=== PATIENT | male | born 1950 | race Caucasian/White ===

== ENCOUNTER 2019-11-20 00:07 | Outpatient (CLI) | payer BC, SELFPAY ==
[2019-11-20 19:45] LABS: SARS-CoV-2 RNA PCR Negative
== END 2019-11-20 00:08 | disposition home or self-care (01) ==
LOC: ANHCOVIDDT 00:07
PROVIDERS: PCP Family Medicine; Visit Provider Internal Medicine Gastroenterology
DX: Z01.812 Encounter for preprocedural laboratory examination (principal); Z11.59 Encounter for screening for other viral diseases
CPT/HCPCS: 87635; C9803; U0003

== ENCOUNTER 2019-11-22 03:46 | Day surgery (SDC) | payer BC, SELFPAY ==
[2019-11-15 12:50] VITALS: BMI 33.5
[2019-11-22 07:50] VITALS: BP 113/65; PULSE 78; RESP 18; TEMP 36.7; O2SAT 96
--- NOTE | 2019-11-22 08:12 | WPDANESEPPF ---
Anes - Initial Pre Proc Eval Procedure: Operation Date: 11/22/19 08:30 Proposed Procedures p Colonoscopy - Allan Mixon DO Date/Time: 11/22/19 08:12 Surgeon: Allan Mixon DO Pre Op Diagnosis: fecal abnormalities Patient Data Age: 69 Gender: M Height: 1.8 m Weight: 105.9 kg Last Vital Signs Temp 36.7 C 11/22/19 07:50 Pulse 78 11/22/19 07:50 Resp 18 11/22/19 07:50 BP 113/65 11/22/19 07:50 Pulse Ox 96 11/22/19 07:50 Allergies Allergy/AdvReac Type Severity Reaction Status Date / Time No Known Allergies Allergy Verified 11/22/19 07:43 Home Medications Medication Instructions Recorded Confirmed Type amlodipine 10 mg tablet 10 mg PO DAILY 10/17/19 11/22/19 History cholecalciferol (vitamin D3) 25 25 mcg PO DAILY #1 cap 10/17/19 11/22/19 Rx mcg (1,000 unit) capsule clopidogrel 75 mg tablet 75 mg PO DAILY 10/17/19 11/22/19 History doxycycline hyclate 100 mg capsule 100 mg PO DAILY 10/17/19 11/22/19 History duloxetine 60 mg capsule,delayed 60 mg PO DAILY 10/17/19 11/22/19 History release furosemide 40 mg tablet 40 mg PO QAM 10/17/19 11/15/19 History gabapentin 300 mg capsule 600 mg PO BID cap 10/17/19 11/22/19 History hydralazine 100 mg tablet 100 mg PO TID tablet 10/17/19 11/22/19 History metoprolol succinate 100 mg 100 mg PO BID 10/17/19 11/22/19 History tablet,extended release 24 hr potassium chloride 10 mEq 20 meq PO DAILY 10/17/19 11/22/19 History capsule,extended release pramipexole 1 mg tablet 1 mg PO .QHS tablet 10/17/19 11/22/19 History aspirin 81 mg PO DAILY 11/15/19 11/22/19 History cyclobenzaprine 5 mg PO BID 11/15/19 11/22/19 History dulaglutide [Trulicity] 0.75 mg SUBCUT WEEKLY 11/15/19 11/22/19 History insulin glargine [Lantus U-100 70 unit SUBCUT QPM 11/15/19 11/22/19 History Insulin] losartan 100 mg PO DAILY 11/15/19 11/22/19 History rosuvastatin 40 mg PO DAILY 11/15/19 11/22/19 History Patient hx anesthesia problems: none Family hx anesthesia problems: none [facility] Past Medical History Medical History (Updated 11/22/19 @ 08:15 by Leo Reilly MD) Arthritis of left subtalar joint Carotid stenosis Diabetes Displaced other fracture of tuberosity of left calcaneus, subsequent encounter for fracture with routine healing (03/03/19) Essential (primary) hypertension HLD (hyperlipidemia) HTN (hypertension) Low kidney function Mixed hyperlipidemia YOLIS on CPAP PVD (peripheral vascular disease) Type 2 diabetes mellitus with hyperglycemia Surgical History Surgical History (Updated 11/22/19 @ 08:15 by Leo Reilly MD) H/O carotid endarterectomy H/O heart artery stent H/O shoulder surgery History of coronary artery stent placement Social History Social History Smoking status: Former smoker Tobacco type: cigarettes Second hand tobacco smoke exposure: No Smoking end date: 05/23/15 Alcohol intake: current Substance use: unknown Gender identity (if verbalized by the patient): Male Spiritual care concerns: No Anes - Eval Final PreProcedure Day of Procedure 11/22/19 08:12 Patient weight: obese Heart: regular rate and rhythm Lungs: clear to auscultation and normal air movement Airway: Mallampati scale class II Neurological: alert and oriented Last oral intake: >/= 8 hours ASA classification: IV Emergent: no Anesthetic plan: proceed Anesthesia type and monitoring: general GIVS Informed Consent: The patient's anesthetic plan and its attendant risks and benefits were discussed with the patient/family/POA. Questions were solicited and answers provided to the satisfaction of the patient/family/POA.
[2019-11-22] MEDS: LACTATED RINGERS 1,000 ML 150 ML IV CONT (08:25)
--- NOTE | 2019-11-22 08:39 | PM.IMHP ---
H&P: HPI History of Present Illness Chief complaint: fecal abnormalities Narrative: Reason for visit colonoscopy. This very pleasant gentleman seen in consultation at the request of the primary. Impression: Screening and surveillance colonoscopy. Patient's history adenomatous colon polyps. Was found to have occult blood in stool. The patient is here for colonoscopy. Per past medical history. Recommendation: Colonoscopy. History: This very pleasant gentleman is history adenomatous colon polyps. He is here for screening and surveillance. He was found to have occult blood in stool. review systems negative. Physical examination: General: very pleasant patient in no acute distress. HEENT: Head was normocephalic sclerae is clear mouth without masses neck was supple. Heart: Rate rhythm regular without S3 or S4. Lungs: CTA. Abdomen: Soft with no guarding or rigidity. Bowel sounds were active. Neurologic: Cranial nerves 2 through 12 intact. No focal defects. No clonus. Musculoskeletal system: Revealed no joint tenderness or swelling no muscle atrophy.Significant deformity of the right knee from multiple previous surgeries. Extremities: Reveal no significant edema. Skin: Warm and dry with normal turgor. Mental status: intact. Patient is alert and oriented. Review of Systems Review of Systems: All systems reviewed & are unremarkable except as noted in HPI and below PMFSH Past Medical History Medical History (Updated 11/22/19 @ 08:41 by Allan Mixon DO) Adenomatous colon polyp Arthritis of left subtalar joint CAD (coronary artery disease) Stent x 5 Carotid stenosis Diabetes HLD (hyperlipidemia) HTN (hypertension) YOLIS on CPAP PVD (peripheral vascular disease) Surgical History Surgical History (Updated 11/22/19 @ 08:42 by Allan Mixon DO) H/O carotid endarterectomy H/O colonoscopy H/O knee surgery R. Knee H/O shoulder surgery History of coronary artery stent placement Social History Social History Smoking status: Former smoker Tobacco type: cigarettes Second hand tobacco smoke exposure: No Smoking end date: 05/23/15 Alcohol intake: current Substance use: unknown Gender identity (if verbalized by the patient): Male Spiritual care concerns: No Meds Home Medications and Allergies Home Medications Medication Instructions Recorded Confirmed Type amlodipine 10 mg tablet 10 mg PO DAILY 10/17/19 11/22/19 History cholecalciferol (vitamin D3) 25 25 mcg PO DAILY #1 cap 10/17/19 11/22/19 Rx mcg (1,000 unit) capsule clopidogrel 75 mg tablet 75 mg PO DAILY 10/17/19 11/22/19 History doxycycline hyclate 100 mg capsule 100 mg PO DAILY 10/17/19 11/22/19 History duloxetine 60 mg capsule,delayed 60 mg PO DAILY 10/17/19 11/22/19 History release furosemide 40 mg tablet 40 mg PO QAM 10/17/19 11/15/19 History gabapentin 300 mg capsule 600 mg PO BID cap 10/17/19 11/22/19 History hydralazine 100 mg tablet 100 mg PO TID tablet 10/17/19 11/22/19 History metoprolol succinate 100 mg 100 mg PO BID 10/17/19 11/22/19 History tablet,extended release 24 hr potassium chloride 10 mEq 20 meq PO DAILY 10/17/19 11/22/19 History capsule,extended release pramipexole 1 mg tablet 1 mg PO .QHS tablet 10/17/19 11/22/19 History aspirin 81 mg PO DAILY 11/15/19 11/22/19 History cyclobenzaprine 5 mg PO BID 11/15/19 11/22/19 History dulaglutide [Trulicity] 0.75 mg SUBCUT WEEKLY 11/15/19 11/22/19 History insulin glargine [Lantus U-100 70 unit SUBCUT QPM 11/15/19 11/22/19 History Insulin] losartan 100 mg PO DAILY 11/15/19 11/22/19 History rosuvastatin 40 mg PO DAILY 11/15/19 11/22/19 History Allergies Allergy/AdvReac Type Severity Reaction Status Date / Time No Known Allergies Allergy Verified 11/22/19 07:43 Vital Signs Vital Signs - 24 hr 11/22/19 07:50 Temperature 36.7 C Pulse Rate 78 Respiratory Rate 1
[2019-11-22 09:31] VITALS: BP 95/48; PULSE 73; RESP 18; O2SAT 98
[2019-11-22 09:41] VITALS: BP 119/64; PULSE 72; RESP 18; O2SAT 98
[2019-11-22 09:51] VITALS: BP 130/65; PULSE 72; RESP 18; O2SAT 98
--- NOTE | 2019-11-22 13:02 | SUR.PHASEII ---
late entry 0937 accucheck done 73, pt awake drinking 2 apple juices. 0956 accucheck rechecked and now 67, pt voiced concerns about blood sugar cont. to drop and getting to low, anesthesia aware of accucheck states to give him more juice and candy bar. 1000 pt drinking orange juice and eating donut. denies any discomfort. 1018 accucheck rechecked and now 98, spouse callled with update and instructions given, encouraged to make sure pt eats some protein once he gets home.
[2019-11-22 13:30] LABS: Glucose Point of Care 73 (65-105)
[2019-11-22 13:30] LABS: Glucose Point of Care 67 (65-105)
[2019-11-22 13:30] LABS: Glucose Point of Care 87 (65-105)
[2019-11-22 13:30] LABS: Glucose Point of Care 98 (65-105)
== END 2019-11-22 10:35 | disposition home or self-care (01) ==
PROVIDERS: PCP Family Medicine; Visit Provider Internal Medicine Gastroenterology
PROC: 0DJD8ZZ Inspection of Lower Intestinal Tract, Via Natural or Artificial Opening Endoscopic (ICD-10-PCS; CPT 45378; principal; 2019-11-22 08:30)
DX: Z12.11 Encounter for screening for malignant neoplasm of colon (principal); D12.3 Benign neoplasm of transverse colon; K63.5 Polyp of colon; K64.8 Other hemorrhoids; I10 Essential (primary) hypertension; E78.2 Mixed hyperlipidemia; G47.33 Obstructive sleep apnea (adult) (pediatric); I25.10 Atherosclerotic heart disease of native coronary artery without angina pectoris; E11.51 Type 2 diabetes mellitus with diabetic peripheral angiopathy without gangrene; Z79.4 Long term (current) use of insulin; Z79.82 Long term (current) use of aspirin; Z79.02 Long term (current) use of antithrombotics/antiplatelets; Z95.5 Presence of coronary angioplasty implant and graft; Z87.891 Personal history of nicotine dependence; E66.9 Obesity, unspecified; Z68.32 Body mass index [BMI] 32.0-32.9, adult
CPT/HCPCS: 45385; 45380; 88305; J2704; J7120

== ENCOUNTER 2020-07-12 19:58 | Inpatient (IN) | payer MEDICARE, BC, SELFPAY ==
--- NOTE | ~2020-07-12 | US_ITS ---
EXAMINATION: US renal BI EXAM DATE: 07/13/2020 08:57 INDICATION: Acute kidney insufficiency. TECHNIQUE: Multiple grayscale and Doppler images of the kidneys were obtained (by a technologist who performed the scan) and subsequently reviewed. Correlation is made to CT 07/12/2020. FINDINGS: Right kidney: Right kidney measures 10.0 x 4.8 x 6.5 cm. There is no hydronephrosis. There is large a vascular mass like region lateral to it measuring 15 x 5 x 9 cm, the perinephric hematoma identified on yesterday's CT. Left kidney: There is normal contour and echogenicity. It measures 10.3 x 5.0 x 5.5 centimeters. Th ere are no focal renal lesions identified. There is no hydronephrosis. Bladder unremarkable. IMPRESSION: 1. Large right perinephric hematoma. 2. No hydronephrosis. Reviewed, dictated and finalized at location A. COVERER
--- NOTE | ~2020-07-12 | CT_ITS ---
EXAMINATION: CT abdomen pelvis wo con DATE: 07/12/2020 22:03 INDICATION: Recent renal stents, elevated creatinine TECHNIQUE: Computed tomography (CT) of the abdomen and pelvis was performed without intravenous contr ast. The dose-length product (DLP) was 1328.07 mGy-cm. Automated exposure control and iterative recon struction technique were employed. COMPARISON: None FINDINGS: There are small pleural effusions, right greater than left. Airspace opacities are present in the right lower lobe. There is mild atelectasis in the left lower lobe. Cardiomegaly is noted. The re appears to be smooth interlobular septal thickening in the visualized lung bases although evaluati on is limited by respiratory motion. There is an approximately 15.7 x 11.9 x 9.4 cm high attenuation fluid collection adjacent to the right kidney which exerts mass effect on the right kidney and extend s into the retroperitoneum. There is a 2 mm stone of the left kidney. There is high attenuation mater ial in the urinary bladder. The liver, spleen, pancreas, and the left adrenal gland are normal. The r ight adrenal gland is obscured by fat stranding and hematoma. No pathologically enlarged abdominal or pelvic lymph nodes are identified. There is no free intraperitoneal gas or evidence of bowel obstruc tion. There is calcified atherosclerosis of the aorta and many of the other arteries. There is antegr emily intramedullary haider and interlocking intratrochanteric screw fixation of the right femur. Fat-cont aining inguinal hernias are noted. There is severe lumbar and thoracolumbar spondylosis. IMPRESSION: 1. Large right perinephric hematoma with extension into the retroperitoneum. High attenuation materia l in the urinary bladder could reflect hematoma and involvement of the renal collecting system. Urolo gic evaluation is recommended. 2. Small pleural effusions, right greater than left, with atelectasis versus pneumonia of the right l ower lobe Reviewed, dictated and finalized at location A. IC ADDRESS SYSTEM OPERATOR IMPRESSION: 1. Large right perinephric hematoma with extension into the retroperitoneum. Hi gh attenuation material in the urinary bladder could reflect hematoma and invol vement of the renal collecting system. Urologic evaluation is recommended. 2. Small pleural effusions, right greater than left, with atelectasis versus pn eumonia of the right lower lobe
--- NOTE | ~2020-07-12 | XR_ITS ---
EXAMINATION: XR chest 1V portable EXAM DATE: 07/12/2020 20:17 INDICATION: STEMI. Weakness, lethargic. Hypertension. TECHNIQUE: Portable AP frontal chest x-ray was obtained. Comparison is made to prior examination from 08/25/2016. FINDINGS: Bilateral ill-defined edema or pneumonia. No pneumothorax or pleural effusion. Cardiomedias tinal silhouette is normal. There is aortic arteriosclerosis. Degenerative IMPRESSION: Moderate amount of bilateral ill-defined edema or pneumonia. Reviewed, dictated and finalized at location A. NOSE AND THROAT SPECIALIST
--- NOTE | ~2020-07-12 | CT_ITS ---
EXAMINATION: CT brain wo con EXAM DATE: 07/13/2020 10:29 INDICATION: Altered mental status. TECHNIQUE: Spiral CT of the head was performed without contrast. Axial, coronal and sagittal images were reviewed. The dose-length product (DLP) for this examination was 605.33 mGy-cm. The exposure w as tailored according to patient size, and iterative reconstruction (ASIR) was used as additional dos e reduction technique. There is no prior study for comparison. FINDINGS: Multiple bilateral basal ganglia, right thalamic old lacunar infarctions. There is no acute intraparenchymal hemorrhage. No evidence of intraparenchymal brain mass lesion. No evidence of acu te infarction. Please note that initial head CT has limited sensitivity for small or acute infarctio ns. There is mild periventricular and subcortical hypodensity, nonspecific but probably related to sm all vessel ischemic disease. There is mild prominence of the sulci and ventricles related to cerebr al atrophy. There is intracranial carotid arteriosclerosis. There are no extra-axial collections. There is no mass effect or midline shift. Patient has had bilateral ocular lens surgery. Soft tiss ue is unremarkable. The visualized sinuses and mastoid air cells are well aerated. IMPRESSION: 1. No acute intracranial findings. 2. Chronic age related findings. Reviewed, dictated and finalized at location A. ER JOINER
[2020-07-12 19:53] VITALS: BP 137/61; PULSE 84; RESP 24; TEMP 36.2; O2SAT 97
[2020-07-12 20:02] VITALS: PULSE 84
--- NOTE | 2020-07-12 20:02 | ECG_ITS ---
Measurements Intervals [place] Rate: 74 P: 85 PA: 224 QRS: -13 QRSD: 126 T: 142 QT: 385 QTc: 427 Interpretive Statements SINUS RHYTHM WITH FIRST DEGREE AV BLOCK INTRAVENTRICULAR CONDUCTION DELAY LEFT VENTRICULAR HYPERTROPHY AND ST-T CHANGE INFERIOR INFARCT, AGE INDETERMINATE ST-T WAVE ABNORMALITY IN HIGH LATERAL LEADS- CONSIDER ISCHEMIA ABNORMAL ECG Electronically Signed On 07-13-2020 7:56:58 X RAY DEVELOPER by Edwin Nogueira D.O.
--- NOTE | 2020-07-12 20:11 | PC.NURSE ---
stemi cancelled per dr randhawa at 2003
--- NOTE | 2020-07-12 20:42 | ED.GENADULT ---
HPI - General Adult General Chief complaint: Weakness Stated complaint: CP Time Seen by Provider: 07/12/20 20:08 History of Present Illness HPI narrative: Patient is a 70-year-old gentleman who presents the emergency department with chief complaint of generalized weakness. Patient recently had what he describes as renal stents done in [place] and stated that he has been weak ever since. Patient has had no chest pain no shortness of breath stated that he been sleeping all day and his called EMS. EMS initially thought there were ST elevations present on the EKG but in subsequent review there is no more than half a millimeter of ST elevations and there are Q waves this is similar to previous EKGs from 2017. Related Data Home Medications Medication Instructions Recorded Confirmed clopidogrel 75 mg tablet 75 mg PO DAILY 10/17/19 11/22/19 doxycycline hyclate 100 mg capsule 100 mg PO DAILY 10/17/19 11/22/19 duloxetine 60 mg capsule,delayed 60 mg PO DAILY 10/17/19 11/22/19 release furosemide 40 mg tablet 40 mg PO QAM 10/17/19 11/15/19 gabapentin 300 mg capsule 600 mg PO BID cap 10/17/19 11/22/19 hydralazine 100 mg tablet 100 mg PO TID tablet 10/17/19 11/22/19 metoprolol succinate 100 mg 100 mg PO BID 10/17/19 11/22/19 tablet,extended release 24 hr potassium chloride 10 mEq 20 meq PO DAILY 10/17/19 11/22/19 capsule,extended release pramipexole 1 mg tablet 1 mg PO .QHS tablet 10/17/19 11/22/19 aspirin 81 mg PO DAILY 11/15/19 11/22/19 cyclobenzaprine 5 mg PO BID 11/15/19 11/22/19 insulin glargine [Lantus U-100 60 unit SUBCUT QPM 11/15/19 11/22/19 Insulin] losartan 100 mg PO DAILY 11/15/19 11/22/19 rosuvastatin 40 mg PO DAILY 11/15/19 11/22/19 famotidine 20 mg PO BID 07/12/20 insulin aspart U-100 [Novolog 5 unit SUBCUT TID 07/12/20 Flexpen U-100 Insulin] semaglutide [Ozempic] 1 mg SUBCUT WEEKLY 07/12/20 Allergies Allergy/AdvReac Type Severity Reaction Status Date / Time No Known Allergies Allergy Verified 11/27/19 09:11 Review of Systems Review of Systems: Narrative: A 10 system review of systems was completed on the patient and is negative except for what is stated in the HPI. Nursing and ancillary documentation was reviewed. [facility] Past Medical History Medical History (Updated 07/12/20 @ 23:05 by Sascha Sethi MD) Adenomatous colon polyp Arthritis of left subtalar joint CAD (coronary artery disease) Stent x 5 Carotid stenosis Diabetes HLD (hyperlipidemia) HTN (hypertension) YOLIS on CPAP PVD (peripheral vascular disease) Surgical History Surgical History H/O carotid endarterectomy H/O colonoscopy H/O knee surgery R. Knee H/O shoulder surgery History of coronary artery stent placement Family History Family History Father Family history of malignant neoplasm Family history of coronary artery disease Hypertension Family history of diabetes mellitus in first degree relative Mother Family history of Alzheimer's disease Other Cancer Diabetes mellitus Family history of arthritis Family history of cardiovascular disease Heart disease Social History Social History Smoking status: Current some day smoker Tobacco type: cigarettes Second hand tobacco smoke exposure: No Smoking end date: 05/23/15 Alcohol intake: current Substance use: unknown Gender identity (if verbalized by the patient): Male Spiritual care concerns: No Exam Narrative: Exam Narrative: GENERAL: Well-appearing, well-nourished, and in no acute distress. HEAD: Normocephalic, atraumatic. EYES: PERRLA and EOMI. ENT: Nares clear, no rhinorrhea or epistaxis. Mucous membranes moist. NECK: Supple. CHEST: Clear to auscultation. No respiratory distress. HEART: Regular rate and rhythm. No murmur hear
[2020-07-12 21:03] LABS: Basophils Absolute Auto 0.1 K/mm3 (0.0-0.1); Basophils Percent Auto 0.5 % (0.2-1.2); Eosinophils Absolute Auto 0.1 K/mm3 (0-0.3); Eosinophils Percent Auto 0.9 % (0-4.4); Hematocrit 23.9 % (42.0-52.0); Hemoglobin 7.3 g/dL (14.0-18.0); Immature Granulocyte Absolute 0.05 K/mm3 (0.00-0.031); Immature Granulocyte Percent A 0.4 % (0-0.5); Lymphocytes Absolute Auto 2.26 K/mm3 (0.9-3.2); Lymphocytes Percent Auto 17.2 % (18.3-44.2); Mean Corpuscular HGB Conc 30.5 g/dl (32-36); Mean Corpuscular Hemoglobin 27.5 pg (26-34); Mean Corpuscular Volume 90.2 fl (80-100); Monocytes Absolute Auto 1.3 K/mm3 (0.1-0.6); Monocytes Percent Auto 9.9 % (2.6-8.5); Neutrophils Absolute Auto 9.4 K/mm3 (1.3-6.7); Neutrophils Percent Auto 71.1 % (45.5-73.1); Platelet Count Result 163 k/mm3 (150-375); Red Blood Count 2.65 M/mm3 (4.6-6.20); Red Cell Distribution Width 16.3 % (11.5-14.5); White Blood Count 13.2 K/mm3 (4.5-10.0)
[2020-07-12 21:07] LABS: INR 1.1; Prothrombin Time 15.2 Seconds (11.1-14.7)
[2020-07-12 21:11] LABS: Alanine Aminotransferase 218 U/L (4-50); Albumin Level 3.3 g/dL (3.5-5.1); Alkaline Phosphatase 111 U/L (38-126); Anion Gap 3 mmol/L (8-16); Aspartate Amino Transferase 167 U/L (17-59); Blood Urea Nitrogen 47 mg/dL (9-20); Calcium 8.8 mg/dL (8.4-10.2); Carbon Dioxide 23 mmol/L (22-30); Chloride 112 mmol/L (98-107); Cholesterol 83 mg/dL (0-200); Estimated CRCL calculation 24 ml/min; Estimated Glomerular Filt Rate 19; Glucose 162 mg/dL (75-110); HDL Direct 25 mg/dL; Potassium 6.2 mmol/L (3.4-5.0); Sodium 138 mmol/L (137-145); Triglycerides 109 mg/dL (<150)
[2020-07-12 21:16] LABS: Lactic Acid Reflex 1.2 mmol/L (0.7-2.1)
[2020-07-12 21:19] LABS: NT Pro B Type Natriuretic Pept 990 PG/ML (5-100)
[2020-07-12 21:19] LABS: LDL Cholesterol Direct 33 mg/dL
[2020-07-12 21:23] LABS: Troponin I 0.047 ng/mL (0.000-0.034)
[2020-07-12 21:29] VITALS: BP 122/69; PULSE 78; RESP 16; O2SAT 97
[2020-07-12] MEDS: DEXTROSE 50% 25 GM/50 ML SYRINGE IV PUSH (21:45)
[2020-07-12] MEDS: SODIUM POLYSTYRENE SULFONONATE 15 GM/60 ML BTL 30 GM PO (21:45)
[2020-07-12] MEDS: INSULIN HUMAN REGULAR (*BKC) 100 UNITS/ML 10 UNITS IV PUSH (21:45)
[2020-07-12] MEDS: CALCIUM GLUCONATE 1,000 MG/10 ML VIAL 1000 MG IV PUSH (21:45)
[2020-07-12 21:53] VITALS: BP 116/55; PULSE 81; RESP 23; O2SAT 98
[2020-07-12 22:25] LABS: Add Urine Microscopic? YES; Appearance Urine Clear (Clear); Bilirubin Urine Negative (Negative); Blood Urine Negative (Negative); Color Urine Yellow (Yellow); Glucose Urine UA 3+ mg/dL (Negative); Ketones Urine Negative (Negative); Leukocyte Esterase Ur Negative LEU/UL (Negative); Nitrate Urine Negative (Negative); Protein Urine 2+ mg/dL (Negative); Specific Grav Ur 1.018 (1.001-1.035); Squamous Epithelial Cell Urine Rare /hpf (Few); WBC Urine 0-3 /hpf
--- NOTE | 2020-07-12 22:51 | ECG_ITS ---
Measurements Intervals [place] Rate: 82 P: OR: 0 QRS: -11 QRSD: 129 T: 145 QT: 364 QTc: 425 Interpretive Statements SINUS OR ECTOPIC ATRIAL RHYTHM LEFT BUNDLE BRANCH BLOCK LEFT VENTRICULAR HYPERTROPHY WITH ST-T CHANGE INFERIOR INFARCT, AGE INDETERMINATE ST-T WAVE ABNORMALITY IN HIGH LATERAL LEADS- CONSIDER ISCHEMIA BASELINE ARTIFACT- I, III, AVR, AVL, V4-V6 ABNORMAL ECG Electronically Signed On 07-14-2020 14:21:02 THREAD ROLLER by Edwin Nogueira D.O.
[2020-07-12] MEDS: SODIUM CHLORIDE 0.9% IV 1,000 ML 999 ML IV CONT (22:56)
[2020-07-12 22:57] VITALS: BP 123/61; PULSE 69; RESP 21; O2SAT 97
[2020-07-12 23:54] LABS: Hematocrit 24.1 % (42.0-52.0); Hemoglobin 7.5 g/dL (14.0-18.0)
[2020-07-13] VITALS (17 sets, daily range): BP systolic 143–179; BP diastolic 54–99; PULSE 76–93; RESP 20–24; TEMP 36.1–37; O2SAT 92–98; BMI 34.1
[2020-07-13 00:33] LABS: Troponin I 0.046 ng/mL (0.000-0.034)
--- NOTE | 2020-07-13 01:08 | PC.NURSE ---
NS saline bolus still infusing on patient transfer to IMU.
[2020-07-13] MEDS: DEXTROSE 50% 25 GM/50 ML SYRINGE (01:46)
[2020-07-13] MEDS: SODIUM CHLORIDE 0.9% IV 1,000 ML 125 ML IV CONT ×3 (02:17→18:48)
[2020-07-13 02:29] LABS: Glucose Point of Care 101 (65-105)
[2020-07-13 02:29] LABS: Glucose Point of Care 53 (65-105)
--- NOTE | 2020-07-13 02:34 | PC.NURSE ---
This patient, Kashmir Wolfe, was admitted to IMU Room 205-01. Patient/family oriented to hospital policies and general routines including ID bracelet, bed and alarms, visiting hours, pain management, procedures, bathroom and other care routines, personal items, smoking policy, room service/diet, and visiting hours. Patient are encouraged to report perceived risks to care and to ask questions if they do not understand what they are told or what they should do.
[2020-07-13 02:40] LABS: Basophils Percent Auto 0.4 % (0.2-1.2); Eosinophils Absolute Auto 0.1 K/mm3 (0-0.3); Eosinophils Percent Auto 1.3 % (0-4.4); Hematocrit 25.1 % (42.0-52.0); Hemoglobin 7.7 g/dL (14.0-18.0); Immature Granulocyte Absolute 0.03 K/mm3 (0.00-0.031); Immature Granulocyte Percent A 0.3 % (0-0.5); Lymphocytes Absolute Auto 2.47 K/mm3 (0.9-3.2); Lymphocytes Percent Auto 23.6 % (18.3-44.2); Mean Corpuscular HGB Conc 30.7 g/dl (32-36); Mean Corpuscular Hemoglobin 27.7 pg (26-34); Mean Corpuscular Volume 90.3 fl (80-100); Mean Platelet Volume 9.6 fl (7.4-10.4); Monocytes Absolute Auto 1.2 K/mm3 (0.1-0.6); Monocytes Percent Auto 11.5 % (2.6-8.5); Neutrophils Absolute Auto 6.6 K/mm3 (1.3-6.7); Neutrophils Percent Auto 62.9 % (45.5-73.1); Platelet Count Result 152 k/mm3 (150-375); Red Blood Count 2.78 M/mm3 (4.6-6.20); Red Cell Distribution Width 16.2 % (11.5-14.5); White Blood Count 10.5 K/mm3 (4.5-10.0)
[2020-07-13 02:52] LABS: Alanine Aminotransferase 205 U/L (4-50); Albumin Level 3.3 g/dL (3.5-5.1); Alkaline Phosphatase 116 U/L (38-126); Anion Gap 6 mmol/L (8-16); Aspartate Amino Transferase 135 U/L (17-59); Blood Urea Nitrogen 43 mg/dL (9-20); Calcium 9.2 mg/dL (8.4-10.2); Carbon Dioxide 22 mmol/L (22-30); Chloride 115 mmol/L (98-107); Estimated CRCL calculation 27 ml/min; Estimated Glomerular Filt Rate 21; Glucose 99 mg/dL (75-110); Potassium 4.5 mmol/L (3.4-5.0); Sodium 143 mmol/L (137-145)
[2020-07-13 03:06] LABS: Troponin I 0.044 ng/mL (0.000-0.034)
--- NOTE | 2020-07-13 03:15 | PM.IMHP ---
H&P: HPI History of Present Illness Date/Time: 07/13/20 04:00 Chief Complaint: Weakness Narrative: Kashmir Wolfe is a 70 year old male with a past medical history of peripheral peripheral artery disease, hypertension, chronic kidney disease stage 3, diabetes mellitus, and developing dementia who presented to the ER via EMS due to weakness and confusion. Source of information is past medical records, ER report and nursing report. The patient is alert and oriented to person place and time but is not oriented to situation. When asked why he came to the hospital patient keeps referring to the knee surgery that occurred several years ago. The patient's reported nursing staff that the patient has been increasingly more weak and has been confused. Patient had a renal angiogram as an outpatient facility last week to evaluate prior renal stents. He had evidently been complaining of right flank pain ever since his angiogram. He did not have any new stents placed at that time. His did not report and having any fevers or chills. The patient had not been having any chest pain or shortness of breath. In the field EMS thought that the patient had some ST elevations been on review of the EKG by the cardiology service it was felt the patient's ST segments were no more than half a mm and he had Q-waves similar to prior EKGs from 2017. He was not felt that the patient having any cardiac process. Interestingly enough, prior to his operative procedure he had outpatient labs which demonstrated hemoglobin of 14, potassium of 3.9, creatinine of 1.38. Patient does have a history of chronic anemia but again his hemoglobin last month 06/08/2020 was 14. His hemoglobin has ranged ranged from 6.7 to 11.2 in 2017. On presentation to the ER the patient's hemoglobin was 7.7. A CT of the abdomen pelvis was performed which demonstrated hematoma measuring 14.5 x 11.8 x 5.2 cm with extensive stranding in the retroperitoneum extending into the pelvis with a small layering area of hematoma posterior lower pelvis. The patient denied having any hematuria labs did demonstrate acute on chronic renal failure with acute hyperkalemia. Patient's case was discussed with Urology you felt the patient could stay at our facility with treatment of anemia monitoring for further bleeding. The patient's reports that the patient's memory has been getting progressively worse. He has had significant difficulty with short-term memory over the last several months to years. She feels that he is developing dementia. He is not on medications for dementia. Review of Systems Review of Systems: Narrative: Review of systems was extremely limited due to the patient's dementia. [facility] Past Medical History Medical History (Updated 07/13/20 @ 09:31 by Lorrie Nugent DO) Adenomatous colon polyp Arthritis of left subtalar joint CAD (coronary artery disease) Stent x 5 Carotid stenosis CHF (congestive heart failure) Dementia Depression Diabetes HLD (hyperlipidemia) HTN (hypertension) Kidney stones YOLIS on CPAP Peripheral artery disease PVD (peripheral vascular disease) Surgical History Surgical History (Updated 07/13/20 @ 03:22 by Lorrie Nugent DO) H/O carotid endarterectomy 2007 H/O colonoscopy H/O shoulder surgery Left shoulder History of appendectomy History of bilateral cataract extraction History of coronary artery stent placement History of stent insertion of renal artery History of total right knee replacement 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 The patient himself
[2020-07-13 04:14] LABS: Glucose Point of Care 80 (65-105)
[2020-07-13] MEDS: hydrALAZINE HCL 50 MG TABLET 100 MG PO (04:48)
[2020-07-13] MEDS: METOPROLOL SUCCINATE EXT REL 100 MG TABCR PO (04:48)
[2020-07-13 06:08] LABS: Alveolar/Arterial O2 Gradient 38.5 mmHg; Base Excess ABG -5.7 mEq/l (+/-2.0); Carboxyhemoglobin 0.2 % THb (0-2.0); Device ROOM AIR; Fractional Inspired Oxygen 21 %; HCO3 ABG 19.1 mEq/l (22.0-26.0); Methemoglobin ABG 0.4 %THb (0-1.5); Modified Allen's Test Pass; Oxygen Saturation ABG 93.6 % (95.0-100.0); PCO2 ABG 34.6 mmHg (35.0-45.0); PO2 ABG 69.8 mmHg (80.0-100.0); PO2 FiO2 Ratio Arterial Blood 3.32 %; Reduced Hemoglobin 9.4 %THb (0-5.0); Site Drawn RIGHT RADIAL; Total Hemoglobin 8.6 g/dL (12.0-18.0)
[2020-07-13 08:14] LABS: Glucose Point of Care 79 (65-105)
[2020-07-13] MEDS: FAMOTIDINE 20 MG TABLET PO (09:49)
[2020-07-13] MEDS: GABAPENTIN 300 MG CAPSULE 600 MG PO ×2 (09:50→16:48)
[2020-07-13] MEDS: DOXYCYCLINE HYCLATE 100 MG TABLET PO (09:50)
[2020-07-13] MEDS: ROSUVASTATIN 10 MG TABLET 40 MG PO (09:50)
[2020-07-13] MEDS: CHOLECALCIFEROL 1,000 UNITS TABLET 1000 UNITS PO (09:51)
[2020-07-13] MEDS: DULoxetine HCL 60 MG CAPSULE.DR PO (09:51)
[2020-07-13 11:24] LABS: Hematocrit 24.3 % (42.0-52.0); Hemoglobin 7.7 g/dL (14.0-18.0)
[2020-07-13 11:35] LABS: Ammonia < 9 umol/L (9-30)
[2020-07-13 11:39] LABS: Hemoglobin A1C 6.6 % (<5.7)
--- NOTE | 2020-07-13 11:56 | WPDURCON ---
Assessment and Plan Assessment and plan (1) Kidney hematoma: Qualifiers: Encounter type: initial encounter Laterality: right Qualified Code(s): S37.011A - Minor contusion of right kidney, initial encounter Code(s): S37.019A - Minor contusion of unspecified kidney, initial encounter Status: Acute Assessment and Plan: Hold anticoagulants. Bed rest and serial hemoglobin and hematocrits. If has dropping blood counts are becomes unstable would need angiogram. (2) Acute kidney injury superimposed on chronic kidney disease: Code(s): N17.9 - Acute kidney failure, unspecified; N18.9 - Chronic kidney disease, unspecified Status: Acute Urology Consult Note HPI Date Seen: 07/13/20 Requesting Physician: Lorrie Nugent DO Primary Care Provider: Marcello Jung MD Consult Narrative Narrative: Kashmir Wolfe is a 70 year old male who is currently a somewhat poor historian. A lot of his history is taken from the chart. He apparently had an angiogram in outside facility last week to evaluate for renal artery stenosis. No stents were placed. He was brought to the emergency room last night for weakness and changes in mental status. He was found to have a large right-sided renal hematoma. The official report on the CT scan has not been done but I reviewed it myself. He is hemodynamically stable. His blood thinners have been stopped. He is being monitored with serial hemoglobin and hematocrits. He is not currently complain of any flank pain but has had right-sided flank pain intermittently since the angiogram. Review of Systems Review of Systems: All systems reviewed & are unremarkable except as noted in HPI and below [facility] Past Medical History Medical History (Updated 07/13/20 @ 09:31 by Lorrie Nugent DO) Adenomatous colon polyp Arthritis of left subtalar joint CAD (coronary artery disease) Stent x 5 Carotid stenosis CHF (congestive heart failure) Dementia Depression Diabetes HLD (hyperlipidemia) HTN (hypertension) Kidney stones YOLIS on CPAP Peripheral artery disease PVD (peripheral vascular disease) Surgical History Surgical History (Updated 07/13/20 @ 03:22 by Lorrie Nugent DO) H/O carotid endarterectomy 2007 H/O colonoscopy H/O shoulder surgery Left shoulder History of appendectomy History of bilateral cataract extraction History of coronary artery stent placement History of stent insertion of renal artery History of total right knee replacement 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 The patient himself states that he quit smoking 12 weeks ago but again he is a poor historian. The patient has 2 sons and 1 stepdaughter. Primary care physician: Dr. Marcello Jung Code status: Full code Surrogate decision maker: Smoking packs per day: 1 Smoking cigarettes per day: 20.0 Years smoked: 50 Smoking pack-years: 50.00 Smoking status: Current every day smoker Tobacco type: cigarettes Second hand tobacco smoke exposure: No Smoking end date: 05/23/15 Alcohol intake: current Substance use: never Other substance usage details: only occasional alcohol usage Gender identity (if verbalized by the patient): Male Spiritual care concerns: No Meds Home Medications and Allergies Home Medications Medication Instructions Recorded Confirmed Type clopidogrel 75 mg tablet 75 mg PO DAILY 10/17/19 07/13/20 History doxycycline hyclate 100 mg capsule 100 mg PO DAILY 10/17/19 07/13/20 History duloxetine 60 mg capsule,delayed 60 mg P
[2020-07-13 12:06] LABS: Glucose Point of Care 95 (65-105)
[2020-07-13 12:36] LABS: Hepatitis B Surface Antigen Negative (Negative)
[2020-07-13 12:42] LABS: HAV RESULT Negative (Negative); Hepatitis B Core IgM Result Negative (Negative)
[2020-07-13 12:54] LABS: Hepatitis C Virus Antibody Negative (Negative)
--- NOTE | 2020-07-13 13:15 | PM.IMPN ---
Progress Note: A&P Assessment and Plan (1) Acute kidney injury superimposed on chronic kidney disease: Code(s): N17.9 - Acute kidney failure, unspecified; N18.9 - Chronic kidney disease, unspecified Status: Acute Assessment and Plan: Multifactorial as patient is on multiple meds can potentially affect the kidney Also has HTN and T2DM Holding meds Renal US B/L. No role for urine lytes as patient is on Lasix at home Nephrology consult (2) Kidney hematoma: Qualifiers: Encounter type: initial encounter Laterality: right Qualified Code(s): S37.011A - Minor contusion of right kidney, initial encounter Code(s): S37.019A - Minor contusion of unspecified kidney, initial encounter Status: Acute Assessment and Plan: Likely secondary to surgical procedure as patient had stent placed in the ureter and on DAPT Continue to monitor (3) Elevated troponin: Code(s): R77.8 - Other specified abnormalities of plasma proteins Status: Acute Assessment and Plan: Will trend 2DECHO is been ordered (4) Acute hyperkalemia: Code(s): E87.5 - Hyperkalemia Status: Acute Assessment and Plan: Received hyperkalemic treatment as per protocol (5) YOLIS on CPAP: Code(s): G47.33 - Obstructive sleep apnea (adult) (pediatric); Z99.89 - Dependence on other enabling machines and devices Status: Acute Assessment and Plan: Continue CPAP at night time (6) Type 2 diabetes mellitus with hyperglycemia: Qualifiers: Diabetes mellitus longterm insulin use: with longterm use Qualified Code(s): E11.65 - Type 2 diabetes mellitus with hyperglycemia; Z79.4 - terminal operator (current) use of insulin Code(s): E11.65 - Type 2 diabetes mellitus with hyperglycemia Status: Acute Assessment and Plan: Holding all meds as patient had episode of hypoglycemia Continue to monitor ADA/ Heart healthy diet Accu checks ACHS (7) Essential (primary) hypertension: Code(s): I10 - Essential (primary) hypertension Status: Acute Assessment and Plan: On Metoprolol and Hydralazine holding Lasix and Losartan due to VAHID Continue to monitor (8) Coronary artery disease involving [place] artery of transplanted heart: Code(s): I25.811 - Atherosclerosis of [place] coronary artery of transplanted heart without angina pectoris Status: Acute Assessment and Plan: Elevated trop will obtain 2DECHO and trend trop Will consider Cardiology consult (9) Altered mental status: Code(s): R41.82 - Altered mental status, unspecified Status: Acute Assessment and Plan: Unclear etiology CT head taken awaiting report Supportive care. Subjective Date/time seen: 07/13/20 13:15 Patient states that he feels fine Patient can't really give much history as he is delirious. Review of Systems Review of Systems: Narrative: Patient is delirious. ROS unobtainable: Yes unobtainable due to medical condition Exam Narrative: Exam Narrative: Lying in bed. Const: General: comfortable, no acute distress, awake and Physically active Nutritional Appearance: overweight Orientation/consciousness: Other orientation findings (Delirious.) HENMT: Head: normal to inspection and normocephalic General nose exam: Normal external nose present Face and sinus: normal facial exam Eyes: General: appearance normal, both eyes and all related structures Pupils: Equal, round and reactive pupils present EOM: EOMs intact bilaterally Neck: Neck: no lymphadenopathy, supple and no JVD Resp: Effort & Inspection: normal respiratory effort and able to speak in complete sentences Auscultation: clear to auscultation bilaterally Cardio: Jugular venous distension: no JVD Rate: regular rate Rhythm: regular rhythm GI: Inspection: Pannus present GI Palp: Yes Soft to palpation and Yes No hepatosplenomegaly present Skin: Rashes: no rashes Neuro: General: CN's I
[2020-07-13 14:20] LABS: Troponin I 0.031 ng/mL (0.000-0.034)
[2020-07-13 16:43] LABS: Glucose Point of Care 110 (65-105)
--- NOTE | 2020-07-13 17:23 | PC.NURSE ---
Pt stated wish for no cpr or intubation during admission process. Due to slight confusion, verified with Mirna over the phone at 0545. She states that this is correct. Asked to bring copy of advanced directive as well.
[2020-07-13] MEDS: DEXTROSE 50% 25 GM/50 ML SYRINGE IV PUSH (20:34)
[2020-07-13 20:35] LABS: Glucose Point of Care 54 (65-105)
--- NOTE | 2020-07-13 20:35 | PC.NURSE ---
Patient became increasing confused, repeatedly attempting to exit the bed without assistance, oriented to self, and refusing PO medications at approximately 1630. Patient was oriented to self earlier in the shift, but had difficulty recalling year/location - family and physician were aware of patients alerted mental status. Dr. Monroe notified, and order obtained for Haldol 5mg IM q6hr prn, for agitation, and for placement of maradiaga catheter. When this nurse attempted to administer IM medication, the patient was aggressive, and swung at me repeatedly when I attempted to administer medication. I was not successful administering IM medication. Dr Monroe notified, and order obtained for IVPUSH medication for agitation. The above was communicated to oncoming nurse. Spoke with patient , and advised the above.
[2020-07-13] MEDS: LORazepam INJ (*CRX) 2 MG/ML VIAL 1 MG IV PUSH (20:37)
[2020-07-13] MEDS: diphenhydrAMINE HCl INJ 50 MG/ML VIAL 25 MG IV PUSH (20:37)
[2020-07-13 21:23] LABS: Glucose Point of Care 115 (65-105)
[2020-07-14] VITALS (18 sets, daily range): BP systolic 134–192; BP diastolic 55–79; PULSE 76–103; RESP 18–22; TEMP 36.5–37.2; O2SAT 92–100
--- NOTE | 2020-07-14 | ECHO_ITS ---
Patient Info Name: Kashmir Wolfe Age: 70 years : 1950 Gender: Male Ht: 71 in Wt: 253 lbs BSA: 2.44 m2 HR: 95 bpm BP: 164 / 55 mmHg Technical Quality: Good Exam Date: 07/14/2020 9:13 AM Exam Location: [facility] Pulmonary Patient Status: Inpatient Admit Date: 07/12/2020 Staff Ordering Physician: Sarah Monroe MD Final Armature Tester: Harvinder Velazquez RDCS, RT Attending Provider: Lorrie Nugent DO Referring Physician: Fer MILLER; Exam Type: CA echo doppler color flow Study Info Indications I50.9 - Heart failure, unspecified Complete two-dimensional, color flow and Doppler transthoracic echocardiogram is performed with contrast to opacify the left ventricle and to improve the deliniation of the left ventricle endocardial borders. Summary 1. Left ventricular chamber dimension is mildly enlarged. 2. Definity contrast administered improved wall motion interpretation. 3. Left ventricular systolic function is normal, estimated at 55-60%. 4. There is moderately increased left ventricular wall thickness. 5. The left ventricular diastolic function is abnormal. 6. E/e' 13 is mildly elevated. 7. There is mild aortic valve sclerosis. Left Ventricle E/e' 13 is mildly elevated. Definity contrast administered improved wall motion interpretation. Left ventricular chamber dimension is mildly enlarged. Left ventricular systolic function is normal, estimated at 55-60%. There is moderately increased left ventricular wall thickness. The left ventricular diastolic function is abnormal. Right Ventricle Right ventricular chamber dimension is normal. Right ventricular systolic function is normal. Left Atria Left atrial chamber dimension is normal. Right Atria Right atrial chamber dimension is normal. Aortic Valve The aortic valve is probable trileaflet. There is mild aortic valve sclerosis. There is no aortic valve stenosis. There is no aortic valve regurgitation. Pulmonic Valve There is no pulmonic regurgitation. Mitral Valve There is no mitral valve stenosis. There is no mitral valve regurgitation. Tricuspid Valve There is no tricuspid valve regurgitation. Pericardium/Pleural There is no pericardial effusion. Inferior Vena Cava Normal inferior vena cava with >50% collapse upon inspiration consistent with normal right atrial pressure, 5 mmHg. Aorta The aortic root size at the sinus of Valsalva is normal. Left Ventricular Outflow Tract Name Value Normal LVOT 2D LVOT Diameter 2.0 cm LVOT Doppler LVOT Peak Gradient 5 mmHg LVOT Mean Gradient 3 mmHg LVOT VTI 22 cm LVOT VTI/AV VTI Ratio 0.8 LVOT Stroke Volume 72 ml LVOT CO 6.8 l/min LVOT CI 2.8 l/min/m2 Mitral Valve Name Value Normal MV
[2020-07-14] MEDS: SODIUM CHLORIDE 0.9% IV 1,000 ML 125 ML IV CONT (02:26)
--- NOTE | 2020-07-14 07:26 | WPDUROPN2 ---
Progress Note: A&P Assessment and Plan (1) Kidney hematoma: Qualifiers: Encounter type: initial encounter Laterality: right Qualified Code(s): S37.011A - Minor contusion of right kidney, initial encounter Code(s): S37.019A - Minor contusion of unspecified kidney, initial encounter Status: Acute Assessment and Plan: H and H is stable. Hematoma will take some time to reabsorbed on its own. (2) Acute kidney injury superimposed on chronic kidney disease: Code(s): N17.9 - Acute kidney failure, unspecified; N18.9 - Chronic kidney disease, unspecified Status: Acute Assessment and Plan: Per Medicine service Subjective Subjective Date/Time Seen: 07/14/20 07:26 Worsening mental status H and H is stable Urine is clear Exam Const: General: no acute distress HENMT: Head: normal to inspection Resp: Effort & Inspection: normal respiratory effort and able to speak in complete sentences Urinary Catheter: Urinary Catheter: patent and draining and urine clear Skin: General skin exam: normal color Neuro: General: patient oriented x3 Objective Data Vital Signs Vital Signs: Vital Signs - 24 hr 07/13/20 08:00 07/13/20 10:00 07/13/20 12:00 Temperature 98.1 F 98.3 F Pulse Rate 81 83 86 Respiratory Rate 22 H 22 H Blood Pressure 179/54 H 143/83 H Pulse Oximetry 93 98 07/13/20 14:00 07/13/20 16:00 07/13/20 18:00 Temperature 98.6 F Pulse Rate 82 84 84 Respiratory Rate 20 Blood Pressure 146/56 H Pulse Oximetry 93 07/13/20 20:00 07/13/20 20:16 07/13/20 22:00 Temperature 97.0 F L Pulse Rate 89 89 Respiratory Rate 20 Blood Pressure 143/61 H Pulse Oximetry 94 95 07/13/20 23:40 07/13/20 23:54 07/14/20 02:00 Temperature 97.0 F L Pulse Rate 91 90 92 Respiratory Rate 20 20 Blood Pressure 149/99 H Pulse Oximetry 92 92 07/14/20 03:28 07/14/20 04:00 07/14/20 06:00 Temperature 97.9 F Pulse Rate 94 90 90 Respiratory Rate 20 18 Blood Pressure 164/55 H Pulse Oximetry 92 97 Intake/Output Intake/Output: Intake & Output 07/11/20 07/12/20 07/13/20 07/14/20 23:59 23:59 23:59 23:59 Intake Total 3100 1000 Output Total 602 750 Balance 2498 250 Meds/Results Medications: Active Medications Generic Name Dose Route Start Last Admin Trade Name Freq PRN Reason Stop Dose Admin Cyclobenzaprine HCl 5 mg 07/13/20 03:26 Cyclobenzaprine Hcl 5 Mg Tablet PO BID PRN Muscle spasm Dextrose 12.5 gm 07/13/20 03:28 07/13/20 20:34 Dextrose 50% 25 Gm/50 Ml Syringe IV PUSH 12.5 gm PRN PRN Administration Hypoglycemia Protocol Doxycycline Hyclate 100 mg 07/13/20 09:00 07/13/20 09:50 Doxycycline Hyclate 100 Mg Tablet PO 08/12/20 09:01 100 mg DAILY DINORA Administration Famotidine 20 mg 07/13/20 09:00 07/13/20 16:32 Famotidine 20 Mg Tablet PO Not Given BID DINORA Gabapentin 600 mg 07/13/20 09:00 07/13/20 16:48 Gabapentin 300 Mg Capsule PO 600 mg BID DINORA Administration Glucagon 1 mg 07/13/20 03:28 Glucagon For Inj 1 Mg Vial IM PRN PRN Hypoglycemia Protocol Glucose 15 gm 07/13/20 03:28 Glucose Oral Gel 15 Gm Of Glucse In 37.5 Gm Tube PO PRN PRN Hypoglycemia Protocol Hydralazine HCl 100 mg 07/13/20 04:15 07/13/20 16:31 Hydralazine Hcl 50 Mg Tablet PO Not Given TIDWM DINORA Sodium Chloride 1,000 mls @ 125 mls/hr 07/12/20 22:55 07/14/20 02:26 Normal Saline Iv IV CONT 125 mls/hr .Q8H DINORA Administration Dextrose 1,000 mls @ 100 mls/hr 07/13/20 03:28 Dextrose 5% 1,000 Ml IVPB PRN PRN Hypoglycemia Protocol Insulin Aspart 5 units 07/13/20 08:00 07/13/20 16:22 Insulin Aspart (*Bkc) 100 Units/Ml SUB-Q 08/12/20 08:01 Not Given TIDWM DINORA Insulin Glargine 50 units 07/13/20 21:00 07/13/20 20:38 Insulin Glargine (*Bkc) 100 Units/Ml SUB-Q Not Given Q12HR DINORA Metoprolol Succin
[2020-07-14] MEDS: DEXTROSE 50% 25 GM/50 ML SYRINGE IV PUSH ×2 (08:13→08:24)
[2020-07-14 08:18] LABS: Glucose Point of Care 44 (65-105)
[2020-07-14 08:21] LABS: Albumin Level 3.2 g/dL (3.5-5.1); Anion Gap 6 mmol/L (8-16); Blood Urea Nitrogen 29 mg/dL (9-20); Calcium 8.3 mg/dL (8.4-10.2); Carbon Dioxide 21 mmol/L (22-30); Chloride 116 mmol/L (98-107); Estimated CRCL calculation 40 ml/min; Estimated Glomerular Filt Rate 33; Glucose 44 mg/dL (75-110); Magnesium 1.9 mg/dL (1.6-2.3); Phosphorus 4.3 mg/dL (2.5-4.5); Potassium 3.6 mmol/L (3.4-5.0); Sodium 143 mmol/L (137-145)
[2020-07-14 08:23] LABS: Ammonia < 9 umol/L (9-30)
[2020-07-14] MEDS: DEXTROSE 5% 1,000 ML 1,000 ML 75 ML IV CONT ×2 (08:28→20:25)
[2020-07-14 08:32] LABS: Glucose Point of Care 140 (65-105)
[2020-07-14 08:38] LABS: Alveolar/Arterial O2 Gradient 48.9 mmHg; Base Excess ABG -3.9 mEq/l (+/-2.0); Fractional Inspired Oxygen 21 %; Oxygen Saturation ABG 88.6 % (95.0-100.0); Oxyhemoglobin 85.3 % THb (90.0-100.0); PCO2 ABG 37.3 mmHg (35.0-45.0); PO2 ABG 56.2 mmHg (80.0-100.0); PO2 FiO2 Ratio Arterial Blood 2.68 %; pH ABG 7.368 (7.350-7.450)
[2020-07-14 08:42] LABS: Modified Allen's Test Pass; Site Drawn RIGHT RADIAL; Total Hemoglobin 7.4 g/dL (12.0-18.0)
[2020-07-14 08:43] LABS: Device ROOM AIR
[2020-07-14] MEDS: PERFLUTREN LIPID MICROSPHERES 1.5 ML VIAL DILUTED TO 10 ML TOTAL VOLUME IV PUSH (09:37)
[2020-07-14] MEDS: hydrALAZINE HCL 50 MG TABLET 100 MG PO ×3 (09:37→16:45)
[2020-07-14] MEDS: METOPROLOL SUCCINATE EXT REL 100 MG TABCR PO ×2 (09:37→16:45)
[2020-07-14] MEDS: GABAPENTIN 300 MG CAPSULE 600 MG PO ×2 (09:37→16:45)
[2020-07-14] MEDS: ROSUVASTATIN 10 MG TABLET 40 MG PO (09:37)
[2020-07-14] MEDS: DOXYCYCLINE HYCLATE 100 MG TABLET PO (09:37)
[2020-07-14] MEDS: CHOLECALCIFEROL 1,000 UNITS TABLET 1000 UNITS PO (09:38)
[2020-07-14] MEDS: FAMOTIDINE 20 MG TABLET PO ×2 (09:38→16:45)
[2020-07-14 12:12] LABS: Glucose Point of Care 35 (65-105)
[2020-07-14 12:12] LABS: Glucose Point of Care 112 (65-105)
[2020-07-14 12:12] LABS: Glucose Point of Care 134 (65-105)
--- NOTE | 2020-07-14 14:53 | PM.CNNEP ---
Assessment and Plan Assessment and plan (1) Acute kidney injury: Code(s): N17.9 - Acute kidney failure, unspecified Status: Acute Assessment and Plan: suspect some pre-renal factors given improvement with IVFs use of losartan and diuretics RADIOLOGY TRANSCRIPTIONIST may have played a role use of contrast for imaging of renal arteries RADIOLOGY TRANSCRIPTIONIST may have also been a contributing factor (but should have worn off by now) follow trend of labs and UOP (2) Chronic kidney disease, stage 3: Code(s): N18.30 - Chronic kidney disease, stage 3 unspecified Status: Acute Assessment and Plan: baseline creatinine runs ~ 1.4 - 1.7mg/dl hence he fluctuates between stage 3a and 3b presumably due to his diabetes, hypertension, and vascular disease (3) Hyperkalemia: Code(s): E87.5 - Hyperkalemia Status: Acute Assessment and Plan: due to VAHID, ARB, and supplemental potassium resolved follow repeat levels (4) Altered mental status: Code(s): R41.82 - Altered mental status, unspecified Status: Acute Assessment and Plan: etiology? work-up under way (5) Hypertension: Code(s): I10 - Essential (primary) hypertension Status: Acute Assessment and Plan: reasonable control at this time follow hemodynamics (6) Kidney hematoma: Qualifiers: Encounter type: initial encounter Laterality: right Qualified Code(s): S37.011A - Minor contusion of right kidney, initial encounter Code(s): S37.019A - Minor contusion of unspecified kidney, initial encounter Status: Acute Assessment and Plan: as noted by imaging Urology recommendations noted Will continue to follow. History of Present Illness Reason for Consult Consult date: 07/14/20 Reason for consult: acute renal failure (on chronic kidney disease) Chief Complaint Chief complaint: right renal hematoma, acute kidney injury History of Present Illness Narrative: Most of the information I have obtained is from review of the electronic medical record as the patient is unable to provide me with much history given his confusion. The patient is a 70-year-old male with an 8 extensive past medical history as outlined below who presented to [facility] Emergency room via EMS due to weakness and acute confusion. According to his nursing facility, the patient is usually alert and oriented to person place and time at baseline. Apparently, the nursing staff noted that he has been getting increasingly more weak in association with confusion for the last few days. of note is the fact that he had a recent renal angiogram as an outpatient to presumably evaluate for renal artery stenosis but I am not entirely clear on the specifics. He apparently did not have any stents placed and no specific intervention was done with this procedure. However, following the procedure, he has been complaining of right flank pain. He had no other specific symptoms with regard to chest pain, shortness of breath, fevers, chills, nausea, or vomiting. In any case, due to the confusion and weakness, EMS was called and subsequently he was transferred to the ER for further evaluation Workup and evaluation in the emergency room demonstrated the patient to be hemodynamically stable but clearly confused and not at his normal baseline mental status per report. routine blood tests demonstrated a hemoglobin of 7.7 and an elevated BUN and creatinine far above his baseline. Given his complaints of right flank pain, a CT scan of the abdomen pelvis was done which demonstrated a large right hematoma with extension into the retroperitoneal area. Given these findings as well as the constellation of symptoms that led to his presentation to the ER in the 1st place, he was admitted the hospital for further evaluation and therapy. Renal consultation was requested due to his acute kidney injury/acute renal failure on top of his baseline ki
--- NOTE | 2020-07-14 17:00 | PM.IMPN ---
Progress Note: A&P Assessment and Plan (1) Altered mental status: Code(s): R41.82 - Altered mental status, unspecified Status: Acute Assessment and Plan: Acute delirium likely secondary to drugs as i presenetd after patient had angiogram done at outside facility Ammonia level wnl ABG with compensated hypoxic respiratpry failure Holding psychotropics CT reviewed Supportive care Sitter at bedside was in to visit had conversation with her Sepsis work up in process as well (2) Acute kidney injury superimposed on chronic kidney disease: Code(s): N17.9 - Acute kidney failure, unspecified; N18.9 - Chronic kidney disease, unspecified Status: Acute Assessment and Plan: S/p Allison placement Daily BMP Avoid nephrotoxins IV hydration. (3) Kidney hematoma: Qualifiers: Encounter type: initial encounter Laterality: right Qualified Code(s): S37.011A - Minor contusion of right kidney, initial encounter Code(s): S37.019A - Minor contusion of unspecified kidney, initial encounter Status: Acute Assessment and Plan: Stable Appreciate Urology note (4) YOLIS on CPAP: Code(s): G47.33 - Obstructive sleep apnea (adult) (pediatric); Z99.89 - Dependence on other enabling machines and devices Status: Acute Assessment and Plan: Continue CPAP at night time. (5) Acute hyperkalemia: Code(s): E87.5 - Hyperkalemia Status: Acute Assessment and Plan: Received hyperkalemic protocol Repeat wnl (6) Type 2 diabetes mellitus with hyperglycemia: Qualifiers: Diabetes mellitus long term care pharmacist insulin use: with intermediate use Qualified Code(s): E11.65 - Type 2 diabetes mellitus with hyperglycemia; Z79.4 - snf (current) use of insulin Code(s): E11.65 - Type 2 diabetes mellitus with hyperglycemia Status: Acute Assessment and Plan: Holding meds as patient had few hypoglycemic episodes Subjective Date/time seen: 07/14/20 17:00 Delirious. Review of Systems Review of Systems: Narrative: Unable to obtain due to delirium. Exam Narrative: Exam Narrative: Thrashing about Const: General: other (Delirious) Nutritional Appearance: overweight Orientation/consciousness: Other orientation findings (Delirious.) HENMT: Head: normocephalic Ears: hearing grossly normal bilaterally General nose exam: Normal external nose present Face and sinus: normal facial exam Eyes: General: appearance normal, both eyes and all related structures Pupils: Equal, round and reactive pupils present EOM: EOMs intact bilaterally Neck: Neck: no lymphadenopathy, supple and no JVD Resp: Effort & Inspection: normal respiratory effort Auscultation: clear to auscultation bilaterally Cardio: Jugular venous distension: no JVD Rate: regular rate Rhythm: regular rhythm GI: GI Palp: Yes Soft to palpation and Yes No hepatosplenomegaly present Skin: Rashes: no rashes Neuro: General: CN's II-XI intact bilaterally Cranial nerves: Yes CN's II-XII intact bilaterally and Yes Equal, round and reactive pupils present Cognition (Neuro): abnormal cognition (Delirious) Motor exam (neuro): 5/5 motor strength present throughout Extrem: General: no pedal edema Objective Data Vital Signs Vital Signs: Vital Signs - 24 hr 07/13/20 18:00 07/13/20 20:00 07/13/20 20:16 Temperature 97.0 F L Pulse Rate 84 89 Respiratory Rate 20 Blood Pressure 143/61 H Pulse Oximetry 94 95 07/13/20 22:00 07/13/20 23:40 07/13/20 23:54 Temperature 97.0 F L Pulse Rate 89 91 90 Respiratory Rate 20 20 Blood Pressure 149/99 H Pulse Oximetry 92 92 07/14/20 02:00 07/14/20 03:28 07/14/20 04:00 Temperature 97.9 F Pulse Rate 92 94 90 Respiratory Rate 20 18 Blood Pressure 164/55 H Pulse Oximetry 92 97 07/14/20 06:00 07/14/20 08:00 07/14/20 09:37 Temperature 98.3 F Pulse Rate 90 103 H 97 Respiratory Rate 22 H Blood Pressure 192/79 H
[2020-07-14 17:26] LABS: Glucose Point of Care 85 (65-105)
[2020-07-14 20:11] LABS: Glucose Point of Care 84 (65-105)
[2020-07-14] MEDS: PRAMIPEXOLE 1 MG TABLET 3 MG PO (20:26)
[2020-07-15] VITALS (13 sets, daily range): BP systolic 153–171; BP diastolic 72–85; PULSE 58–98; RESP 18–23; TEMP 36.5–36.8; O2SAT 92–97
[2020-07-15 08:00] LABS: Glucose Point of Care 76 (65-105)
[2020-07-15] MEDS: CHOLECALCIFEROL 1,000 UNITS TABLET 1000 UNITS PO (09:13)
[2020-07-15] MEDS: DOXYCYCLINE HYCLATE 100 MG TABLET PO (09:13)
[2020-07-15] MEDS: hydrALAZINE HCL 50 MG TABLET 100 MG PO ×3 (09:13→17:23)
[2020-07-15] MEDS: GABAPENTIN 300 MG CAPSULE 600 MG PO ×2 (09:13→17:24)
[2020-07-15] MEDS: FAMOTIDINE 20 MG TABLET PO ×2 (09:14→17:24)
[2020-07-15] MEDS: METOPROLOL SUCCINATE EXT REL 100 MG TABCR PO ×2 (09:14→17:24)
[2020-07-15] MEDS: ROSUVASTATIN 10 MG TABLET 40 MG PO (09:14)
[2020-07-15] MEDS: DEXTROSE 5% 1,000 ML 1,000 ML 75 ML IV CONT ×2 (11:45→22:36)
[2020-07-15 11:55] LABS: Glucose Point of Care 108 (65-105)
--- NOTE | 2020-07-15 12:27 | P.PNNP_ITS ---
Progress Note: A&P Assessment and Plan (1) Acute kidney injury: Code(s): N17.9 - Acute kidney failure, unspecified Status: Acute Assessment and Plan: * suspect some pre-renal factors given improvement with IVFs * use of losartan and diuretics PORTABLE SAWMILL OPERATOR may have played a role * use of contrast for imaging of renal arteries PORTABLE SAWMILL OPERATOR may have also been a contributing factor (but should have worn off by now) * follow trend of labs and UOP (2) Chronic kidney disease, stage 3: Code(s): N18.30 - Chronic kidney disease, stage 3 unspecified Status: Acute Assessment and Plan: * baseline creatinine runs ~ 1.4 - 1.7mg/dl * hence he fluctuates between stage 3a and 3b * presumably due to his diabetes, hypertension, and vascular disease (3) Hyperkalemia: Code(s): E87.5 - Hyperkalemia Status: Acute Assessment and Plan: * due to VAHID, ARB, and supplemental potassium * resolved * follow repeat levels (4) Altered mental status: Code(s): R41.82 - Altered mental status, unspecified Status: Acute Assessment and Plan: * etiology? * work-up under way (5) Hypertension: Code(s): I10 - Essential (primary) hypertension Status: Acute Assessment and Plan: * reasonable control at this time * follow hemodynamics (6) Kidney hematoma: Qualifiers: Encounter type: initial encounter Laterality: right Qualified Code(s): S37.011A - Minor contusion of right kidney, initial encounter Code(s): S37.019A - Minor contusion of unspecified kidney, initial encounter Status: Acute Assessment and Plan: * as noted by imaging * Urology recommendations noted Will continue to follow. Subjective Date/time seen: 07/15/20 12:27 Confusion still persists despite conservative therapy to date; no apparent distress noted and no acute issues/events overnight or earlier this AM. Exam Narrative: Exam Narrative: General: Elderly male in NAD but confused Heart: normal S1 and S2; no rub Lungs: clear to auscultation Abdomen: soft, nontender, nondistended, positive bowel sounds Extremities: no cyanosis or clubbing; no edema Skin: warm and dry Objective Data Vital Signs Vital Signs: Vital Signs Temp Pulse Resp BP Pulse Ox 07/15/20 12:00 36.6 C 70 18 153/81 H 95 07/15/20 10:00 85 07/15/20 09:14 79 07/15/20 08:35 94 07/15/20 08:00 36.6 C 86 18 169/85 H 96 07/15/20 05:53 76 07/15/20 04:00 36.6 C 68 20 157/80 H 97 07/15/20 02:00 84 07/14/20 23:52 36.5 C 77 18 134/66 97 07/14/20 23:44 88 20 99 07/14/20 22:55 97 07/14/20 22:00 90 07/14/20 20:00 76 20 99 07/14/20 19:56 37.0 C 76 20 171/76 H 99 07/14/20 18:00 85 07/14/20 16:45 87 07/14/20 16:00 36.9 C 78 22 H 135/75 100 07/14/20 14:00 87 Intake/Output Intake/Output: Intake & Output 07/12/20 07/13/20 07/14/20 07/15/20 23:59 23:59 23:59 23:59 Intake Total 3100 2450 1940 Output Total 602 1650 700 Balance 2498 800 1240 Meds/Results Medications: Active Medications Generic Name Dose Route Start Last Admin Trade Name Freq PRN Reason
--- NOTE | 2020-07-15 12:27 | PM.PNNEP ---
Progress Note: A&P Assessment and Plan (1) Acute kidney injury: Code(s): N17.9 - Acute kidney failure, unspecified Status: Acute Assessment and Plan: suspect some pre-renal factors given improvement with IVFs use of losartan and diuretics POTATO BUCKER may have played a role use of contrast for imaging of renal arteries POTATO BUCKER may have also been a contributing factor (but should have worn off by now) follow trend of labs and UOP (2) Chronic kidney disease, stage 3: Code(s): N18.30 - Chronic kidney disease, stage 3 unspecified Status: Acute Assessment and Plan: baseline creatinine runs ~ 1.4 - 1.7mg/dl hence he fluctuates between stage 3a and 3b presumably due to his diabetes, hypertension, and vascular disease (3) Hyperkalemia: Code(s): E87.5 - Hyperkalemia Status: Acute Assessment and Plan: due to VAHID, ARB, and supplemental potassium resolved follow repeat levels (4) Altered mental status: Code(s): R41.82 - Altered mental status, unspecified Status: Acute Assessment and Plan: etiology? work-up under way (5) Hypertension: Code(s): I10 - Essential (primary) hypertension Status: Acute Assessment and Plan: reasonable control at this time follow hemodynamics (6) Kidney hematoma: Qualifiers: Encounter type: initial encounter Laterality: right Qualified Code(s): S37.011A - Minor contusion of right kidney, initial encounter Code(s): S37.019A - Minor contusion of unspecified kidney, initial encounter Status: Acute Assessment and Plan: as noted by imaging Urology recommendations noted Will continue to follow. Subjective Date/time seen: 07/15/20 12:27 Confusion still persists despite conservative therapy to date; no apparent distress noted and no acute issues/events overnight or earlier this AM. Exam Narrative: Exam Narrative: General: Elderly male in NAD but confused Heart: normal S1 and S2; no rub Lungs: clear to auscultation Abdomen: soft, nontender, nondistended, positive bowel sounds Extremities: no cyanosis or clubbing; no edema Skin: warm and dry Objective Data Vital Signs Vital Signs: Vital Signs Temp Pulse Resp BP Pulse Ox 07/15/20 12:00 36.6 C 70 18 153/81 H 95 07/15/20 10:00 85 07/15/20 09:14 79 07/15/20 08:35 94 07/15/20 08:00 36.6 C 86 18 169/85 H 96 07/15/20 05:53 76 07/15/20 04:00 36.6 C 68 20 157/80 H 97 07/15/20 02:00 84 07/14/20 23:52 36.5 C 77 18 134/66 97 07/14/20 23:44 88 20 99 07/14/20 22:55 97 07/14/20 22:00 90 07/14/20 20:00 76 20 99 07/14/20 19:56 37.0 C 76 20 171/76 H 99 07/14/20 18:00 85 07/14/20 16:45 87 07/14/20 16:00 36.9 C 78 22 H 135/75 100 07/14/20 14:00 87 Intake/Output Intake/Output: Intake & Output 07/12/20 07/13/20 07/14/20 07/15/20 23:59 23:59 23:59 23:59 Intake Total 3100 2450 1940 Output Total 602 1650 700 Balance 2498 800 1240 Meds/Results Medications: Active Medications Generic Name Dose Route Start Last Admin Trade Name Freq PRN Reason Stop Dose Admin Cyclobenzaprine HCl 5 mg 07/13/20 03:26 Cyclobenzaprine Hcl 5 Mg Tablet PO BID PRN Muscle spasm Dextrose 12.5 gm 07/13/20 03:28 07/14/20 08:24 Dextrose 50% 25 Gm/50 Ml Syringe IV PUSH 12.5 gm PRN PRN Administration Hypoglycemia Protocol Doxycycline Hyclate 100 mg 07/13/20 09:00 07/15/20 09:13 Doxycycline Hyclate 100 Mg Tablet PO 08/12/20 09:01 100 mg DAILY DINORA Administration Famotidine 20 mg 07/13/20 09:00 07/15/20 09:14 Famotidine 20 Mg Tablet PO 20 mg BID DINORA Administration Gabapentin 600 mg 07/13/20 09:00 07/15/20 09:13 Gabapentin 300 Mg Capsule PO 600 mg BID DINORA Administration Glucagon 1 mg 07/13/20 03:28 Glucagon For Inj 1 Mg Vial IM PRN PRN
--- NOTE | 2020-07-15 14:14 | PM.IMPN ---
Progress Note: A&P Assessment and Plan (1) Altered mental status: Code(s): R41.82 - Altered mental status, unspecified Status: Acute Assessment and Plan: Acute delirium likely secondary to drugs as i presenetd after patient had angiogram done at outside facility Ammonia level wnl ABG with compensated hypoxic respiratpry failure Holding psychotropics CT reviewed consult neurology (2) Acute kidney injury superimposed on chronic kidney disease: Code(s): N17.9 - Acute kidney failure, unspecified; N18.9 - Chronic kidney disease, unspecified Status: Acute Assessment and Plan: IV hydration. (3) Kidney hematoma: Qualifiers: Encounter type: initial encounter Laterality: right Qualified Code(s): S37.011A - Minor contusion of right kidney, initial encounter Code(s): S37.019A - Minor contusion of unspecified kidney, initial encounter Status: Acute Assessment and Plan: Stable Appreciate Urology note (4) YOLIS on CPAP: Code(s): G47.33 - Obstructive sleep apnea (adult) (pediatric); Z99.89 - Dependence on other enabling machines and devices Status: Acute Assessment and Plan: Continue CPAP at night time. 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 Pt is very confused today ? anaesthesia Review of Systems Review of Systems: ROS unobtainable: Yes unobtainable due to medical condition Exam Narrative: Exam Narrative: Pleasant appearing very confused Eyes: General: appearance normal, both eyes and all related structures Pupils: Equal, round and reactive pupils present EOM: EOMs intact bilaterally Neck: Neck: no lymphadenopathy, supple and no JVD Resp: Effort & Inspection: normal respiratory effort and able to speak in complete sentences Auscultation: clear to auscultation bilaterally Cardio: Jugular venous distension: no JVD Rate: regular rate Rhythm: regular rhythm GI: Inspection: Pannus present Neuro: Cognition (Neuro): abnormal cognition (Delirious) Motor exam (neuro): 5/5 motor strength present throughout Extrem: General: no pedal edema Objective Data Vital Signs Vital Signs: Vital Signs - 24 hr 07/14/20 16:00 07/14/20 16:45 07/14/20 18:00 Temperature 36.9 C Pulse Rate 78 87 85 Respiratory Rate 22 H Blood Pressure 135/75 Pulse Oximetry 100 07/14/20 19:56 07/14/20 20:00 07/14/20 22:00 Temperature 37.0 C Pulse Rate 76 76 90 Respiratory Rate 20 20 Blood Pressure 171/76 H Pulse Oximetry 99 99 07/14/20 22:55 07/14/20 23:44 07/14/20 23:52 Temperature 36.5 C Pulse Rate 88 77 Respiratory Rate 20 18 Blood Pressure 134/66 Pulse Oximetry 97 99 97 07/15/20 02:00 07/15/20 04:00 07/15/20 05:53 Temperature 36.6 C Pulse Rate 84 68 76 Respiratory Rate 20 Blood Pressure 157/80 H Pulse Oximetry 97 07/15/20 08:00 07/15/20 08:35 07/15/20 09:14 Temperature 36.6 C Pulse Rate 86 79 Respiratory Rate 18 Blood Pressure 169/85 H Pulse Oximetry 96 94 07/15/20 10:00 07/15/20 12:00 Temperature 36.6 C Pulse Rate 85 70 Respiratory Rate 18 Blood Pressure 153/81 H Pulse Oximetry 95 Intake/Output
--- NOTE | 2020-07-15 14:29 | WPDNEURCNPN ---
Assessment and Plan Assessment and plan (1) Hypertension: Code(s): I10 - Essential (primary) hypertension Status: Acute (2) Chronic kidney disease, stage 3: Code(s): N18.30 - Chronic kidney disease, stage 3 unspecified Status: Acute (3) Altered mental status: Code(s): R41.82 - Altered mental status, unspecified Status: Acute (4) Hallucinations: Code(s): R44.3 - Hallucinations, unspecified Status: Acute Additional Plan Metabolic encephalopathy with generalized weakness, will obtain the EEG and then accordingly Consult date: 07/15/20 Time Seen: 14:00 HPI: Kashmir Wolfe is a 70 year old male admitted to the hospital for the complaints of generalized weakness in addition to the history of 1. Peripheral arterial disease, chronic kidney disease stage 3, hypertension, diabetes mellitus, and evolving dementia, on initial evaluation as per the hospital's patient kept referring to knee surgery which occurred several years ago he had been complaining of right flank pain has undergone renal stenting in the past so renal angiogram was done as an outpatient patient does carry the diagnosis of chronic anemia and was admitted to this facility for anemia, has undergone multiple surgeries particular to mention coronary artery stenting, renal artery stenting and right knee total arthroplasty, is a current everyday smoker with 50 pack years history, echocardiogram on 07/14 with left ventricular dysfunction, renal ultrasound with large right perinephric hematoma but no hydronephrosis, head CT scan normal. [facility] Past Medical History Medical History Adenomatous colon polyp Arthritis of left subtalar joint CAD (coronary artery disease) Stent x 5 Carotid stenosis CHF (congestive heart failure) Dementia Depression Diabetes HLD (hyperlipidemia) HTN (hypertension) Kidney stones YOLIS on CPAP Peripheral artery disease PVD (peripheral vascular disease) Surgical History Surgical History H/O carotid endarterectomy 2007 H/O colonoscopy H/O shoulder surgery Left shoulder History of appendectomy History of bilateral cataract extraction History of coronary artery stent placement History of stent insertion of renal artery History of total right knee replacement Complicated by MRSA infection with subsequent surgical debridements with loss of knee cap Family History Family History Father Hypertension Diabetes mellitus Coronary artery disease Cancer Mother Dementia Social History Social History Social History: The patient's reports that the patient has continued to smoke. The patient himself states that he quit smoking 12 weeks ago but again he is a poor historian. The patient has 2 sons and 1 stepdaughter. Primary care physician: Dr. Marcello Jung Code status: Full code Surrogate decision maker: Smoking packs per day: 1 Smoking cigarettes per day: 20.0 Years smoked: 50 Smoking pack-years: 50.00 Smoking status: Current every day smoker Tobacco type: cigarettes Second hand tobacco smoke exposure: No Smoking end date: 05/23/15 Alcohol intake: current Substance use: never Other substance usage details: only occasional alcohol usage Gender identity (if verbalized by the patient): Male Spiritual care concerns: No Meds Home Medications and Allergies Home Medications Medication Instructions Recorded Confirmed Type clopidogrel 75 mg tablet 75 mg PO DAILY 10/17/19 07/13/20 History doxycycline hyclate 100 mg capsule 100 mg PO DAILY 10/17/19 07/13/20 History duloxetine 60 mg capsule,delayed 60 mg PO DAILY 10/17/19 07/13/20 History release furosemide 40 mg tablet 40 mg PO QAM 10/17/19 07/13/20 History gabapentin 300 mg capsule 600 mg PO B
[2020-07-15 16:04] LABS: Glucose Point of Care 147 (65-105)
[2020-07-15 20:20] LABS: Glucose Point of Care 187 (65-105)
[2020-07-15] MEDS: PRAMIPEXOLE 1 MG TABLET 3 MG PO (20:28)
[2020-07-16] VITALS (9 sets, daily range): BP systolic 135–174; BP diastolic 74–88; PULSE 72–82; RESP 20; TEMP 36.2–36.6; O2SAT 92–96
[2020-07-16 07:11] LABS: Alanine Aminotransferase 78 U/L (4-50); Albumin Level 3.1 g/dL (3.5-5.1); Alkaline Phosphatase 174 U/L (38-126); Anion Gap 7 mmol/L (8-16); Aspartate Amino Transferase 53 U/L (17-59); Bilirubin,Total 2.6 mg/dL (0.2-1.3); Blood Urea Nitrogen 23 mg/dL (9-20); Calcium 8.2 mg/dL (8.4-10.2); Carbon Dioxide 21 mmol/L (22-30); Chloride 106 mmol/L (98-107); Estimated CRCL calculation 46 ml/min; Estimated Glomerular Filt Rate 37; Glucose 143 mg/dL (75-110); Potassium 3.5 mmol/L (3.4-5.0); Sodium 134 mmol/L (137-145)
[2020-07-16] MEDS: ROSUVASTATIN 10 MG TABLET 40 MG PO (10:00)
[2020-07-16] MEDS: GABAPENTIN 300 MG CAPSULE 600 MG PO ×2 (10:01→16:54)
[2020-07-16] MEDS: METOPROLOL SUCCINATE EXT REL 100 MG TABCR PO ×2 (10:01→16:54)
[2020-07-16] MEDS: CHOLECALCIFEROL 1,000 UNITS TABLET 1000 UNITS PO (10:02)
[2020-07-16] MEDS: DOXYCYCLINE HYCLATE 100 MG TABLET PO (10:02)
[2020-07-16] MEDS: FAMOTIDINE 20 MG TABLET PO ×2 (10:02→16:54)
[2020-07-16] MEDS: hydrALAZINE HCL 50 MG TABLET 100 MG PO ×3 (10:02→16:54)
--- NOTE | 2020-07-16 12:12 | P.PNNP_ITS ---
Progress Note: A&P Assessment and Plan (1) Acute kidney injury: Code(s): N17.9 - Acute kidney failure, unspecified Status: Acute Assessment and Plan: * suspect some pre-renal factors given improvement with IVFs * use of losartan and diuretics COTTON PICKING MACHINE OPERATOR may have played a role * use of contrast for imaging of renal arteries COTTON PICKING MACHINE OPERATOR may have also been a contributing factor (but should have worn off by now) * follow trend of labs and UOP (2) Chronic kidney disease, stage 3: Code(s): N18.30 - Chronic kidney disease, stage 3 unspecified Status: Acute Assessment and Plan: * baseline creatinine runs ~ 1.4 - 1.7mg/dl * hence he fluctuates between stage 3a and 3b * presumably due to his diabetes, hypertension, and vascular disease (3) Hyperkalemia: Code(s): E87.5 - Hyperkalemia Status: Acute Assessment and Plan: * due to VAHID, ARB, and supplemental potassium * resolved * follow repeat levels (4) Altered mental status: Code(s): R41.82 - Altered mental status, unspecified Status: Acute Assessment and Plan: * etiology? * work-up under way (5) Hypertension: Code(s): I10 - Essential (primary) hypertension Status: Acute Assessment and Plan: * reasonable control at this time * follow hemodynamics (6) Kidney hematoma: Qualifiers: Encounter type: initial encounter Laterality: right Qualified Code(s): S37.011A - Minor contusion of right kidney, initial encounter Code(s): S37.019A - Minor contusion of unspecified kidney, initial encounter Status: Acute Assessment and Plan: * as noted by imaging * Urology recommendations noted Will continue to follow. Subjective Date/time seen: 07/16/20 12:12 Mentation seems a bit better at the time of my visit; no other acute issues or problems voiced at this time; no events or issues overnight or earlier this AM. Exam Narrative: Exam Narrative: General: Elderly male in NAD but confused at times Heart: normal S1 and S2; no rub Lungs: clear to auscultation Abdomen: soft, nontender, nondistended, positive bowel sounds Extremities: no cyanosis or clubbing; no edema Skin: warm and intact Objective Data Vital Signs Vital Signs: Vital Signs Temp Pulse Resp BP Pulse Ox 07/16/20 12:00 36.2 C L 74 20 174/75 H 95 07/16/20 08:00 36.2 C L 82 20 172/79 H 92 07/16/20 04:34 36.6 C 80 20 135/88 93 07/16/20 03:13 92 07/16/20 01:15 77 20 92 07/16/20 00:00 74 07/15/20 20:58 83 23 H 92 07/15/20 20:33 36.5 C 86 18 171/74 H 96 07/15/20 20:00 78 18 96 Intake/Output Intake/Output: Intake & Output 07/13/20 07/14/20 07/15/20 07/16/20 23:59 23:59 23:59 23:59 Intake Total 3100 2450 3920 920 Output Total 602 5251 007 8369 Balance 2498 800 3020 -480 Meds/Results Medications: Active Medications Generic Name Dose Route Start Last Admin Trade Name Freq PRN Reason Stop Dose Admin Cyclobenzaprine HCl 5 mg 07/13/20 03:26 Cyclobenzaprine Hcl 5 Mg Tablet PO BID PRN Muscle spasm Dextrose 12.5 gm 07/13/20 03:28 07/14/20 08:24 Dextrose 50% 25 Gm/50 Ml Syringe IV PUSH 12.5 gm PRN PRN
--- NOTE | 2020-07-16 12:12 | PM.PNNEP ---
Progress Note: A&P Assessment and Plan (1) Acute kidney injury: Code(s): N17.9 - Acute kidney failure, unspecified Status: Acute Assessment and Plan: suspect some pre-renal factors given improvement with IVFs use of losartan and diuretics LEAD SALES CONSULTANT may have played a role use of contrast for imaging of renal arteries LEAD SALES CONSULTANT may have also been a contributing factor (but should have worn off by now) follow trend of labs and UOP (2) Chronic kidney disease, stage 3: Code(s): N18.30 - Chronic kidney disease, stage 3 unspecified Status: Acute Assessment and Plan: baseline creatinine runs ~ 1.4 - 1.7mg/dl hence he fluctuates between stage 3a and 3b presumably due to his diabetes, hypertension, and vascular disease (3) Hyperkalemia: Code(s): E87.5 - Hyperkalemia Status: Acute Assessment and Plan: due to VAHID, ARB, and supplemental potassium resolved follow repeat levels (4) Altered mental status: Code(s): R41.82 - Altered mental status, unspecified Status: Acute Assessment and Plan: etiology? work-up under way (5) Hypertension: Code(s): I10 - Essential (primary) hypertension Status: Acute Assessment and Plan: reasonable control at this time follow hemodynamics (6) Kidney hematoma: Qualifiers: Encounter type: initial encounter Laterality: right Qualified Code(s): S37.011A - Minor contusion of right kidney, initial encounter Code(s): S37.019A - Minor contusion of unspecified kidney, initial encounter Status: Acute Assessment and Plan: as noted by imaging Urology recommendations noted Will continue to follow. Subjective Date/time seen: 07/16/20 12:12 Mentation seems a bit better at the time of my visit; no other acute issues or problems voiced at this time; no events or issues overnight or earlier this AM. Exam Narrative: Exam Narrative: General: Elderly male in NAD but confused at times Heart: normal S1 and S2; no rub Lungs: clear to auscultation Abdomen: soft, nontender, nondistended, positive bowel sounds Extremities: no cyanosis or clubbing; no edema Skin: warm and intact Objective Data Vital Signs Vital Signs: Vital Signs Temp Pulse Resp BP Pulse Ox 07/16/20 12:00 36.2 C L 74 20 174/75 H 95 07/16/20 08:00 36.2 C L 82 20 172/79 H 92 07/16/20 04:34 36.6 C 80 20 135/88 93 07/16/20 03:13 92 07/16/20 01:15 77 20 92 07/16/20 00:00 74 07/15/20 20:58 83 23 H 92 07/15/20 20:33 36.5 C 86 18 171/74 H 96 07/15/20 20:00 78 18 96 Intake/Output Intake/Output: Intake & Output 07/13/20 07/14/20 07/15/20 07/16/20 23:59 23:59 23:59 23:59 Intake Total 3100 2450 3920 920 Output Total 602 3858 807 3304 Balance 2498 800 3020 -480 Meds/Results Medications: Active Medications Generic Name Dose Route Start Last Admin Trade Name Freq PRN Reason Stop Dose Admin Cyclobenzaprine HCl 5 mg 07/13/20 03:26 Cyclobenzaprine Hcl 5 Mg Tablet PO BID PRN Muscle spasm Dextrose 12.5 gm 07/13/20 03:28 07/14/20 08:24 Dextrose 50% 25 Gm/50 Ml Syringe IV PUSH 12.5 gm PRN PRN Administration Hypoglycemia Protocol Doxycycline Hyclate 100 mg 07/13/20 09:00 07/16/20 10:02 Doxycycline Hyclate 100 Mg Tablet PO 08/12/20 09:01 100 mg DAILY DINORA Administration Famotidine 20 mg 07/13/20 09:00 07/16/20 16:54 Famotidine 20 Mg Tablet PO 20 mg BID DINORA Administration Gabapentin 600 mg 07/13/20 09:00 07/16/20 16:54 Gabapentin 300 Mg Capsule PO 600 mg BID DINORA Administration Glucagon 1 mg 07/13/20 03:28 Glucagon For Inj 1 Mg Vial IM PRN PRN Hypoglycemia Protocol Glucose 15 gm 07/13/20 03:28 Glucose Oral Gel 15 Gm Of Glucse In 37.5 Gm Tube PO PRN PRN Hypoglycemia Protocol Hydralazine HCl 100 mg 07/13/20 04:15 07/16/20 16:54
[2020-07-16 12:26] LABS: Glucose Point of Care 151 (65-105)
[2020-07-16 12:26] LABS: Glucose Point of Care 150 (65-105)
--- NOTE | 2020-07-16 15:55 | PM.IMPN ---
Progress Note: A&P Assessment and Plan (1) Altered mental status: Code(s): R41.82 - Altered mental status, unspecified Status: Acute Assessment and Plan: Acute delirium likely secondary to drugs anaesthesia or contrast from renal angiogram or chronic early dementia Ammonia level wnl CT reviewed consult neurology Mri is difficult to do because of stents renal, iliac, carotid artery and coronary stents EEG is pending (2) Acute kidney injury superimposed on chronic kidney disease: Code(s): N17.9 - Acute kidney failure, unspecified; N18.9 - Chronic kidney disease, unspecified Status: Acute Assessment and Plan: IV hydration. Seen by nephrology and urology creat is 1.8 (3) Kidney hematoma: Qualifiers: Encounter type: initial encounter Laterality: right Qualified Code(s): S37.011A - Minor contusion of right kidney, initial encounter Code(s): S37.019A - Minor contusion of unspecified kidney, initial encounter Status: Acute Assessment and Plan: Stable Appreciate Urology note (4) YOLIS on CPAP: Code(s): G47.33 - Obstructive sleep apnea (adult) (pediatric); Z99.89 - Dependence on other enabling machines and devices Status: Acute Assessment and Plan: Continue CPAP at night time. (5) Acute hyperkalemia: Code(s): E87.5 - Hyperkalemia Status: Resolved Assessment and Plan: Continue to monitor. (6) Type 2 diabetes mellitus with hyperglycemia: Qualifiers: Diabetes mellitus snf insulin use: with snf use Qualified Code(s): E11.65 - Type 2 diabetes mellitus with hyperglycemia; Z79.4 - intermediate (current) use of insulin Code(s): E11.65 - Type 2 diabetes mellitus with hyperglycemia Status: Acute Assessment and Plan: Holding meds Anaemia Severe anaemia Hb is 7 RLS and sleep apnea and history of a stroke (7) CHF (congestive heart failure): Code(s): I50.9 - Heart failure, unspecified Status: Inactive Assessment and Plan: Pt is on oral lasix. (8) Essential (primary) hypertension: Code(s): I10 - Essential (primary) hypertension Status: Acute Assessment and Plan: Pt is on blood pressure medications. Subjective Date/time seen: 07/16/20 15:55 Interval history: Aiden is a 70 year old male with a past medical history of peripheral peripheral artery disease, hypertension, chronic kidney disease stage 3, diabetes mellitus, and developing dementia who presented to the ER via EMS due to weakness and confusion. Ongoing hallucination visual. Patient had a renal angiogram as an outpatient facility last week to evaluate prior renal stents. He had evidently been complaining of right flank pain ever since his angiogram. And now is having hallucinations, ? 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 Nephrology and neurology on the case. Both of his parents have dementia -AD. Small memory issues for few years. Review of Systems Review of Systems: All systems reviewed & are unremarkable except as noted in HPI and below Exam Narrative: Exam Narrative: Pleasant is having visual hallucinations Eyes: General: appearance normal, both eyes and all related structures Pupils: Equal, round and reactive pupils present EOM: EOMs intact bilaterally Neck: Neck: no lymphadenopathy, supple and no JVD Resp: Effort & Inspection: normal respiratory effort and able to speak in complete sentences Auscultation: clear to auscultation bilaterally Cardio: Jugular venous distension: no JVD Rate: regular rate Rhythm: regular rhythm GI: Inspection: Pannus present Neuro: Cranial nerves: Yes Equal, round and reactive pupils present Cognition (Neuro): abnormal cognition (Delirious) Motor exam (neuro): 5/5 motor strength present throughout Extrem: General: no pedal edema and other (steel ahider in his leg ) Objective Data Vit
[2020-07-16] MEDS: LOSARTAN POTASSIUM 100 MG TABLET PO (16:53)
[2020-07-16 17:15] LABS: Glucose Point of Care 167 (65-105)
[2020-07-16 20:11] LABS: Glucose Point of Care 191 (65-105)
[2020-07-16] MEDS: PRAMIPEXOLE 1 MG TABLET 3 MG PO (20:12)
--- NOTE | 2020-07-16 20:45 | PC.NURSE ---
This patient, Kashmir Wolfe, was transferred to [[facility]- ] on 07/16/20 at 2046. Personal belongings sent with patient. Report given to [William ]. Appropriate documentation sent with patient.
[2020-07-17] VITALS: BP 130/61; PULSE 78; RESP 20; TEMP 36.9; O2SAT 98
[2020-07-17] MEDS: ACETAMINOPHEN 325 MG TABLET 650 MG PO (05:06)
--- NOTE | 2020-07-17 05:54 | PC.NURSE ---
Emelyn Plasencia was notified about patients increase confusion and agitation. Stated and understanding of patient past history of this behavior and if patient is not able to be redirected to call and notify again. Pain medication was ordered due to complaints of back pain. Will continue to monitor and notified MD if needed.
[2020-07-17 06:23] LABS: Hematocrit 26.5 % (42.0-52.0); Hemoglobin 8.4 g/dL (14.0-18.0); Mean Corpuscular HGB Conc 31.7 g/dl (32-36); Mean Corpuscular Hemoglobin 27.5 pg (26-34); Mean Corpuscular Volume 86.9 fl (80-100); Mean Platelet Volume 9.4 fl (7.4-10.4); Platelet Count Result 199 k/mm3 (150-375); Red Blood Count 3.05 M/mm3 (4.6-6.20); Red Cell Distribution Width 16.3 % (11.5-14.5); White Blood Count 11.6 K/mm3 (4.5-10.0)
[2020-07-17 06:42] LABS: Anion Gap 5 mmol/L (8-16); Blood Urea Nitrogen 22 mg/dL (9-20); Calcium 8.1 mg/dL (8.4-10.2); Carbon Dioxide 22 mmol/L (22-30); Chloride 108 mmol/L (98-107); Estimated CRCL calculation 45 ml/min; Estimated Glomerular Filt Rate 37; Glucose 148 mg/dL (75-110); Potassium 3.6 mmol/L (3.4-5.0); Sodium 135 mmol/L (137-145)
[2020-07-17 07:47] LABS: Glucose Point of Care 135 (65-105)
[2020-07-17] MEDS: ROSUVASTATIN 10 MG TABLET 40 MG PO (09:40)
[2020-07-17] MEDS: LOSARTAN POTASSIUM 100 MG TABLET PO (09:40)
[2020-07-17] MEDS: hydrALAZINE HCL 50 MG TABLET 100 MG PO ×3 (09:40→16:56)
[2020-07-17] MEDS: CHOLECALCIFEROL 1,000 UNITS TABLET 1000 UNITS PO (09:40)
[2020-07-17 09:41] VITALS: PULSE 78
[2020-07-17] MEDS: FAMOTIDINE 20 MG TABLET PO ×2 (09:41→16:56)
[2020-07-17] MEDS: METOPROLOL SUCCINATE EXT REL 100 MG TABCR PO ×2 (09:41→16:56)
[2020-07-17] MEDS: DOXYCYCLINE HYCLATE 100 MG TABLET PO (09:41)
[2020-07-17] MEDS: GABAPENTIN 300 MG CAPSULE 600 MG PO ×2 (09:41→16:55)
[2020-07-17 11:44] LABS: Glucose Point of Care 160 (65-105)
--- NOTE | 2020-07-17 12:40 | PM.IMPN ---
Progress Note: A&P Assessment and Plan (1) Altered mental status: Code(s): R41.82 - Altered mental status, unspecified Status: Acute Assessment and Plan: Acute delirium likely secondary to drugs anaesthesia or contrast from renal angiogram or chronic early dementia Ammonia level wnl CT reviewed consult neurology Mri is difficult to do because of stents renal, iliac, carotid artery and coronary stents EEG is pending Strong family history of dementia with his parents states he had some memory issues for a few months. (2) Acute kidney injury superimposed on chronic kidney disease: Code(s): N17.9 - Acute kidney failure, unspecified; N18.9 - Chronic kidney disease, unspecified Status: Acute Assessment and Plan: IV hydration. Seen by nephrology and urology creat is 1.8 (3) Kidney hematoma: Qualifiers: Encounter type: initial encounter Laterality: right Qualified Code(s): S37.011A - Minor contusion of right kidney, initial encounter Code(s): S37.019A - Minor contusion of unspecified kidney, initial encounter Status: Acute Assessment and Plan: Stable Appreciate Urology note (4) YOLIS on CPAP: Code(s): G47.33 - Obstructive sleep apnea (adult) (pediatric); Z99.89 - Dependence on other enabling machines and devices Status: Acute Assessment and Plan: Continue CPAP at night time. (5) Acute hyperkalemia: Code(s): E87.5 - Hyperkalemia Status: Resolved Assessment and Plan: Continue to monitor. 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 (8) Essential (primary) hypertension: Code(s): I10 - Essential (primary) hypertension Status: Acute Assessment and Plan: Pt is on blood pressure medications. Subjective Date/time seen: 07/17/20 12:40 Interval history: Aiden is a 70 year old male with a past medical history of peripheral peripheral artery disease, hypertension, chronic kidney disease stage 3, diabetes mellitus, and developing dementia who presented to the ER via EMS due to weakness and confusion. Ongoing hallucination visual. Patient had a renal angiogram as an outpatient facility last week to evaluate prior renal stents. He had evidently been complaining of right flank pain ever since his angiogram. And now is having hallucinations, ? contrast for imaging of renal arteries POTATO PICKER causing disorientation. Nephrology and neurology on the case. Both of his parents have dementia -AD. Small memory issues for few years. Pt is the same today having visual hallucinations. Sp EEG awaiting results. Review of Systems Review of Systems: All systems reviewed & are unremarkable except as noted in HPI and below Exam Narrative: Exam Narrative: Pleasant is having visual hallucinations Const: General: comfortable, no acute distress, awake, Physically active and other (Delirious) Nutritional Appearance: overweight Orientation/consciousness: Other orientation findings (Delirious.) HENMT: Head: normal to inspection and normocephalic Ears: hearing grossly normal bilaterally General nose exam: Normal external nose present Face and sinus: normal facial exam Eyes: General: appearance normal, both eyes and all related structures Pupils: Equal, round and reactive pupils present EOM: EOMs intact bilaterally Neck: Neck:
--- NOTE | 2020-07-17 13:30 | PM.PNNEP ---
Progress Note: A&P Assessment and Plan (1) Acute kidney injury: Code(s): N17.9 - Acute kidney failure, unspecified Status: Acute Assessment and Plan: suspect some pre-renal factors given improvement with IVFs use of losartan and diuretics ROOF TRUSS BUILDER may have played a role use of contrast for imaging of renal arteries ROOF TRUSS BUILDER may have also been a contributing factor (but should have worn off by now) follow trend of labs and UOP (2) Chronic kidney disease, stage 3: Code(s): N18.30 - Chronic kidney disease, stage 3 unspecified Status: Acute Assessment and Plan: baseline creatinine runs ~ 1.4 - 1.7mg/dl hence he fluctuates between stage 3a and 3b presumably due to his diabetes, hypertension, and vascular disease (3) Hyperkalemia: Code(s): E87.5 - Hyperkalemia Status: Acute Assessment and Plan: due to VAHID, ARB, and supplemental potassium resolved follow repeat levels (4) Altered mental status: Code(s): R41.82 - Altered mental status, unspecified Status: Acute Assessment and Plan: etiology? work-up under way Neurology following - follow-up on EEG (5) Hypertension: Code(s): I10 - Essential (primary) hypertension Status: Acute Assessment and Plan: reasonable control at this time follow hemodynamics (6) Kidney hematoma: Qualifiers: Encounter type: initial encounter Laterality: right Qualified Code(s): S37.011A - Minor contusion of right kidney, initial encounter Code(s): S37.019A - Minor contusion of unspecified kidney, initial encounter Status: Acute Assessment and Plan: as noted by imaging Urology recommendations noted Will continue to follow. Subjective Date/time seen: 07/17/20 13:30 No apparent distress at the time of my visit; some intermittent confusion and visual hallucinations reported; no other acute complaints voiced; no events overnight or earlier this AM. Exam Narrative: Exam Narrative: General: Elderly male in NAD but confused at times Heart: normal S1 and S2; no rub Lungs: clear to auscultation Abdomen: soft, nontender, nondistended, positive bowel sounds Extremities: no cyanosis or clubbing; no edema Skin: no rash or nodules Objective Data Vital Signs Vital Signs: Vital Signs Temp Pulse Resp BP Pulse Ox 07/17/20 09:41 78 07/17/20 00:00 36.9 C 78 20 130/61 98 07/16/20 21:18 76 20 95 07/16/20 20:00 76 20 95 Intake/Output Intake/Output: Intake & Output 07/14/20 07/15/20 07/16/20 07/17/20 23:59 23:59 23:59 23:59 Intake Total 2450 3920 1240 1180 Output Total 8815 285 4519 1800 Balance 800 4948 -419 -496 Meds/Results Medications: Active Medications Generic Name Dose Route Start Last Admin Trade Name Freq PRN Reason Stop Dose Admin Acetaminophen 650 mg 07/17/20 04:53 07/17/20 05:06 Acetaminophen 325 Mg Tablet PO 650 mg Q6H PRN Administration Mild Pain (1-3) or Fever Cyclobenzaprine HCl 5 mg 07/13/20 03:26 Cyclobenzaprine Hcl 5 Mg Tablet PO BID PRN Muscle spasm Dextrose 12.5 gm 07/13/20 03:28 07/14/20 08:24 Dextrose 50% 25 Gm/50 Ml Syringe IV PUSH 12.5 gm PRN PRN Administration Hypoglycemia Protocol Doxycycline Hyclate 100 mg 07/13/20 09:00 07/17/20 09:41 Doxycycline Hyclate 100 Mg Tablet PO 08/12/20 09:01 100 mg DAILY DINORA Administration Famotidine 20 mg 07/13/20 09:00 07/17/20 16:56 Famotidine 20 Mg Tablet PO 20 mg BID DINORA Administration Gabapentin 600 mg 07/13/20 09:00 07/17/20 16:55 Gabapentin 300 Mg Capsule PO 600 mg BID DINORA Administration Glucagon 1 mg 07/13/20 03:28 Glucagon For Inj 1 Mg Vial IM PRN PRN Hypoglycemia Protocol Glucose 15 gm 07/13/20 03:28 Glucose Oral Gel 15 Gm Of Glucse In 37.5 Gm Tube PO PRN PRN Hypoglycemia Protocol Hydralazine HCl 100 mg
--- NOTE | 2020-07-17 13:30 | P.PNNP_ITS ---
Progress Note: A&P Assessment and Plan (1) Acute kidney injury: Code(s): N17.9 - Acute kidney failure, unspecified Status: Acute Assessment and Plan: * suspect some pre-renal factors given improvement with IVFs * use of losartan and diuretics DESTINATION SIGN REPAIRER may have played a role * use of contrast for imaging of renal arteries DESTINATION SIGN REPAIRER may have also been a contributing factor (but should have worn off by now) * follow trend of labs and UOP (2) Chronic kidney disease, stage 3: Code(s): N18.30 - Chronic kidney disease, stage 3 unspecified Status: Acute Assessment and Plan: * baseline creatinine runs ~ 1.4 - 1.7mg/dl * hence he fluctuates between stage 3a and 3b * presumably due to his diabetes, hypertension, and vascular disease (3) Hyperkalemia: Code(s): E87.5 - Hyperkalemia Status: Acute Assessment and Plan: * due to VAHID, ARB, and supplemental potassium * resolved * follow repeat levels (4) Altered mental status: Code(s): R41.82 - Altered mental status, unspecified Status: Acute Assessment and Plan: * etiology? * work-up under way * Neurology following - follow-up on EEG (5) Hypertension: Code(s): I10 - Essential (primary) hypertension Status: Acute Assessment and Plan: * reasonable control at this time * follow hemodynamics (6) Kidney hematoma: Qualifiers: Encounter type: initial encounter Laterality: right Qualified Code(s): S37.011A - Minor contusion of right kidney, initial encounter Code(s): S37.019A - Minor contusion of unspecified kidney, initial encounter Status: Acute Assessment and Plan: * as noted by imaging * Urology recommendations noted Will continue to follow. Subjective Date/time seen: 07/17/20 13:30 No apparent distress at the time of my visit; some intermittent confusion and visual hallucinations reported; no other acute complaints voiced; no events overnight or earlier this AM. Exam Narrative: Exam Narrative: General: Elderly male in NAD but confused at times Heart: normal S1 and S2; no rub Lungs: clear to auscultation Abdomen: soft, nontender, nondistended, positive bowel sounds Extremities: no cyanosis or clubbing; no edema Skin: no rash or nodules Objective Data Vital Signs Vital Signs: Vital Signs Temp Pulse Resp BP Pulse Ox 07/17/20 09:41 78 07/17/20 00:00 36.9 C 78 20 130/61 98 07/16/20 21:18 76 20 95 07/16/20 20:00 76 20 95 Intake/Output Intake/Output: Intake & Output 07/14/20 07/15/20 07/16/20 07/17/20 23:59 23:59 23:59 23:59 Intake Total 2450 3920 1240 1180 Output Total 9268 667 3900 1800 Balance 800 6543 -559 -665 Meds/Results Medications: Active Medications Generic Name Dose Route Start Last Admin Trade Name Freq PRN Reason Stop Dose Admin Acetaminophen 650 mg 07/17/20 04:53 07/17/20 05:06 Acetaminophen 325 Mg Tablet PO 650 mg Q6H PRN Administration Mild Pain (1-3) or Fever Cyclobenzaprine HCl 5 mg 07/13/20 03:26 Cyclobenzaprine Hcl 5 Mg Tablet PO BID PRN Muscle spasm Dextrose 12.5 gm 07/13/20 03:28 07/14/20 08:24 Dextrose 50% 25 Gm/50 Ml Syringe IV PUSH 12.5 gm
[2020-07-17 14:00] VITALS: BP 128/73; PULSE 74; RESP 14; TEMP 36.6; O2SAT 98
[2020-07-17 16:56] VITALS: PULSE 74
[2020-07-17 17:13] LABS: Glucose Point of Care 152 (65-105)
[2020-07-17 20:00] VITALS: RESP 20
[2020-07-17 21:53] VITALS: BP 145/127; PULSE 73; RESP 20; TEMP 36.5; O2SAT 92
[2020-07-17] MEDS: PRAMIPEXOLE 1 MG TABLET 3 MG PO (21:59)
[2020-07-17 22:23] LABS: Glucose Point of Care 190 (65-105)
[2020-07-18] VITALS (7 sets, daily range): BP systolic 134–149; BP diastolic 59–80; PULSE 68–73; RESP 16–20; TEMP 36.2–36.6; O2SAT 92–96
[2020-07-18 07:54] LABS: Glucose Point of Care 154 (65-105)
[2020-07-18] MEDS: GABAPENTIN 300 MG CAPSULE 600 MG PO ×2 (08:43→17:47)
[2020-07-18] MEDS: hydrALAZINE HCL 50 MG TABLET 100 MG PO ×3 (08:44→17:47)
[2020-07-18] MEDS: ROSUVASTATIN 10 MG TABLET 40 MG PO (08:44)
[2020-07-18] MEDS: CHOLECALCIFEROL 1,000 UNITS TABLET 1000 UNITS PO (08:45)
[2020-07-18] MEDS: FAMOTIDINE 20 MG TABLET PO ×2 (08:45→17:46)
[2020-07-18] MEDS: DOXYCYCLINE HYCLATE 100 MG TABLET PO (08:45)
[2020-07-18] MEDS: METOPROLOL SUCCINATE EXT REL 100 MG TABCR PO ×2 (08:45→17:46)
[2020-07-18] MEDS: LOSARTAN POTASSIUM 100 MG TABLET PO (08:45)
--- NOTE | 2020-07-18 10:13 | P.PNNP_ITS ---
Progress Note: A&P Assessment and Plan (1) Acute kidney injury: Code(s): N17.9 - Acute kidney failure, unspecified Status: Acute Assessment and Plan: * suspect some pre-renal factors given improvement with IVFs * use of losartan and diuretics DOUGHNUT DOUGH MIXER may have played a role * use of contrast for imaging of renal arteries DOUGHNUT DOUGH MIXER may have also been a contributing factor (but should have worn off by now) * follow trend of labs and UOP (2) Chronic kidney disease, stage 3: Code(s): N18.30 - Chronic kidney disease, stage 3 unspecified Status: Acute Assessment and Plan: * baseline creatinine runs ~ 1.4 - 1.7mg/dl * hence he fluctuates between stage 3a and 3b * presumably due to his diabetes, hypertension, and vascular disease (3) Hyperkalemia: Code(s): E87.5 - Hyperkalemia Status: Acute Assessment and Plan: * due to VAHID, ARB, and supplemental potassium * resolved * follow repeat levels (4) Altered mental status: Code(s): R41.82 - Altered mental status, unspecified Status: Resolved Assessment and Plan: * etiology? * work-up under way * Neurology following - follow-up on EEG (5) Hypertension: Code(s): I10 - Essential (primary) hypertension Status: Acute Assessment and Plan: * reasonable control at this time * follow hemodynamics (6) Kidney hematoma: Qualifiers: Encounter type: initial encounter Laterality: right Qualified Code(s): S37.011A - Minor contusion of right kidney, initial encounter Code(s): S37.019A - Minor contusion of unspecified kidney, initial encounter Status: Acute Assessment and Plan: * as noted by imaging * Urology recommendations noted Will continue to follow. Subjective Date/time seen: 07/18/20 10:13 Appears about the same since I last saw him although his mentation seems somewhat better in general; no apparent distress noted; feels reasonably well. Exam Narrative: Exam Narrative: General: Elderly male in NAD but confused at times Heart: normal S1 and S2; no rub Lungs: clear to auscultation Abdomen: soft, nontender, nondistended, positive bowel sounds Extremities: no cyanosis or clubbing; no edema Skin: warm and dry Objective Data Vital Signs Vital Signs: Vital Signs Temp Pulse Resp BP Pulse Ox 07/18/20 08:45 73 07/18/20 08:41 36.2 C L 73 18 148/62 H 96 07/18/20 05:57 36.6 C 69 20 149/75 H 92 07/17/20 21:53 36.5 C 73 20 145/127 H 92 07/17/20 20:00 20 07/17/20 16:56 74 07/17/20 14:00 36.6 C 74 14 128/73 98 Intake/Output Intake/Output: Intake & Output 07/15/20 07/16/20 07/17/20 07/18/20 23:59 23:59 23:59 23:59 Intake Total 3920 1240 1180 620 Output Total 900 1400 1800 800 Balance 9185 -160 -620 -180 Meds/Results Medications: Active Medications Generic Name Dose Route Start Last Admin Trade Name Freq PRN Reason Stop Dose Admin Acetaminophen 650 mg 07/17/20 04:53 07/17/20 05:06 Acetaminophen 325 Mg Tablet PO 650 mg Q6H PRN Administration Mild Pain (1-3) or Fever Cyclobenzaprine HCl 5 mg 07/13/20 03:26 Cyclobenzaprine Hcl 5 Mg Tablet PO BID PRN Muscle spasm
--- NOTE | 2020-07-18 10:13 | PM.PNNEP ---
Progress Note: A&P Assessment and Plan (1) Acute kidney injury: Code(s): N17.9 - Acute kidney failure, unspecified Status: Acute Assessment and Plan: suspect some pre-renal factors given improvement with IVFs use of losartan and diuretics FAGOTING MACHINE OPERATOR may have played a role use of contrast for imaging of renal arteries FAGOTING MACHINE OPERATOR may have also been a contributing factor (but should have worn off by now) follow trend of labs and UOP (2) Chronic kidney disease, stage 3: Code(s): N18.30 - Chronic kidney disease, stage 3 unspecified Status: Acute Assessment and Plan: baseline creatinine runs ~ 1.4 - 1.7mg/dl hence he fluctuates between stage 3a and 3b presumably due to his diabetes, hypertension, and vascular disease (3) Hyperkalemia: Code(s): E87.5 - Hyperkalemia Status: Acute Assessment and Plan: due to VAHID, ARB, and supplemental potassium resolved follow repeat levels (4) Altered mental status: Code(s): R41.82 - Altered mental status, unspecified Status: Resolved Assessment and Plan: etiology? work-up under way Neurology following - follow-up on EEG (5) Hypertension: Code(s): I10 - Essential (primary) hypertension Status: Acute Assessment and Plan: reasonable control at this time follow hemodynamics (6) Kidney hematoma: Qualifiers: Encounter type: initial encounter Laterality: right Qualified Code(s): S37.011A - Minor contusion of right kidney, initial encounter Code(s): S37.019A - Minor contusion of unspecified kidney, initial encounter Status: Acute Assessment and Plan: as noted by imaging Urology recommendations noted Will continue to follow. Subjective Date/time seen: 07/18/20 10:13 Appears about the same since I last saw him although his mentation seems somewhat better in general; no apparent distress noted; feels reasonably well. Exam Narrative: Exam Narrative: General: Elderly male in NAD but confused at times Heart: normal S1 and S2; no rub Lungs: clear to auscultation Abdomen: soft, nontender, nondistended, positive bowel sounds Extremities: no cyanosis or clubbing; no edema Skin: warm and dry Objective Data Vital Signs Vital Signs: Vital Signs Temp Pulse Resp BP Pulse Ox 07/18/20 08:45 73 07/18/20 08:41 36.2 C L 73 18 148/62 H 96 07/18/20 05:57 36.6 C 69 20 149/75 H 92 07/17/20 21:53 36.5 C 73 20 145/127 H 92 07/17/20 20:00 20 07/17/20 16:56 74 07/17/20 14:00 36.6 C 74 14 128/73 98 Intake/Output Intake/Output: Intake & Output 07/15/20 07/16/20 07/17/20 07/18/20 23:59 23:59 23:59 23:59 Intake Total 3920 1240 1180 620 Output Total 900 1400 1800 800 Balance 3020 -160 -620 -180 Meds/Results Medications: Active Medications Generic Name Dose Route Start Last Admin Trade Name Freq PRN Reason Stop Dose Admin Acetaminophen 650 mg 07/17/20 04:53 07/17/20 05:06 Acetaminophen 325 Mg Tablet PO 650 mg Q6H PRN Administration Mild Pain (1-3) or Fever Cyclobenzaprine HCl 5 mg 07/13/20 03:26 Cyclobenzaprine Hcl 5 Mg Tablet PO BID PRN Muscle spasm Dextrose 12.5 gm 07/13/20 03:28 07/14/20 08:24 Dextrose 50% 25 Gm/50 Ml Syringe IV PUSH 12.5 gm PRN PRN Administration Hypoglycemia Protocol Doxycycline Hyclate 100 mg 07/13/20 09:00 07/18/20 08:45 Doxycycline Hyclate 100 Mg Tablet PO 08/12/20 09:01 100 mg DAILY DINORA Administration Famotidine 20 mg 07/13/20 09:00 07/18/20 08:45 Famotidine 20 Mg Tablet PO 20 mg BID DINORA Administration Gabapentin 600 mg 07/13/20 09:00 07/18/20 08:43 Gabapentin 300 Mg Capsule PO 600 mg BID DINORA Administration Glucagon 1 mg 07/13/20 03:28 Glucagon For Inj 1 Mg Vial IM PRN PRN Hypoglycemia Protocol Glucose 15 gm 07/13/20 03:28 Glucose Oral Gel 15 Gm Of Glucse In 3
[2020-07-18 11:54] LABS: Glucose Point of Care 160 (65-105)
--- NOTE | 2020-07-18 13:11 | PM.IMPN ---
Progress Note: A&P Assessment and Plan (1) Altered mental status: Code(s): R41.82 - Altered mental status, unspecified Status: Resolved Assessment and Plan: Acute delirium likely secondary to drugs anaesthesia or contrast from renal angiogram Ammonia level wnl CT reviewed consult neurology Mri is difficult to do because of stents renal, iliac, carotid artery and coronary stents EEG is pending Strong family history of dementia with his parents states he had some memory issues for a few months. Neurology rounding (2) Acute kidney injury superimposed on chronic kidney disease: Code(s): N17.9 - Acute kidney failure, unspecified; N18.9 - Chronic kidney disease, unspecified Status: Resolved Assessment and Plan: Pt was on IV hydration. Seen by nephrology and urology creat is 1.8, continue to monitor Advised to drink more water. (3) Kidney hematoma: Qualifiers: Encounter type: initial encounter Laterality: right Qualified Code(s): S37.011A - Minor contusion of right kidney, initial encounter Code(s): S37.019A - Minor contusion of unspecified kidney, initial encounter Status: Acute Assessment and Plan: Stable Appreciate Urology note (4) YOLIS on CPAP: Code(s): G47.33 - Obstructive sleep apnea (adult) (pediatric); Z99.89 - Dependence on other enabling machines and devices Status: Acute Assessment and Plan: Continue CPAP at night time. (5) Acute hyperkalemia: Code(s): E87.5 - Hyperkalemia Status: Resolved Assessment and Plan: Continue to monitor. 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 (8) Essential (primary) hypertension: Code(s): I10 - Essential (primary) hypertension Status: Acute Assessment and Plan: Pt is on blood pressure medications. Subjective Date/time seen: 07/18/20 13:11 Interval history: Aiden is a 70 year old male with a past medical history of peripheral peripheral artery disease, hypertension, chronic kidney disease stage 3, diabetes mellitus, and developing dementia who presented to the ER via EMS due to weakness and confusion. Admitted with hallucination visual. Patient had a renal angiogram as an outpatient facility last week to evaluate prior renal stents. He had evidently been complaining of right flank pain ever since his angiogram. And now is having hallucinations, ? 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 Nephrology and neurology on the case. Both of his parents have dementia -AD. Small memory issues for few years. Pt appears more lucid today and consistent with stories and thoughts Review of Systems Review of Systems: All systems reviewed & are unremarkable except as noted in HPI and below Exam Const: General: comfortable and awake Nutritional Appearance: overweight HENMT: Head: normal to inspection and normocephalic Ears: hearing grossly normal bilaterally General nose exam: Normal external nose present Face and sinus: normal facial exam Eyes: General: appearance normal, both eyes and all related structures Pupils: Equal, round and reactive pupils present EOM: EOMs intact bilaterally Neck: Neck: no lymphadenopathy, supple and no JVD Resp: Effort & Inspection: normal respiratory effort and able to speak in complete senten
[2020-07-18 17:17] LABS: Glucose Point of Care 194 (65-105)
[2020-07-18] MEDS: PRAMIPEXOLE 1 MG TABLET 3 MG PO (21:23)
[2020-07-18 21:24] LABS: Glucose Point of Care 180 (65-105)
[2020-07-19 05:58] VITALS: BP 152/68; PULSE 72; RESP 16; TEMP 36.4; O2SAT 97
[2020-07-19 08:08] VITALS: BP 144/69; PULSE 74; RESP 16; O2SAT 94
[2020-07-19] MEDS: hydrALAZINE HCL 50 MG TABLET 100 MG PO ×2 (08:09→12:51)
[2020-07-19 08:10] VITALS: PULSE 74
[2020-07-19] MEDS: METOPROLOL SUCCINATE EXT REL 100 MG TABCR PO (08:10)
[2020-07-19] MEDS: GABAPENTIN 300 MG CAPSULE 600 MG PO (08:10)
[2020-07-19] MEDS: LOSARTAN POTASSIUM 100 MG TABLET PO (08:10)
[2020-07-19] MEDS: FAMOTIDINE 20 MG TABLET PO (08:10)
[2020-07-19] MEDS: ROSUVASTATIN 10 MG TABLET 40 MG PO (08:11)
[2020-07-19] MEDS: CHOLECALCIFEROL 1,000 UNITS TABLET 1000 UNITS PO (08:11)
[2020-07-19] MEDS: DOXYCYCLINE HYCLATE 100 MG TABLET PO (08:11)
[2020-07-19 11:30] LABS: Glucose Point of Care 202 (65-105)
[2020-07-19 12:52] VITALS: BP 141/58; PULSE 73
--- NOTE | 2020-07-19 13:49 | PCRCNOTE ---
Adjustments made to S9 CPAP. Pt states he wears a nasal mask at home. And changed EPR to 3. Pt wants to wear machine tonight states he sleeps a lot better with CPAP.
[2020-07-19 14:00] VITALS: BP 155/63; PULSE 71; RESP 20; TEMP 36.2; O2SAT 95
--- NOTE | 2020-07-19 14:39 | PM.DS ---
DS: Admitting Diagnosis Admitting Diagnosis Admitting Diagnosis: Weakness DS: Discharge Diagnosis Discharge Diagnosis (1) Altered mental status: Code(s): R41.82 - Altered mental status, unspecified Status: Resolved Assessment and Plan: Acute delirium likely secondary to drugs anaesthesia or contrast from renal angiogram Ammonia level wnl CT reviewed consult neurology Mri is difficult to do because of stents renal, iliac, carotid artery and coronary stents EEG is pending pt will follow this in the neurology office Strong family history of dementia with his parents states he had some memory issues for a few months. Neurology will decide if pt needs to start on dementia medications (2) Acute kidney injury superimposed on chronic kidney disease: Code(s): N17.9 - Acute kidney failure, unspecified; N18.9 - Chronic kidney disease, unspecified Status: Resolved Assessment and Plan: Pt was on IV hydration in the hospital. Seen by nephrology and urology creat is 1.6 Advised to drink more water. (3) Kidney hematoma: Qualifiers: Encounter type: initial encounter Laterality: right Qualified Code(s): S37.011A - Minor contusion of right kidney, initial encounter Code(s): S37.019A - Minor contusion of unspecified kidney, initial encounter Status: Acute Assessment and Plan: Stable Appreciate Urology note Pt to hold blood thinners for 2 more weeks (4) YOLIS on CPAP: Code(s): G47.33 - Obstructive sleep apnea (adult) (pediatric); Z99.89 - Dependence on other enabling machines and devices Status: Acute Assessment and Plan: Continue CPAP at night time. (5) Acute hyperkalemia: Code(s): E87.5 - Hyperkalemia Status: Resolved Assessment and Plan: Continue to monitor. 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 Pt can continue on ozempic and jardinace. Can go back on novolog if his meal time sugars go up. Anaemia Severe anaemia Hb is 8.4 pt to have iron tablets RLS and sleep apnea and history of a stroke (7) CHF (congestive heart failure): Code(s): I50.9 - Heart failure, unspecified Status: Inactive Assessment and Plan: Pt is on oral lasix. and potassium suplements (8) Essential (primary) hypertension: Code(s): I10 - Essential (primary) hypertension Status: Acute Assessment and Plan: Pt is on blood pressure medications. DS: Summary Hospital Course Hospital Course: Aiden is a 70 year old male with a past medical history of peripheral peripheral artery disease, hypertension, chronic kidney disease stage 3, diabetes mellitus, and developing dementia who presented to the ER via EMS due to weakness and confusion. Admitted with hallucination visual. Patient had a renal angiogram as an outpatient facility last week to evaluate prior renal stents. He had evidently been complaining of right flank pain ever since his angiogram. And now is having hallucinations, ? 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 Nephrology and neurology on the case. Both of his parents have dementia -AD. Small memory issues for few years. Pt appears more lucid today and consistent with stories and thoughts, no visual hallucinations. Pt sugar was found to be very low @30s in the hospital, lantus and novolog with meals were put on hold and pts glucose stayed controlled, so there were both stopped pt to continue with ozempic and novolog. Pt was started on iron tablets, for hb of 8. Pt to hold ASA and plavix
[2020-07-19 14:43] LABS: Alanine Aminotransferase 49 U/L (4-50); Alkaline Phosphatase 221 U/L (38-126); Anion Gap 3 mmol/L (8-16); Aspartate Amino Transferase 55 U/L (17-59); Bilirubin,Total 1.9 mg/dL (0.2-1.3); Blood Urea Nitrogen 21 mg/dL (9-20); Calcium 8.2 mg/dL (8.4-10.2); Carbon Dioxide 26 mmol/L (22-30); Chloride 106 mmol/L (98-107); Estimated CRCL calculation 50 ml/min; Estimated Glomerular Filt Rate 43; Glucose 204 mg/dL (75-110); Potassium 3.2 mmol/L (3.4-5.0); Sodium 135 mmol/L (137-145)
--- NOTE | 2020-07-21 09:53 | WPDNEUROLOGY ---
Neurology EEG Report General Information Date of Study: 07/17/20 TEST eeg DIAGNOSIS altered mental status CONDITION OF RECORDING confused EEG NUMBER [id number] CLINICAL HISTORY patient reported he had complication during the surgery and not sure why he is having the test EEG DESCRIPTION whole record consists of low-voltage 15 to 21 hertz per second beta admixed with intermittent low to medium voltage 5 to 7 hertz per second theta activity and also low to medium voltage 3 to 4 hertz per second delta activity. hyperventilation not done photic stimulation not done. Non paroxysmal. Nonfocal. Nonlateralizing. IMPRESSION Abnormal record due to the presence of bihemispheric theta and delta activity. these abnormalities are suggestive of underlying organic or metabolic encephalopathy.The possibility of focal structural lesion cannot be ruled out clinical correlation recommended
== END 2020-07-19 16:40 | disposition home or self-care (01) | DRG 683 ==
LOC: ANHED 23:06 → ANHIMU 23:19 → ANH3MEDSUR 07-19 14:13 → ANHIMU 07-22 17:19
PROVIDERS: Internal Medicine; Internal Medicine Nephrology; Admitting Provider Internal Medicine; Emergency Provider Emergency Medicine; PCP Family Medicine; Visit Provider Family Medicine
DX: N17.9 Acute kidney failure, unspecified (principal); S37.011A Minor contusion of right kidney, initial encounter; I13.0 Hypertensive heart and chronic kidney disease with heart failure and stage 1 through stage 4 chronic kidney disease, or unspecified chronic kidney disease; E11.22 Type 2 diabetes mellitus with diabetic chronic kidney disease; N18.30 Chronic kidney disease, stage 3 unspecified; R44.1 Visual hallucinations; R41.82 Altered mental status, unspecified; T50.8X5A Adverse effect of diagnostic agents, initial encounter; T41.45XA Adverse effect of unspecified anesthetic, initial encounter; I50.9 Heart failure, unspecified; G47.33 Obstructive sleep apnea (adult) (pediatric); E87.5 Hyperkalemia; E11.51 Type 2 diabetes mellitus with diabetic peripheral angiopathy without gangrene; E11.65 Type 2 diabetes mellitus with hyperglycemia; I25.10 Atherosclerotic heart disease of native coronary artery without angina pectoris; F03.90 Unspecified dementia, unspecified severity, without behavioral disturbance, psychotic disturbance, mood disturbance, and anxiety; F32.9 Major depressive disorder, single episode, unspecified; E78.5 Hyperlipidemia, unspecified; M19.90 Unspecified osteoarthritis, unspecified site; Z79.4 Long term (current) use of insulin; Z95.5 Presence of coronary angioplasty implant and graft; Z98.42 Cataract extraction status, left eye; Z98.41 Cataract extraction status, right eye; Z90.49 Acquired absence of other specified parts of digestive tract; Z96.651 Presence of right artificial knee joint; F17.210 Nicotine dependence, cigarettes, uncomplicated
CPT/HCPCS: 36415; 36600; 70450; 71045; 74176; 76775; 80048; 80053; 80061; 80069; 80074; 81001; 82140; 82375; 82805; 82948; 83036; 83050; 83605; 83735; 83880; 84484; 85014; 85018; 85025; 85027; 85610; 85730; 86850; 86900; 86901; 93005; 93306; 95816; 96361; 96365; 96366; 96374; 96375; 96376; 97110; 97116; 97161; 97165; 99285; A9270; G0378; J0610; J1200; J1630; J1815; J2060; J7030; J7070; Q9957

== ENCOUNTER 2021-03-26 00:33 | Day surgery (SDC) | payer BC, SELFPAY ==
[2021-03-13 16:45] VITALS: BMI 29.0
[2021-03-26 09:46] VITALS: BP 102/62; PULSE 74; RESP 16; TEMP 36.1; O2SAT 100; BMI 29.4
--- NOTE | 2021-03-26 09:57 | WPDANESEPPF ---
Anes - Initial Pre Proc Eval Procedure: Operation Date: 03/26/21 10:30 Proposed Procedures p Screening Colonoscopy - Allan Galeano MD Date/Time: 03/26/21 09:57 Surgeon: Allan Galeano MD Pre Op Diagnosis: hx of colon polyps Patient Data Age: 70 Gender: M Height: 1.8 m Weight: 95.6 kg Last Vital Signs Temp 36.1 C L 03/26/21 09:46 Pulse 74 03/26/21 09:46 Resp 16 03/26/21 09:46 BP 102/62 03/26/21 09:46 Pulse Ox 100 03/26/21 09:46 Allergies Allergy/AdvReac Type Severity Reaction Status Date / Time No Known Allergies Allergy Verified 03/26/21 09:44 Home Medications Medication Instructions Recorded Confirmed Type furosemide 40 mg tablet 40 mg PO QAM 10/17/19 03/13/21 History gabapentin 300 mg capsule 600 mg PO BID cap 10/17/19 03/13/21 History hydralazine 100 mg tablet 100 mg PO TID tablet 10/17/19 03/13/21 History pramipexole 1 mg tablet 2.5 mg PO TID tablet 10/17/19 03/13/21 History aspirin 81 mg PO DAILY 11/15/19 03/13/21 History losartan 100 mg PO DAILY 11/15/19 03/13/21 History rosuvastatin 40 mg PO DAILY 11/15/19 03/13/21 History Ozempic 1 mg SUBCUT WEEKLY 07/12/20 03/13/21 History famotidine 20 mg PO BID 07/12/20 03/13/21 History cholecalciferol (vitamin D3) 50 mcg PO DAILY 07/13/20 03/13/21 History BD Glucose 4 g PO PRN PRN 03/13/21 03/13/21 History carvedilol 25 mg PO BID 03/13/21 03/13/21 History doxycycline hyclate 100 mg PO DAILY 03/13/21 03/13/21 History duloxetine 60 mg PO DAILY 03/13/21 03/13/21 History insulin glargine [Lantus U-100 34 unit SUBCUT DAILY 03/13/21 03/13/21 History Insulin] spironolactone 25 mg PO DAILY 03/13/21 03/13/21 History Patient hx anesthesia problems: none Family hx anesthesia problems: none Results Review: All pre-operative results and documents have been reviewed as part of the pre-operative evaluation. [facility] Past Medical History Medical History Adenomatous colon polyp Arthritis of left subtalar joint BMI (body mass index) 20.0-29.9 BMI 34.0-34.9,adult CAD (coronary artery disease) Stent x 5 Carotid stenosis CHF (congestive heart failure) Dementia Depression Diabetes History of anesthesia reaction HLD (hyperlipidemia) HTN (hypertension) Kidney stones YOLIS on CPAP Peripheral artery disease PVD (peripheral vascular disease) Surgical History Surgical History H/O carotid endarterectomy 2007 H/O colonoscopy H/O shoulder surgery Left shoulder History of appendectomy History of bilateral cataract extraction History of coronary artery stent placement History of stent insertion of renal artery History of total right knee replacement Complicated by MRSA infection with subsequent surgical debridements with loss of knee cap Family History Family History Father Hypertension Diabetes mellitus Coronary artery disease Cancer Mother Dementia Sibling No problems noted. Social History Social History Social History: The patient's reports that the patient has continued to smoke. The patient himself states that he quit smoking 12 weeks ago but again he is a poor historian. The patient has 2 sons and 1 stepdaughter. Primary care physician: Dr. Marcello Jung Code status: Full code Surrogate decision maker: Smoking packs per day: 1 Smoking cigarettes per day: 20.0 Years smoked: 37 Smoking pack-years: 37.00 Smoking status: Current every day smoker Tobacco type: cigarettes Second hand tobacco smoke exposure: No Smoking end date: 05/23/15 Additional smoking assessment comments: DOWN TO 5 CIG. PER DAY NOW TRYING TO QUIT Alcohol intake: current Substance use: never Substance use type: does not use Other substance usage details:
[2021-03-26 10:23] LABS: Glucose Point of Care 176 mg/dl (65-105)
[2021-03-26] MEDS: LACTATED RINGERS 1,000 ML 150 ML IV CONT (10:30)
--- NOTE | 2021-03-26 10:33 | WPDGICN ---
Assessment and Plan Assessment and plan (1) History of colon polyps: Code(s): Z86.010 - Personal history of colonic polyps Status: Acute Assessment and Plan: Patient has a history of multiple colon polyps. Most recently 1 year ago when he had all poor preparation. Surveillance colonoscopy will be performed today. Further recommendations will be given after endoscopy. GI Consult Note Consult date/time: 03/26/21 10:33 HPI: Kashmir Wolfe is a 70 year old male Presents for screening colonoscopy. Patient has a history of colon polyps identified by a colonoscopy 1 year ago. Colonoscopy at that time revealed poor preparation but multiple polyps were removed. Patient presents today for follow-up examination hopefully with better prep. He denies any bleeding. Denies abdominal pain. Family history is noncontributory. Review of Systems Review of Systems: All systems reviewed & are unremarkable except as noted in HPI and below PMFSH Past Medical History Medical History Adenomatous colon polyp Arthritis of left subtalar joint BMI (body mass index) 20.0-29.9 BMI 34.0-34.9,adult CAD (coronary artery disease) Stent x 5 Carotid stenosis CHF (congestive heart failure) Dementia Depression Diabetes History of anesthesia reaction HLD (hyperlipidemia) HTN (hypertension) Kidney stones YOLIS on CPAP Peripheral artery disease PVD (peripheral vascular disease) Surgical History Surgical History H/O carotid endarterectomy 2007 H/O colonoscopy H/O shoulder surgery Left shoulder History of appendectomy History of bilateral cataract extraction History of coronary artery stent placement History of stent insertion of renal artery History of total right knee replacement Complicated by MRSA infection with subsequent surgical debridements with loss of knee cap Family History Family History Father Hypertension Diabetes mellitus Coronary artery disease Cancer Mother Dementia Sibling No problems noted. Social History Social History Social History: The patient's reports that the patient has continued to smoke. The patient himself states that he quit smoking 12 weeks ago but again he is a poor historian. The patient has 2 sons and 1 stepdaughter. Primary care physician: Dr. Marcello Jung Code status: Full code Surrogate decision maker: Smoking packs per day: 1 Smoking cigarettes per day: 20.0 Years smoked: 37 Smoking pack-years: 37.00 Smoking status: Current every day smoker Tobacco type: cigarettes Second hand tobacco smoke exposure: No Smoking end date: 05/23/15 Additional smoking assessment comments: DOWN TO 5 CIG. PER DAY NOW TRYING TO QUIT Alcohol intake: current Substance use: never Substance use type: does not use Other substance usage details: only occasional alcohol usage Living arrangements: with family Additional occupation/education comments: [employer] Gender identity (if verbalized by the patient): Male Spiritual care concerns: No Meds Home Medications and Allergies Home Medications Medication Instructions Recorded Confirmed Type furosemide 40 mg tablet 40 mg PO QAM 10/17/19 03/13/21 History gabapentin 300 mg capsule 600 mg PO BID cap 10/17/19 03/13/21 History hydralazine 100 mg tablet 100 mg PO TID tablet 10/17/19 03/13/21 History pramipexole 1 mg tablet 2.5 mg PO TID tablet 10/17/19 03/13/21 History aspirin 81 mg PO DAILY 11/15/19 03/13/21 History losartan 100 mg PO DAILY 11/15/19 03/13/21 History rosuvastatin 40 mg PO DAILY 11/15/19 03/13/21 History Ozempic 1 mg SUBCUT WEEKLY 07/12/20 03/13/21 History famotidine 20 mg PO BID 07/12/20 03/13/21 History c
[2021-03-26 11:15] VITALS: BP 79/36; PULSE 71; RESP 20; O2SAT 97
[2021-03-26 11:25] VITALS: BP 100/52; PULSE 71; RESP 20; O2SAT 99
[2021-03-26 11:31] LABS: Glucose Point of Care 168 mg/dl (65-105)
[2021-03-26 11:35] VITALS: BP 123/67; PULSE 72; RESP 20; O2SAT 99
== END 2021-03-26 11:53 | disposition home or self-care (01) ==
PROVIDERS: PCP Family Medicine; Visit Provider Internal Medicine Gastroenterology
PROC: 0DJD8ZZ Inspection of Lower Intestinal Tract, Via Natural or Artificial Opening Endoscopic (ICD-10-PCS; CPT 45378; principal; 2021-03-26 10:30)
DX: Z12.11 Encounter for screening for malignant neoplasm of colon (principal); K63.5 Polyp of colon; K64.8 Other hemorrhoids; I25.10 Atherosclerotic heart disease of native coronary artery without angina pectoris; I11.0 Hypertensive heart disease with heart failure; I50.9 Heart failure, unspecified; E11.51 Type 2 diabetes mellitus with diabetic peripheral angiopathy without gangrene; E78.5 Hyperlipidemia, unspecified; G47.33 Obstructive sleep apnea (adult) (pediatric); F03.90 Unspecified dementia, unspecified severity, without behavioral disturbance, psychotic disturbance, mood disturbance, and anxiety; F32.9 Major depressive disorder, single episode, unspecified; Z95.5 Presence of coronary angioplasty implant and graft; F17.210 Nicotine dependence, cigarettes, uncomplicated; Z79.4 Long term (current) use of insulin; Z79.82 Long term (current) use of aspirin; E66.9 Obesity, unspecified; Z68.29 Body mass index [BMI] 29.0-29.9, adult
CPT/HCPCS: 45385; 82948; 88305; J2370; J2704; J7120

== ENCOUNTER 2022-01-10 11:50 | Emergency (ER) | payer MEDICARE, BC, SELFPAY ==
--- NOTE | ~2022-01-10 | XR_ITS ---
EXAMINATION: XR finger 3rd LT min 2V DATE: 01/10/2022 12:41 INDICATION: Left hand third digit laceration. TECHNIQUE: 4 views of left hand third digit were obtained. COMPARISON: None. FINDINGS: Bone alignment is normal. No fracture. A punctate calcification at ulnar aspect of base of third middle phalanx may be chronic. There is mild osteoarthritis of third proximal and distal phalan ges. IMPRESSION: 1. No fracture or radiopaque foreign body. Reviewed, dictated and finalized at location A.
--- NOTE | 2022-01-10 12:06 | PC.NURSE ---
pt. states BG low. given apple juice.
[2022-01-10 12:09] VITALS: BP 108/54; PULSE 77; RESP 14; TEMP 36.4; O2SAT 97
--- NOTE | 2022-01-10 12:19 | ED.WOUNDLAC ---
HPI - Wound/Laceration General Chief Complaint: Wound/Laceration Stated Complaint: finger lac Time Seen by Provider: 01/10/22 12:19 Source: patient Mode of arrival: ambulatory Limitations: no limitations History of Present Illness HPI narrative: Patient is a 71-year-old male who presents ED with report of a laceration to his left third digit. 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 Sustained laceration to distal tip of finger. No other injuries. No numbness, tingling. Patient is on Plavix and aspirin. No other blood thinners. Tetanus status up-to-date. Related Data Home Medications Medication Instructions Recorded Confirmed furosemide 40 mg tablet (Lasix) 40 mg PO QAM 10/17/19 03/13/21 gabapentin 300 mg capsule 600 mg PO BID 10/17/19 03/13/21 hydralazine 100 mg tablet 100 mg PO TID 10/17/19 03/13/21 pramipexole 1 mg tablet 2.5 mg PO TID 10/17/19 03/13/21 aspirin 81 mg tablet,delayed 81 mg PO DAILY 11/15/19 03/13/21 release losartan 100 mg tablet 100 mg PO DAILY 11/15/19 03/13/21 rosuvastatin 40 mg tablet 40 mg PO DAILY 11/15/19 03/13/21 famotidine 20 mg tablet 20 mg PO BID 07/12/20 03/13/21 semaglutide 1 mg/dose (2 mg/1.5 1 mg subcut WEEKLY 07/12/20 03/13/21 mL) subcutaneous pen injector ([employer]) cholecalciferol (vitamin D3) 25 50 mcg PO DAILY 07/13/20 03/13/21 mcg (1,000 unit) capsule BD Glucose 4 g PO PRN PRN Hypoglycemia 03/13/21 03/13/21 carvedilol 25 mg tablet 25 mg PO BID 03/13/21 03/13/21 doxycycline hyclate 100 mg tablet 100 mg PO DAILY 03/13/21 03/13/21 duloxetine 60 mg capsule,delayed 60 mg PO DAILY 03/13/21 03/13/21 release insulin glargine 100 unit/mL 34 unit subcut DAILY 03/13/21 03/13/21 subcutaneous cartridge spironolactone 25 mg tablet 25 mg PO DAILY 03/13/21 03/13/21 Allergies Allergy/AdvReac Type Severity Reaction Status Date / Time No Known Allergies Allergy Verified 01/10/22 12:14 Review of Systems Review of Systems: CONSTITUTIONAL: Denies fever. SKIN: Reports laceration to left third digit. NEUROLOGIC: Denies tingling, numbness, or weakness. All systems reviewed & are unremarkable except as noted in HPI and below PMFSH Past Medical History Medical History Adenomatous colon polyp Arthritis of left subtalar joint BMI (body mass index) 20.0-29.9 BMI 34.0-34.9,adult CAD (coronary artery disease) Stent x 5 Carotid stenosis CHF (congestive heart failure) Dementia Depression Diabetes History of anesthesia reaction HLD (hyperlipidemia) HTN (hypertension) Kidney stones YOLIS on CPAP Peripheral artery disease PVD (peripheral vascular disease) Surgical History Surgical History H/O carotid endarterectomy 2007 H/O colonoscopy H/O shoulder surgery Left shoulder History of appendectomy History of bilateral cataract extraction History of coronary artery stent placement History of stent insertion of renal artery History of total right knee replacement Complicated by MRSA infection with subsequent surgical debridements with loss of knee cap Family History Family History Father Hypertension Diabetes mellitus Coronary artery disease Cancer Mother Dementia Sibling No problems noted. Social History Social History Social History: The patient's reports that the patient has continued to smoke. The patient himself states that he quit smoking 12 weeks ago but again he is a poor historian. The patient has 2 sons and 1 stepdaughter. Primary care physician: Dr. Marcello Jung Code status: Full code Surrogate decision maker: Smoking packs per day: 1 Smoking cigarettes per day: 20.0 Years smoked: 37 Smoking p
--- NOTE | 2022-01-10 12:25 | PC.NURSE ---
pt. used self accucheck scanned BG 145
== END 2022-01-10 14:44 | disposition home or self-care (01) ==
PROVIDERS: Emergency Provider Emergency Medicine; PCP Family Medicine
DX: S61.213A Laceration without foreign body of left middle finger without damage to nail, initial encounter (principal); M19.90 Unspecified osteoarthritis, unspecified site; I25.10 Atherosclerotic heart disease of native coronary artery without angina pectoris; I11.0 Hypertensive heart disease with heart failure; I50.9 Heart failure, unspecified; F03.90 Unspecified dementia, unspecified severity, without behavioral disturbance, psychotic disturbance, mood disturbance, and anxiety; E11.9 Type 2 diabetes mellitus without complications; E78.5 Hyperlipidemia, unspecified; Z79.4 Long term (current) use of insulin; W29.3XXA Contact with powered garden and outdoor hand tools and machinery, initial encounter
CPT/HCPCS: 12002; 73140; 99283

== ENCOUNTER 2022-10-07 11:37 | Emergency (ER) | payer MEDICARE, OTHER, SELFPAY ==
--- NOTE | ~2022-10-07 | CT_ITS ---
EXAMINATION: CT brain wo con DATE: 10/07/2022 12:24 INDICATION: Status post fall. Head injury. TECHNIQUE: Computed tomography (CT) of the head was performed without intravenous contrast. The dose- length product was 681.00 mGy-cm. Automated exposure control and iterative reconstruction technique w ere employed. COMPARISON: CT dated 07/13/2020 FINDINGS: Chronic right thalamic and bilateral lacunar infarctions. No ventriculomegaly or midline sh ift. There is a chronic left parietal lobe infarction. No ventriculomegaly or midline shift. There is a chronic right occipital lobe infarction. There is intracranial atherosclerosis. No ventriculomegal y or midline shift. Basilar cisterns are patent. Paranasal sinuses and mastoids are pneumatized. No d epressed skull fractures. There are scattered mild periventricular and subcortical white matter changes, most likely related to small vessel ischemic disease (microangiopathy). IMPRESSION: 1. No acute intracranial abnormality. 2: Chronic left parietal lobe, right occipital lobe, right thalamic and bilateral lacunar infarctions . 3: Chronic age-related findings. Reviewed, dictated and finalized at location L. IMPRESSION: 1. No acute intracranial abnormality. 2: Chronic left parietal lobe, right occipital lobe, right thalamic and bilater al lacunar infarctions. 3: Chronic age-related findings.
--- NOTE | ~2022-10-07 | CT_ITS ---
EXAMINATION: CT facial bones wo con DATE: 10/07/2022 12:24 INDICATION: Right periorbital injury and ecchymosis. TECHNIQUE: Computed tomography (CT) of the facial bones and maxillofacial region was performed withou t intravenous contrast. Automated exposure control and iterative reconstruction technique were employ ed. The dose-length product was 305.72 mGy-cm. COMPARISON: Head CT 07/13/2020 FINDINGS: There are likely changes of ocular lens replacement surgeries. There is right periorbital s oft tissue swelling. There is mild mucosal thickening in the paranasal sinuses. There are carious les ions of bilateral mandibular molars. There is rightward deviation of the nasal septum. IMPRESSION: 1. No fracture. 2. Dental disease. Reviewed, dictated and finalized at location A.
[2022-10-07 11:39] VITALS: BP 157/87; PULSE 73; RESP 18; TEMP 36.5; O2SAT 99
--- NOTE | 2022-10-07 11:49 | PC.NURSE ---
Pt ambulates into ER c/o a lac under his right eye. Pt has rods in his right leg and has caused him to fall in the past. States while he was edging his grass around 1125 this morning, slipped on grass, lost his balance and fell to the ground. In the process of falling the edging battery hit pt under his right eye. Denies any LOC. States he is on blood thinners. Pt applied butterfly bandages and controlled most of the bleeding. Pt has some swelling around the lac to the bottom portion. Pt denies any head pain at this time.
[2022-10-07] MEDS: LIDOCAINE, EPINEPHRINE, TETRACAINE VISCOUS SOLN 3 ML TOPICAL (12:09)
--- NOTE | 2022-10-07 12:13 | ED.FALL ---
HPI - Fall General Chief Complaint: Fall Stated Complaint: fall Time Seen by Provider: 10/07/22 11:47 History of Present Illness HPI Narrative: Patient is a 72-year-old male here after a fall this afternoon. Patient was ambulating in his usual state of health in his yard when his right leg gave out on him, causing him to fall on the right side of his body. Patient states that on the way down he struck his right cheek against a battery on the lawnmower that led to a small laceration in that area. He denies loss of consciousness. Since the fall he is denied headache, nausea, vomiting, visual changes. Patient states he takes a blood thinner but do not see this on his med list. His last tetanus was updated 3 years ago. Related Data Home Medications Medication Instructions Recorded Confirmed furosemide 40 mg tablet (Lasix) 40 mg PO QAM 10/17/19 03/13/21 gabapentin 300 mg capsule 600 mg PO BID 10/17/19 02/16/22 aspirin 81 mg tablet,delayed 81 mg PO DAILY 11/15/19 02/16/22 release losartan 100 mg tablet 100 mg PO DAILY 11/15/19 02/16/22 rosuvastatin 40 mg tablet 40 mg PO DAILY 11/15/19 02/16/22 famotidine 20 mg tablet 20 mg PO BID 07/12/20 02/16/22 semaglutide 1 mg/dose (2 mg/1.5 1 mg subcut WEEKLY 07/12/20 02/16/22 mL) subcutaneous pen injector (Ozempic) cholecalciferol (vitamin D3) 25 50 mcg PO DAILY 07/13/20 02/16/22 mcg (1,000 unit) capsule BD Glucose 4 g PO PRN PRN Hypoglycemia 03/13/21 02/16/22 carvedilol 25 mg tablet 25 mg PO BID 03/13/21 02/16/22 doxycycline hyclate 100 mg tablet 100 mg PO DAILY 03/13/21 02/16/22 duloxetine 60 mg capsule,delayed 60 mg PO DAILY 03/13/21 02/16/22 release insulin glargine 100 unit/mL 34 unit subcut DAILY 03/13/21 02/16/22 subcutaneous cartridge spironolactone 25 mg tablet 25 mg PO DAILY 03/13/21 02/16/22 hydralazine 100 mg tablet 25 mg PO TID 02/16/22 02/16/22 Allergies Allergy/AdvReac Type Severity Reaction Status Date / Time No Known Allergies Allergy Verified 10/07/22 11:48 Review of Systems Review of Systems: Gen.: Denies fevers or chills Eyes: Denies eye pain or visual change ENT: Denies congestion Respiratory: Denies shortness of breath or cough CV: Denies chest pain or palpitations GI: Denies abdominal pain nausea, emesis or diarrhea denies burning, urgency, frequency or hematuria Musculoskeletal: Denies back pain or muscle pain Neuro: Denies numbness, tingling, weakness or focal weakness Skin: Reports laceration Except as documented, all other systems reviewed and negative PMFSH Past Medical History Medical History Adenomatous colon polyp Arthritis of left subtalar joint BMI (body mass index) 20.0-29.9 BMI 32.0-32.9,adult BMI 34.0-34.9,adult CAD (coronary artery disease) Stent x 5 Carotid stenosis CHF (congestive heart failure) Dementia Depression Diabetes History of anesthesia reaction HLD (hyperlipidemia) HTN (hypertension) Kidney stones YOLIS on CPAP Peripheral artery disease PVD (peripheral vascular disease) Surgical History Surgical History H/O carotid endarterectomy 2007 H/O colonoscopy H/O shoulder surgery Left shoulder History of appendectomy History of bilateral cataract extraction History of coronary artery stent placement History of stent insertion of renal artery History of total right knee replacement Complicated by MRSA infection with subsequent surgical debridements with loss of knee cap Family History Family History Father Hypertension Diabetes mellitus Coronary artery disease Cancer Mother Dementia Sibling No problems noted. Social History Social History Social History: The patient's reports that the patient has continued to smoke. Th
== END 2022-10-07 13:36 | disposition home or self-care (01) ==
PROVIDERS: Emergency Provider Physician Assistant; PCP Family Medicine
DX: S01.411A Laceration without foreign body of right cheek and temporomandibular area, initial encounter (principal); I25.10 Atherosclerotic heart disease of native coronary artery without angina pectoris; E11.51 Type 2 diabetes mellitus with diabetic peripheral angiopathy without gangrene; I73.9 Peripheral vascular disease, unspecified; F03.90 Unspecified dementia, unspecified severity, without behavioral disturbance, psychotic disturbance, mood disturbance, and anxiety; E78.5 Hyperlipidemia, unspecified; I10 Essential (primary) hypertension; G47.33 Obstructive sleep apnea (adult) (pediatric); M19.072 Primary osteoarthritis, left ankle and foot; F17.210 Nicotine dependence, cigarettes, uncomplicated; Z96.651 Presence of right artificial knee joint; Z95.5 Presence of coronary angioplasty implant and graft; Z87.442 Personal history of urinary calculi; Z86.010 Personal history of colon polyps; Z86.14 Personal history of Methicillin resistant Staphylococcus aureus infection; Z98.42 Cataract extraction status, left eye; Z98.41 Cataract extraction status, right eye; Z79.4 Long term (current) use of insulin; Z79.82 Long term (current) use of aspirin; K02.9 Dental caries, unspecified; W01.198A Fall on same level from slipping, tripping and stumbling with subsequent striking against other object, initial encounter
CPT/HCPCS: 12011; 70450; 70486; 99284

== ENCOUNTER 2024-08-14 02:04 | Day surgery (SDC) | payer MEDICARE, OTHER, SELFPAY ==
[2024-07-31 15:55] VITALS: BMI 27.3
--- NOTE | 2024-07-31 16:19 | PC.NURSE ---
Spoke with patient regarding medication Plavix. Patient verbalizes understanding that the last dose is to be taken on 08/06/24 and the Endoscopist will instruct them when to restart after the procedure.
--- OUTSIDE RECORDS SUMMARY | 2024-08-14 02:09 | XMS_ITS | Encounter Summary ---
Author Organization [facility] Health Address [address] [place] [address] Care Team Providers Care Trim Line Worker Name Role Phone Marcello Jung MD Primary Care Provider [phone] Reason for Visit * Reason Onset Date Comments Medication Issue 01/01/2021 Encounter Details Date Type Department Care Team (Late st Contact Info) Description 01/01/2021 Telephone [facility] - [facility] [address] [place] [id number] Isaias Jarrett MD [address] [place] [address] Medication Issue Social History Tobacco Use Types Packs/Day Years Used Date Smoking Tobacco: Former Cigarettes 0.5 25 0 09/14/1991 - 09/13/2016 Smokeless Tobacco: Never Alcohol Use Standard Drinks/Week Comments No 0 (1 standard drink = 0.6 oz pur e alcohol) very rarely Sex and Gender Information Value Date Recorded Sex Assigned at Not on file Gender Identity Male Sexual Orientation Not on file documented as of this encounter Functional Status Functional Status Response Date of Assess ment Is person deaf or have serious hearing difficult y? No 07/18/2017 Is person blind or have serious difficulty seein g? No 07/18/2017 Does person have serious dif ficulty walking/climbing stairs? Yes 07/18/2017 Does person have difficulty dressing/bathing? Ye s 07/18/2017 Does person have difficulty doing errands alone? Yes 07/18/2017 Cognitive Status Response Date of Assessm ent Does person have difficulty concentrating/remembering/making decisions? 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
--- OUTSIDE RECORDS SUMMARY | 2024-08-14 02:09 | XMS_ITS | Clinical Summary ---
Author Organization [facility] Address [address] [place] [address] Care Team Providers Care Osteology Teacher Name Role Phone Unavailable Primary Care Provider Unavailabl e Allergies No known active allergies Medications cholecalciferol (VITAMIN D) 2000 UNITS tablet tablet Take 1 tablet (2,000 Int'l Units total) by mouth daily with lunch. 30 tablet 7 Active famotidine (PEPCID) 20 MG tablet Take 1 tablet (20 mg total) by mouth 2 (two) times a day. 60 tablet 7 Active cyclobenzaprine (FLEXERIL) 5 MG tablet Take 1 tablet (5 mg total) by mouth daily as needed for muscle spasms. 30 tablet 7 Active Skin Protectants, Misc. (MINERIN) cream Apply 1 application topically once a day. 454 g 7 Active bacitracin 500 UNIT/GM ointment Apply topically once a day. Apply over xeroform 14 g 7 Active amLODIPine (NORVASC) 5 MG tablet Take 1 tablet (5 mg total) by mouth nightly. 30 tablet 7 Active amLODIPine (NORVASC) 10 MG tablet Take 1 tablet (10 mg total) by mouth once a day. 30 tablet 7 Active metoprolol tartrate (LOPRESSOR) 100 MG tablet Take 1 tablet (100 mg total) by mouth 2 (two) times a day. 60 tablet 7 Active pramipexole (MIRAPEX) 0.125 MG tablet Take 1 tablet (0.125 mg total) by mouth nightly. 30 tablet 7 Active hydrALAZINE (APRESOLINE) 100 MG tablet Take 1 tablet (100 mg total) by mouth every 8 (eight) hours. 90 tablet Active insulin glargine (LANTUS) 100 UNIT/ML solution pen-injector Inject 0.26 mL (26 Units total) under the skin nightly. 3 mL Active DULoxetine (CYMBALTA) 30 MG capsule Take 1 capsule (30 mg total) by mouth 2 (two) times a day. 60 capsule 7 Active gabapentin (NEURONTIN) 300 MG capsule Take 1 capsule (300 mg total) by mouth once a day. 30 capsule 7 Active melatonin tablet Take 2 tablets (6 mg total) by mouth nightly. 60 tablet Active morphine (MS CONTIN) 15 MG 12 hr tablet Take 1 tablet (15 mg total) by mouth every 12 (twelve) hours. Max Daily Amount: 30 mg 60 tablet Active oxyCODONE (ROXICODONE) 5 MG immediate release tablet Take 1 tablet (5 mg total) by mouth every 6 (six) hours as needed (for breakthrough pain). Max Daily Amount: 20 mg 60 tablet Active Active Problems Problem Noted Date Diagnosed Date Chronic kidney disease stage 3 due to type 2 diabetes mellitus 04/20/2017 Left ventricular diastolic dysfunction Acquired unequal leg length 04/20/2017 Tibialis posterior tendinitis 04/20/2017 Overview (04/20/2017): In setting of gastroc muscle flap Coronary artery disease of n ative coronary artery without angina pectoris 04/20/2017 Pain in right lower leg 04/11/2017 Prosthetic joint infection 04/06/2017 Overview (04/20/2017): Treated with 12 weeks of IV abx MRSA infection Prosthesis removed. S/p surgical closure Local infection of the skin and subcutaneous tissue, unspecified 04/06/2017 Chronic diastolic congestive heart failure 04/06 Type 2 diabetes mellitus with hyperglycemia 03/23 [id number] renal failure 04/06/2017 Overview (04/06/2017): Baseline creatinine 1.5 Sleep apnea 04/06/2017 Overview (08/26/2023): August SNOMED Diagnostic import Peripheral vascular disease 04/06/2017 Overview (04/06/2017): CEA 2007 Fem pop stent Retention of urine 04/06/2017 Staphylococcal arthritis of right knee 7 Ankylosis of joint 04/06/2017 Hyperlipidemia 04/06/2017 Open wound of knee with complication 03/07/2017 Suppurative arthritis 12/14/2016 Immunizations Immunization Administration Dates Next Due Influenza, Unspecified 04/06/2017(Deferr ed: Received outside of this facility) Family History Medical History Relation Name Comments Alzheimer's disease Father Alzheimer's disease Mother Relation Name Status Comments Father Mother Social History Tobacco Use Types Packs/Day Years Used Date Smoking Tobacco: Former Cigarettes Q uit: 09/13/2016 Smokeless Tobacco: Never Alcohol Use Standard Drinks/Week Comments Yes 0 (1 standard drink = 0.6 oz pur e alcohol) very rare Sex and Gender Information Value Date Recorded Sex Assigned at Not on file Legal Sex Male 3:07 PM EST Gender Identity Not on file Sexual Orientation Not on file Last Filed Vital Signs Vital Sign Reading Time Taken Comments Blood Pressure 140/80 04/22/2017 5:27 AM LUNG SPLITTER Pulse 76 04/21/2017 7:00 PM LUNG SPLITTER Temperature 36.6 C (97.8 F) 04/21/2017 7:00 PM LUNG SPLITTER Respiratory Rate 20 04/21/2017 7:00 PM LUNG SPLITTER Oxygen Saturation 95% 04/21/2017 7:00 PM LUNG SPLITTER Inhaled Oxygen Concentration - - Weight 109.8 kg (242 lb 1 oz) 04/17/2017 7:11 AM LUNG SPLITTER Height 180.3 cm (5' 11 ) 04/17/2017 7:11 AM LUNG SPLITTER Body Mass Index 33.76 04/17/2017 7:11 AM LUNG SPLITTER Plan of Treatment Not on file Additional Health Concerns Infection Onset Date Last Indicated VRE Comment:04/02/17 screen 04/08/2017 04/08/2017 MRSA Comment:Tissue 12/10/16 04/08/2017 04/08/2017 Advance Directives * Full Resuscitation (Latest Code Status on File) Date Activated Date Inactivated Comments 04/06/2017 7:16 PM 04/22/2017 2:09 PM
--- OUTSIDE RECORDS SUMMARY | 2024-08-14 02:09 | XMS_ITS | Clinical Summary ---
Author Organization [facility] Address [address] [place] [id number] Phone Care Team Providers Care Digital Traffic Coordinator Name Role Phone Unavailable Primary Care Provider Unavailabl e Medications Medication Sig Dispensed Refills Start Date End Date Status metoprolol succinate XL (TOPROL-XL) 100 MG 24 hr tablet daily 3 11/22/2011 Active losartan (COZAAR) 100 MG tablet daily 11/22/2011 Active cholecalciferol (VITAMIN D-3) 1000 units tablet 12/25/2012 Active clopidogrel (PLAVIX) 75 MG tablet daily 11/22/2011 Active aspirin 325 MG tablet 11/22/2011 Act amaury potassium chloride (KLOR-CON) 20 MEQ CR tablet 2 daily 0 07/03/2013 Active folic acid (FOLVITE) 400 MCG tablet daily 11/22/2011 Active hydrALAZINE (APRESOLINE) 50 MG tablet tid 11/22/2011 Active ezetimibe (ZETIA) 10 MG tablet daily 11/22/2011 Active glimepiride (AMARYL) 4 MG tablet bid 0 11/22/2011 Active rosuvastatin (CRESTOR) 40 MG tablet 1 daily 5 12/12/2012 Active furosemide (LASIX) 20 MG tablet daily 3 11/22/2011 Active amLODIPine (NORVASC) 10 MG tablet daily 11/22/2011 Active pramipexole (MIRAPEX) 1.5 MG tablet daily 11/22/2011 Active insulin glargine (LANTUS) 100 UNIT/ML injection 12/04/2012 Active Active Problems Problem Noted Date Diagnosed Date Proteinuria 12/04/2012 Overview (08/05/2018): Converted unresolved ICD9, potential mismatch. Chronic kidney disease, stage 3 (moderate) 11/21 Essential (primary) hypertension 11/22/2011 Type 2 diabetes mellitus without complication Stiffness of joint 11/22/2011 Pain in joint 11/22/2011 Social History Tobacco Use Types Packs/Day Years Used Date Smoking Tobacco: Never Assessed Sex and Gender Information Value Date Recorded Sex Assigned at Not on file Gender Identity Not on file Sexual Orientation Not on file Last Filed Vital Signs Vital Sign Reading Time Taken Comments Blood Pressure 128/78 07/03/2013 12:01 AM ADMISSIONS RN Pulse 96 07/03/2013 12:01 AM ADMISSIONS RN Temperature 37.1 C (98.7 F) 07/03/2013 12:01 AM ADMISSIONS RN Respiratory Rate - - Oxygen Saturation - - Inhaled Oxygen Concentration - - Weight 112 kg (248 lb) 07/03/2013 12:01 AM ADMISSIONS RN Height 177.8 cm (5' 10 ) 07/03/2013 12:01 AM ADMISSIONS RN Body Mass Index 35.58 07/03/2013 12:01 AM ADMISSIONS RN Plan of Treatment Not on file
--- OUTSIDE RECORDS SUMMARY | 2024-08-14 02:09 | XMS_ITS | Clinical Summary ---
Author Organization [facility] Address [address] [address] Phone Care Team Providers Care Elevator Erector Name Role Phone Unavailable Primary Care Provider Unavailabl e Social History Tobacco Use Types Packs/Day Years Used Date Smoking Tobacco: Never Assessed Sex and Gender Information Value Date Recorded Sex Assigned at Not on file Legal Sex Male 2:30 PM CDT Gender Identity Not on file Sexual Orientation Not on file Plan of Treatment Health Maintenance Due Date Last Done Comments Hepatitis C Virus (HCV) Screening 1950 TdaP Immunization 1950 Cologuard 2000 Immunochemical Fecal Occult Blood 2000 Pneumococcal Immunization (5 0+ years) (1 of 1 - PCV) 2000 Zoster Immunization (1 of 2) 2000 Colonoscopy 11/21/2020 11/22/2019 Colorectal Cancer Screening 11/21/2020 Influenza Immunization (#1) 2024 SARS-COV-2 Immunization ( - 25 season) 2024 Respiratory Syncytial Virus (RSV) Immunization (Adult) (1 - 1-dose 75+ series) 2025 11/22/2019 Hepatitis B Immunization Aged Out No longer eligible based on patient's age to complete this topic Meningococcal Immunization (ACWY) Aged Out No longer eligible based on patient's age to complete this topic Rotavirus Immunization Aged Out No lo nger eligible based on patient's age to complete this topic Procedures Procedure Name Priority Date/Time Associated Diagnosis Comments COLONOSCOPY Routine 11/22/2019 from Last 3 Months or Most Recently Relevant to Health Maintenance Results * HM COLONOSCOPY (11/22/2019) Allan T Klmelva DO PROCEDURE/MINOR SURGICAL ORDERA BLES Final Result from Last 3 Months or Most Recently Relevant to Health Maintenance Insurance [facility]
--- OUTSIDE RECORDS SUMMARY | 2024-08-14 02:09 | XMS_ITS | Clinical Summary ---
Author Organization [facility] [employer] Address [address] [place] [address] Care Team Providers Care Merchandise For Resale Purchasing Agent Name Role Phone Marcello Jung MD Primary Care Provider [phone] Source Comments [facility] [employer],non-owned Affiliates and Associated Physician Practices is amultiple site organization consisting of ambulatory clinics and hospital sitesin [place], [place], [place] and [place]. This disclosure is being madepursuant to the Care Everywhere program and may not contain all information available regarding this patient. Last updated 18.[facility] [employer] Allergies No known active allergies Medications * Be aware that medications may not be up to date on this document. Alwaysverify current medications with the patient. Medication Sig Dispensed Refills Start Date End Date Status metoprolol tartrate (LOPRESSOR) 100 MG tablet Take 100 mg by mouth 2 times daily Active famotidine (PEPCID) 20 MG tablet Take 1 Tab by mouth 2 times daily 60 Tab 12/07/2016 Active pramipexole (MIRAPEX) 1 MG tablet Take 1.25 mg by mouth at bedtime Has 1 mg and 0.25 mg tablets Active vitamin D3 (CHOLECALCIFEROL) 1000 UNITS tablet Take 2,000 Units by mouth once daily Active gabapentin (NEURONTIN) 300 MG capsule Take 300 mg by mouth at bedtime Active DULoxetine (CYMBALTA) 30 MG capsule Take 30 mg by mouth 2 times daily Active amLODIPine (NORVASC) 10 MG tablet Take 1 tablet by mouth once daily 10 tablet 07/21/2017 Active Additional Information Patient not taking.Reported on 01/01/2020 aspirin (ASPIRIN) 81 MG tablet Take 1 tablet by mouth once daily 07/21/2017 Active liraglutide (VICTOZA) 18 MG/3ML pen Inject 1.2 mg subcutaneously once daily Active insulin glargine (LANTUS) pen Inject 40 Units subcutaneously at bedtime Active oxyCODONE, immediate release, (OXY-IR) 15 MG tablet Take 15 mg by mouth every 12 hours Active furosemide (LASIX) 40 MG tablet Take 1 tablet by mouth once daily 30 tablet 07/21/2017 Active morphine CR 12hr (MS CONTIN) 15 MG tablet Take 1 tablet by mouth every 12 hours as needed 07/21/2017 Active Additional Information Patient not taking.Reported on 03/21/2018 oxyCODONE, immediate release, (ROXICODONE) 5 MG tablet Take 1 tablet (5 mg total) by mouth every 6 (six) hours as needed (for breakthrough pain). Max Daily Amount: 20 mg 04/21/2017 Active morphine CR 12hr (MS CONTIN) 15 MG tablet Take 1 tablet (15 mg total) by mouth every 12 (twelve) hours. Max Daily Amount: 30 mg 04/21/2017 Active insulin glargine (LANTUS) pen Inject 26 Units subcutaneously at bedtime 04/21/2017 Active hydrALAZINE (APRESOLINE) 100 MG tablet Take 100 mg by mouth every 8 hours 04/21/2017 Active Skin Protectants, Misc. (MINERIN) cream Apply 1 applicator to affected area once daily 04/21/2017 Active insulin lispro (HUMALOG) 100 UNIT/ML vial 0-12 U sliding scale 04/06/2017 Ac tive insulin lispro (HUMALOG KWIKPEN) 100 UNIT/ML pen INJECT SUBCANTEOUSLY UP TO 100 UNITS 06/28/2017 Active doxycycline hyclate 100 MG 100 mg in 0.9% NaCl 0.9 % 100 mL 100 mg by Intravenous route every 12 hours Active pramipexole (MIRAPEX) 0.25 MG tablet TK 1 T PO QD HS 2 07/12/2017 Active potassium chloride SA (MICRO-K) 10 MEQ capsule TK 1 C PO QD WF 0 09/14/2017 Active VIAGRA 100 MG tablet 09/01/2017 Active cyclobenzaprine (FLEXERIL) 5 MG tablet Take 5 mg by mouth 3 times daily as needed Active losartan (COZAAR) 100 MG tablet Take 150 mg by mouth once daily Active meloxicam (MOBIC) 7.5 MG tablet Take 1 tablet by mouth once daily 30 tablet 3 09/19/2018 Active clopidogrel (PLAVIX) 75 MG tablet TK 1 T PO D 02/28/2019 Active traMADol (ULTRAM) 50 MG tablet Take 50 mg by mouth every 6 hours as needed pain 11/27/2019 Active rosuvastatin (CRESTOR) 40 MG tablet TK 1 T PO D 05/10/2019 Active dulaglutide (TRULICITY) 1.5 MG/0.5ML injection Inject 1.5 mg subcutaneously every 7 days Active meloxicam (MOBIC) 7.5 MG tabletIndications :Osteoarthritis Take 1 tablet by mouth once daily Reasons: Joint Damage causing Pain and Loss of Function 60 tablet 2 01/01/2020 Active celecoxib (CELEBREX) 200 MG capsule Take 1 (one) capsule by mouth once daily 90 capsule 3 12/30/2020 Active Active Problems Problem Noted Date Diagnosed Date Open knee wound, right, initial encounter 2017 SOB (shortness of breath) 07/18/2017 Hypoxia 07/18/2017 Acute on chronic congestive heart failure 2017 right lower leg 04/11/2017 Infected prosthetic knee joint, 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 Septic arthritis 12/14/2016 Type 2 diabetes mellitus 12/03/2016 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 Resolved Problems Problem Noted Date Diagnosed Date Resolved Date Pneumonia due to organism 07/18/2017 CAD (coronary artery disease) 07/18/2009 07/19/2009 Immunizations Name Administration Dates Next Due INFLUENZA VACCINE 01/21/2017 Family History Medical History Relation Name Comments Hypertension Brother 1 Hypertension Brother 2 Alzheimer's Disease Father CAD (Coronary Artery Disease) Father Cancer - Colon Father Alzheimer's Disease Mother Relation Name Status Comments Brother 1 Brother 2 Father Mother Social History Tobacco Use Types Packs/Day Years Used Date Smoking Tobacco: Former Cigarettes 0.5 25 0 09/14/1991 - 09/13/2016 Smokeless Tobacco: Never Alcohol Use Standard Drinks/Week Comments No 0 (1 standard drink = 0.6 oz pur e alcohol) very rarely Sex and Gender Information Value Date Recorded Sex Assigned at Not on file Gender Identity Male Sexual Orientation Not on file Last Filed Vital Signs Vital Sign Reading Time Taken Comments Blood Pressure 130/66 07/21/2017 11:50 AM TUNNEL HEADING SUPERVISOR Pulse 75 07/21/2017 11:50 AM TUNNEL HEADING SUPERVISOR Temperature 36.4 C (97.5 F) 07/21/2017 11:50 AM TUNNEL HEADING SUPERVISOR Respiratory Rate 22 07/21/2017 11:50 AM TUNNEL HEADING SUPERVISOR Oxygen Saturation 90% 07/21/2017 1:46 PM TUNNEL HEADING SUPERVISOR Inhaled Oxygen Concentration 50% 07/21/2017 5 :56 AM TUNNEL HEADING SUPERVISOR Weight 112.9 kg (249 lb) 09/19/2018 9:16 AM CDT Height 180.3 cm (5' 11 ) 09/19/2018 9:16 AM CDT Body Mass Index 34.73 09/19/2018 9:16 AM CDT Plan of Treatment Health Maintenance Due Date Last Done Comments COLOGUARD (AGES 45-75) - COLON CA SCREENING 1950 COLON MONITORING 1950 COLONOSCOPY - COLON CA SCREENING 1950 CT COLONOGRAPHY - COLON CA SCREENING 1950 Colorectal Cancer Screening 1950 FIT - COLON CA SCREENING 1950 FLEX SIG - COLON CA SCREENING 1950 MEDICARE AWV 12 MONTHS 1950 HEPATITIS C SCREENING 06/14/1968 DTAP/TDAP/TD VACCINES (1 - Tdap) 1969 PNEUMOCOCCAL VACCINE 50+ (1 of 2 - PCV) 1969 ZOSTER VACCINE (1 of 2) 2000 Respiratory Syncytial Virus (RSV) Vaccine Pt: or over 60 yrs (1 - Risk 60-74 years 1-dose series) 2010 AAA SCREENING 2015 DIABETES-SERUM CREATININE 07/21/20182017, 07/20/2017, 07/19/2017, Additional history exists DIABETES RETINOPATHY SCREENING 09/18/2018 DIABETES-FOOT EXAM WITH MONOFILAMENT 09/18/2018 DIABETES-HGB A1C 09/18/2018 07/19/2017, , 12/04/2016, Additional history exists COVID-19 VACCINE (2 - 2023- season) 2024 07/04/2020 INFLUENZA VACCINE (#1) 2024 01/22/2020, 2016 DEPRESSION SCREENING 05/23/2024 DIABETES - URINE PROTEIN SCREENING 05/23/2024 HEPATITIS B VACCINE Aged Out No longe r eligible based on patient's age to complete this topic HIB VACCINE Aged Out No longer eligi ble based on patient's age to complete this topic HPV VACCINE Aged Out No longer eligi ble based on patient's age to complete this topic MENINGOCOCCAL (Group B) VACCINE SHARED DECISION-MAKING Aged Out No longer eligible based on patient's age to complete this topic MENINGOCOCCAL GROUPS A/C/Y/W VACCINE Aged Out No longer eligible based on patient's age to complete this topic Medical Devices Implanted Type Area Makeup Sales Consultant Device Identifier Shelf Expiration Date Model / Serial / Lot Cmnt Bone Plc R 40gm Grn Implanted:Qty : 1 on 12/03/2016 by Isaias Jarrett MD at [facility] Right: Knee [employer] 05/21/2019 [id number] / / [id number] Cmnt Bone Plc R+Ggnta 40gm Lf Grn Implanted:Qty : 1 on 12/03/2016 by Isaias Jarrett MD at [facility] Right: Knee [employer] 06/22/2019 [id number] / / [id number] Cmnt Bone Plc R+Ggnta 40gm Lf Grn Implanted:Qty : 1 on 12/03/2016 by Isaias Jarrett MD at [facility] Right: Knee [employer] 04/21/2020 [id number] / / [id number] Cmnt Bone Plc R+Ggnta 40gm Lf Grn Implanted:Qty : 1 on 12/03/2016 by Isaias Jarrett MD at [facility] Right: Knee [employer] 03/22/2020 [id number] / / [id number] Cmnt Bone Plc R+Ggnta 40gm Lf Grn Implanted:Qty : 2 on 12/03/2016 by Isaias Jarrett MD at [facility] Right: Knee [employer] 01/21/2020 [id number] / / [id number] Cmnt Bone Plc R+Ggnta 40gm Lf Grn Implanted:Qty : 1 on 03/10/2017 by Isaias Jarrett MD at [facility] Right: Knee [employer] 04/22/2017 [id number] / / [id number] Cmnt Bone Plc R+Ggnta 40gm Lf Grn Implanted:Qty : 1 on 03/10/2017 by Isaias Jarrett MD at [facility] Right: Knee [employer] 09/20/2019 [id number] / / [id number] Cmnt Bone Plc R+Ggnta 40gm Lf Grn Implanted:Qty : 2 on 03/10/2017 by Isaias Jarrett MD at [facility] Right: Knee [employer] 06/22/2020 [id number] / / [id number] Cmnt Bone Plc R 40gm Grn Implanted:Qty : 1 on 03/10/2017 by Isaias Jarrett MD at [facility] Right: Knee [employer] 12/20/2020 [id number] / / [id number] Nail 11.5mm 70cm Im Kn Rt Fem Antgrd Fsn Implanted:Qty : 1 on 03/31/2017 by Isaias Jarrett MD at [facility] Right: Knee [employer] 08/31/2026 [id number] / / [id number] Screw 6.4mm 100mm Hex Fem Intnl Cptr Implanted:Qty : 1 on 03/31/2017 by Isaias Jarrett MD at [facility] Right: Knee [employer] 12/20/2023 [id number] / / [id number] Screw 6.4mm 105mm Hex Fem Intnl Cptr Implanted:Qty : 1 on 03/31/2017 by Isaias Jarrett MD at [facility] Right: Knee [employer] 12/20/2023 [id number] / / [id number] Screw 6.4mm 105mm Hex Fem Intnl Cptr Implanted:Qty : 1 on 03/31/2017 by Isaias Jarrett MD at [facility] Right: Knee [employer] 12/20/2023 [id number] / / [id number] Screw 5mm 30mm Lopro Fem Trgn Im Nail Implanted:Qty : 1 on 03/31/2017 by Isaias Jarrett MD at [facility] Right: Knee [employer] 05/26/2026 [id number] / / [id number] Explanted Type Area Makeup Sales Consultant Device Identifier Shelf Expiration Date Model / Serial / Lot Mold Cmnt 75mm Stg1 Unv Fem Kn Elidia Agc Implanted:Qty: 1 Explanted:Qty: 1 on 03/10/2017 at [facility] Right: Knee [employer] 10/12/2026 [id number] / / [id number] Mold Cmnt 75mm Stg1 Unv Kn Tib Elidia Spcr Implanted:Qty: 1 Explanted:Qty: 1 on 03/10/2017 at [facility] Right: Knee [employer] 11/12/2026 [id number] / / [id number] Procedures Procedure Name Priority Date/Time Associated Diagnosis Comments BASIC METABOLIC PANEL (CALCIUM TOTAL) AM Draw 07/21/2017 3:17 AM TUNNEL HEADING SUPERVISOR HEMOGLOBIN A1C Routine 07/19/2017 2:46 AM TUNNEL HEADING SUPERVISOR from Last 3 Months or Most Recently Relevant to Health Maintenance Results * (ABNORMAL) BASIC METABOLIC PANEL (CALCIUM TOTAL) (07/21/2017 3:17 AM TUNNEL HEADING SUPERVISOR) Glucose 185(H) 74 - 106 mg/dL 07/21/2017 3:59 AM TUNNEL HEADING SUPERVISOR [facility] Sodium 138 136 - 145 mmol/L 07/21/2017 3:59 AM TUNNEL HEADING SUPERVISOR [facility] Potassium 3.1(L) 3.5 - 5.1 mmol/L 07/21/2017 3:59 AM TUNNEL HEADING SUPERVISOR [facility] Chloride 101 98 - 107 mmol/L 07/21/2017 3:59 AM TUNNEL HEADING SUPERVISOR [facility] CO2 31 22 - 31 mmol/L 07/21/2017 3:59 AM [facility] Calcium 8.5 8.5 - 10.1 mg/dL 07/21/2017 3:59 AM [facility] Anion Gap 6(L) 8 - 16 mmol/L 07/21/2017 3:59 AM [facility] BUN 13 7 - 21 mg/dL 07/21/2017 3:59 AM [facility] Creatinine 1.40(H) 0.50 - 1.30 mg/dL 07/21/2017 3:59 AM [facility] eGFR by MDRD 51(L) >60 mL/min/1.7 3m2 07/21/2017 3:59 AM [facility] eGFR by MDRD >60 >60 mL/min/1.7 3m2 07/21/2017 3:59 AM [facility] Blood BLOOD SPECIMEN / Unknown Lab Venipuncture / Unknown 07/21/2017 3:17 AM T[employer]NEL HEADING SUPERVISOR 07/21/2017 3:32 AM TUNNEL HEADING SUPERVISOR Jah Gomes MD LAB - CHEMISTRY ORDERABLES [facility] [address] [place] [id number] * (ABNORMAL) HEMOGLOBIN A1C (07/19/2017 2:46 AM TUNNEL HEADING SUPERVISOR) Hemoglobin A1c 10.0(H) 4.2 - 6.3 % 07/19/2017 3:32 AM [facility] Estimated Average Glucose 240 mg/dL 07/19/2017 3:32 AM [facility] Whole Blood BLOOD SPECIMEN WITH EDTA / Unknown Lab Venipuncture / Unknown 07/19/2017 2:46 AM TUNNEL HEADING SUPERVISOR 07/19/2017 2:50 AM TUNNEL HEADING SUPERVISOR Jah Gomes MD LAB - CHEMISTRY ORDERABLES [facility] [address] [place] [address] from Last 3 Months or Most Recently Relevant to Health Maintenance Additional Health Concerns Infection Onset Date Last Indicated 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; colonization status unknown 12/10/2016 03/10/2017 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/2017 Advance Directives * Full Code (Latest Code Status on File) Date Activated Date Inactivated Comments 07/18/2017 6:53 PM 07/21/2017 4:27 PM * Full Code Date Activated Date Inactivated Comments 04/06/2017 6:14 PM 04/22/2017 12:06 PM * Full Code Date Activated Date Inactivated Comments 03/10/2017 5:27 PM 04/06/2017 6:14 PM * Full Code Date Activated Date Inactivated Comments 12/09/2016 4:38 AM 12/15/2016 4:21 PM * Full Code Date Activated Date Inactivated Comments 12/03/2016 10:32 PM 12/08/2016 4:04 PM Care Teams Merchandise For Resale Purchasing Agent Relationship Specialty Start Date End Date Marcello Jung MD [address] [place] [id number] PCP - General Family Medicine 11/10/16
--- OUTSIDE RECORDS SUMMARY | 2024-08-14 02:09 | XMS_ITS | CONTINUITY OF CARE DOCUMENT ---
Author Name yosvany bar Address Unknown Organization [facility] Address [address] [place] [address] Phone [phone] Care Team Providers Care Jig Box Operator Name Role Phone Jose Sevilla MD Unavailable [phone] PERRY RAMIREZ, ALBERT F Unavailable MARCUS GALE MD Unavailable PROBLEMS Condition Status Date Provider Notes Hypokalemia active Bernardo Diggs CHF active Jose Sevilla MD Dyslipidemia active Jose Sevilla MD HTN active Jose Sevilla MD CAD active Jose Sevilla MD CAD-02/01 STENT LAD XIENCE EF 35 completed - Jose Sevilla MD TIA active Jose Sevilla MD Carotid artery stenosis S/P L CEA 2007 active Jose Sevilla MD Leg edema active Bernardo Diggs NILDA ART STEN-05/04REN DUP NL -10/01RRA STENT HERCULINK ELITE completed - Jose Sevilla MD CKD active Jose Sevilla MD Renal artery stenosis S/P LR A stent 2011 - RRA stents 2011 & 2019 active Jose Sevilla MD PVD active Jose Sevilla MD ECHOCARDIOGRAM, ABNORMAL-12/21 3 ECHO EF 40 completed - Jose Sevilla MD Obstructive sleep apnea - on CPAP active Jose Sevilla MD Tobacco use quit active Jose Sevilla MD Preop exam completed - Jose Sevilla MD Obesity active Jose Sevilla MD Chronic venous HTN w/BLE inflammation active [facility] Knee joint pain, right active Jose De Leon Nocturia active Jose Sevilla MD Microalbuminuria active Jose Sevilla MD Left atrial enlargement active Jose Sevilla MD Exposure to SARS-associated coronavirus completed - [facility] Cardiology examination active 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 Date Type Provider Location Encounter Diag nosis - In-person encounter Office Visit Jose Sevilla MD [facility] Office - In-person encounter Office Visit Jose Sevilla MD [place] - In-person encounter Office Visit Jose Sevilla MD [facility] Cardiology examination - In-person encounter Office Visit Jose Sevilla MD [place] - In-person encounter Office Visit Jose Sevilla MD [place] - In-person encounter Office Visit Jose Sevilla MD [facility] - In-person encounter Office Visit Jose Sevilla MD [place] - In-person encounter Office Visit Jose Sevilla MD [facility] - In-person encounter Office Visit Jose Sevilla MD [facility] Chronic venous HTN w/BLE inflammationExposure to SARS-associated coronavirus - In-person encounter Office Visit Anant Orozco MD [facility] - In-person encounter Office Visit Jose Sevilla MD [facility] - In-person encounter Office Visit Jose Sevilla MD [facility] - In-person encounter Office Visit Jose Sevilla MD [facility] PVDLeft atrial enlargement - In-person encounter Office Visit Jose Sevilla MD [facility] CKD - In-person encounter Office Visit Jose Sevilla MD [facility] - In-person encounter Office Visit Jose Sevilla MD [facility] - In-person encounter Office Visit Jose Sevilla MD [facility] - In-person encounter Office Visit Jose Sevilla MD [facility] Microalbuminuria - In-person encounter Office Visit Jose Sevilla MD [facility] Preop exam - In-person encounter Office Visit Jose Sevilla MD [facility] Obstructive sleep apnea - on CPAPNocturia - In-person encounter Office Visit Jose Sevilla MD [facility] Knee joint pain, right - In-person encounter Office Visit Jose Sevilla MD [facility] Carotid artery stenosis S/P L CEA 2007Leg edemaObstructive sleep apnea - on CPAPObesityChronic venous HTN w/BLE inflammation - In-person encounter Office Visit Jose Sevilla MD [facility] DyslipidemiaHTNCADCarotid artery stenosis S/P L CEA 2007Renal artery stenosis S/P LRA stent 2012 - RRA stents 2011 & 2018PVDECHOCARDIOGRAM, ABNORMAL-01/02 ECHO EF 40 - In-person encounter Office Visit Jose Sevilla MD [facility] - In-person encounter Office Visit Jose Sevilla MD [facility] CADLeg edemaRenal artery stenosis S/P LRA stent 2012 - RRA stents 2011 & 2018PVDTobacco use quit - In-person encounter Office Visit Jose Sevilla MD [facility] Obstructive sleep apnea - on CPAP - In-person encounter Office Visit Jose Sevilla MD [facility] - In-person encounter Office Visit Jose Sevilla MD [place] - In-person encounter Office Visit Jose Sevilla MD [facility] - In-person encounter Office Visit Jose Sevilla MD [facility] - In-person encounter Office Visit Jose Sevilla MD [facility] - In-person encounter Office Visit Jose Sevilla MD [facility] - In-person encounter Office Visit Jose Sevilla MD [facility] ECHOCARDIOGRAM, ABNORMAL-01/02 ECHO EF 40 - In-person encounter Office Visit Drew Gold MD [facility] - In-person encounter Office Visit Jose Sevilla MD [facility] - In-person encounter Office Visit Jose Sevilla MD [facility] - In-person encounter Office Visit Jose Sevilla MD [facility] - In-person encounter Office Visit Jose Sevilla MD [facility] - In-person encounter Office Visit Jose Sevilla MD [facility] HTNREN ART STEN-05/04REN DUP NL -/RRA STENT HERCULINK ELITE - In-person encounter Office Visit Jose Sevilla MD [facility] CKD - In-person encounter Office Visit Jose Sevilla MD [facility] NILDA ART STEN-05/04REN DUP NL -5/RRA STENT HERCULINK ELITE - In-person encounter Office Visit Jose Sevilla MD [facility] Carotid artery stenosis S/P L CEA 2007Leg edema - In-person encounter Office Visit Jose Sevilla MD [facility] CAD-02/01 STENT LAD XIENCE EF 35TIA VITAL SIGNS Date Observation Value Provider Body Mass Index (Ratio) 28.87 kg/m2 Everton Nunez blood pressure, cuff size regular Br tyrese Mehta blood pressure, diastolic 78 mm[Hg] Br tyrese Mehta blood pressure, systolic 146 mm[Hg] Angely Mehta pulse rate 70 /min Desiree Donohue s oxygen saturation, oximetry 97 % Desiree Mehta weight E&M 207 [lb_av] Desiree Donohue s height E&M 71 [in_i] Desiree Donohue s Body Mass Index (Ratio) 29.56 kg/m2 Scott Crum blood pressure, cuff size regular Ta bitha Awad blood pressure, diastolic 58 mm[Hg] Ta bitha Awad blood pressure, systolic 106 mm[Hg] Tab itha Awad oxygen saturation, oximetry 93 % Sintia Awda pulse rate 72 /min Sintia Awad weight E&M 212 [lb_av] Sintia Awad respiratory rate E&M 12 /min Sintia Awad height E&M 71 [in_i] Sintia Awad Body Mass Index (Ratio) 30.32 kg/m2 Everton Nunez blood pressure, cuff size regular Ta bitha Awad blood pressure, diastolic 90 mm[Hg] Ta bitha Awad blood pressure, systolic 128 mm[Hg] Tab itha Awad oxygen saturation, oximetry 100 % Sintia Awad pulse rate 83 /min Sintia Awad weight E&M 217.4 [lb_av] Sintia Awad height E&M 71 [in_i] Sintia Awad respiratory rate E&M 12 /min Sintia Awad Body Mass Index (Ratio) 32.91 kg/m2 Bossman Momin blood pressure, cuff size large Ke rri Gruenenfelder blood pressure, diastolic 90 mm[Hg] Ke rri Gruenenfelder blood pressure, systolic 166 mm[Hg] Huma ri Everardoelder oxygen saturation, oximetry 97 % Rachel Everardoelder respiratory rate E&M 16 /min Rachel Elkin [facility] pulse rate 75 /min Rachel Everardoe ld weight E&M 236 [lb_av] Rachel Gruenenfe lder height E&M 71 [in_i] Rachel Grchiomanfe lder Body Mass Index (Ratio) 31.10 kg/m2 Angela Hernandez blood pressure, diastolic 72 mm[Hg] Li nkLogic blood pressure, systolic 133 mm[Hg] Meenu kLogic blood pressure, diastolic 72 mm[Hg] Ca therine Londonderry blood pressure, systolic 133 mm[Hg] Cat herine Julian oxygen saturation, oximetry 98 % Marlen Julian respiratory rate E&M 14 /min Catheri ne Julian pulse rate 72 /min Marlen Londonderry weight E&M 223 [lb_av] Marlen Julian blood pressure, cuff size regular Ca therine Julian height E&M 71 [in_i] Marlen Londonderry Body Mass Index (Ratio) 30.68 kg/m2 Tony benson Nacht blood pressure, diastolic 50 mm[Hg] Ca therine Julian blood pressure, systolic 79 mm[Hg] Cat herine Julian oxygen saturation, oximetry 94 % Marlen Julian respiratory rate E&M 16 /min Catheri ne Londonderry pulse rate 87 /min Marlen Julian weight E&M 220 [lb_av] Marlen Julian blood pressure, cuff size regular Ca therine Julian height E&M 71 [in_i] Marlen Londonderry Body Mass Index (Ratio) 31.52 kg/m2 Angela jae Hernandez blood pressure, cuff size large Tr chinoashley Cortez blood pressure, diastolic 60 mm[Hg] Tr asif Cortez blood pressure, systolic 90 mm[Hg] Try ashley Cortez oxygen saturation, oximetry 100 % Usamaashley Cortez pulse rate 67 /min Usamaashley Cortez respiratory rate E&M 16 /min Harjinder Cortez weight E&M 226 [lb_av] Harjinder Cortez height E&M 71 [in_i] Harjinder Cortez Body Mass Index (Ratio) 28.87 kg/m2 Jose Sevilla MD weight E&M 207 [lb_av] Jose Sevilla MD Body Mass Index (Ratio) 30.68 kg/m2 Angela jae Hernandez blood pressure, resting Yes [place] reagan O'Ez blood pressure, diastolic 78 mm[Hg] Ma emilyha O'Ez blood pressure, systolic 140 mm[Hg] Shelia rodriguez O'Ez oxygen saturation, oximetry 99 % Daisha O'Ez respiratory rate E&M 16 /min Daisha O'Ez pulse rate 72 /min Daisha O'Ez weight E&M 220 [lb_av] Daisha O'Ez height E&M 71 [in_i] Daisha ChristieIqraEz Body Mass Index (Ratio) 31.94 kg/m2 Cam jesica [facility] blood pressure, cuff size large Ke rri Gruenenfelder blood pressure, diastolic 72 mm[Hg] Ke rri Gruenenfelder blood pressure, systolic 144 mm[Hg] Ker ri Gruenenfelder oxygen saturation, oximetry 96 % Rachel Gruenenfelder respiratory rate E&M 16 /min Rachel G ruenenfelder pulse rate 83 /min Rachel Gruenenfe er weight E&M 229 [lb_av] Rachel Gruenenfe er height E&M 71 [in_i] Rachel Gruenenfe er Body Mass Index (Ratio) 31.38 kg/m2 Aamir juany Jettte blood pressure, cuff size large Ke rri Gruenenfelder blood pressure, diastolic 80 mm[Hg] Ke rri Gruenenfelder blood pressure, systolic 148 mm[Hg] Ker ri Gruenenfelder oxygen saturation, oximetry 96 % Rachel Gruenenfelder respiratory rate E&M 16 /min Rachel G ruenenfelder pulse rate 83 /min Rachel Gruenenfe [facility] weight E&M 225 [lb_av] Rachel Gruenenfe er height E&M 71 [in_i] Rachel Gruenenfe [facility] Body Mass Index (Ratio) 33.19 kg/m2 Cam jesica [facility] blood pressure, diastolic 68 mm[Hg] Domenico lock [facility] blood pressure, systolic 170 mm[Hg] Blanca coleman [facility] weight E&M 238 [lb_av] Bernardo Weems erg height E&M 71 [in_i] Bernardo Weems erg Body Mass Index (Ratio) 33.89 kg/m2 Cam Diggs blood pressure, diastolic 72 mm[Hg] Cy santiago Ochoa blood pressure, systolic 123 mm[Hg] Jacy xavi Ochoa respiratory rate E&M 16 /min Madelyn Ochoa pulse rate 71 /min Madelyn lane oxygen saturation, oximetry 98 % Madelyn Ochoa blood pressure, cuff size regular Cy santiago Ochoa weight E&M 243 [lb_av] Madelyn lane height E&M 71 [in_i] Madelyn Indianapolisbel l Body Mass Index (Ratio) 33.05 kg/m2 Cam Weemsberg oxygen saturation, oximetry 96 % [facility] blood pressure, diastolic, left arm 82 mm [Hg] [facility] blood pressure, systolic, left arm 127 mm [Hg] [facility] blood pressure, diastolic, right arm 79 m m[Hg] [facility] blood pressure, systolic, right arm 142 m m[Hg] [facility] pulse rate 79 /min [facility] respiratory rate E&M 16 /min [facility] blood pressure, diastolic 82 mm[Hg] To [facility] blood pressure, systolic 127 mm[Hg] [facility] weight E&M 237 [lb_av] [facility] height E&M 71 [in_i] [facility] Body Mass Index (Ratio) 33.89 kg/m2 Cam jesicacruz WeemsDontae blood pressure, diastolic, left arm 80 mm [Hg] [facility], [facility], left arm 138 mm [Hg] Buena Cardenas blood pressure, diastolic, right arm 80 m m[Hg] Ghanshyam Cardenas blood pressure, systolic, right arm 140 m m[Hg] Ghanshyam Cardenas blood pressure, diastolic 80 mm[Hg] Feliciano escudero Cardenas blood pressure, systolic 138 mm[Hg] Timothy beltre Cardenas oxygen saturation, oximetry 97 % Ghanshyam Cardenas respiratory rate E&M 16 /min Buena Cardenas pulse rate 77 /min Ghanshyam Cardenas weight E&M 243 [lb_av] Buena Cardenas height E&M 71 [in_i] Ghanshyam Cardenas Body Mass Index (Ratio) 33.89 kg/m2 Jose Sevilla MD blood pressure, diastolic 70 mm[Hg] Da kirby Harris blood pressure, systolic 112 mm[Hg] Dac ia Harris oxygen saturation, oximetry 96 % Joan Harris respiratory rate E&M 16 /min Joan V oss pulse rate 68 /min Joan Harris weight E&M 243 [lb_av] Joan Harris height E&M 71 [in_i] Joan Harris Body Mass Index (Ratio) 35.00 kg/m2 Jose Sevilla MD blood pressure, diastolic 82 mm[Hg] Er marie Russo blood pressure, systolic 130 mm[Hg] Maria Antonia Russo weight E&M 251 [lb_av] Summer Glover oxygen saturation, oximetry 95 % Summer Russo pulse rate 95 /min Summer Glover height E&M 71 [in_i] Summer Langston- Adalberto Body Mass Index (Ratio) 33.33 kg/m2 Cam Diggs blood pressure, diastolic 72 mm[Hg] Da kirby Harris blood pressure, systolic 126 mm[Hg] Dac ia Harris oxygen saturation, oximetry 94 % Joan Harris respiratory rate E&M 16 /min Joan V oss pulse rate 239 /min Joan Harris weight E&M 239 [lb_av] Joan Harris height E&M 71 [in_i] Joan Harris Body Mass Index (Ratio) 34.72 kg/m2 Cam jesica Dontae blood pressure, cuff size regular Cy santiago Ochoa blood pressure, diastolic 66 mm[Hg] Cy santiago Ochoa blood pressure, systolic 120 mm[Hg] Jacy xavi Ochoa oxygen saturation, oximetry 96 % Madelyn Ochoa respiratory rate E&M 18 /min Madelyn Ochoa pulse rate 76 /min Madelyn Prattbel l weight E&M 249 [lb_av] Madelyn Campbel l height E&M 71 [in_i] Madelyn Campbel l Body Mass Index (Ratio) 34.84 kg/m2 Cam jesica Diggs blood pressure, diastolic 83 mm[Hg] Gregor Shi blood pressure, systolic 172 mm[Hg] Shelia Shi oxygen saturation, oximetry 98 % Adán Shi respiratory rate E&M 18 /min Bruno Shi pulse rate 89 /min Adán sosaon weight E&M 249.8 [lb_av] Adán Clemente enson height E&M 71 [in_i] Adán Erickson nson Body Mass Index (Ratio) 36.54 kg/m2 Jose Sevilla MD oxygen saturation, oximetry 93 % Thomas Maynard pulse rate 78 /min Thomas montero blood pressure, diastolic 90 mm[Hg] Ronny Maynard blood pressure, systolic 150 mm[Hg] Sayda Maynard respiratory rate E&M 16 /min Thomas Maynard weight E&M 262 [lb_av] Thoams Rose [facility] height E&M 71 [in_i] Thomas [facility] blood pressure, cuff size regular Ke rri Gruenecammieelder blood pressure, diastolic 67 mm[Hg] Ke rri Gruenenfelder blood pressure, systolic 131 mm[Hg] Ker ri Gruenenfelder oxygen saturation, oximetry 97 % Rachel Grrosalvanenfmeler respiratory rate E&M 18 /min Rachel G evnancioenenfelder pulse rate 95 /min Rachel Gruenenfe lder height E&M 71 [in_i] Rachel Matinfe lder blood pressure, cuff size large Ke rri Gruenenfelder blood pressure, diastolic 70 mm[Hg] Ke rri Gruenenfelder blood pressure, systolic 160 mm[Hg] Ker ri Gruenenfelder oxygen saturation, oximetry 97 % Rachel Gilbertonecorkyer respiratory rate E&M 16 /min Rachel G venancioenenfelder pulse rate 79 /min Rachel Gruenenfe lder height E&M 71 [in_i] Rachel Rashaunchiomacammiee er Body Mass Index (Ratio) 36.26 kg/m2 Cam mooney Dontae blood pressure, resting Yes Cam mooney [facility] blood pressure, cuff size regular Ke rri Gruenenfmeler blood pressure, diastolic 90 mm[Hg] Ke rri Gruenenfelder blood pressure, systolic 182 mm[Hg] Ker ri Gruenenfelder oxygen saturation, oximetry 96 % Rachel Chavaer respiratory rate E&M 16 /min Rachel G ruenenfelder pulse rate 83 /min Rachel Gruenenfe lder weight E&M 260 [lb_av] Rachel Alicia shukri height E&M 71 [in_i] Rachel Alicia shukri blood pressure, diastolic 70 mm[Hg] Gregor Shi blood pressure, systolic 146 mm[Hg] Shelia Mery Shi pulse rate 79 /min Adán Dre conor oxygen saturation, oximetry 96 % Adán Shi respiratory rate E&M 16 /min Bruno penelope Shi Body Mass Index (Ratio) 34.45 kg/m2 JessyJanelle Shi weight E&M 247 [lb_av] Adán Drecristy perdomo blood pressure, cisse tolic, second observation 80 mm[Hg] Jose Sevilla MD blood pressure, syst olic, second observation 152 mm[Hg] Jose Sevilla MD blood pressure, diastolic 97 mm[Hg] Gregor Rincon Shi blood pressure, systolic 180 mm[Hg] Shelia Mery Shi pulse rate 82 /min Adán Erickson conor oxygen saturation, oximetry 91 % Adán Shi respiratory rate E&M 16 /min Bruno penelope Shi Body Mass Index (Ratio) 34.81 kg/m2 Jessypenelope Shi weight E&M 249.6 [lb_av] Adán Clemente don blood pressure, diastolic, left arm 67 mm [Hg] Bronwyn De Leon blood pressure, systolic, left arm 121 mm [Hg] Bronwyn De Leon blood pressure, diastolic, right arm 65 m m[Hg] Bronwyn De Leon blood pressure, systolic, right arm 121 m m[Hg] Bronwyn De Leon blood pressure, diastolic 67 mm[Hg] Oh robbie De Leon blood pressure, systolic 121 mm[Hg] Karin rayshawn De Leon pulse rate 80 /min [facility] oxygen saturation, oximetry 96 % [facility] respiratory rate E&M 15 /min [facility] Body Mass Index (Ratio) 33.89 kg/m2 [facility] weight E&M 243 [lb_av] [facility] Body Mass Index (Ratio) 32.35 kg/m2 [facility] blood pressure, diastolic, left arm 88 mm [Hg] [facility] blood pressure, systolic, left arm 142 mm [Hg] [facility] blood pressure, diastolic, right arm 82 m m[Hg] [facility] blood pressure, systolic, right arm 142 m m[Hg] [facility] blood pressure, diastolic 88 mm[Hg] [facility] blood pressure, systolic 142 mm[Hg] [facility] pulse rate 78 /min [facility] oxygen saturation, oximetry 98 % [facility] respiratory rate E&M 16 /min [facility] weight E&M 232 [lb_av] Bronwyn Mendez blood pressure, diastolic, left arm 118 m m[Hg] [facility] blood pressure, systolic, left arm 218 mm [Hg] [facility] blood pressure, diastolic, right arm 116 mm[Hg] [facility] blood pressure, systolic, right arm 211 m m[Hg] [facility] blood pressure, diastolic 118 mm[Hg] [facility] blood pressure, systolic 218 mm[Hg] [facility] pulse rate 84 /min [facility] Body Mass Index (Ratio) 33.19 kg/m2 [facility] oxygen saturation, oximetry 97 % [facility] respiratory rate E&M 15 /min [facility] weight E&M 238 [lb_av] [facility] blood pressure, cisse toladelia, second observation 122 mm[Hg] Jose Sevilla MD blood pressure, syst olic, second observation 240 mm[Hg] Jose Sevilla MD Body Mass Index (Ratio) 33.19 kg/m2 Cherellea nash [facility] blood pressure, diastolic, left arm 134 m m[Hg] Aneatris [facility] blood pressure, systolic, left arm 233 mm [Hg] Aneatris [facility] blood pressure, diastolic, right arm 133 mm[Hg] Aneatris [facility] blood pressure, systolic, right arm 239 m m[Hg] Aneatris [facility] blood pressure, diastolic 134 mm[Hg] An eatris [facility] blood pressure, systolic 233 mm[Hg] Ane atris [facility] pulse rate 85 /min Cherelleatrdamaris [facility] oxygen saturation, oximetry 97 % Cherelleatrdamaris [facility] respiratory rate E&M 17 /min Aneatri luna [facility] weight E&M 238 [lb_av] [facility] Body Mass Index (Ratio) 33.59 kg/m2 Margaux marlene George blood pressure, diastolic 83 mm[Hg] Eliezer George blood pressure, systolic 149 mm[Hg] Alex salazar George pulse rate 71 /min Kathya George oxygen saturation, oximetry 93 % [facility] respiratory rate E&M 71 /min [facility] weight E&M 240 [lb_av] [facility] height E&M 71 [in_i] Kathya George blood pressure, diastolic, left arm 132 m m[Hg] Ibrahima Portillo RN blood pressure, systolic, left arm 220 mm [Hg] Ibrahima Portillo RN blood pressure, diastolic, right arm 132 mm[Hg] Ibrahima Portillo RN blood pressure, systolic, right arm 228 m m[Hg] Ibrahima Portillo RN blood pressure, diastolic 132 mm[Hg] Amaury Portillo RN blood pressure, systolic 228 mm[Hg] Ibrahima Portillo RN pulse rate 78 /min Ibrahima Portillo RN oxygen saturation, oximetry 96 % Ibrahima Portillo RN respiratory rate E&M 17 /min Ibrahima dumont RN Body Mass Index (Ratio) 33.17 kg/m2 Ibrahima Portillo RN weight E&M 237 [lb_av] Ibrahima Portillo RN blood pressure, diastolic, left arm 82 mm [Hg] Ibrahima Portillo RN blood pressure, systolic, left arm 173 mm [Hg] Ibrahima Portillo RN blood pressure, diastolic, right arm 87 m m[Hg] Ibrahima Portillo RN blood pressure, systolic, right arm 191 m m[Hg] Ibrahima Portillo RN blood pressure, diastolic 82 mm[Hg] Amaury Portillo RN blood pressure, systolic 173 mm[Hg] Ibrahima Portillo RN pulse rate 72 /min Ibrahima Portillo RN oxygen saturation, oximetry 96 % Ibrahima Portillo RN respiratory rate E&M 15 /min Ibrahima dumont RN Body Mass Index (Ratio) 34.85 kg/m2 Ibrahima Portillo RN weight E&M 249 [lb_av] Ibrahima Portillo RN blood pressure, diastolic 114 mm[Hg] Candace Sevilla MD blood pressure, systolic 198 mm[Hg] Jose Sevilla MD pulse rate 79 /min Jose Sevilla MD oxygen saturation, oximetry 95 % Jose Sevilla MD respiratory rate E&M 12 /min Jose raphael MD weight E&M 253 [lb_av] Jose Sevilla MD Body Mass Index (Ratio) 35.69 kg/m2 Stephanie Garibay blood pressure, diastolic 82 mm[Hg] Ke latrelli Lani blood pressure, systolic 141 mm[Hg] Huma Garibay pulse rate 67 /min Rachel Maral lder oxygen saturation, oximetry 97 % Rachel Garibay respiratory rate E&M 15 /min Rachel hubbard weight E&M 255 [lb_av] Rachel Alicia lder blood pressure, diastolic 68 mm[Hg] Amaury harrington Portillo RN blood pressure, systolic 115 mm[Hg] Ibrahima Hymans RN pulse rate 70 /min Ibrahima Hymans RN oxygen saturation, oximetry 93 % Ibrahima Hymans RN respiratory rate E&M 18 /min Ibrahima dumont RN Body Mass Index (Ratio) 34.15 kg/m2 Ibrahima Hymans RN weight E&M 244 [lb_av] Ibrahima Hymans RN blood pressure, diastolic, left arm 58 mm [Hg] Ibrahima Hymans RN blood pressure, systolic, left arm 109 mm [Hg] Ibrahima Hymans RN blood pressure, diastolic, right arm 68 m m[Hg] Ibrahima Hymans RN blood pressure, systolic, right arm 124 m m[Hg] Ibrahima Hymans RN blood pressure, diastolic 58 mm[Hg] Amaury harrington Portillo RN blood pressure, systolic 109 mm[Hg] Ibrahima Hymans RN pulse rate 68 /min Ibrahima Hymans RN oxygen saturation, oximetry 98 % Ibrahima Hymans RN respiratory rate E&M 18 /min Ibrahima Ibrahim s RN Body Mass Index (Ratio) 32.89 kg/m2 Ibrahima Hymans RN weight E&M 235 [lb_av] Ibrahima Hymans RN height E&M 71 [in_i] Ibrahima Hymans RN Body Mass Index (Ratio) 34.36 kg/m2 Stephanie Garibay weight E&M 242 [lb_av] Rachel Alicia lder blood pressure, diastolic 64 mm[Hg] Landen Larsener blood pressure, systolic 142 mm[Hg] Huma higgins Lani pulse rate 54 /min Rachel Rashaunchiomacammiecristy hayden oxygen saturation, oximetry 98 % Rachel Lani respiratory rate E&M 16 /min Rachel Mishra venancioenenfhaylee blood pressure, diastolic 85 mm[Hg] Amaury Portillo RN blood pressure, systolic 152 mm[Hg] Ibrahima Portillo RN pulse rate 78 /min Ibrahima Portillo RN oxygen saturation, oximetry 96 % Ibrahima Portillo RN respiratory rate E&M 16 /min Ibrahima dumont RN Body Mass Index (Ratio) 33.65 kg/m2 Ibrahima Portillo RN weight E&M 237 [lb_av] Ibrahima Portillo RN Body Mass Index (Ratio) 34.07 kg/m2 Ibrahima Portillo RN blood pressure, diastolic, left arm 74 mm [Hg] Ibrahima Portillo RN blood pressure, systolic, left arm 117 mm [Hg] Ibrahima Portillo RN blood pressure, diastolic, right arm 65 m m[Hg] Ibrahima Portillo RN blood pressure, systolic, right arm 107 m m[Hg] Ibrahima Portillo RN weight E&M 240 [lb_av] Ibrahima Portillo RN height E&M 70.5 [in_i] Ibrahima Portillo RN respiratory rate E&M 16 /min Ibrahima cherrys RN pulse rate 62 /min Ibrahima Portillo RN oxygen saturation, oximetry 98 % Ibrahima Portillo RN blood pressure, diastolic 74 mm[Hg] Amaury Portillo RN blood pressure, systolic 117 mm[Hg] Ibrahima Portillo RN blood pressure, diastolic, left arm 94 mm [Hg] Ibrahima Portillo RN blood pressure, systolic, left arm 151 mm [Hg] Ibrahima Portillo RN blood pressure, diastolic, right arm 86 m m[Hg] Ibrahima Portillo RN blood pressure, systolic, right arm 153 m m[Hg] Ibrahima Portillo RN blood pressure, diastolic 94 mm[Hg] Amaury Portillo RN blood pressure, systolic 151 mm[Hg] Ibrahima Portillo RN pulse rate 90 /min Ibrahima Portillo RN oxygen saturation, oximetry 97 % Ibrahima Portillo RN respiratory rate E&M 16 /min Ibrahima dumont RN weight E&M 231 [lb_av] Ibrahima Portillo RN blood pressure, diastolic 74 mm[Hg] Landen Garibay blood pressure, systolic 122 mm[Hg] Huma Garibay pulse rate 91 /min Rachel blake oxygen saturation, oximetry 94 % Rachel Garibay respiratory rate E&M 18 /min Rachel hubbard weight E&M 233.6 [lb_av] Rachel leach blood pressure, diastolic 73 mm[Hg] Porter Patel blood pressure, systolic 147 mm[Hg] Aidee Patel pulse rate 83 /min Vanesa Patel oxygen saturation, oximetry 96 % Vanesa Patel respiratory rate E&M 18 /min Vanesa Patel weight E&M 231 [lb_av] Vanesa Patel blood pressure, diastolic, left arm 73 mm [Hg] Ibrahima Portillo RN blood pressure, systolic, left arm 146 mm [Hg] Ibrahima Portillo RN blood pressure, diastolic, right arm 68 m m[Hg] Ibrahima Portillo RN blood pressure, systolic, right arm 163 m m[Hg] Ibrahima Portillo RN blood pressure, diastolic 73 mm[Hg] Amaury Portillo RN blood pressure, systolic 146 mm[Hg] Ibrahima Portillo RN pulse rate 98 /min Ibrahima Portillo RN oxygen saturation, oximetry 97 % Ibrahima Hymanluna [facility] respiratory rate E&M 18 /min Ibrahima dumont RN weight E&M 230 [lb_av] Ibrahima Hymanluna RICCI blood pressure, diastolic, left arm 90 mm [Hg] Ibrahima Hymanluna RICCI blood pressure, systolic, left arm 147 mm [Hg] Ibrahima Hymanluna [facility]ICCI blood pressure, diastolic, right arm 99 m m[Hg] Ibrahima Portillo RN blood pressure, systolic, right arm 164 m m[Hg] Ibrahima Hymanluna RICCI blood pressure, diastolic 99 mm[Hg] Amaury harrington Portillo RN blood pressure, systolic 164 mm[Hg] Ibrahima Hymanluna RICCI pulse rate 83 /min Ibrahima Hymanluna [facility] oxygen saturation, oximetry 98 % Ibrahima Hymanluna [facility] respiratory rate E&M 18 /min Ibrahima dumont RN weight E&M 220 [lb_av] Ibrahima Portillo RN ALLERGIES Allergy Name Onset Date Reaction Criticality Status SEASONAL ALLERGIES Low Criticality a ctive RESULTS Date Observation Value Provider Reference Range Interpretation Location microalbumin/creati nine ratio, urine See report mg/g creat [facility] 0-29 Abnormal microalbumin, random, urine 4.87 mg/dL [facility] Units converted. See lab report for original value. creatinine, random, urine 9.4 mg/dL [facility] Not Estab. lipoprotein, beta, serum, point, quantitative, calculated 39 mg/dL [facility] 0-99 HDL cholesterol, serum 38 mg/dL [facility] >39 Low triglyceride, serum, random 82 mg/dL [facility] 0-149 cholesterol, serum 94 mg/dL [facility] 100-199 Low prothrombin time (patient) 11.0 s [facility] 9.0-11.5 Normal international normalized ratio (INR) 1.1 [facility] Normal basophils as percent of blood leukocytes 0.8 % [facility] Normal eosinophils as percent of blood leukocytes 2.5 % [facility] Normal monocyte count, blood 8.1 % [facility] Normal lymphocyte count, blood 30.9 % [facility] Normal neutrophils as percent of blood leukocytes 57.7 % [facility] Normal basophils, absolute, manual 67 cells/mcL [facility] 0-200 Normal eosinophils, absolute, manual 210 cells/mcL [facility] 15-500 Normal monocytes, absolute, manual 680 cells/mcL [facility] 200-950 Normal lymphocytes, absolute 2596 CELLS/UL [facility] 850-3900 Normal Absolute Neutrophil count 4847 cells/mcL [facility] 7550-6537 Normal mean platelet volume 10.7 fL [facility] 7.5-12.5 Normal platelet count 174 THOUSAND/UL [facility] 140-400 Normal red blood cell distribution width 13.9 % [facility] 11.0-15.0 Normal mean corpuscular hemoglobin concentration, RBC 32.6 G/DL [facility] 32.0-36.0 Normal mean corpuscular hemoglobin, RBC 28.2 pg [facility] 27.0-33.0 Normal mean corpuscular volume, RBC 86.6 fL [facility] 80.0-100.0 Normal hematocrit, blood 45.7 % [facility] 38.5-50.0 Normal hemoglobin electrophoresis, blood 14.9 [facility] 13.2-17.1 Normal erythrocyte (RBC) count 5.28 MILLION/UL [facility] 4.20-5.80 Normal leukocyte (white blood cells) count, blood 8.4 THOUSAND/UL [facility] 3.8-10.8 Normal calcium, serum 9.1 mg/dL [facility] 8.6-10.3 Normal carbon dioxide, venous blood 29 mmol/L [facility] 20-32 Normal chloride, serum 108 mmol/L [facility] 98-110 Normal potassium, serum 3.9 mmol/L [facility] 3.5-5.3 Normal sodium, serum 146 mmol/L [facility] 135-146 Normal urea nitrogen/creatinine ratio, serum 12 (calc) [facility] 6-22 Normal Estimated Glomerular Filtration Rate (calc) 60 mL/min/{1.73 _m2} [facility] > OR = 60 Normal creatinine, serum 1.38 mg/dL [facility] 0.70-1.25 High urea nitrogen, blood 16 mg/dL [facility] 7-25 Normal blood glucose, random 150 mg/dL [facility] 65-99 High cholesterol, non-HDL, total 53 MG/DL (CALC) [facility] <130 Normal cholesterol/HDL ratio, serum, percent 2.3 (calc) [facility] <5.0 Normal LDL cholesterol, serum 35 MG/DL (CALC) [facility] Normal triglyceride, serum, fasting 97 mg/dL [facility] <150 Normal HDL cholesterol, serum 41 mg/dL [facility] > OR = 40 Normal cholesterol, serum 94 mg/dL [facility] <200 Normal LDL cholesterol, serum 29 mg/dL [facility] hemoglobin A1C, blood, as % of total hemoglobin 8.9 % [facility] prothrombin time (patient) 10.3 s [facility] 9.0-11.5 Normal international normalized ratio (INR) 1.0 [facility] Normal basophils as percent of blood leukocytes 0.7 % [facility] as percent of blood leukocytes 2.9 [facility] Normal monocyte count, blood 6.6 % [facility] lymphocyte count, blood 28.8 % [facility] Normal neutrophils as percent of blood leukocytes 61 % [facility] Normal basophils, absolute, manual 64 cells/mcL [facility] 0-200 Normal eosinophils, absolute, manual 264 cells/mcL [facility] 15-500 Normal monocytes, absolute, manual 601 cells/mcL [facility] 200-950 Normal lymphocytes, absolute 2621 CELLS/UL [facility] 850-3900 Normal Absolute Neutrophil count 5551 cells/mcL [facility] 1142-2744 Normal mean platelet volume 9.9 fL [facility] 7.5-12.5 Normal platelet count 166 THOUSAND/UL [facility] 140-400 Normal red blood cell distribution width 13.2 % [facility] 11.0-15.0 Normal mean corpuscular hemoglobin concentration, RBC 34.2 G/DL [facility] 32.0-36.0 Normal mean corpuscular hemoglobin, RBC 30.4 pg [facility] 27.0-33.0 Normal mean corpuscular volume, RBC 88.9 fL [facility] 80.0-100.0 Normal hematocrit, blood 44.2 % [facility] 38.5-50.0 Normal hemoglobin electrophoresis, blood 15.1 [facility] 13.2-17.1 Normal erythrocyte (RBC) count 4.97 MILLION/UL [facility] 4.20-5.80 Normal leukocyte (white blood cells) count, blood 9.1 THOUSAND/UL [facility] 3.8-10.8 Normal calcium, serum 9.0 mg/dL [facility] 8.6-10.3 Normal carbon dioxide, venous blood 29 mmol/L [facility] 20-32 Normal chloride, serum 105 mmol/L [facility] 98-110 Normal potassium, serum 3.7 mmol/L [facility] 3.5-5.3 Normal sodium, serum 141 mmol/L [facility] 135-146 Normal urea nitrogen/creatinine ratio, serum NOT APPLICABLE (calc) [facility] -22 Estimated Glomerular Filtration Rate (calc) 69 mL/min/{1.73 _m2} [facility] > OR = 60 Normal creatinine, serum 1.24 mg/dL [facility] 0.70-1.25 Normal urea nitrogen, blood 15 mg/dL [facility] 7-25 Normal blood glucose, random 220 mg/dL [facility] 65-99 High cholesterol, non-HDL, total 53 MG/DL (CALC) [facility] <130 Normal cholesterol/HDL ratio, serum, percent 2.4 (calc) [facility] <5.0 Normal LDL cholesterol, serum 31 MG/DL (CALC) [facility] Normal triglyceride, serum, fasting 134 mg/dL [facility] <150 Normal HDL cholesterol, serum 37 mg/dL [facility] >40 Low cholesterol, serum 90 mg/dL [facility] <200 Normal hemoglobin A1C, blood, as % of total hemoglobin 7.7 % Jose Sevilla MD pro brain natriuretic peptide 1279 pg/mL [facility] 0-376 High hemoglobin A1C, blood, as % of total hemoglobin 7.4 % [facility] 4.8-5.6 High prothrombin time (patient) 9.7 s [facility] 9.0-11.5 Normal international normalized ratio (INR) 1.0 [facility] Normal basophils as percent of blood leukocytes 0.8 % [facility] Normal eosinophils as percent of blood leukocytes 2.0 % [facility] Normal monocyte count, blood 5.6 % [facility] Normal lymphocyte count, blood 24.0 % [facility] Normal neutrophils as percent of blood leukocytes 67.6 % [facility] Normal basophils, absolute, manual 73 cells/mcL [facility] 0-200 Normal eosinophils, absolute, manual 182 cells/mcL [facility] 15-500 Normal monocytes, absolute, manual 510 cells/mcL [facility] 200-950 Normal lymphocytes, absolute 2184 CELLS/UL [facility] 850-3900 Normal Absolute Neutrophil count 6152 cells/mcL [facility] 9250-8870 Normal mean platelet volume 10.2 fL [facility] 7.5-12.5 Normal platelet count 204 THOUSAND/UL [facility] 140-400 Normal red blood cell distribution width 12.7 % [facility] 11.0-15.0 Normal mean corpuscular hemoglobin concentration, RBC 34.6 G/DL [facility] 32.0-36.0 Normal mean corpuscular hemoglobin, RBC 30.1 pg [facility] 27.0-33.0 Normal mean corpuscular volume, RBC 87.0 fL [facility] 80.0-100.0 Normal hematocrit, blood 46.0 % [facility] 38.5-50.0 Normal hemoglobin electrophoresis, blood 15.9 [facility] 13.2-17.1 Normal erythrocyte (RBC) count 5.29 MILLION/UL [facility] 4.20-5.80 Normal leukocyte (white blood cells) count, blood 9.1 THOUSAND/UL [facility] 3.8-10.8 Normal calcium, serum 10.1 mg/dL [facility] 8.6-10.3 Normal carbon dioxide, venous blood 30 mmol/L [facility] 20-32 Normal chloride, serum 102 mmol/L [facility] 98-110 Normal potassium, serum 3.5 mmol/L [facility] 3.5-5.3 Normal sodium, serum 140 mmol/L [facility] 135-146 Normal urea nitrogen/creatinine ratio, serum 12 (calc) [facility] 6-22 Normal Estimated Glomerular Filtration Rate (calc) 65 mL/min/{1.73 _m2} [facility] > OR = 60 Normal creatinine, serum 1.30 mg/dL [facility] 0.70-1.25 High urea nitrogen, blood 16 mg/dL [facility] 7-25 Normal blood glucose, random 249 mg/dL [facility] 65-99 High cholesterol, non-HDL, total 175 MG/DL (CALC) [facility] <130 High cholesterol/HDL ratio, serum, percent 5.6 (calc) [facility] <5.0 High LDL cholesterol, serum 138 MG/DL (CALC) [facility] High triglyceride, serum, fasting 231 mg/dL [facility] <150 High HDL cholesterol, serum 38 mg/dL [facility] >40 Low cholesterol, serum 213 mg/dL [facility] <200 High microalbumin/creati nine ratio, urine 772 MCG/MG CREAT [facility] <30 High microalbumin/total urine volume 1559 mg/L [facility] Units converted. See lab report for original value. Normal creatinine, random, urine 202 mg/dL [facility] Normal prothrombin time (patient) 10.3 s [facility] 9.0-11.5 Normal international normalized ratio (INR) 1.0 [facility] Normal mean platelet volume 9.0 fL [facility] 7.5-11.5 Normal platelet count 177 THOUSAND/UL [facility] 140-400 Normal red blood cell distribution width 14.5 % [facility] 11.0-15.0 Normal mean corpuscular hemoglobin concentration, RBC 32.9 G/DL [facility] 32.0-36.0 Normal mean corpuscular hemoglobin, RBC 30.1 pg [facility] 27.0-33.0 Normal mean corpuscular volume, RBC 91.7 fL [facility] 80.0-100.0 Normal hematocrit, blood 49.0 % [facility] 38.5-50.0 Normal hemoglobin electrophoresis, blood 16.1 [facility] 13.2-17.1 Normal erythrocyte (RBC) count 5.35 MILLION/UL [facility] 4.20-5.80 Normal leukocyte (white blood cells) count, blood 11.7 THOUSAND/UL [facility] 3.8-10.8 High calcium, serum 9.8 mg/dL [facility] 8.6-10.3 Normal carbon dioxide, venous blood 30 mmol/L [facility] 20-31 Normal chloride, serum 100 mmol/L [facility] 98-110 Normal potassium, serum 3.6 mmol/L [facility] 3.5-5.3 Normal sodium, serum 139 mmol/L [facility] 135-146 Normal urea nitrogen/creatinine ratio, serum 15 (calc) [facility] 6-22 Normal Estimated Glomerular Filtration Rate (calc) 68 mL/min/{1.73 _m2} [facility] > OR = 60 Normal creatinine, serum 1.28 mg/dL [facility] 0.70-1.25 High urea nitrogen, blood 19 mg/dL [facility] 7-25 Normal blood glucose, random 148 mg/dL [facility] 65-99 High cholesterol, non-HDL, total 96 MG/DL (CALC) [facility] Normal cholesterol/HDL ratio, serum, percent 3.4 (calc) [facility] < OR = 5.0 Normal LDL cholesterol, serum 62 MG/DL (CALC) [facility] <130 Normal triglyceride, serum, fasting 172 mg/dL [facility] <150 High HDL cholesterol, serum 40 mg/dL [facility] > OR = 40 Normal cholesterol, serum 136 [facility] Normal cholesterol, serum 182 mg/dL Iliana Whitney RN creatinine, serum 1.28 mg/dL Iliana Whitney RN triglyceride, serum, fasting 257 mg/dL Gena Gonzales HDL cholesterol, serum 40 mg/dL Gena Gonzales LDL cholesterol, serum 119 mg/dL Gena Gonzales cholesterol, serum 210 mg/dL Gena Gonzales international normalized ratio (INR) 1.00 RATIO [facility] 0.81-1.21 Normal [facility] [address] Dre Monahan prothrombin time (patient) 13.1 s [facility] 11.5-15.5 Normal [place] [address] Dre Monahan basophils, absolute, manual 0.19 K/UL [facility] 0.0-0.1 [place] [address] Dre Monahan [phone] basophils as percent of blood leukocytes 1.7 % [facility] 0.3-0.9 [place] [address] Dre Monahan [phone] eosinophils, absolute, manual 0.23 K/UL [facility] 0.1-0.5 [place] [address] Dre Monahan [phone] eosinophils as percent of blood leukocytes 2.1 % [facility] 1.1-7.6 [place] [address] Dre Monahan monocyte count, blood 0.54 10*3/mm3 [facility] 0.2-0.7 Normal [place] [address] Dre Monahan monocytes as percent of blood leukocytes 4.9 % [facility] 4.2-11.2 Normal [place] [address] Dre Monahan lymphocytes as percent of blood leukocytes 2.08 K/UL [facility] 0.6-3.4 [place] [address] Dre Monahan lymphocytes, absolute 18.8 % [facility] 19.8-46.2 [place] [address] Dre Monahan [phone] neutrophil count, absolute 8.04 K/uL [facility] 1.9-5.9 [place] [address] Dre Hero neutrophils as percent of blood leukocytes 72.5 % [facility] 42.7-72.4 [place] [address] Dre Hero mean platelet volume 8.2 % [facility] 7.4-9.9 [place] [address] Dre Hero red blood cell distribution width 12.1 % [facility] 10.9-14.6 [place] [address] Dre Hero [phone] platelet count 175 10*3/mm3 [facility] 165-429 [place] [address] Dre Hero [phone] mean corpuscular hemoglobin concentration, RBC 33.7 % [facility] 32.5-34.5 Normal [place] [address] Dre Monahan mean corpuscular hemoglobin, RBC 30.5 pg [facility] 21.5-33.3 [place] [address] Dre Hero [phone] mean corpuscular volume, RBC 90 fL [facility] 76-98 Normal [place] [address] Dre Hero hematocrit, blood 46.5 % [facility] 34.4-47.3 [place] [address] Dre Monahan hemoglobin, blood 15.7 g/dL [facility] 12.5-17.2 Normal [place] [address] Dre Monahan [phone] erythrocyte (RBC) count 5.14 M/UL [facility] 3.8-5.5 Normal [place] [address] Dre Monahan leukocyte count, blood 11.1 10*3/mm3 [facility] 3.7-8.9 [place] [address] Dre Hero [phone] calcium, serum 9.4 mg/dL [facility] 8.6-10.0 Normal [place] [address] Dre Hero blood glucose, random 158 mg/dL [facility] 74-109 [place] [address] Dre Hero eGFR if 72 mL/min/{1.73 _m2} [facility] >60 [place] [address] Dre Hero [phone] eGFR if not 59 mL/min/{1.73 _m2} [facility] >60 [place] [address] Dre Hero [phone] urea nitrogen/creatinine ratio, serum 16.2 ratio [facility] 8.0-25.0 Normal [place] [address] Dre Hero creatinine, serum 1.3 mg/dL [facility] 0.70-1.20 [place] [address] Dre Monahan urea nitrogen, blood 21 mg/dL [facility] 6-20 [place] [address] Dre Monahan carbon dioxide, venous blood 31 mmol/L [facility] 22-29 [place] [address] Dre Monahan chloride, serum 104 MEQ/L [facility] 98-107 Normal [place] [address] Dre Monahan potassium, serum 3.6 MEQ/L [facility] 3.5-5.1 [place] [address] Dre Monahan [phone] sodium, serum 144 MEQ/L [facility] 136-145 Normal [place] [address] Dre Monahan [phone] B-type natriuretic peptide 479 pg/mL [facility] triglyceride, serum, fasting 101 mg/dL [facility] HDL cholesterol, serum 36 mg/dL [facility] lipoprotein, beta, serum, point, quantitative, calculated 91 mg/dL [facility] cholesterol, serum 147 mg/dL [facility] creatinine, serum 1.34 mg/dL [facility] potassium, serum 3.8 mmol/L [facility] sodium, serum 142 mmol/L [facility] prothrombin time (patient) 10.6 s [facility] 9.1-12.0 international normalized ratio (INR) 1.0 [facility] 0.8-1.2 calcium, serum 9.8 mg/dL [facility] 8.6-10.2 carbon dioxide, venous blood 23 mmol/L [facility] 20-32 chloride, serum 101 mmol/L [facility] 97-108 potassium, serum 4.1 mmol/L [facility] 3.5-5.2 sodium, serum 141 mmol/L [facility] [phone]/01 /15 urea nitrogen/creatinine ratio, serum 14 [facility] 10-22 eGFR if not 53 mL/min/{1.73 _m2} [facility] >59 Low creatinine, serum 1.42 mg/dL [facility] 0.76-1.27 High urea nitrogen, blood 20 mg/dL [facility] 8-27 blood glucose, random 175 mg/dL [facility] 65-99 High basophil count, absolute 0.1 x10E3/uL [facility] 0.0-0.2 Eosinophil Absolute Count 0.1 X10E3/UL [facility] 0.0-0.4 monocyte count, blood, automated 0.6 X10E3/UL [facility] 0.1-1.0 lymphocyte count, blood, automated 3.8 X10E3/UL [facility] 0.7-4.5 Absolute Neutrophils 5.5 X10E3/UL [facility] 1.8-7.8 basophils as percent of blood leukocytes 1 % [facility] 0-3 eosinophils as percent of blood leukocytes 1 % [facility] 0-7 monocytes as percent of blood leukocytes 6 % [facility] 4-13 lymphocytes as percent of blood leukocytes 37 % [facility] 14-46 neutrophils as percent of blood leukocytes 55 % [facility] 40-74 platelet count 187 X10E3/UL [facility] 399-759 3929/01 /15 red blood cell distribution width 13.2 % [facility] 12.3-15.4 mean corpuscular hemoglobin concentration, RBC 35.0 G/DL [facility] 31.5-35.7 mean corpuscular hemoglobin, RBC 31.3 pg [facility] 26.6-33.0 mean corpuscular volume, RBC 89 fL [facility] 79-97 hematocrit, blood 45.7 % [facility] 37.5-51.0 hemoglobin, blood 16.0 g/dL [facility] 12.6-17.7 erythrocyte (RBC) count 5.12 X10E6/UL [facility] 4.14-5.80 leukocyte count, blood 10.1 X10E3/UL [facility] 4.0-10.5 prothrombin time (patient) 10.4 s [facility] 9.1-12.0 international normalized ratio (INR) 1.0 [facility] 0.8-1.2 lipoprotein, beta, serum, point, quantitative, calculated 105 mg/dL [facility] 0-99 High very low density lipoproteins 40 mg/dL [facility] 5-40 HDL cholesterol, serum 44 mg/dL [facility] >39 triglyceride, serum, random 198 mg/dL [facility] 0-149 High cholesterol, serum 189 mg/dL [facility] 913-222 0464/11 /10 calcium, serum 10.1 mg/dL [facility] 8.6-10.2 carbon dioxide, venous blood 26 mmol/L [facility] 20-32 chloride, serum 104 mmol/L [facility] 97-108 potassium, serum 4.2 mmol/L [facility] 3.5-5.2 sodium, serum 143 mmol/L [facility] 080-331 4329/11 /10 urea nitrogen/creatinine ratio, serum 13 [facility] 10-22 eGFR if not 56 mL/min/{1.73 _m2} [facility] >59 Low creatinine, serum 1.35 mg/dL [facility] 0.76-1.27 High urea nitrogen, blood 18 mg/dL [facility] 8-27 blood glucose, random 217 mg/dL [facility] 65-99 High basophil count, absolute 0.0 x10E3/uL [facility] 0.0-0.2 Eosinophil Absolute Count 0.1 X10E3/UL [facility] 0.0-0.4 monocyte count, blood, automated 0.7 X10E3/UL [facility] 0.1-1.0 lymphocyte count, blood, automated 3.1 X10E3/UL [facility] 0.7-4.5 Absolute Neutrophils 8.4 X10E3/UL [facility] 1.8-7.8 High basophils as percent of blood leukocytes 0 % [facility] 0-3 eosinophils as percent of blood leukocytes 1 % [facility] 0-7 monocytes as percent of blood leukocytes 6 % [facility] 4-13 lymphocytes as percent of blood leukocytes 25 % [facility] 14-46 neutrophils as percent of blood leukocytes 68 % [facility] 40-74 platelet count 216 X10E3/UL [facility] 436-413 5594/11 /10 red blood cell distribution width 13.5 % [facility] 12.3-15.4 mean corpuscular hemoglobin concentration, RBC 33.9 G/DL [facility] 31.5-35.7 mean corpuscular hemoglobin, RBC 30.8 pg [facility] 26.6-33.0 mean corpuscular volume, RBC 91 fL [facility] 79-97 hematocrit, blood 46.0 % [facility] 37.5-51.0 hemoglobin, blood 15.6 g/dL [facility] 12.6-17.7 erythrocyte (RBC) count 5.06 X10E6/UL [facility] 4.14-5.80 leukocyte count, blood 12.3 X10E3/UL [facility] 4.0-10.5 High LDL cholesterol, serum 26 mg/dL [facility] cholesterol, serum 92 mg/dL [facility] calcium, serum 9.1 mg/dL [facility] 8.6-10.2 carbon dioxide, venous blood 23 mmol/L [facility] 20-32 chloride, serum 103 mmol/L [facility] 97-108 potassium, serum 3.9 mmol/L [facility] 3.5-5.2 sodium, serum 141 mmol/L [facility] 455-076 3980/06 /15 urea nitrogen/creatinine ratio, serum 19 [facility] 10-22 eGFR if not 54 mL/min/{1.73 _m2} [facility] >59 Low creatinine, serum 1.39 mg/dL [facility] 0.76-1.27 High urea nitrogen, blood 26 mg/dL [facility] 8-27 blood glucose, random 140 mg/dL [facility] 65-99 High prothrombin time (patient) 11.2 s [facility] 9.1-12.0 international normalized ratio (INR) 1.0 [facility] 0.8-1.2 lipoprotein, beta, serum, point, quantitative, calculated 123 mg/dL [facility] 0-99 High very low density lipoproteins 18 mg/dL [facility] 5-40 HDL cholesterol, serum 40 mg/dL [facility] >39 triglyceride, serum, random 90 mg/dL [facility] 0-149 cholesterol, serum 181 mg/dL [facility] [phone]/05 /26 calcium, serum 9.4 mg/dL [facility] 8.6-10.2 carbon dioxide, venous blood 24 mmol/L [facility] 20-32 chloride, serum 103 mmol/L [facility] 97-108 potassium, serum 4.0 mmol/L [facility] 3.5-5.2 sodium, serum 142 mmol/L [facility] 120-258 3915/05 /26 urea nitrogen/creatinine ratio, serum 14 [facility] 10-22 eGFR if not 48 mL/min/{1.73 _m2} [facility] >59 Low creatinine, serum 1.54 mg/dL [facility] 0.76-1.27 High urea nitrogen, blood 22 mg/dL [facility] 8-27 blood glucose, random 135 mg/dL [facility] 65-99 High basophil count, absolute 0.1 x10E3/uL [facility] 0.0-0.2 Eosinophil Absolute Count 0.1 X10E3/UL [facility] 0.0-0.4 monocyte count, blood, automated 0.4 X10E3/UL [facility] 0.1-1.0 lymphocyte count, blood, automated 2.7 X10E3/UL [facility] 0.7-4.5 Absolute Neutrophils 5.7 X10E3/UL [facility] 1.8-7.8 basophils as percent of blood leukocytes 1 % [facility] 0-3 eosinophils as percent of blood leukocytes 1 % [facility] 0-7 monocytes as percent of blood leukocytes 5 % [facility] 4-13 lymphocytes as percent of blood leukocytes 30 % [facility] 14-46 neutrophils as percent of blood leukocytes 63 % [facility] 40-74 platelet count 204 [phone]/05 /26 red blood cell distribution width 14.7 % [facility] 11.7-15.0 mean corpuscular hemoglobin concentration, RBC 33.9 G[facility] mean corpuscular hemoglobin, RBC 29.7 pg LinkLog 27.0-34.0 mean corpuscular volume, RBC [address] [facility] 80-98 hematocrit, blood 42.5 % [facility] 36.0-50.0 hemoglobin, blood 14.4 g/dL [facility] 12.5-17.0 erythrocyte (RBC) count 4.85 [id number] [facility] 4.10-5.60 leukocyte count, blood 9.0 X10E3/UL [facility] 4.0-10.5 aspartate aminotransferase (SGOT), serum 18 1/L [facility] Rajat LDL cholesterol, serum 89 mg/dL [facility] Rajat cholesterol, serum 163 mg/dL [facility] Rajat prothrombin time (patient) 10.6 s [facility] international normalized ratio (INR) 1.0 [facility] creatinine, serum 1.80 mg/dL [facility] urea nitrogen, blood 24.6 mg/dL [facility] carbon dioxide, serum, total 31 mmol/L [facility] chloride, serum 103 mmol/L [facility] potassium, serum 4.1 mmol/L [facility] sodium, serum 138 mmol/L [facility] platelet count 206 10*3/uL [facility] hematocrit, blood 41.7 % [facility] hemoglobin, blood 13.6 g/dL [facility] erythrocyte (RBC) count 4.74 10*6/mm3 Iliana Whitney RN leukocyte count, blood 9.0 10*3/mm3 Iliana Whitney RN HISTORY OF MEDICATION USE Medication Status Instructions Dates Provider Indications Com ments clonazepam 0.5 mg tablet active Shelly Ventimiglia SURVEY RESEARCH ANALYST ropinirole 1 mg tablet active Shelly Ventimiglia SURVEY RESEARCH ANALYST gabapentin 600 mg tablet active Take 1.5 tablet by mouth once a day Shelly Ventimiglia SURVEY RESEARCH ANALYST hydralazine 25 mg tablet active Take 1 tablet by mouth three times a day Rachel Garibay ferrous sulfate 325 mg (65 mg iron) tablet completed Take 1 tablet by mouth twice a day - 11/06 Shelly Ventimiglia SURVEY RESEARCH ANALYST amlodipine 2.5 mg tablet active Take 1 tablet by mouth once a day Rachel Garibay atorvastatin 40 mg tablet active Take 1 tablet by mouth once a day Rachel Garibay clopidogrel 75 mg tablet active Take 1 tablet by mouth once a day Rachel Garibay duloxetine 60 mg capsule,delayed release(DR/EC) completed Take 1 capsule by mouth once a day - 11/06 Shelly Ventimiglia SURVEY RESEARCH ANALYST Lantus U-100 Insulin unspecified unspecified active Inject 38 unit subcutaneously once a day Rachel Garibay Novolog Flexpen U-100 Insulin 100 unit/mL (3 mL) insulin pen completed - Rachel Garibay pramipexole unspecified unspecified completed - Rachel Garibay calcitriol 0.25 mcg capsule completed - Rachel Garibay cyclobenzaprine 5 mg tablet active Take 1 tablet by mouth twice a day Rachel Garibay carvedilol 25 mg tablet active Take 2 tablet by mouth twice a day Shelly Ventimiglia SURVEY RESEARCH ANALYST gabapentin unspecified unspecified completed Take 1 tablet by mouth twice a day - Rachel Garibay sildenafil 100 mg tablet active Take 1 tablet by mouth once a day Daisha Meredith spironolactone 25 mg tablet completed Take 1 tablet by mouth once a day - Rachel Garibay Ozempic 1 mg/dose (2 mg/1.5 mL) pen injector active 1 subcutaneously once a week 08/27 Rachel Garibay famotidine 20 mg tablet completed Take 1 tablet by mouth once a day 07/13 - 11/06 Shelly Ventimiwood SURVEY 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 If blood sugar > 200, 7 units instead of 5 units 07/13 - 12/10 Rachel Garibay Jardiance 25 mg tablet completed take one half a pill a day 07/13 - Rachel Garibay TRULICITY 1.5 MG/0.5ML SUBCUTANEOUS SOLUTION PEN-INJECTOR completed once a week 12/18 - 12/10 Rachel Garibay cholecalciferol (vitamin D3) 250 mcg (10,000 unit) tablet active Take 1 tablet by mouth once a day 12/18 Daisha Meredith CYCLOBENZAPRINE HCL 5 MG ORAL TABLET completed take 1 tab twice a day 12/18 - 12/10 Rachel Garibay SOTAGLIFLOZIN/PLACE AV completed 01/09 - 09/25 Bronwyn De Leon rosuvastatin 40 mg tablet completed Take 1 tablet by mouth once a day 08/21 - 08/26 Jose Sevilla MD CLOPIDOGREL 75MG TABLETS completed TAKE 1 TABLET BY MOUTH DAILY - 12/10 Rachel Garibay Cymbalta 60 mg capsule,delayed release(DR/EC) completed Take 1 capsule by mouth once a day - Rachel Garibay POTASSIUM CHLORIDE JORGE ALBERTO ER 20 MEQ ORAL TABLET EXTENDED RELEASE completed 2 TAB. DAILY 02/07 - 12/10 Joan Iglesias losartan 100 mg tablet active Take 1 tablet by mouth once a day TAKE ONE TABLET BY MOUTH DAILY 09/28 Shelly Ruiz SURVEY RESEARCH ANALYST POTASSIUM CL 20MEQ ER TABLETS completed TAKE THREE TABLETS TWICE A DAY 01/03 - 12/10 Rachel Garibay MORPHINE SULFATE 15 MG ORAL TABLET completed take 1 tablet every 12 hours as needed 09/19 - 12/10 Joan Iglesias VICTOZA 18 MG/3ML SUBCUTANEOUS SOLUTION PEN-INJECTOR completed inject 1.8 units once daily 09/19 - 12/18 Madelyn Ochoa furosemide 40 mg tablet active Take 3 tablet by mouth every morning 09/19 Rachel Garibay aspirin 81 mg tablet,delayed release (DR/EC) active Take 1 tablet by mouth once a day 07/05 Daisha Soriano'Ez PRAMIPEXOLE DIHYDROCHLORIDE 0.5 MG ORAL TABLET completed One tablet daily 07/03 - 12/10 Rachel Garibay OXYCODONE HCL 5 MG ORAL CAPSULE completed take one pill every 6 hours as needed 07/03 - 12/10 Joan Iglesias MINERIN EXTERNAL CREAM completed apply once a day 07/03 - 12/10 Adán Shi MEROPENEM SOLUTION RECONSTITUTED completed every 8 hours 07/03 - 12/10 Adán Shi [facility] MELATONIN CAPSULE completed 2 at night 07/03 - 12/10 Adán Shi GABAPENTIN 300 MG ORAL CAPSULE completed take one pill a day 07/05 - 07/04 Bronwyn De Leon ACID CONTROL MAXIMUM STRENGTH 20 MG ORAL TABLET completed take one pill twice a day 07/05 - 07/04 Bronwyn De Leon CYMBALTA 30 MG ORAL CAPSULE DELAYED RELEASE PARTICLES completed take one pill twice a day 07/05 - 12/10 Adán Shi doxycycline hyclate 100 mg capsule completed Take 1 capsule by mouth once a day 07/05 - Rachel Garibay DAPTOMYCIN SOLUTION RECONSTITUTED completed 50 ml a day 07/05 - 12/10 Adán Shi BACITRACIN 500 UNIT/GM EXTERNAL OINTMENT completed once a day 07/05 - 09/19 Thomas Aleyda HYDROCODONE-ACETAMI NOPHEN TABLET completed take as directed 11/10 - 12/10 Rachel Garibay XARELTO 20 MG ORAL TABLET completed One tab. daily with evening meal 07/09 - 12/10 Rachel Garibay CLOPIDOGREL BISULFATE 75 MG ORAL TABLET completed One tab daily 10/01 - 06/23 Jennifer Fitzgerald RN VICTOZA 18 MG/3ML SUBCUTANEOUS SOLUTION PEN-INJECTOR completed 1.8 once daily - 12/10 Rachel Garibay metoprolol tartrate 100 mg tablet completed Take 1 tablet by mouth twice a day - 08/26 Daisha Meredith HYDROCHLOROTHIAZIDE 25 MG ORAL TABLET completed once daily - 11/07 Jennifer Fitzgerald RN COMPASS PROTONIX VS PLACEBO completed 05/28 - 10/01 Jose KUMAR ASA/ RIVAROXABAN completed 05/28 - 10/01 Jose Sevilla MD WELCHOL 625 MG ORAL TABLET completed 3 TABS TWICE DAILY 09/13 - 12/10 Bronwyn Simms VIAGRA 100 MG ORAL TABLET completed take one as needed 07/03 - 12/10 Rachel Garibay CIALIS 20 MG ORAL TABLET completed as needed - 10/01 Jose CHERRYALOG KWIKPEN 100 UNIT/ML SUBCUTANEOUS SOLUTION PEN-INJECTOR completed 60ml daily - 12/10 Bronwyn ZOLPIDEM TARTRATE 10 MG ORAL TABLET completed at hs - 12/10 Bronwyn Simms D 2000 2000 UNIT ORAL TABLET completed One tab daily 10/01 - 07/13 Bernardo Dontae KLOR-CON M20 completed daily - 12/10 Bronwyn Simms ROPINIROLE HCL 0.5 MG ORAL TABLET completed daily - 12/10 Rachel Garibay LANTUS SOLOSTAR 100 UNIT/ML SUBCUTANEOUS SOLUTION PEN-INJECTOR completed 60 units once a day. If blood sugar > 200, 70 units once a day 10/10 - 12/10 Rachel Garibay JANUVIA 100 MG ORAL TABLET completed daily - 05/30 Ibrahima Portillo RN ZETIA 10 MG ORAL TABLET completed ONE TAB. DAILY - 01/01 Ibrahima Portillo RN FOLIC AICD 1MG completed daily - 12/10 Rachel Garibay COZAAR 100 MG ORAL TABLET completed daily 08/16 - 12/10 Rachel Garibay BYSTOLIC 20 MG ORAL TABLET completed ONE TAB. DAILY 05/30 - 12/10 Bronwyn Simms ASPIRIN 81 MG ORAL TABLET completed ONE TAB. DAILY - 12/10 Rachel Garibay PRAMIPEXOLE DIHYDROCHLORIDE 1.5 MG ORAL TABLET completed 1 tablet by mouth daily - 10/01 Jose Sevilla MD AMLODIPINE BESYLATE 10 MG ORAL TABLET completed 1 tab twice daily - 12/18 Bernardo Diggs GLIMEPIRIDE 4 MG ORAL TABLET completed daily 08/16 - 01/01 Ibrahima Portillo RN LIPITOR 80 MG ORAL TABLET completed ONE TAB. DAILY 10/01 - 12/10 Rachel Garibay QUINAPRIL HCL 40 MG ORAL TABLET completed 1 tablet by mouth daily - 08/16 Yun Fitzgerald PLAVIX 75 MG ORAL TABLET completed 1 tablet by mouth daily - 05/28 Jennifer Fitzgerald RN LASIX 40 MG ORAL TABLET completed One tab daily 07/03 - 12/10 Bronwyn Simms CLONIDINE HCL 0.1 MG ORAL TABLET completed 1 tablet by mouth twice daily - 08/16 Yun Fitzgerald SOCIAL HISTORY Date Observation Value Provider personal history of marijuana use no Jose Sevilla MD drug use no Jose Sevilla MD alcohol use, average drinks per day social basis only Jose Sevilla MD alcohol use, type beer Jose Gordillo i, MD alcohol use yes Jose Sevilla MD passive cigarette sm jennifer exposure yes Jose Sevilla MD smoking/tobacco cess ation, patient education and counseling yes Jose Sevilla MD smoking, year quit 2011 Jose stroud MD smoking history, tot al pack/year 20 Jose Sevilla MD smoking history, tot al pack/day 10 Jose Sevilla MD cigarette use yes Jose Sevilla MD smoking status Current every da y smoker Jose Sevilla MD personal history of marijuana use no Jose Sevilla MD drug use no Jose Sevilla MD alcohol use, average drinks per day social basis only Jose Sevilla MD alcohol use, type beer Jose Gordillo i, MD alcohol use yes Jose Sevilla MD passive cigarette sm jennifer exposure yes Jose Sevilla MD smoking/tobacco cess ation, patient education and counseling yes Jose Sevilla MD smoking, year quit 2011 Jose stroud MD smoking history, tot al pack/year 20 Jose Sevilla MD smoking history, tot al pack/day 10 Jose Sevilla MD cigarette use yes Jose Sevilla MD smoking status Current every da y smoker Jose Sevilla MD personal history of marijuana use no Shelly Ventimiglia [facility] drug use no Shelly Ventimig marvin [facility] alcohol use, average drinks per day social basis only Shelly Ventimiglia [facility] alcohol use, type beer Shelly Gabriel timiglia [facility] alcohol use yes Shelly Ventimig marvin [facility] passive cigarette sm jennifer exposure yes Shelly Ventimiglia [facility] smoking/tobacco cess ation, patient education and counseling yes Shelly Murrietamiglia [facility] smoking, year quit 2011 Shelly lozada [facility] smoking history, tot al pack/year 20 Shelly Murrietamiglia [facility] cigarette use yes Shelly muir [facility] smoking status Current every da y smoker Shelly Murguiaglia [facility] social history E&M Marital Statu s: L silvana with family/friends E thnicity: Smoking History: P atient currently smokes every day. P atient has been counseled to quit. Bossman Momin social history reviewed E&M revi ewed - no changes required Bossman Momin caffeine use, averag e drinks per day 1+ Rachel Rodneycanelo passive cigarette sm jennifer exposure yes Rachel Rodneycanelo smoking/tobacco cess ation, patient education and counseling yes Rachel Rodneycanelo smoking, year quit 2011 Rachel Rodneyboyd moss smoking history, tot al pack/year 20 Rachel Rodneycanelo smoking history, tot al pack/day 10 Rachel Lani cigarette use yes Rachel Rodneyjazmín leach smoking status Current every da y smoker Rachel Rodneycanelo social history E&M Marital Statu s: L silvana with family/friends E thnicity: Smoking History: P atient currently smokes every day. P atient has been counseled to quit. Jose Sevilla MD social history reviewed E&M revi ewed - no changes required Jose Sevilla MD caffeine use, averag e drinks per day 1+ Marlen Julian passive cigarette sm jennifer exposure yes Marlen Londonderry smoking/tobacco cess ation, patient education and counseling yes Marlen Julian smoking, year quit 2011 Marlen Julian smoking history, tot al pack/year 20 Marlen Julian smoking history, tot al pack/day 10 Marlen Londonderry cigarette use yes Marlen Londonderry smoking status Current every da y smoker Marlen Londonderry social history E&M Marital Statu s: L silvana with family/friends E thnicity: Smoking History: P atluis currently smokes every day. P lamar has been counseled to quit. Harvinder Eduardo social history reviewed E&M revi ewed - no changes required Harvinder Clark caffeine use, averag e drinks per day 1+ Marlen Londonderry passive cigarette sm jennifer exposure yes Marlen Julian smoking/tobacco cess ation, patient education and counseling yes Marlen Julian smoking, year quit 2011 Marlen Londonderry smoking history, tot al pack/year 20 Marlen Julian smoking history, tot al pack/day 10 Marlen Julian cigarette use yes Marlen Londonderry smoking status Current every da y smoker Marlen Julian social history E&M Marital Statu s: L silvana with family/friends E thnicity: Smoking History: P lamar currently smokes every day. Jose Sevilla MD social history reviewed E&M revi ewed - no changes required Jose Sevilla MD smoking history, tot al pack/day 10 Harjinder Cortez cigarette use yes Harjinder carrasco smoking status Current every da y smoker Harjinder Cortez social history E&M Marital Statu s: L silvana with family/friends E thnicity: Smoking History: P lamar is a former smoker. Jose Sevilla MD social history reviewed E&M revi ewed - no changes required Jose Sevilla MD caffeine use, averag e drinks per day 1+ Daisha O'Ez passive cigarette sm jennifer exposure yes Daisha O'Ez smoking, year quit 2011 Diasha O' Ez smoking history, tot al pack/year 20 Daisha O'Ez cigarette use yes Daisha O'Ez smoking status Former smoker Daisha O'Ally l number of grandchildren Jose Diggs social history reviewed E&M revi ewed - no changes required Bernardo Diggs caffeine use, averag e drinks per day 1+ Rachel Garibay passive cigarette sm jennifer exposure yes Rachel Garibay smoking, year quit 2011 Rachel moss smoking history, tot al pack/year 20 Rachel Garibay cigarette use yes Rachel leach smoking status Former smoker Rachel claire number of grandchildren Anant Silvestre social history E&M Marital Statu s: L silvana with family/friends E thnicity: Smoking History: William newton is a former smoker. Anant Orozco MD social history reviewed E&M revi ewed - no changes required Anant Orozco MD caffeine use, averag e drinks per day 1+ Rachel Garibay passive cigarette sm jennifer exposure yes Rachel Garibay smoking, year quit 2011 Rachel moss smoking history, tot al pack/year 20 Rachel Garibay cigarette use yes Rachel leach smoking status Former smoker Rachel Thorne nfelder social history reviewed E&M revi ewed - no changes required [facility] caffeine use, averag e drinks per day 1+ Madelyn Ochoa passive cigarette sm jennifer exposure yes Madelyn Ochoa smoking, year quit 2011 Madelyn Brennen conway smoking history, tot al pack/year 20 Madelyn Ochoa cigarette use yes Madelyn tuttle smoking status Former smoker Madelyn felix caffeine use, averag e drinks per day 1+ [facility] passive cigarette sm jennifer exposure yes [facility] smoking, year quit 2011 [facility] smoking history, tot al pack/year 20 [facility] cigarette use yes [facility] smoking status Former smoker [facility] social history reviewed E&M revi ewed - no changes required Jose Sevilla MD social history reviewed E&M revi ewed - no changes required Jose Sevilla MD alcohol use, average drinks per day social basis only Buena Cardenas alcohol use, type beer Buena In gram alcohol use yes Buena Cardenas caffeine use, averag e drinks per day 1+ Ghanshyam Cardenas drug use none Ghanshyam Cardenas passive cigarette sm jennifer exposure yes Buena Cardenas smoking, year quit 2011 Buena I ngram smoking history, tot al pack/year 20 Buena Cardenas cigarette use yes Ghanshyam Cardenas smoking status Former smoker Buena Ingr am social history reviewed E&M revi ewed - no changes required Jose Sevilla MD alcohol use, average drinks per day social basis only Joan Harris alcohol use, type beer Joan Harris alcohol use yes Joan Harris caffeine use, averag e drinks per day 1+ Joan Harris drug use none Joan Harris passive cigarette sm jennifer exposure yes Joan Harris smoking, year quit 2011 Joan Angel s smoking history, tot al pack/year 20 Joan Harris cigarette use yes Joan Harris smoking status Former smoker Joan Harris social history reviewed E&M revi ewed - no changes required Jose Sevilla MD alcohol use, average drinks per day social basis only Summer Langston-Adalberto alcohol use, type beer Summermarie Barth nson-Adalberto alcohol use yes Summer Langston- Adalberto caffeine use, averag e drinks per day 1+ Summer Langston-Adalberto drug use none Summer Langston- Adalberto passive cigarette sm jennifer exposure yes Summer Langston-Adalberto smoking, year quit 2011 Summer Rivera inson-Adalberto smoking history, tot al pack/year 20 Summer Langston-Adalberto cigarette use yes Summer Langston -Adalberto smoking status Former smoker Summer Grodon on-Adalberto social history reviewed E&M revi ewed - no changes required Jose Sevilla MD alcohol use, average drinks per day social basis only Joan Harris alcohol use, type beer Joan Harris alcohol use yes Joan Harris caffeine use, averag e drinks per day 1+ Joan Harris drug use none Joan Harris passive cigarette sm jennifer exposure yes Joan Harris smoking, year quit 2011 Joan Angel s smoking history, tot al pack/year 20 Joan Harris cigarette use yes Joan Harris smoking status Former smoker Joan Harris social history reviewed E&M revi ewed - no changes required Jose Sevilla MD alcohol use, average drinks per day social basis only Madelyn Ochoa alcohol use, type beer Madelyn Barrett mpbell alcohol use yes Madelyn Noland l caffeine use, averag e drinks per day 1+ Madelyn Ochoa drug use none Madelyn Noland l passive cigarette sm jennifer exposure yes Madelyn Ochoa smoking, year quit 2011 Madelyn williamsonbell smoking history, tot al pack/year 20 Madelyn Ochoa cigarette use yes Madelyn Arnold ll smoking status Former smoker Madelyn felix social history reviewed E&M rocael ewed - no changes required Jose Sevilla MD alcohol use, average drinks per day social basis only Adán Shi alcohol use, type beer Adán Shi alcohol use yes Adán Erickson nson caffeine use, averag e drinks per day 1+ Adán Shi drug use none Adán Erickson nson passive cigarette sm jennifer exposure yes Adán Shi smoking, year quit 2011 Adán Shi smoking history, tot al pack/year 20 Adán Shi cigarette use yes Adán Clemente enson smoking status Former smoker Adán Molinason alcohol use, average drinks per day social basis only Jose Sevilla MD alcohol use, type beer Jose Gordillo i, MD alcohol use yes Jose Sevilla MD caffeine use, averag e drinks per day 1+ Jose Sevilla MD drug use none Jose Sevilla MD passive cigarette sm jennifer exposure yes Jose Sevilla MD smoking, year quit 2011 Jose stroud MD smoking history, tot al pack/year 20 Jose Sevilla MD cigarette use yes Jose Sevilla MD smoking status Former smoker Jose Sevilla MD smoking, year quit 2011 Jose stroud MD cigarette use yes Jose Sevilla MD social history reviewed E&M revi ewed - no changes required Jose Sevilla MD alcohol use, average drinks per day social basis only Rachel Lani alcohol use, type beer Rachel Grrosalva morgan alcohol use yes Rachel Rodneymary lder caffeine use, averag e drinks per day 1+ Jose Sevilla MD drug use none Rachel Rodneymary er passive cigarette sm jennifer exposure yes Rachel Lani smoking status Former smoker [facility] number [facility] grandchildren Jose Sevilla MD social history reviewed E&M revi ewed - no changes required Jose Sevilla MD alcohol use, average drinks per day social basis only Rachel Lani alcohol use, type beer Rachel Macias eddie alcohol use yes Rachel Rodneymary er caffeine use, averag e drinks per day yes Rachel Rodneycanelo drug use none Rachel Maral er passive cigarette sm jennifer exposure yes Rachel Lani smoking status [facility] use, average drinks per day social basis only Jose Sevilla MD alcohol use, type beer Jose Gordillo i, MD alcohol use yes Jose Sevilla MD caffeine use, averag e drinks per day yes Jose Sevilla MD drug use none Jose Sevilla MD passive cigarette sm jennifer exposure yes Jose Sevilla MD smoking status Former smoker Jose Sevilla MD social history reviewed E&M revi ewed - no changes required Jose Sevilla MD social history reviewed E&M rocael ewed - no changes required Jose Sevilla MD social history E&M Marital Statu s: L silvana with family/friends E thnicity: Smoking History: William newton is a former smoker. Jose Sevilla MD alcohol use, average drinks per day social basis only Adán Shi alcohol use, type beer Adán Shi alcohol use yes Adán Erickson nson caffeine use, averag e drinks per day yes Adán Shi drug use none Adán Erickson nson passive cigarette sm jennifer exposure yes Adán Shi smoking status Former smoker Adán Vallejo social history reviewed E&M revi ewed - no changes required Jose Sevilla MD alcohol use, average drinks per day social basis only Adán Shi alcohol use, type beer Adán Shi alcohol use yes Adán Erickson nson caffeine use, averag e drinks per day yes Adán Shi drug use none Adán perdomo passive cigarette sm jennifer exposure yes Adán Shi smoking status Former smoker Adán Vallejo social history E&M Marital Statu s: Ananth pina with family/friends E thnicity: Smoking History: William newton is a former smoker. Jose Sevilla MD social history reviewed E&M revi ewed - no changes required Jose Sevilla MD alcohol use, average drinks per day social basis only Bronwyn Moises alcohol use, type beer Bronwyn Bello Santiago alcohol use yes Bronwyn De Leon caffeine use, averag e drinks per day yes Bronwyn Moises drug use none Bronwyn De Leon passive cigarette sm jennifer exposure yes Bronwyn De Leon smoking status Former smoker Bronwyn Farooq nn social history reviewed E&M revi ewed - no changes required Jose Sevilla MD alcohol use, average drinks per day social basis only Bronwyn Simms alcohol use, type beer Bronwyn lynne caffeine use, averag e drinks per day yes Bronwyn Simms drug use none Bronwyn Simms passive cigarette sm jennifer exposure yes Bronwyn Simms smoking/tobacco cess ation, patient education and counseling yes Bronwyn Simms smoking status Former smoker Bronwyn Simms social history reviewed E&M revi ewed - no changes required Kely Wiggins alcohol use, average drinks per day social basis only Bronwyn De Leon alcohol use, type beer Bronwyn Lovett caffeine use, averag e drinks per day yes Bronwyn De Leon drug use none Bronwyn De Leon passive cigarette sm jennifer exposure yes Bronwyn De Leon smoking/tobacco cess ation, patient education and counseling yes Bronwyn De Leon smoking status Former smoker Bronwyn Farooq nn alcohol use, average drinks per day social basis only Jose Sevilla MD alcohol use, type beer Jose Gordillo i, MD caffeine use, averag e drinks per day yes Jose Sevilla MD drug use none Jose Sevilla MD passive cigarette sm jennifer exposure yes Jose Sevilla MD smoking/tobacco cess ation, patient education and counseling yes Jose Sevilla MD smoking status Former smoker Jose Sevilla MD social history reviewed E&M rocael ewed - no changes required Jose Sevilla MD social history reviewed E&M reviewed Jose Sevilla MD smoking/tobacco cess ation, patient education and counseling yes Ibrahima Portillo RN social history reviewed E&M reviewed Ibrahima Portillo RN social history reviewed E&M reviewed Ibrahima Portillo RN social history reviewed E&M reviewed Jose Sevilla MD smoking history, tot al pack/year 20 Rachel Garibay social history reviewed E&M reviewed Ibrahima Portillo RN social history reviewed E&M reviewed Ibrahima Portillo RN drug use none Gerda Beck elkin smoking/tobacco cess ation, patient education and counseling yes Ibrahima Portillo RN social history reviewed E&M reviewed Ibrahima Portillo RN social history reviewed E&M reviewed Jose Sevilla MD drug use no Rachel Alicia lder passive cigarette sm jennifer exposure yes Rachel Garibay smoking history, tot al pack/year 12 Rachel Garibay social history reviewed E&M reviewed Ibrahima Portillo RN drug use none Jose Sevilla MD alcohol use, type beer Ibrahima Portillo RN smoking history, tot al pack/year 4562 Ibrahima Portillo RN smoking, year quit 2011 Ibrahima carrasco RN smoking status former smoker Ibrahima [place] social history reviewed E&M reviewed Ibrahima Portillo RN social history reviewed E&M reviewed Ibrahima Portillo RN social history reviewed E&M reviewed Ibrahima Portillo RN smoking/tobacco cess ation, patient education and counseling yes Jose Sevilla MD social history reviewed E&M reviewed Kely Blunt social history E&M Marital Statu s: L silvana with family/friends E thnicity: Ibrahima Portillo RN social history reviewed E&M reviewed Ibrahima Portillo RN caffeine use, averag e drinks per day yes [employer] alcohol use, average drinks per day social basis only [employer] smoking status Quit [employer] FUNCTIONAL STATUS Date Observation Value Provider HRA, CV Assess/Plan, Angina (inactive) Management Plan continue current therapy Jose Sevilla MD HRA, CV Assess/Plan, Angina (inactive) Management Plan continue current therapy Jose Sevilla MD HRA, CV Assess/Plan, Angina (inactive) Management Plan continue current therapy Shelly Litnirajbrettmichael LALIT HRA, CV Assess/Plan, Angina (inactive) Management Plan continue current therapy Bossmanjulisa Easonluis HRA, CV Assess/Plan, Angina (inactive) Management Plan continue current therapy Jose Sevilla MD HRA, CV Assess/Plan, Angina (inactive) Management Plan continue current therapy Harvinder Clark HRA, CV Assess/Plan, Angina (inactive) Management Plan continue current therapy Jose Sevilla MD HRA, CV Assess/Plan, Angina (inactive) Management Plan continue current therapy Jose Sevilla MD HRA, CV Assess/Plan, Angina (inactive) Management Plan continue current therapy Bernardo Weemsberg HRA, CV Assess/Plan, Angina (inactive) Management Plan continue current therapy Anant Orozco MD HRA, CV Assess/Plan, Angina (inactive) Management Plan continue current therapy [facility] HRA, CV Assess/Plan, Angina (inactive) Management Plan continue current therapy Jose Sevilla MD HRA, CV Assess/Plan, Angina (inactive) Management Plan continue current therapy Jose Sevilla MD HRA, CV Assess/Plan, Angina (inactive) Management Plan continue current therapy Jose Sevilla MD HRA, CV Assess/Plan, Angina (inactive) Management Plan continue current therapy Jose Sevilla MD HRA, CV Assess/Plan, Angina (inactive) Management Plan continue current therapy Jose Sevilla MD HRA, CV Assess/Plan, Angina (inactive) Management Plan continue current therapy Jose Sevilla MD HRA, CV Assess/Plan, Angina (inactive) Management Plan continue current therapy Jose Sevilla MD HRA, CV Assess/Plan, Angina (inactive) Management Plan continue current therapy Jose Sevilla MD HRA, CV Assess/Plan, Angina (inactive) Management Plan continue current therapy Jose Sevilla MD HRA, CV Assess/Plan, Angina (inactive) Management Plan continue current therapy Jose Sevilla MD HRA, CV Assess/Plan, Angina (inactive) Management Plan continue current therapy Jose Sevilla MD HRA, CV Assess/Plan, Angina (inactive) Management Plan continue current therapy Jose Sevilla MD HRA, CV Assess/Plan, Angina (inactive) Management Plan continue current therapy Jose Sevilla MD MENTAL STATUS Date Observation Value Provider assessment of judgme nt and insight E&M Alert and oriented to time, place and person. Mood and affect are normal. Jose Sevilla MD assessment of judgme nt and insight E&M Alert and oriented to time, place and person. Mood and affect are normal. Ibrahima Portillo RN assessment of judgme nt and insight E&M Alert and oriented to time, place and person. Mood and affect are normal. Ibrahima Portillo RN assessment of judgme nt and insight E&M Alert and oriented to time, place and person. Mood and affect are normal. Jose Sevilla MD assessment of judgme nt and insight E&M Alert and oriented to time, place and person. Mood and affect are normal. Ibrahima Portillo RN assessment of judgme nt and insight E&M Alert and oriented to time, place and person. Mood and affect are normal. Drew Gold MD assessment of judgme nt and insight E&M Alert and oriented to time, place and person. Mood and affect are normal. Ibrahima Portillo RN assessment of judgme nt and insight E&M Alert and oriented to time, place and person. Mood and affect are normal. Jose Sevilla MD assessment of judgme nt and insight E&M Alert and oriented to time, place and person. Mood and affect are normal. Ibrahima Portillo RN assessment of judgme nt and insight E&M Alert and oriented to time, place and person. Mood and affect are normal. Ibrahima Portillo RN assessment of judgme nt and insight E&M Alert and oriented to time, place and person. Mood and affect are normal. Ibrahima Portillo RN assessment of judgme nt and insight E&M Alert and oriented to time, place and person. Mood and affect are normal. Ibrahima Portillo RN assessment of judgme nt and insight E&M Alert and oriented to time, place and person. Mood and affect are normal. Kely Blunt assessment of judgme nt and insight E&M Alert and oriented to time, place and person. Mood and affect are normal. Ibrahima Portillo RN assessment of judgme nt and insight E&M Alert and oriented to time, place and person. Mood and affect are normal. Ibrahima Portillo RN FAMILY HISTORY Family Member Condition Father [place] male <55 Father Family History of Co ronary Artery Disease: Father Family History of Hy pertension: INSURANCE PROVIDERS Payer name Policy type / Coverage type [place] red democrat ID [employer] insurance [employer] [id number] [place] Medicare [id number] ADVANCE DIRECTIVES Name Date DISCUSSED - NO DECISION MADE TREATMENT PLAN Date Name Performer [id number],C,w ill check AAA to rule out aneurysm Bossman Momin [id number],C,c heck carotid doppler Bossman mahendra [id number],C, P t denies chest pain or SOB. Bossman Momin [id number],C, P t denies chest pain or SOB. Bossman Momin [id number],C, T he pt had a [facility] that reported renal artery stenosis. However, the same results were noted in 2019 and in 06/2020 renal artery angio was negative. During angio, he developed a bleeding from the right kidney. Recent CT shows a mass next to the right kidney that was reported as accumulation of fluid, but malignancy could not be excluded. He is seeing Dr. HUSSAIN Gold. March 08, 2022 W ill check renal artery dupelx to rule out new stenosis Bossman Momin [id number],C,A BI 1 . No significant vascular stenosis. 2 . Unable to accurately assess WENDI's due to hardened arteries. 3 . Moderate artherosclerosis bilaterally. Bossman Momin [id number],S, E ncouraged weight loss. Bebe Hernandez [id number],C, T he patient is using CPAP on a regular basis. The patient has been benefiting from therapy and should continue use. Bebe Hernandez [id number],C, H is updated medication list for this problem includes: Lantus U-100 Insulin Unspecified Unspecified (Insulin glargine) Novolog Flexpen U-100 Insulin 100 Unit/ml (3 Ml) Insulin Pen (Insulin aspart u-100) Losartan 100 Mg Tablet (Losartan) ..... Take 1 tablet by mouth once a day take one tablet by mouth daily Aspirin 81 Mg Tablet,delayed Release (dr/ec) (Aspirin) ..... Take 1 tablet by mouth once a day Jardiance 25 Mg Tablet (Empagliflozin) ..... Take one half a pill a day Ozempic 1 Mg/dose (2 Mg/1.5 Ml) Pen Injector (Semaglutide) ..... 1 subcutaneously once a week Bebe Hernandez [id number],C, T he following medications were removed from the medication list: Rosuvastatin 40 Mg Tablet (Rosuvastatin) ..... Take 1 tablet by mouth once a day His updated medication list for this problem includes: Atorvastatin 40 Mg Tablet (Atorvastatin) Bebe Hernandez [id number],C, N o chest pain. Echo showed normal EF, enlarged left atrium. Will continue current medications. T he following medications were removed from the medication list: Metoprolol Tartrate 100 Mg Tablet (Metoprolol tartrate) ..... Take 1 tablet by mouth twice a day His updated medication list for this problem includes: Amlodipine 2.5 Mg Tablet (Amlodipine) Clopidogrel 75 Mg Tablet (Clopidogrel) Carvedilol 25 Mg Tablet (Carvedilol) ..... Take 1 tablet by mouth twice a day Aspirin 81 Mg Tablet,delayed Release (dr/ec) (Aspirin) ..... Take 1 tablet by mouth once a day Bebe Hernandez [id number],C, He had right knee pain and long hx of PAD. Will obtain ABIs. Bebe Hernandez [id number],C,B P improved, no further dizziness (Last visit we reduced hydralazine from 100 to 50 TID). B P today: 133/72 P rior BP: 79/50 (06/10/2021) Labs Reviewed: C reat: 1.38 (06/08/2020) C hol: 94 (06/08/2020) HDL: 41 (06/08/2020) LDL: 35 MG/DL (CALC) (06/08/2020) T (06/08/2020) The following medications were removed from the medication list: Metoprolol Tartrate 100 Mg Tablet (Metoprolol tartrate) ..... Take 1 tablet by mouth twice a day His updated medication list for this problem includes: Amlodipine 2.5 Mg Tablet (Amlodipine) Hydralazine 50 Mg Tablet (Hydralazine) ..... Take 1 tablet by mouth three times a day Carvedilol 25 Mg Tablet (Carvedilol) ..... Take 1 tablet by mouth twice a day Furosemide 40 Mg Tablet (Furosemide) ..... Take 1 tablet by mouth twice a day Losartan 100 Mg Tablet (Losartan) ..... Take 1 tablet by mouth once a day take one tablet by mouth daily Aspirin 81 Mg Tablet,delayed Release (dr/ec) (Aspirin) ..... Take 1 tablet by mouth once a day Spironolactone 25 Mg Tablet (Spironolactone) ..... Take 1 tablet by mouth once a day Bebe Hernandez [id number],S, T he pt had a [facility] artery duplex [facility] that reported renal artery stenosis. However, the same results were noted in 2019 and in 06/2020 renal artery angio was negative. During angio, he developed a bleeding from the right kidney. Recent CT shows a mass next to the right kidney that was reported as accumulation of fluid, but malignancy could not be excluded. He is seeing Dr. HUSSAIN Gold. Harvinder [facility] [id number],S, H is updated medication list for this problem includes: Losartan 100 Mg Tablet (Losartan) ..... Take 1 tablet by mouth once a day take one tablet by mouth daily Aspirin 81 Mg Tablet,delayed Release (dr/ec) (Aspirin) ..... Take 1 tablet by mouth once a day Jardiance 25 Mg Tablet (Empagliflozin) ..... Take one half a pill a day Ozempic 1 Mg/dose (2 Mg/1.5 Ml) Pen Injector (Semaglutide) ..... 1 subcutaneously once a week Harvinder [facility] [id number],S, H is updated medication list for this problem includes: Rosuvastatin 40 Mg Tablet (Rosuvastatin) ..... Take 1 tablet by mouth once a day [id number], B P today: 79/50 P rior BP: 90/60 (05/11/2021) His updated medication list for this problem includes: Carvedilol 25 Mg Tablet (Carvedilol) ..... Take 1 tablet by mouth twice a day Hydralazine 100 Mg Tablet (Hydralazine) ..... Take 1 tablet by mouth three times a day Furosemide 40 Mg Tablet (Furosemide) ..... Take 1 tablet by mouth twice a day Losartan 100 Mg Tablet (Losartan) ..... Take 1 tablet by mouth once a day take one tablet by mouth daily Metoprolol Tartrate 100 Mg Tablet (Metoprolol tartrate) ..... Take 1 tablet by mouth twice a day Aspirin 81 Mg Tablet,delayed Release (dr/ec) (Aspirin) ..... Take 1 tablet by mouth once a day Spironolactone 25 Mg Tablet (Spironolactone) ..... Take 1 tablet by mouth once a day Harvinder [facility] [id number],S, N o chest pain. Echo showed normal EF, enlarged left atrium. Will continue current medications. His updated medication list for this problem includes: Carvedilol 25 Mg Tablet (Carvedilol) ..... Take 1 tablet by mouth twice a day Metoprolol Tartrate 100 Mg Tablet (Metoprolol tartrate) ..... Take 1 tablet by mouth twice a day Aspirin 81 Mg Tablet,delayed Release (dr/ec) (Aspirin) ..... Take 1 tablet by mouth once a day Harvinder Clark [id number],S, P t denies chest pain or SOB. His updated medication list for this problem includes: Carvedilol 25 Mg Tablet (Carvedilol) ..... Take 1 tablet by mouth twice a day Furosemide 40 Mg Tablet (Furosemide) ..... Take 1 tablet by mouth twice a day Losartan 100 Mg Tablet (Losartan) ..... Take 1 tablet by mouth once a day take one tablet by mouth daily Metoprolol Tartrate 100 Mg Tablet (Metoprolol tartrate) ..... Take 1 tablet by mouth twice a day Aspirin 81 Mg Tablet,delayed Release (dr/ec) (Aspirin) ..... Take 1 tablet by mouth once a day Spironolactone 25 Mg Tablet (Spironolactone) ..... Take 1 tablet by mouth once a day Harvinder Clark [id number],S, T he pt reports that his leg swelling is well controlled with support stockings. Duplex showed bilateral venous insufficiency. Insurance denied carotid duplex. He reports leg swelling after walking 6-7 blocks which he attributes to arthritis. Harvinder Eduardo [id number],S, E ncouraged weight loss. Bebe Hernandez [id number],C, H is updated medication list for this problem includes: Losartan 100 Mg Tablet (Losartan) ..... Take 1 tablet by mouth once a day take one tablet by mouth daily Aspirin 81 Mg Tablet,delayed Release (dr/ec) (Aspirin) ..... Take 1 tablet by mouth once a day Jardiance 25 Mg Tablet (Empagliflozin) ..... Take one half a pill a day Ozempic 1 Mg/dose (2 Mg/1.5 Ml) Pen Injector (Semaglutide) ..... 1 subcutaneously once a week Bebe Hernandez [id number],C, H is updated medication list for this problem includes: Rosuvastatin 40 Mg Tablet (Rosuvastatin) ..... Take 1 tablet by mouth once a day Bebe Hernandez [id number],C, B P today: 90/60 P rior BP: 140/78 (12/10/2020) Labs Reviewed: C reat: 1.38 (06/08/2020) C hol: 94 (06/08/2020) HDL: 41 (06/08/2020) LDL: 35 MG/DL (CALC) (06/08/2020) T (06/08/2020) His updated medication list for this problem includes: Carvedilol 25 Mg Tablet (Carvedilol) ..... Take 1 tablet by mouth twice a day Hydralazine 100 Mg Tablet (Hydralazine) ..... Take 1 tablet by mouth three times a day Furosemide 40 Mg Tablet (Furosemide) ..... Take 1 tablet by mouth twice a day Losartan 100 Mg Tablet (Losartan) ..... Take 1 tablet by mouth once a day take one tablet by mouth daily Metoprolol Tartrate 100 Mg Tablet (Metoprolol tartrate) ..... Take 1 tablet by mouth twice a day Aspirin 81 Mg Tablet,delayed Release (dr/ec) (Aspirin) ..... Take 1 tablet by mouth once a day Spironolactone 25 Mg Tablet (Spironolactone) ..... Take 1 tablet by mouth once a day Bebe Hernandez [id number],S, N o chest pain. Echo showed normal EF, enlarged left atrium. Will continue current medications. His updated medication list for this problem includes: Carvedilol 25 Mg Tablet (Carvedilol) ..... Take 1 tablet by mouth twice a day Metoprolol Tartrate 100 Mg Tablet (Metoprolol tartrate) ..... Take 1 tablet by mouth twice a day Aspirin 81 Mg Tablet,delayed Release (dr/ec) (Aspirin) ..... Take 1 tablet by mouth once a day Bebe Mulligangrady [id number],C,P t denies chest pain or SOB. His updated medication list for this problem includes: Carvedilol 25 Mg Tablet (Carvedilol) ..... Take 1 tablet by mouth twice a day Furosemide 40 Mg Tablet (Furosemide) ..... Take 1 tablet by mouth twice a day Losartan 100 Mg Tablet (Losartan) ..... Take 1 tablet by mouth once a day take one tablet by mouth daily Metoprolol Tartrate 100 Mg Tablet (Metoprolol tartrate) ..... Take 1 tablet by mouth twice a day Aspirin 81 Mg Tablet,delayed Release (dr/ec) (Aspirin) ..... Take 1 tablet by mouth once a day Spironolactone 25 Mg Tablet (Spironolactone) ..... Take 1 tablet by mouth once a day Bebe Mary [id number],C,T he pt had a [facility] artery duplex [facility] that reported renal artery stenosis. However, the same results were noted in 2019 and in 06/2020 renal artery angio was negative. During angio, he developed a bleeding from the right kidney. Recent CT shows a mass next to the right kidney that was reported as accumulation of fluid, but malignancy could not be excluded. I recommend he see Dr. HUSSAIN Gold for further kidney follow up. Will obtain CRP to see if he meets criteria for BROOK trial. Bebe Mary [id number],C, H is updated medication list for this problem includes: Losartan 100 Mg Tablet (Losartan) ..... Take 1 tablet by mouth once a day take one tablet by mouth daily Aspirin 81 Mg Tablet,delayed Release (dr/ec) (Aspirin) ..... Take 1 tablet by mouth once a day Jardiance 25 Mg Tablet (Empagliflozin) ..... Take one half a pill a day Ozempic 1 Mg/dose (2 Mg/1.5 Ml) Pen Injector (Semaglutide) ..... 1 subcutaneously once a week Bebe Hernandez [id number],C, H is updated medication list for this problem includes: Rosuvastatin 40 Mg Tablet (Rosuvastatin) ..... Take 1 tablet by mouth once a day Bebe Hernandez [id number],Brennen P rior BP: 140/78 (12/10/2020) Labs Reviewed: C reat: 1.38 (06/08/2020) C hol: 94 (06/08/2020) HDL: 41 (06/08/2020) LDL: 35 MG/DL (CALC) (06/08/2020) T (06/08/2020) His updated medication list for this problem includes: Carvedilol 25 Mg Tablet (Carvedilol) ..... Take 1 tablet by mouth twice a day Hydralazine 100 Mg Tablet (Hydralazine) ..... Take 1 tablet by mouth three times a day Furosemide 40 Mg Tablet (Furosemide) ..... Take 1 tablet by mouth twice a day Losartan 100 Mg Tablet (Losartan) ..... Take 1 tablet by mouth once a day take one tablet by mouth daily Metoprolol Tartrate 100 Mg Tablet (Metoprolol tartrate) ..... Take 1 tablet by mouth twice a day Aspirin 81 Mg Tablet,delayed Release (dr/ec) (Aspirin) ..... Take 1 tablet by mouth once a day Spironolactone 25 Mg Tablet (Spironolactone) ..... Take 1 tablet by mouth once a day Bebe Hernandez [id number],S, N o chest pain. Echo showed normal EF, enlarged left atrium. Will continue current medications. H is updated medication list for this problem includes: Aspirin Adult Low Dose 81 Mg Oral Tablet Delayed Release (Aspirin) ..... One tab by mouth daily Metoprolol Tartrate 100 Mg Oral Tablet (Metoprolol tartrate) ..... Twice daily Bebe Hernandez [id number],S, L eg swelling is controlled with support stockings. No SOB. His updated medication list for this problem includes: Carvedilol 25 Mg Tablet (Carvedilol) ..... Take 1 tablet by mouth twice a day Furosemide 40 Mg Tablet (Furosemide) ..... Take 1 tablet by mouth twice a day Losartan 100 Mg Tablet (Losartan) ..... Take 1 tablet by mouth once a day take one tablet by mouth daily Metoprolol Tartrate 100 Mg Tablet (Metoprolol tartrate) ..... Take 1 tablet by mouth twice a day Aspirin 81 Mg Tablet,delayed Release (dr/ec) (Aspirin) ..... Take 1 tablet by mouth once a day Spironolactone 25 Mg Tablet (Spironolactone) ..... Take 1 tablet by mouth once a day Bebe Mulligangrady [id number],C,T he pt had imaging done [facility] and was told he had 'blood clot' in the [facility]. He is concerned about this finding. He will obtain the report and send to us. He does not have abdominal pain or discomfort. Will advise further once all the information was received. Bbee Mary [id number],C, H is updated medication list for this problem includes: Rosuvastatin 40 Mg Tablet (Rosuvastatin) ..... Take 1 tablet by mouth once a day Bebe Mary [id number],C, B P today: 140/78 P rior BP: 144/72 (09/17/2020) Labs Reviewed: C reat: 1.38 (06/08/2020) C hol: 94 (06/08/2020) HDL: 41 (06/08/2020) LDL: 35 MG/DL (CALC) (06/08/2020) T (06/08/2020) His updated medication list for this problem includes: Carvedilol 25 Mg Tablet (Carvedilol) ..... Take 1 tablet by mouth twice a day Hydralazine 100 Mg Tablet (Hydralazine) ..... Take 1 tablet by mouth three times a day Furosemide 40 Mg Tablet (Furosemide) ..... Take 1 tablet by mouth twice a day Losartan 100 Mg Tablet (Losartan) ..... Take 1 tablet by mouth once a day take one tablet by mouth daily Metoprolol Tartrate 100 Mg Tablet (Metoprolol tartrate) ..... Take 1 tablet by mouth twice a day Aspirin 81 Mg Tablet,delayed Release (dr/ec) (Aspirin) ..... Take 1 tablet by mouth once a day Spironolactone 25 Mg Tablet (Spironolactone) ..... Take 1 tablet by mouth once a day [facility] [id number],C,L eg swelling is controlled with support stockings. No SOB. His updated medication list for this problem includes: Carvedilol 25 Mg Tablet (Carvedilol) ..... Take 1 tablet by mouth twice a day Furosemide 40 Mg Tablet (Furosemide) ..... Take 1 tablet by mouth twice a day Losartan 100 Mg Tablet (Losartan) ..... Take 1 tablet by mouth once a day take one tablet by mouth daily Metoprolol Tartrate 100 Mg Tablet (Metoprolol tartrate) ..... Take 1 tablet by mouth twice a day Aspirin 81 Mg Tablet,delayed Release (dr/ec) (Aspirin) ..... Take 1 tablet by mouth once a day Spironolactone 25 Mg Tablet (Spironolactone) ..... Take 1 tablet by mouth once a day [facility] [id number],C,Echo 10/10 [facility] [id number],C, N o chest pain. Echo showed normal EF, enlarged left atrium. Will continue current medications. H is updated medication list for this problem includes: Aspirin Adult Low Dose 81 Mg Oral Tablet Delayed Release (Aspirin) ..... One tab by mouth daily Metoprolol Tartrate 100 Mg Oral Tablet (Metoprolol tartrate) ..... Twice daily [facility] [id number],C,T he pt reports that his leg swelling is well controlled with support stockings. Duplex showed bilateral venous insufficiency. Insurance denied carotid duplex. Bebe Hernandez Cardiology: N o chest pain or SOB H e has remote history of stenting W ill get his f/u [facility] [place] [facility] W ill update stress test, will do lexiscan as he is unable to ambulate on treadmill d/t chronic knee pain s/p infected knee replacement. uses a cane for ambulation H is updated medication list for this problem includes: Carvedilol 25 Mg Tablet (Carvedilol) ..... Take 2 tablet by mouth twice a day Clopidogrel 75 Mg Tablet (Clopidogrel) ..... Take 1 tablet by mouth once a day Amlodipine 2.5 Mg Tablet (Amlodipine) ..... Take 1 tablet by mouth once a day Aspirin 81 Mg Tablet,delayed Release (dr/ec) (Aspirin) ..... Take 1 tablet by mouth once a day Jose Sevilla MD Cardiology:Last A1c 6.0% Jose raphael MD Cardiology: H is updated medication list for this problem includes: Atorvastatin 40 Mg Tablet (Atorvastatin) ..... Take 1 tablet by mouth once a day Jose Sevilla MD Cardiology: B P today: 146/78 P rior BP: 106/58 (12/28/2023) Labs Reviewed: C reat: 1.38 (06/08/2020) C hol: 94 (11/16/2023) HDL: 38 (11/16/2023) LDL: 39 (11/16/2023) T (11/16/2023) His updated medication list for this problem includes: Carvedilol 25 Mg Tablet (Carvedilol) ..... Take 2 tablet by mouth twice a day Losartan 100 Mg Tablet (Losartan) ..... Take 1 tablet by mouth once a day take one tablet by mouth daily Furosemide 40 Mg Tablet (Furosemide) ..... Take 3 tablet by mouth every morning Amlodipine 2.5 Mg Tablet (Amlodipine) ..... Take 1 tablet by mouth once a day Hydralazine 25 Mg Tablet (Hydralazine) ..... Take 1 tablet by mouth three times a day Aspirin 81 Mg Tablet,delayed Release (dr/ec) (Aspirin) ..... Take 1 tablet by mouth once a day Jose Sevilla MD Cardiology: P t denies chest pain or SOB. His updated medication list for this problem includes: Carvedilol 25 Mg Tablet (Carvedilol) ..... Take 2 tablet by mouth twice a day Losartan 100 Mg Tablet (Losartan) ..... Take 1 tablet by mouth once a day take one tablet by mouth daily Clopidogrel 75 Mg Tablet (Clopidogrel) ..... Take 1 tablet by mouth once a day Furosemide 40 Mg Tablet (Furosemide) ..... Take 3 tablet by mouth every morning Amlodipine 2.5 Mg Tablet (Amlodipine) ..... Take 1 tablet by mouth once a day Aspirin 81 Mg Tablet,delayed Release (dr/ec) (Aspirin) ..... Take 1 tablet by mouth once a day Jose Sevilla MD Cardiology Jose Sevilla MD Cardiology:The patie nt is using CPAP on a regular basis. The patient has been benefiting from therapy and should continue use. Jose Sevilla MD Cardiology:negative Jose Sevilla MD Cardiology:check echo Jose Gordillo i, MD Cardiology:Renal artery duplex n eg for stenosis Jose Sevilla MD Cardiology:check ech o P t denies chest pain or SOB. His updated medication list for this problem includes: Carvedilol 25 Mg Tablet (Carvedilol) ..... Take 2 tablet by mouth twice a day Losartan 100 Mg Tablet (Losartan) ..... Take 1 tablet by mouth once a day take one tablet by mouth daily Clopidogrel 75 Mg Tablet (Clopidogrel) ..... Take 1 tablet by mouth once a day Furosemide 40 Mg Tablet (Furosemide) ..... Take 3 tablet by mouth every morning Amlodipine 2.5 Mg Tablet (Amlodipine) ..... Take 1 tablet by mouth once a day Aspirin 81 Mg Tablet,delayed Release (dr/ec) (Aspirin) ..... Take 1 tablet by mouth once a day Jose Sevilla MD Cardiology:The patie nt is using CPAP on a regular basis. The patient has been benefiting from therapy and should continue use. Shelly Ruiz SURVEY RESEARCH ANALYST Cardiology:will upda te lipid panel H is updated medication list for this problem includes: Atorvastatin 40 Mg Tablet (Atorvastatin) ..... Take 1 tablet by mouth once a day [facility]. Mild arterial disease on recent WENDI c ontinue asa and statin [facility] Cardiology:with hist ory of RODOLFO s/p stenting. w ill update renal artery duplex [facility] Cardiology:BP 128/90 C ontinue present medication regimen H is updated medication list for this problem includes: Carvedilol 25 Mg Tablet (Carvedilol) ..... Take 2 tablet by mouth twice a day Losartan 100 Mg Tablet (Losartan) ..... Take 1 tablet by mouth once a day take one tablet by mouth daily Furosemide 40 Mg Tablet (Furosemide) ..... Take 3 tablet by mouth every morning Amlodipine 2.5 Mg Tablet (Amlodipine) ..... Take 1 tablet by mouth once a day Hydralazine 25 Mg Tablet (Hydralazine) ..... Take 1 tablet by mouth three times a day Aspirin 81 Mg Tablet,delayed Release (dr/ec) (Aspirin) ..... Take 1 tablet by mouth once a day [facility] Cardiology:No chest pain or SOB H e has remote history of stenting W ill get his f/u echo [place] [facility] W ill update stress test, will do lexiscan as he is unable to ambulate on treadmill d/t chronic knee pain s/p infected knee replacement. uses a cane for ambulation H is updated medication list for this problem includes: Carvedilol 25 Mg Tablet (Carvedilol) ..... Take 2 tablet by mouth twice a day Clopidogrel 75 Mg Tablet (Clopidogrel) ..... Take 1 tablet by mouth once a day Amlodipine 2.5 Mg Tablet (Amlodipine) ..... Take 1 tablet by mouth once a day Aspirin 81 Mg Tablet,delayed Release (dr/ec) (Aspirin) ..... Take 1 tablet by mouth once a day [facility] Cardiology:With hist ory of carotid endarectomy R ecent carotid duplex reported 50-69% 10/21/23 H e remains asymptomatic W ill need f/u duplex in a year Shelly Ruiz SURVEY RESEARCH ANALYST Cardiology:will check AAA to rul e out aneurysm Bossmanjulisa Salcedocarol ann Cardiology:check car otid doppler Bossmanjulisa Salcedocarol ann Cardiology: P t denies chest pain or SOB. Bossman Salcedocarol ann Cardiology: P t denies chest pain or SOB. Bossman Salcedocarol ann Cardiology: T he pt had a renal artery duplex [place] [facility] that reported renal artery stenosis. However, the same results were noted in 2019 and in 06/2020 renal artery angio was negative. During angio, he developed a bleeding from the right kidney. Recent CT shows a mass next to the right kidney that was reported as accumulation of fluid, but malignancy could not be excluded. He is seeing Dr. HUSSAIN Gold. March 08, 2022 W ill check renal artery dupelx to rule out new stenosis [facility] Card[facility]:WENDI 1 . No significant vascular stenosis. 2 . Unable to accurately assess WENDI's due to hardened arteries. 3 . Moderate artherosclerosis bilaterally. Bossman Momin Cardiology: E ncouraged weight loss. Bebe Hernandez Cardiology: T he patient is using CPAP on a regular basis. The patient has been benefiting from therapy and should continue use. Bebe Hernandez Cardiology: H is updated medication list for this problem includes: Lantus U-100 Insulin Unspecified Unspecified (Insulin glargine) Novolog Flexpen U-100 Insulin 100 Unit/ml (3 Ml) Insulin Pen (Insulin aspart u-100) Losartan 100 Mg Tablet (Losartan) ..... Take 1 tablet by mouth once a day take one tablet by mouth daily Aspirin 81 Mg Tablet,delayed Release (dr/ec) (Aspirin) ..... Take 1 tablet by mouth once a day Jardiance 25 Mg Tablet (Empagliflozin) ..... Take one half a pill a day Ozempic 1 Mg/dose (2 Mg/1.5 Ml) Pen Injector (Semaglutide) ..... 1 subcutaneously once a week Bebe Hernandez Cardiology: T he following medications were removed from the medication list: Rosuvastatin 40 Mg Tablet (Rosuvastatin) ..... Take 1 tablet by mouth once a day His updated medication list for this problem includes: Atorvastatin 40 Mg Tablet (Atorvastatin) Bebe Mary Cardiology: N o chest pain. Echo showed normal EF, enlarged left atrium. Will continue current medications. T he following medications were removed from the medication list: Metoprolol Tartrate 100 Mg Tablet (Metoprolol tartrate) ..... Take 1 tablet by mouth twice a day His updated medication list for this problem includes: Amlodipine 2.5 Mg Tablet (Amlodipine) Clopidogrel 75 Mg Tablet (Clopidogrel) Carvedilol 25 Mg Tablet (Carvedilol) ..... Take 1 tablet by mouth twice a day Aspirin 81 Mg Tablet,delayed Release (dr/ec) (Aspirin) ..... Take 1 tablet by mouth once a day Bebe Mary Cardiology: He had right knee pain and long hx of PAD. Will obtain ABIs. Bebe Mary Cardiology:BP improv ed, no further dizziness (Last visit we reduced hydralazine from 100 to 50 TID). B P today: 133/72 P rior BP: 79/50 (06/10/2021) Labs Reviewed: C reat: 1.38 (06/08/2020) C hol: 94 (06/08/2020) HDL: 41 (06/08/2020) LDL: 35 MG/DL (CALC) (06/08/2020) T (06/08/2020) The following medications were removed from the medication list: Metoprolol Tartrate 100 Mg Tablet (Metoprolol tartrate) ..... Take 1 tablet by mouth twice a day His updated medication list for this problem includes: Amlodipine 2.5 Mg Tablet (Amlodipine) Hydralazine 50 Mg Tablet (Hydralazine) ..... Take 1 tablet by mouth three times a day Carvedilol 25 Mg Tablet (Carvedilol) ..... Take 1 tablet by mouth twice a day Furosemide 40 Mg Tablet (Furosemide) ..... Take 1 tablet by mouth twice a day Losartan 100 Mg Tablet (Losartan) ..... Take 1 tablet by mouth once a day take one tablet by mouth daily Aspirin 81 Mg Tablet,delayed Release (dr/ec) (Aspirin) ..... Take 1 tablet by mouth once a day Spironolactone 25 Mg Tablet (Spironolactone) ..... Take 1 tablet by mouth once a day Bebe Hernandez Cardiology: T he pt had a [facility] artery duplex [place] [facility] that reported renal artery stenosis. However, the same results were noted in 2019 and in 06/2020 renal artery angio was negative. During angio, he developed a bleeding from the right kidney. Recent CT shows a mass next to the right kidney that was reported as accumulation of fluid, but malignancy could not be excluded. He is seeing Dr. HUSSAIN Gold. Harvinder Clark Cardiology: H is updated medication list for this problem includes: Losartan 100 Mg Tablet (Losartan) ..... Take 1 tablet by mouth once a day take one tablet by mouth daily Aspirin 81 Mg Tablet,delayed Release (dr/ec) (Aspirin) ..... Take 1 tablet by mouth once a day Jardiance 25 Mg Tablet (Empagliflozin) ..... Take one half a pill a day Ozempic 1 Mg/dose (2 Mg/1.5 Ml) Pen Injector (Semaglutide) ..... 1 subcutaneously once a week Harvinder Clark Cardiology: H is updated medication list for this problem includes: Rosuvastatin 40 Mg Tablet (Rosuvastatin) ..... Take 1 tablet by mouth once a day Harvinder Clark Cardiology: B P today: 79/50 P rior BP: 90/60 (05/11/2021) His updated medication list for this problem includes: Carvedilol 25 Mg Tablet (Carvedilol) ..... Take 1 tablet by mouth twice a day Hydralazine 100 Mg Tablet (Hydralazine) ..... Take 1 tablet by mouth three times a day Furosemide 40 Mg Tablet (Furosemide) ..... Take 1 tablet by mouth twice a day Losartan 100 Mg Tablet (Losartan) ..... Take 1 tablet by mouth once a day take one tablet by mouth daily Metoprolol Tartrate 100 Mg Tablet (Metoprolol tartrate) ..... Take 1 tablet by mouth twice a day Aspirin 81 Mg Tablet,delayed Release (dr/ec) (Aspirin) ..... Take 1 tablet by mouth once a day Spironolactone 25 Mg Tablet (Spironolactone) ..... Take 1 tablet by mouth once a day Harvinder Clark Cardiology: N o chest pain. Echo showed normal EF, enlarged left atrium. Will continue current medications. His updated medication list for this problem includes: Carvedilol 25 Mg Tablet (Carvedilol) ..... Take 1 tablet by mouth twice a day Metoprolol Tartrate 100 Mg Tablet (Metoprolol tartrate) ..... Take 1 tablet by mouth twice a day Aspirin 81 Mg Tablet,delayed Release (dr/ec) (Aspirin) ..... Take 1 tablet by mouth once a day Harvinder Clark Cardiology: P t denies chest pain or SOB. His updated medication list for this problem includes: Carvedilol 25 Mg Tablet (Carvedilol) ..... Take 1 tablet by mouth twice a day Furosemide 40 Mg Tablet (Furosemide) ..... Take 1 tablet by mouth twice a day Losartan 100 Mg Tablet (Losartan) ..... Take 1 tablet by mouth once a day take one tablet by mouth daily Metoprolol Tartrate 100 Mg Tablet (Metoprolol tartrate) ..... Take 1 tablet by mouth twice a day Aspirin 81 Mg Tablet,delayed Release (dr/ec) (Aspirin) ..... Take 1 tablet by mouth once a day Spironolactone 25 Mg Tablet (Spironolactone) ..... Take 1 tablet by mouth once a day Harvinder Clark Cardiology: T he pt reports that his leg swelling is well controlled with support stockings. Duplex showed bilateral venous insufficiency. Insurance denied carotid duplex. He reports leg swelling after walking 6-7 blocks which he attributes to arthritis. Harvinder Clark Cardiology: E ncouraged weight loss. Bebe Hernandez Cardiology: H is updated medication list for this problem includes: Losartan 100 Mg Tablet (Losartan) ..... Take 1 tablet by mouth once a day take one tablet by mouth daily Aspirin 81 Mg Tablet,delayed Release (dr/ec) (Aspirin) ..... Take 1 tablet by mouth once a day Jardiance 25 Mg Tablet (Empagliflozin) ..... Take one half a pill a day Ozempic 1 Mg/dose (2 Mg/1.5 Ml) Pen Injector (Semaglutide) ..... 1 subcutaneously once a week Bebe Hernandez Cardiology: H is updated medication list for this problem includes: Rosuvastatin 40 Mg Tablet (Rosuvastatin) ..... Take 1 tablet by mouth once a day Bebe Hernandez Cardiology: B P today: 90/60 P rior BP: 140/78 (12/10/2020) Labs Reviewed: C reat: 1.38 (06/08/2020) C hol: 94 (06/08/2020) HDL: 41 (06/08/2020) LDL: 35 MG/DL (CALC) (06/08/2020) T (06/08/2020) His updated medication list for this problem includes: Carvedilol 25 Mg Tablet (Carvedilol) ..... Take 1 tablet by mouth twice a day Hydralazine 100 Mg Tablet (Hydralazine) ..... Take 1 tablet by mouth three times a day Furosemide 40 Mg Tablet (Furosemide) ..... Take 1 tablet by mouth twice a day Losartan 100 Mg Tablet (Losartan) ..... Take 1 tablet by mouth once a day take one tablet by mouth daily Metoprolol Tartrate 100 Mg Tablet (Metoprolol tartrate) ..... Take 1 tablet by mouth twice a day Aspirin 81 Mg Tablet,delayed Release (dr/ec) (Aspirin) ..... Take 1 tablet by mouth once a day Spironolactone 25 Mg Tablet (Spironolactone) ..... Take 1 tablet by mouth once a day Bebe Hernandez Cardiology: N o chest pain. Echo showed normal EF, enlarged left atrium. Will continue current medications. His updated medication list for this problem includes: Carvedilol 25 Mg Tablet (Carvedilol) ..... Take 1 tablet by mouth twice a day Metoprolol Tartrate 100 Mg Tablet (Metoprolol tartrate) ..... Take 1 tablet by mouth twice a day Aspirin 81 Mg Tablet,delayed Release (dr/ec) (Aspirin) ..... Take 1 tablet by mouth once a day Bebe Hernandez Cardiology:Pt denies chest pain or SOB. His updated medication list for this problem includes: Carvedilol 25 Mg Tablet (Carvedilol) ..... Take 1 tablet by mouth twice a day Furosemide 40 Mg Tablet (Furosemide) ..... Take 1 tablet by mouth twice a day Losartan 100 Mg Tablet (Losartan) ..... Take 1 tablet by mouth once a day take one tablet by mouth daily Metoprolol Tartrate 100 Mg Tablet (Metoprolol tartrate) ..... Take 1 tablet by mouth twice a day Aspirin 81 Mg Tablet,delayed Release (dr/ec) (Aspirin) ..... Take 1 tablet by mouth once a day Spironolactone 25 Mg Tablet (Spironolactone) ..... Take 1 tablet by mouth once a day Bebe Hernandez Cardiology:The pt reagan d a [facility] artery [place] [facility] that reported renal artery stenosis. However, the same results were noted in 2019 and in 06/2020 renal artery angio was negative. During angio, he developed a bleeding from the right kidney. Recent CT shows a mass next to the right kidney that was reported as accumulation of fluid, but malignancy could not be excluded. I recommend he see Dr. HUSSAIN Gold for further kidney follow up. Will obtain CRP to see if he meets criteria for BROOK trial. Bebe Hernandez Telehealth: H is updated medication list for this problem includes: Losartan 100 Mg Tablet (Losartan) ..... Take 1 tablet by mouth once a day take one tablet by mouth daily Aspirin 81 Mg Tablet,delayed Release (dr/ec) (Aspirin) ..... Take 1 tablet by mouth once a day Jardiance 25 Mg Tablet (Empagliflozin) ..... Take one half a pill a day Ozempic 1 Mg/dose (2 Mg/1.5 Ml) Pen Injector (Semaglutide) ..... 1 subcutaneously once a week Bebe Hernandez Telehealth: H is updated medication list for this problem includes: Rosuvastatin 40 Mg Tablet (Rosuvastatin) ..... Take 1 tablet by mouth once a day Bebe Hernandez Telehealth: William rior BP: 140/78 (12/10/2020) Labs Reviewed: C reat: 1.38 (06/08/2020) C hol: 94 (06/08/2020) HDL: 41 (06/08/2020) LDL: 35 MG/DL (CALC) (06/08/2020) T (06/08/2020) H is updated medication list for this problem includes: Carvedilol 25 Mg Tablet (Carvedilol) ..... Take 1 tablet by mouth twice a day Hydralazine 100 Mg Tablet (Hydralazine) ..... Take 1 tablet by mouth three times a day Furosemide 40 Mg Tablet (Furosemide) ..... Take 1 tablet by mouth twice a day Losartan 100 Mg Tablet (Losartan) ..... Take 1 tablet by mouth once a day take one tablet by mouth daily Metoprolol Tartrate 100 Mg Tablet (Metoprolol tartrate) ..... Take 1 tablet by mouth twice a day Aspirin 81 Mg Tablet,delayed Release (dr/ec) (Aspirin) ..... Take 1 tablet by mouth once a day Spironolactone 25 Mg Tablet (Spironolactone) ..... Take 1 tablet by mouth once a day Bebe Hernandez Telehealth: N o chest pain. Echo showed normal EF, enlarged left atrium. Will continue current medications. H is updated medication list for this problem includes: Aspirin Adult Low Dose 81 Mg Oral Tablet Delayed Release (Aspirin) ..... One tab by mouth daily Metoprolol Tartrate 100 Mg Oral Tablet (Metoprolol tartrate) ..... Twice daily Bebe Hernandez Telehealth: L eg swelling is controlled with support stockings. No SOB. His updated medication list for this problem includes: Carvedilol 25 Mg Tablet (Carvedilol) ..... Take 1 tablet by mouth twice a day Furosemide 40 Mg Tablet (Furosemide) ..... Take 1 tablet by mouth twice a day Losartan 100 Mg Tablet (Losartan) ..... Take 1 tablet by mouth once a day take one tablet by mouth daily Metoprolol Tartrate 100 Mg Tablet (Metoprolol tartrate) ..... Take 1 tablet by mouth twice a day Aspirin 81 Mg Tablet,delayed Release (dr/ec) (Aspirin) ..... Take 1 tablet by mouth once a day Spironolactone 25 Mg Tablet (Spironolactone) ..... Take 1 tablet by mouth once a day Bebe Mary Telehealth:The pt reagan d imaging done [facility] done and was told he had 'blood clot' in the [facility]. He is concerned about this finding. He will obtain the report and send to us. He does not have abdominal pain or discomfort. Will advise further once all the information was received. Bebe Hernandez Cardiology: H is updated medication list for this problem includes: Rosuvastatin 40 Mg Tablet (Rosuvastatin) ..... Take 1 tablet by mouth once a day Bebe Mary Cardiology: B P today: 140/78 P rior BP: 144/72 (09/17/2020) Labs Reviewed: C reat: 1.38 (06/08/2020) C hol: 94 (06/08/2020) HDL: 41 (06/08/2020) LDL: 35 MG/DL (CALC) (06/08/2020) T (06/08/2020) His updated medication list for this problem includes: Carvedilol 25 Mg Tablet (Carvedilol) ..... Take 1 tablet by mouth twice a day Hydralazine 100 Mg Tablet (Hydralazine) ..... Take 1 tablet by mouth three times a day Furosemide 40 Mg Tablet (Furosemide) ..... Take 1 tablet by mouth twice a day Losartan 100 Mg Tablet (Losartan) ..... Take 1 tablet by mouth once a day take one tablet by mouth daily Metoprolol Tartrate 100 Mg Tablet (Metoprolol tartrate) ..... Take 1 tablet by mouth twice a day Aspirin 81 Mg Tablet,delayed Release (dr/ec) (Aspirin) ..... Take 1 tablet by mouth once a day Spironolactone 25 Mg Tablet (Spironolactone) ..... Take 1 tablet by mouth once a day Bebe Mary Cardiology:Leg swell ing is controlled with support stockings. No SOB. His updated medication list for this problem includes: Carvedilol 25 Mg Tablet (Carvedilol) ..... Take 1 tablet by mouth twice a day Furosemide 40 Mg Tablet (Furosemide) ..... Take 1 tablet by mouth twice a day Losartan 100 Mg Tablet (Losartan) ..... Take 1 tablet by mouth once a day take one tablet by mouth daily Metoprolol Tartrate 100 Mg Tablet (Metoprolol tartrate) ..... Take 1 tablet by mouth twice a day Aspirin 81 Mg Tablet,delayed Release (dr/ec) (Aspirin) ..... Take 1 tablet by mouth once a day Spironolactone 25 Mg Tablet (Spironolactone) ..... Take 1 tablet by mouth once a day Bebe Hernandez Cardiology:Echo 10/10 showed mild LAE Bebe Hernandez Cardiology: N o chest pain. Echo showed normal EF, enlarged left atrium. Will continue current medications. H is updated medication list for this problem includes: Aspirin Adult Low Dose 81 Mg Oral Tablet Delayed Release (Aspirin) ..... One tab by mouth daily Metoprolol Tartrate 100 Mg Oral Tablet (Metoprolol tartrate) ..... Twice daily Bebe Hernandez Cardiology:The pt re ports that his leg swelling is well controlled with support stockings. Duplex showed bilateral venous insufficiency. Insurance denied carotid duplex. Bebe Hernandez Cardiology Follow pu Bernardo pabon Cardiology Follow pu :His updated medication list for this problem includes: Losartan Potassium 100 Mg Oral Tablet (Losartan potassium) ..... Take one pill twice a day Furosemide 40 Mg Oral Tablet (Furosemide) ..... Take one tablet twice daily Metoprolol Tartrate 100 Mg Oral Tablet (Metoprolol tartrate) ..... Twice daily Orders: C omplete Echo (CPT-91427) [facility] Cardiology Follow pu :The following medications were removed from the medication list: Trulicity 1.5 Mg/0.5ml Subcutaneous Solution Pen-injector (Dulaglutide) ..... Once a week His updated medication list for this problem includes: Ozempic (1 Mg/dose) 2 Mg/1.5ml Subcutaneous Solution Pen-injector (Semaglutide) ..... One shot a week Jardiance 25 Mg Oral Tablet (Empagliflozin) ..... Take one half a pill a day Losartan Potassium 100 Mg Oral Tablet (Losartan potassium) ..... Take one pill twice a day Aspirin Adult Low Dose 81 Mg Oral Tablet Delayed Release (Aspirin) ..... One tab by mouth daily [facility] Cardiology Follow pu :His updated medication list for this problem includes: Rosuvastatin Calcium 40 Mg Oral Tablet (Rosuvastatin calcium) ..... Take one tablet daily [facility] Cardiology Follow pu :Pt had renal angio revealing patent stents. BP today: 144/72 P rior BP: 148/80 (08/27/2020) His updated medication list for this problem includes: Losartan Potassium 100 Mg Oral Tablet (Losartan potassium) ..... Take one pill twice a day Furosemide 40 Mg Oral Tablet (Furosemide) ..... Take one tablet twice daily Metoprolol Tartrate 100 Mg Oral Tablet (Metoprolol tartrate) ..... Twice daily Hydralazine Hcl 100 Mg Oral Tablet (Hydralazine hcl) ..... One tab three times daily. [facility] Follow pu :No chest pain. His updated medication list for this problem includes: Aspirin Adult Low Dose 81 Mg Oral Tablet Delayed Release (Aspirin) ..... One tab by mouth daily Metoprolol Tartrate 100 Mg Oral Tablet (Metoprolol tartrate) ..... Twice daily [facility] Cardiology Follow pu :Orders: C arotid Duplex Bilateral ([id number]) [facility] Follow p u :He complains of swelling in the RLE which is chronic associated with skin hyperpigmentation. He has hx of venous insufficiency. Will obtain venous duplex. We discussed venography w/IVUS imaging and possible Venaseal and we will consider this further after his testing. Encouraged him to continue to use his support stockings and elevate his legs. Bernardo Weemsberg Cardiology Follow pu :Pt had renal angio revealing patent stents. He then had perirenal hematoma on the R requiring blood transfusions and admission to [place] with VAHID. Bernardo Diggs Cardiology Follow up :Duplex in 09/2018 showed <50% stenosis of the internal carotid arteries. Earl Silvestre Cardiology Follow up :Clinically compensated. Continues on Lasix. Earl [facility] Cardiology Follow up :Blood pressure elevated at 148/80. Advised reduced sodium intake and routine monitoring of the blood pressure. We aim for less than 130/80. [facility] Card[facility] Follow up :Denies of any claudication. Patent right external iliac stent on recent angiogram. [facility] Cardiology Follow up :Patent stents on recent angiogram. Continue with antihypertensives. Patient reports he had a bleed following procedure and was admitted to [place]. Records have been requested. Earl [facility] TeleHealth:No chest pain. His updated medication list for this problem includes: Clopidogrel 75mg Tablets (Clopidogrel bisulfate) ..... Take 1 tablet by mouth daily Aspirin Adult Low Dose 81 Mg Oral Tablet Delayed Release (Aspirin) ..... One tab by mouth daily Metoprolol Tartrate 100 Mg Oral Tablet (Metoprolol tartrate) ..... Twice daily [facility] TeleHealth:Denies SO B. Mobility limited by orthopedic issues. His updated medication list for this problem includes: Losartan Potassium 100 Mg Oral Tablet (Losartan potassium) ..... Take one tablet daily Furosemide 40 Mg Oral Tablet (Furosemide) ..... Take one tablet twice daily Metoprolol Tartrate 100 Mg Oral Tablet (Metoprolol tartrate) ..... Twice daily [facility] TeleHealth:Pt had re nal artery duplex done [place] [facility] which showed evidence of bilateral renal artery stenosis. He reports BP has been elevated. He would like to proceed to renal artery angiography (with CO2) at [facility]. BP today (provided by the pt - had not taken medications at time of BP check): 170/68 P rior BP: 123/72 (12/19/2019) His updated medication list for this problem includes: Losartan Potassium 100 Mg Oral Tablet (Losartan potassium) ..... Take one tablet daily Furosemide 40 Mg Oral Tablet (Furosemide) ..... Take one tablet twice daily Metoprolol Tartrate 100 Mg Oral Tablet (Metoprolol tartrate) ..... Twice daily Hydralazine Hcl 100 Mg Oral Tablet (Hydralazine hcl) ..... One tab three times daily. [facility]:Pt [place] which showed evidence of bilateral renal artery stenosis. He reports BP has been elevated. He would like to proceed to renal artery angiography (with CO2) at [facility]. [facility]:Last K+ w as 3.6 (05/01/2020). Pt reports he is taking 60meq of KCl BID currently. States it is being managed by his [place] physicians. [facility]:Labs Revi ewed: B UN: 17 (05/01/2020) Cr: 1.78 (05/01/2020) Hgb: 13.2 (01/10/2020) Hct: 40.4 (01/10/2020) [facility]:Labs Revi ewed: H gBA1c: 8.9 (03/31/2020) Creat: 1.78 (05/01/2020) His updated medication list for this problem includes: Novolog 100 Unit/ml Subcutaneous Solution (Insulin aspart) ..... Inject 5 units three times a day. if blood sugar > 200, 7 units instead of 5 units Jardiance 25 Mg Oral Tablet (Empagliflozin) ..... One tab by mouth daily Trulicity 1.5 Mg/0.5ml Subcutaneous Solution Pen-injector (Dulaglutide) ..... Once a week Losartan Potassium 100 Mg Oral Tablet (Losartan potassium) ..... Take one tablet daily Aspirin Adult Low Dose 81 Mg Oral Tablet Delayed Release (Aspirin) ..... One tab by mouth daily Lantus Solostar 100 Unit/ml Subcutaneous Solution Pen-injector (Insulin glargine) ..... 60 units once a day. if blood sugar > 200, 70 units once a day [facility]:CHOL: 78 (01/10/2020) LDL: 29 (01/10/2020) HDL: 30 (01/10/2020) T (01/10/2020) His updated medication list for this problem includes: Rosuvastatin Calcium 40 Mg Oral Tablet (Rosuvastatin calcium) ..... Take one tablet daily [facility] follow up [facility] Domenico [facility] Cardiology follow up :The following medications were removed from the medication list: Victoza 18 Mg/3ml Subcutaneous Solution Pen-injector (Liraglutide) ..... Inject 1.8 units once daily & #13;His updated medication list for this problem includes: Trulicity 1.5 Mg/0.5ml Subcutaneous Solution Pen-injector (Dulaglutide) ..... Once a week Losartan Potassium 100 Mg Oral Tablet (Losartan potassium) ..... Take one tablet daily Aspirin Adult Low Dose 81 Mg Oral Tablet Delayed Release (Aspirin) ..... One tab by mouth daily Lantus Solostar 100 Unit/ml Subcutaneous Solution Pen-injector (Insulin glargine) ..... 70 units at night [facility] follow up :His updated medication list for this problem includes: Rosuvastatin Calcium 40 Mg Oral Tablet (Rosuvastatin calcium) ..... Take one tablet daily [facility] follow up [address] [facility] Cardiology follow up :His updated medication list for this problem includes: Losartan Potassium 100 Mg Oral Tablet (Losartan potassium) ..... Take one tablet daily Furosemide 40 Mg Oral Tablet (Furosemide) ..... Take one tablet twice daily Metoprolol Tartrate 100 Mg Oral Tablet (Metoprolol tartrate) ..... Twice daily [facility] follow up :No chest pain. The following medications were removed from the medication list: Amlodipine Besylate 10 Mg Oral Tablet (Amlodipine besylate) ..... 1 tab twice daily H is updated medication list for this problem includes: Clopidogrel 75mg Tablets (Clopidogrel bisulfate) ..... Take 1 tablet by mouth daily Aspirin Adult Low Dose 81 Mg Oral Tablet Delayed Release (Aspirin) ..... One tab by mouth daily Metoprolol Tartrate 100 Mg Oral Tablet (Metoprolol tartrate) ..... Twice daily [facility]:Enrolled in the SCORE D trial. [facility]:Leg swelling is well controlled. [facility]:His [facility] ed medication list for this problem includes: Losartan Potassium 100 Mg Oral Tablet (Losartan potassium) ..... Take one tablet daily Victoza 18 Mg/3ml Subcutaneous Solution Pen-injector (Liraglutide) ..... Inject 1.8 units once daily Aspirin Adult Low Dose 81 Mg Oral Tablet Delayed Release (Aspirin) ..... One tab by mouth daily Lantus Solostar 100 Unit/ml Subcutaneous Solution Pen-injector (Insulin glargine) ..... 70 units at night [facility]:His [facility] ed medication list for this problem includes: Rosuvastatin Calcium 40 Mg Oral Tablet (Rosuvastatin calcium) ..... Take one tablet daily [facility]:BP today: 127/82 P rior BP: 138/80 (11/29/2018) His updated medication list for this problem includes: Losartan Potassium 100 Mg Oral Tablet (Losartan potassium) ..... Take one tablet daily Furosemide 40 Mg Oral Tablet (Furosemide) ..... Take one tablet twice daily Metoprolol Tartrate 100 Mg Oral Tablet (Metoprolol tartrate) ..... Twice daily Amlodipine Besylate 10 Mg Oral Tablet (Amlodipine besylate) ..... 1 tab twice daily Hydralazine Hcl 100 Mg Oral Tablet (Hydralazine hcl) ..... One tab three times daily. [facility]:Denies claudication. [facility]:Denies SO B. His updated medication list for this problem includes: Losartan Potassium 100 Mg Oral Tablet (Losartan potassium) ..... Take one tablet daily Furosemide 40 Mg Oral Tablet (Furosemide) ..... Take one tablet twice daily Metoprolol Tartrate 100 Mg Oral Tablet (Metoprolol tartrate) ..... Twice daily Amlodipine Besylate 10 Mg Oral Tablet (Amlodipine besylate) ..... 1 tab twice daily [facility]:Denies ch est pain, SOB. His updated medication list for this problem includes: Clopidogrel 75mg Tablets (Clopidogrel bisulfate) ..... Take 1 tablet by mouth daily Aspirin Adult Low Dose 81 Mg Oral Tablet Delayed Release (Aspirin) ..... One tab by mouth daily Metoprolol Tartrate 100 Mg Oral Tablet (Metoprolol tartrate) ..... Twice daily Amlodipine Besylate 10 Mg Oral Tablet (Amlodipine besylate) ..... 1 tab twice daily [facility]:Duplex in 09/2018 showed <50% stenosis of the internal carotid arteries. [facility]:BP today: 138/80 P rior BP: 112/70 (08/21/2018) His updated medication list for this problem includes: Losartan Potassium 100 Mg Oral Tablet (Losartan potassium) ..... Take one tablet daily Furosemide 40 Mg Oral Tablet (Furosemide) ..... Take one tablet twice daily Metoprolol Tartrate 100 Mg Oral Tablet (Metoprolol tartrate) ..... Twice daily Amlodipine Besylate 10 Mg Oral Tablet (Amlodipine besylate) ..... 1 tab twice daily Hydralazine Hcl 100 Mg Oral Tablet (Hydralazine hcl) ..... One tab three times daily. [facility]:CHOL: 90 (10/18/2018) LDL: 31 MG/DL (CALC) (10/18/2018) HDL: 37 (10/18/2018) T (10/18/2018) His updated medication list for this problem includes: Rosuvastatin Calcium 40 Mg Oral Tablet (Rosuvastatin calcium) ..... Take one tablet daily [facility]:Moderate LAE by echo 09/2018. [facility]:Denies SO B. ProBNP in August was 1279. His updated medication list for this problem includes: Losartan Potassium 100 Mg Oral Tablet (Losartan potassium) ..... Take one tablet daily Furosemide 40 Mg Oral Tablet (Furosemide) ..... Take one tablet twice daily Metoprolol Tartrate 100 Mg Oral Tablet (Metoprolol tartrate) ..... Twice daily Amlodipine Besylate 10 Mg Oral Tablet (Amlodipine besylate) ..... 1 tab twice daily [facility]:Denies ch est pain. His updated medication list for this problem includes: Clopidogrel Bisulfate 75 Mg Oral Tablet (Clopidogrel bisulfate) ..... Take one tablet by mouth daily Aspirin Adult Low Dose 81 Mg Oral Tablet Delayed Release (Aspirin) ..... One tab by mouth daily Metoprolol Tartrate 100 Mg Oral Tablet (Metoprolol tartrate) ..... Twice daily Amlodipine Besylate 10 Mg Oral Tablet (Amlodipine besylate) ..... 1 tab twice daily [facility]:He has ve nous insufficiency, well controlled with support stockings. [facility] Cardiology:He would like to participate in the Scored clinical trial. Labs Reviewed: H gBA1c: 7.4 (08/22/2018) Creat: 1.24 (10/18/2018) Microalbumin: 1559 (09/23/2017) His updated medication list for this problem includes: Losartan Potassium 100 Mg Oral Tablet (Losartan potassium) ..... Take one tablet daily Victoza 18 Mg/3ml Subcutaneous Solution Pen-injector (Liraglutide) ..... Inject 1.8 units once daily Aspirin Adult Low Dose 81 Mg Oral Tablet Delayed Release (Aspirin) ..... One tab by mouth daily Lantus Solostar 100 Unit/ml Subcutaneous Solution Pen-injector (Insulin glargine) ..... 70 units at night [facility]:S/P Silve rHawk atherectomy of the R common femoral artery. He states the pain has improved. He has b/l tibial disease. [facility] hospital follow up:CHOL: 213 (05/26/2018) LDL: 138 MG/DL (CALC) (05/26/2018) HDL: 38 (05/26/2018) T (05/26/2018) Starting Crestor today. Orders: L IPID PANEL (7600) Jose Sevilla MD Cardiology hospital follow up:BP today: 112/70 P rior BP: 130/82 (05/22/2018) His updated medication list for this problem includes: Losartan Potassium 100 Mg Oral Tablet (Losartan potassium) ..... Take one tablet daily Furosemide 40 Mg Oral Tablet (Furosemide) ..... Take one tablet twice daily Metoprolol Tartrate 100 Mg Oral Tablet (Metoprolol tartrate) ..... Twice daily Amlodipine Besylate 10 Mg Oral Tablet (Amlodipine besylate) ..... 1 tab twice daily Hydralazine Hcl 100 Mg Oral Tablet (Hydralazine hcl) ..... One tab three times daily. Jose Sevilla MD Cardiology [facility] follow up:His updated medication list for this problem includes: Losartan Potassium 100 Mg Oral Tablet (Losartan potassium) ..... Take one tablet daily Victoza 18 Mg/3ml Subcutaneous Solution Pen-injector (Liraglutide) ..... Inject 1.8 units once daily Aspirin Adult Low Dose 81 Mg Oral Tablet Delayed Release (Aspirin) ..... One tab by mouth daily Lantus Solostar 100 Unit/ml Subcutaneous Solution Pen-injector (Insulin glargine) ..... 70 units at night Labs Reviewed: H gBA1c: 7.7 (09/18/2014) Creat: 1.30 (05/26/2018) Orders: B ASIC METABOLIC PANEL W/EGFR (60999) H EMOGLOBIN A1c (496) Jose Sevilla MD [facility] follow up:Orders: B ASIC METABOLIC PANEL W/EGFR (48129) Labs Reviewed: B UN: 16 (05/26/2018) Cr: 1.30 (05/26/2018) Hgb: 15.7 (06/04/2013) Hct: 46.0 (05/26/2018) Ca++: 10.1 (05/26/2018) Jose Sevilla MD Cardiology [facility] follow up:His updated medication list for this problem includes: Losartan Potassium 100 Mg Oral Tablet (Losartan potassium) ..... Take one tablet daily Furosemide 40 Mg Oral Tablet (Furosemide) ..... Take one tablet twice daily Metoprolol Tartrate 100 Mg Oral Tablet (Metoprolol tartrate) ..... Twice daily Amlodipine Besylate 10 Mg Oral Tablet (Amlodipine besylate) ..... 1 tab twice daily Orders: Juany RAMIREZ TERMINAL ([id number]) Jose Sevilla MD Cardiology hospital follow up:No chest pain. His updated medication list for this problem includes: Clopidogrel Bisulfate 75 Mg Oral Tablet (Clopidogrel bisulfate) ..... Take one tablet by mouth daily Aspirin Adult Low Dose 81 Mg Oral Tablet Delayed Release (Aspirin) ..... One tab by mouth daily Metoprolol Tartrate 100 Mg Oral Tablet (Metoprolol tartrate) ..... Twice daily Amlodipine Besylate 10 Mg Oral Tablet (Amlodipine besylate) ..... 1 tab twice daily Jose Sevilla MD Cardiology hospital follow up:S/P right renal artery stenting. Jose Sevilla MD Cardiology hospital follow up:Continues to have claudication in the right leg. Per duplex, he has significant proximal stenosis of the RLE. Orders: A IF Intervention - [facility] (CPT-32513) Jose Sevilla MD Cardiology:His [facility] ed medication list for this problem includes: Aspirin Adult Low Dose 81 Mg Oral Tablet Delayed Release (Aspirin) ..... One tab by mouth daily Metoprolol Tartrate 100 Mg Oral Tablet (Metoprolol tartrate) ..... Twice daily Amlodipine Besylate 10 Mg Oral Tablet (Amlodipine besylate) ..... 1 tab twice daily Jose Sevilla MD Cardiology:BP today: 130/82 P rior BP: 126/72 (03/20/2018) His updated medication list for this problem includes: Losartan Potassium 100 Mg Oral Tablet (Losartan potassium) ..... Take one tablet daily Furosemide 40 Mg Oral Tablet (Furosemide) ..... Take one tablet twice daily Metoprolol Tartrate 100 Mg Oral Tablet (Metoprolol tartrate) ..... Twice daily Amlodipine Besylate 10 Mg Oral Tablet (Amlodipine besylate) ..... 1 tab twice daily Hydralazine Hcl 100 Mg Oral Tablet (Hydralazine hcl) ..... One tab three times daily. Jose Sevilla MD Cardiology:Orders: B ASIC METABOLIC PANEL W/EGFR (64142) R enal Stent -[facility] (CPT-34070) Jose Sevilla MD Cardiology:His [facility] ed medication list for this problem includes: Losartan Potassium 100 Mg Oral Tablet (Losartan potassium) ..... Take one tablet daily Victoza 18 Mg/3ml Subcutaneous Solution Pen-injector (Liraglutide) ..... Inject 1.8 units once daily Aspirin Adult Low Dose 81 Mg Oral Tablet Delayed Release (Aspirin) ..... One tab by mouth daily Lantus Solostar 100 Unit/ml Subcutaneous Solution Pen-injector (Insulin glargine) ..... 70 units at night Orders: B ASIC METABOLIC PANEL W/EGFR (65029) Jose Sevilla MD Cardiology:Orders: R enal Stent -[facility] (CPT-80840) Jose Sevilla MD Cardiology follow up Bernardo pabon Cardiology follow up :Orders: A IF Intervention - [facility] (*) Bernardo [facility] follow up :BP today: 126/72 P rior BP: 120/66 (12/14/2017) His updated medication list for this problem includes: Losartan Potassium 100 Mg Oral Tablet (Losartan potassium) ..... Take one tablet daily Furosemide 40 Mg Oral Tablet (Furosemide) ..... Take one tablet twice daily Metoprolol Tartrate 100 Mg Oral Tablet (Metoprolol tartrate) ..... Twice daily Amlodipine Besylate 10 Mg Oral Tablet (Amlodipine besylate) ..... 1 tab twice daily Hydralazine Hcl 100 Mg Oral Tablet (Hydralazine hcl) ..... One tab three times daily. [facility]ardo [facility] follow up :Orders: V enogram w/ IVUS - [facility] (*) Bernardo [facility] Cardiology follow up :His updated medication list for this problem includes: Aspirin Adult Low Dose 81 Mg Oral Tablet Delayed Release (Aspirin) ..... One tab by mouth daily Metoprolol Tartrate 100 Mg Oral Tablet (Metoprolol tartrate) ..... Twice daily Amlodipine Besylate 10 Mg Oral Tablet (Amlodipine besylate) ..... 1 tab twice daily Bernardo Dontae Cardiology follow up :Labs Reviewed: C reat: 1.28 (04/29/2016) UACR: 772 (09/23/2017) His updated medication list for this problem includes: Losartan Potassium 100 Mg Oral Tablet (Losartan potassium) ..... Take one tablet daily Victoza 18 Mg/3ml Subcutaneous Solution Pen-injector (Liraglutide) ..... Inject 1.8 units once daily Aspirin Adult Low Dose 81 Mg Oral Tablet Delayed Release (Aspirin) ..... One tab by mouth daily Lantus Solostar 100 Unit/ml Subcutaneous Solution Pen-injector (Insulin glargine) ..... 70 units at night Bernardo [facility] Cardiology Follow up :Duplex showed venous insufficiency of the right leg. 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 Jose Sevilla MD Cardiology Follow up :His updated medication list for this problem includes: Losartan Potassium 100 Mg Oral Tablet (Losartan potassium) ..... Take one tablet daily Victoza 18 Mg/3ml Subcutaneous Solution Pen-injector (Liraglutide) ..... Inject 1.8 units once daily Aspirin Adult Low Dose 81 Mg Oral Tablet Delayed Release (Aspirin) ..... One tab by mouth daily Lantus Solostar 100 Unit/ml Subcutaneous Solution Pen-injector (Insulin glargine) ..... 70 units at night Again discussed [place]/[facility]/[employer]. Jose Sevilla MD Cardiology Follow up :Encouraged weight loss. Jose Sevilla MD Cardiology Follow up :BP today: 120/66 P rior BP: 172/83 (10/10/2017) His updated medication list for this problem includes: Losartan Potassium 100 Mg Oral Tablet (Losartan potassium) ..... Take one tablet daily Furosemide 40 Mg Oral Tablet (Furosemide) ..... Take one tablet twice daily Metoprolol Tartrate 100 Mg Oral Tablet (Metoprolol tartrate) ..... Twice daily Amlodipine Besylate 10 Mg Oral Tablet (Amlodipine besylate) ..... 1 tab twice daily Hydralazine Hcl 100 Mg Oral Tablet (Hydralazine hcl) ..... One tab three times daily Jose Sevilla MD Cardiology Follow up :His updated medication list for this problem includes: Aspirin Adult Low Dose 81 Mg Oral Tablet Delayed Release (Aspirin) ..... One tab by mouth daily Metoprolol Tartrate 100 Mg Oral Tablet (Metoprolol tartrate) ..... Twice daily Amlodipine Besylate 10 Mg Oral Tablet (Amlodipine besylate) ..... 1 tab twice daily Jose Sevilla MD Cardiology:Correctio n: H e would like to participate in Kevin [facility]/[place]. His updated medication list for this problem includes: Losartan Potassium 100 Mg Oral Tablet (Losartan potassium) ..... Take one tablet daily Victoza 18 Mg/3ml Subcutaneous Solution Pen-injector (Liraglutide) ..... Inject 1.8 units once daily Aspirin Adult Low Dose 81 Mg Oral Tablet Delayed Release (Aspirin) ..... One tab by mouth daily Lantus Solostar 100 Unit/ml Subcutaneous Solution Pen-injector (Insulin glargine) ..... 70 units at night Labs Reviewed: C reat: 1.28 (04/29/2016) Microalbumin: 155.9 (09/23/2017) Creatinine, random urine: 202 (09/23/2017) Microalbumin/creatinine ratio, random urine: 772 (09/23/2017) [facility]ardo [facility] Cardiology:Correctio n: H e would like to participate in Kevin [facility]/[place]. His updated medication list for this problem includes: Losartan Potassium 100 Mg Oral Tablet (Losartan potassium) ..... Take one tablet daily Victoza 18 Mg/3ml Subcutaneous Solution Pen-injector (Liraglutide) ..... Inject 1.8 units once daily Aspirin Adult Low Dose 81 Mg Oral Tablet Delayed Release (Aspirin) ..... One tab by mouth daily Lantus Solostar 100 Unit/ml Subcutaneous Solution Pen-injector (Insulin glargine) ..... 70 units at night Labs Reviewed: C reat: 1.28 (04/29/2016) Microalbumin: 155.9 (09/23/2017) Creatinine, random urine: 202 (09/23/2017) Microalbumin/creatinine ratio, random urine: 772 (09/23/2017) Bernardo [facility] Cardiology:Correctio n: H e would like to participate in Kevin [employer]/[place]. His updated medication list for this problem includes: Losartan Potassium 100 Mg Oral Tablet (Losartan potassium) ..... Take one tablet daily Victoza 18 Mg/3ml Subcutaneous Solution Pen-injector (Liraglutide) ..... Inject 1.8 units once daily Aspirin Adult Low Dose 81 Mg Oral Tablet Delayed Release (Aspirin) ..... One tab by mouth daily Lantus Solostar 100 Unit/ml Subcutaneous Solution Pen-injector (Insulin glargine) ..... 70 units at night Labs Reviewed: C reat: 1.28 (04/29/2016) Microalbumin: 155.9 (09/23/2017) Creatinine, random urine: 202 (09/23/2017) Microalbumin/creatinine ratio, random urine: 772 (09/23/2017) Bernardo [facility] Cardiology:No chest pain or SOB. His updated medication list for this problem includes: Aspirin Adult Low Dose 81 Mg Oral Tablet Delayed Release (Aspirin) ..... One tab by mouth daily Metoprolol Tartrate 100 Mg Oral Tablet (Metoprolol tartrate) ..... Twice daily Amlodipine Besylate 10 Mg Oral Tablet (Amlodipine besylate) ..... 1 tab twice daily Bernardo [facility] Cardiology:Losartan increased from 50mg daily to 100mg daily. BP today: 172/83 P rior BP: 150/90 (09/19/2017) His updated medication list for this problem includes: Losartan Potassium 100 Mg Oral Tablet (Losartan potassium) ..... Take one tablet daily Furosemide 40 Mg Oral Tablet (Furosemide) ..... Take one tablet twice daily Metoprolol Tartrate 100 Mg Oral Tablet (Metoprolol tartrate) ..... Twice daily Amlodipine Besylate 10 Mg Oral Tablet (Amlodipine besylate) ..... 1 tab twice daily Hydralazine Hcl 100 Mg Oral Tablet (Hydralazine hcl) ..... One tab three times daily. [facility] Cardiology:He would like to participate in Kevin [facility]/[place]. His updated medication list for this problem includes: Losartan Potassium 100 Mg Oral Tablet (Losartan potassium) ..... Take one tablet daily Victoza 18 Mg/3ml Subcutaneous Solution Pen-injector (Liraglutide) ..... Inject 1.8 units once daily Aspirin Adult Low Dose 81 Mg Oral Tablet Delayed Release (Aspirin) ..... One tab by mouth daily Lantus Solostar 100 Unit/ml Subcutaneous Solution Pen-injector (Insulin glargine) ..... 70 units at night Labs Reviewed: C reat: 1.28 (04/29/2016) Microalbumin: 1559 (09/23/2017) Bernardo [facility] Cardiology:He would like to participate in [employer]/[place]. His updated medication list for this problem includes: Losartan Potassium 100 Mg Oral Tablet (Losartan potassium) ..... Take one tablet daily Victoza 18 Mg/3ml Subcutaneous Solution Pen-injector (Liraglutide) ..... Inject 1.8 units once daily Aspirin Adult Low Dose 81 Mg Oral Tablet Delayed Release (Aspirin) ..... One tab by mouth daily Lantus Solostar 100 Unit/ml Subcutaneous Solution Pen-injector (Insulin glargine) ..... 70 units at night Labs Reviewed: C reat: 1.28 (04/29/2016) Microalbumin: 1559 (09/23/2017) Bernardo Dontae Cardiology:He would like to participate in [employer]. His updated medication list for this problem includes: Losartan Potassium 100 Mg Oral Tablet (Losartan potassium) ..... Take one tablet daily Victoza 18 Mg/3ml Subcutaneous Solution Pen-injector (Liraglutide) ..... Inject 1.8 units once daily Aspirin Adult Low Dose 81 Mg Oral Tablet Delayed Release (Aspirin) ..... One tab by mouth daily Lantus Solostar 100 Unit/ml Subcutaneous Solution Pen-injector (Insulin glargine) ..... 70 units at night Labs Reviewed: C reat: 1.28 (04/29/2016) Microalbumin: 1559 (09/23/2017) Bernardo [facility] Cardiology:Complaini ng of swelling and pain in the right leg. Will obtain arterial and venous duplexes. Bernardo Dontae Cardiology:His updat ed medication list for this problem includes: Victoza 18 Mg/3ml Subcutaneous Solution Pen-injector (Liraglutide) ..... Inject 1.8 units once daily Aspirin Adult Low Dose 81 Mg Oral Tablet Delayed Release (Aspirin) ..... One tab by mouth daily Lantus Solostar 100 Unit/ml Subcutaneous Solution Pen-injector (Insulin glargine) ..... 26 units a day at night y & #13;Orders: U RINALYSIS, RANDOM, MICROALB/CREATININE ([id number]) Labs Reviewed: C reat: 1.28 (04/29/2016) Jose Sevilla MD Cardiology:CHOL: 136 (04/29/2016) LDL: 62 MG/DL (CALC) (04/29/2016) HDL: 40 (04/29/2016) T (04/29/2016) Jose Sevilla MD Cardiology:Will obta in recent lab results from his PCP. Labs Reviewed: B UN: 19 (04/29/2016) Cr: 1.28 (04/29/2016) Hgb: 15.7 (06/04/2013) Hct: 49.0 (04/29/2016) Ca++: 9.8 (04/29/2016) Jose Sevilla MD Cardiology:The patie nt is using CPAP on a regular basis. The patient has been benefiting from therapy and should continue use. Jose Sevilla MD Cardiology Jose Sevilla MD Cardiology:BP today: 150/90 P rior BP: 131/67 (05/04/2017) His updated medication list for this problem includes: Furosemide 40 Mg Oral Tablet (Furosemide) ..... Take 1 tablet once daily Metoprolol Tartrate 100 Mg Oral Tablet (Metoprolol tartrate) ..... Twice daily Amlodipine Besylate 10 Mg Oral Tablet (Amlodipine besylate) ..... Take one pill in the am and 1/2 pill in the pm Hydralazine Hcl 100 Mg Oral Tablet (Hydralazine hcl) ..... One tab three times daily Jose Sevilla MD Cardiology:The pt de nies chest pain or SOB. His updated medication list for this problem includes: Aspirin Adult Low Dose 81 Mg Oral Tablet Delayed Release (Aspirin) ..... One tab by mouth daily Metoprolol Tartrate 100 Mg Oral Tablet (Metoprolol tartrate) ..... Twice daily Amlodipine Besylate 10 Mg Oral Tablet (Amlodipine besylate) ..... Take one pill in the am and 1/2 pill in the pm Jose Sevilla MD Cardiology Follow up :He complains of nocturia and I recommended that he see a urologist. [facility]ardo [facility] Cardiology Follow up:Weight loss advised. Jose Sevilla MD Cardiology Follow up :The patient is using CPAP on a regular basis. The patient has been benefiting from therapy and should continue use. Jose Sevilla MD Cardiology Follow up :BP today: 131/67 P rior BP: 160/70 (11/10/2016) The following medications were removed from the medication list: Cozaar 100 Mg Oral Tablet (Losartan potassium) ..... Daily His updated medication list for this problem includes: Aspirin Adult Low Dose 81 Mg Oral Tablet Delayed Release (Aspirin) ..... One tab by mouth daily Metoprolol Tartrate 100 Mg Oral Tablet (Metoprolol tartrate) ..... Twice daily Amlodipine Besylate 10 Mg Oral Tablet (Amlodipine besylate) ..... Take one pill in the am and 1/2 pill in the pm Hydralazine Hcl 100 Mg Oral Tablet (Hydralazine hcl) ..... One tab three times daily. Jose Sevilla MD Cardiology Follow up :Orders: U RINALYSIS, RANDOM, MICROALB/CREATININE ([id number]) The following medications were removed from the medication list: Cozaar 100 Mg Oral Tablet (Losartan potassium) ..... Daily Victoza 18 Mg/3ml Subcutaneous Solution Pen-injector (Liraglutide) ..... 1.8 once daily His updated medication list for this problem includes: Aspirin Adult Low Dose 81 Mg Oral Tablet Delayed Release (Aspirin) ..... One tab by mouth daily Lantus Solostar 100 Unit/ml Subcutaneous Solution Pen-injector (Insulin glargine) ..... 26 units a day at night Jose Sevilla MD Cardiology Follow up :He does not have chest pain or SOB. His updated medication list for this problem includes: Aspirin Adult Low Dose 81 Mg Oral Tablet Delayed Release (Aspirin) ..... One tab by mouth daily Metoprolol Tartrate 100 Mg Oral Tablet (Metoprolol tartrate) ..... Twice daily Amlodipine Besylate 10 Mg Oral Tablet (Amlodipine besylate) ..... Take one pill in the am and 1/2 pill in the pm Jose Sevilla MD Cardiology Follow up :S/P right knee replacement complicated by infection. Pt is now a candidate for repeat surgery and is cleared from cardiac perspective. Jose Sevilla MD Cardiology Follow up Bernardo pabon Cardiology Follow up :Stable. No chest pain or SOB. On ASA/Plavix - can hold at surgeon's discretion. [facility] Follow up :BP today: 182/90 P rior BP: 146/70 (03/25/2016) Angiography showed restenosis in the right renal stent. His updated medication list for this problem includes: Metoprolol Tartrate 100 Mg Oral Tabs (Metoprolol tartrate) ..... Twice daily Amlodipine Besylate 10 Mg Tabs (Amlodipine besylate) ..... 1 tablet by mouth daily Aspirin 81 Mg Tabs (Aspirin) ..... One tab. daily Cozaar 100 Mg Tabs (Losartan potassium) ..... Daily Hydralazine Hcl 100 Mg Tabs (Hydralazine hcl) ..... One tab three times daily. [facility] Follow up :Angiography showed restenosis in the right renal stent. We can consider intervention at later time. [facility]ardo [facility] Follow up :S/P laser atherectomy and angioplasty of the right common, SFA and peroneal arteries. He is clear for knee surgery. [facility] Follow up :S/P laser atherectomy and angioplasty of the right common, SFA and peroneal arteries. He feels well post-op. [facility] Jose Sevilla MD Cardiology:BP today: 146/70 P rior BP: 180/97 (09/24/2015) His updated medication list for this problem includes: Metoprolol Tartrate 100 Mg Oral Tabs (Metoprolol tartrate) ..... Twice daily Amlodipine Besylate 10 Mg Tabs (Amlodipine besylate) ..... 1 tablet by mouth daily Aspirin 81 Mg Tabs (Aspirin) ..... One tab. daily Cozaar 100 Mg Tabs (Losartan potassium) ..... Daily Hydralazine Hcl 100 Mg Tabs (Hydralazine hcl) ..... One tab three times daily. Jose Sevilla MD Cardiology:Stable. N o chest pain or SOB. His last coronary stent was in 2011. Jose Sevilla MD Cardiology:The surge on would like to assess the vasculature of the right leg prior to surgery. ADDENDUM 04/01 - Arterial duplex showed significant stenosis involving the right SFA. Will proceed to AIF. Jose Sevilla MD Cardiology:Patient i s a candidate for right knee surgery. The surgeon would like to assess the vasculature of the right leg prior to surgery. During last AIF in 2013, angioplasty/stenting of the left SFA was performed and angiography of the right side showed patent stents as well as 60-70% stenosis of the popliteal artery, 60-70% stenosis at the ostium of the anterior tibial artery and 60% stenosis of the peroneal artery. ADDENDUM 04/01 - Arterial duplex showed significant stenosis involving the right SFA. Will proceed to AIF. Jose Sevilla MD Cardiology:Denies claudication. [facility]ardo [facility] Cardiology:Denies chest pain or SOB. Bernardo [facility] Cardiology:CHOL: 182 (03/18/2014) LDL: 119 (07/25/2013) HDL: 40 (07/25/2013) T (07/25/2013) His updated medication list for this problem includes: Lipitor 80 Mg Tabs (Atorvastatin calcium) ..... One tab. daily Bernardo Diggs Cardiology:Labs Revi ewed: C reat: 1.28 (03/18/2014) His updated medication list for this problem includes: Victoza 18 Mg/3ml Sc Sopn (Liraglutide) ..... 1.8 once daily Aspirin 81 Mg Tabs (Aspirin) ..... One tab. daily Cozaar 100 Mg Tabs (Losartan potassium) ..... Daily Lantus Solostar 100 Unit/ml Soln (Insulin glargine) ..... 65ml once daily Bernardo [facility] Cardiology:BP today: 180/97 P rior BP: 121/67 (03/31/2015) His updated medication list for this problem includes: Metoprolol Tartrate 100 Mg Oral Tabs (Metoprolol tartrate) ..... Twice daily Amlodipine Besylate 10 Mg Tabs (Amlodipine besylate) ..... 1 tablet by mouth daily Aspirin 81 Mg Tabs (Aspirin) ..... One tab. daily Cozaar 100 Mg Tabs (Losartan potassium) ..... Daily Hydralazine Hcl 100 Mg Tabs (Hydralazine hcl) ..... One tab three times daily. Bernardo [facility] Cardiology:Compliant with treatm ent. [facility] Cardiology:He's a ca ndidate for knee surgery and he's clear for surgery from cardiology perspective. Jose Sevilla MD Cardiology:Renal duplex was nega tive. Jose Sevilla MD Cardiology:CHOL: 182 (03/18/2014) LDL: 119 (07/25/2013) HDL: 40 (07/25/2013) T (07/25/2013) His updated medication list for this problem includes: Lipitor 80 Mg Tabs (Atorvastatin calcium) ..... One tab. daily Jose Sevilla MD Cardiology:BP is wel l controlled. BP today: 121/67 P rior BP: 142/88 (10/01/2014) Jose Sevilla MD routine Drew Gold MD routine Drew Gold MD routine Drew Gold MD routine Drew Gold MD routine: T he following medications were removed from the medication list: Glimepiride 4 Mg Tabs (Glimepiride) ..... Daily His updated medication list for this problem includes: Aspirin 81 Mg Tabs (Aspirin) ..... One tab. daily Cozaar 100 Mg Tabs (Losartan potassium) ..... Daily Januvia 100 Mg Tabs (Sitagliptin phosphate) ..... Daily Lantus Solostar 100 Unit/ml Soln (Insulin glargine) ..... 5ml tid Humalog Kwikpen 100 Unit/ml Soln (Insulin lispro (human)) ..... 45ml daily BP today: 115/68 Prior BP: 109/58 (07/12/2012) Labs Reviewed: C reat: 1.42 (06/06/2012) Drew Gold MD routine: L abs Reviewed: B UN: 20 (06/06/2012) Cr: 1.42 (06/06/2012) H gb: 16.0 (06/06/2012) Hct: 45.7 (06/06/2012) Ca++: 9.8 (06/06/2012) Drew Gold MD Date Name [facility] Complete Echo Microalb/Creatinine Urine, Random LIPID PANEL Renal Artery Duplex Stress Regadenoson Aorta Duplex Ultraso und Renal Artery Duplex Carotid Duplex Bilat eral Complete Echo RPM (remote patient monitoring) Arterial Duplex Bi-L ower EX C-REACTIVE PROTEIN ( CRP), HIGHLY SENSITIVE, CSF Venous Doppler Bilat eral LE - Reflux Carotid Duplex Bilat eral Complete Echo COVID19 Rapid POC PROTHROMBIN TIME WIT H INR LIPID PANEL CBC (INCLUDES DIFF/P LT) BASIC METABOLIC PANE L W/EGFR Renal Angio - [facility] Carotid Duplex Bilat eral HEMOGLOBIN A1c PROBNP, N TERMINAL PROTHROMBIN TIME WIT H INR LIPID PANEL CBC (INCLUDES DIFF/P LT) BASIC METABOLIC PANE L W/EGFR AIF Intervention - S V PROTHROMBIN TIME WIT H INR LIPID PANEL CBC (INCLUDES DIFF/P LT) BASIC METABOLIC PANE L W/EGFR Renal Stent -[facility] Venogram w/ IVUS - [facility] AIF Intervention - [facility] Venous Doppler Bilat eral LE - Reflux Arterial Duplex Bi-L ower EX URINALYSIS, RANDOM, MICROALB/CREATININE URINALYSIS, RANDOM, MICROALB/CREATININE LIPID PANEL PROTHROMBIN TIME WIT H INR CBC (H/H, RBC, INDIC ES, WBC, PLT) BASIC METABOLIC PANE L W/EGFR Arterial Duplex Bi-L ower EX Sleep Study Titratio n AIF - [facility] Arterial Duplex Bi-L ower EX Renal Artery Duplex Venous Doppler Bilat eral LE - Standing Peripheral Stent - W STEVEN AIF - [facility] Venous Doppler Bilat eral LE - Standing Arterial Duplex Bi-L ower EX BASIC METABOLIC PANE L W/EGFR Renal Angio - MARTHA Venous Doppler Bilat eral LE - Standing Renal Angio - [facility] Cardiac Cath - Left - [facility] Venous Doppler Bilat eral LE Renal Artery Duplex Aortic Abdominal Ult rasound Carotid Duplex Bilat eral Complete Echo HISTORY OF PROCEDURES Procedure Date Procedure Name Provider Procedure Notes S tatus Complex e/m visit add on Jose Sevilla MD completed Complex e/m visit add on Jose Sevilla MD completed EKG Jose Sevilla MD completed EKG Jose Sevilla MD completed EKG Jose Sevilla MD completed SNOMED-CT: 29363122 Physical Exam, Performed: Pulse Exam of Foot Jose Sevilla MD completed SNOMED-CT: 110274765 [id number] Current Medications Documented Jose Sevilla MD completed EKG Jose Sevilla MD completed SNOMED-CT: [id number] 088726 Current Medications Documented Jose Sevilla MD completed SNOMED-CT: 24431647 Physical Exam, Performed: Pulse Exam of Foot Jose Sevilla MD completed SNOMED-CT: 989405838 730202 Current Medications Documented Jose Sevilla MD completed SNOMED-CT: 68242114 Physical Exam, Performed: Pulse Exam of Foot Jose Sevilla MD completed SNOMED-CT: 818193547 034369 Current Medications Documented Jose Sevilla MD completed SNOMED-CT: 15558845 Physical Exam, Performed: Pulse Exam of Foot Jose Sevilla MD completed SNOMED-CT: 969422433 Smoking Cessation Counseling oJse Sevilla MD completed EKG Jose Sevilla MD completed SNOMED-CT: 205931072 621152 Current Medications Documented Jose Sevilla MD completed SNOMED-CT: 58939051 Physical Exam, Performed: Pulse Exam of Foot Jose Sevilla MD completed SNOMED-CT: 879418681 417636 Current Medications Documented Jose Sevilla MD completed SNOMED-CT: [id number] Smoking Cessation Counseling Jose Sevilla MD completed EKG Jose Sevilla MD completed ePrescribe - Check t his box if eRx is used Jose Sevilla MD completed ePrescribe - Check t his box if eRx is used Jose Sevilla MD completed ePrescribe - Check t his box if eRx is used Jose Sevilla MD completed GENESIS Sevilla MD completed GENESIS Sevilla MD completed
--- OUTSIDE RECORDS SUMMARY | 2024-08-14 02:10 | XMS_ITS | Data Portability ---
Author Organization [facility], Main Office Address [address] [place] [address] Assessment Encounter Date Assessment Date Assessment LastModified by Organization Details LastModified Time 01/02/2024 01/02/2024 Assessment: Very severe OSAHS, AHI = 68 RLS/PLMD Plan: The following were reviewed and explained to the patient: primary care/referral note [facility] diagnostic sleep study 08/09/22 AHI = 68, supine AHI = 79, PLMI = 99 [facility] titration sleep study 10/08/22 Respironics large Comfort Gel nasal mask @ 9 cmH2O, PLMI = 202 Patient is on the following medications that help control his PLMD: ropinirole, clonazepam and gabapentin. He quit his Ferrex due to constipation. Non-pharmacologi c therapy options for periodic limb movement disorder include avoidance of aggravating drugs and substances, mental alerting activities, short daily hemodialysis for patients in renal failure, exercise, leg massage, stretching calf muscles, use of a weighted blanket and applied heat. Patient will cut down on caffeine intake. We will check BUN, Creatinine, Vitamin E, Vitamin B12, RBC folate, Iron, TIBC, Ferritin, ESR, Magnesium, Hgb and Hct levels. PAP compliance downloaded and interpreted x 20 minutes. Data reviewed and explained to the patient. Average apnea/hypopnea index (AHI) is 1.6. PAP is set at 10-15 cmH2O. PAP will remain at 10-15 cmH2O. Oxygen supplementation: none Patient is benefiting from PAP therapy. Encouraged patient to maintain PAP use more than 70% of the time. Statement of PAP use and benefits will be sent to the home care store. Educated the patient on problems and solutions associated with positive airway pressure (PAP) use. Difficulty tolerating pressure, mask leaks, intolerance of interface, nasal congestion, claustrophobic response, dry mouth, and unintentional mask removal during sleep were covered. Provided the patient with a list of local home care stores where positive airway pressure (PAP) units, accoutrement, and services are available. Home care store selection is based on patient's insurance carrier. [facility]. A major predictor of success with use of PAP is follow-up with both the respiratory supplier and the treating physician. The download results can show the treating physician information about adherence to treatment, residual AHI while on treatment and presence of large mask leakage. This information is especially helpful if the patient has residual sleepiness despite treatment. General information on sleep disordered breathing, evaluation of sleep disordered breathing, treatment with PAP therapy, and living with PAP therapy were covered. We discussed with the patient the impact of weight on: Sleep disordered breathing Carotid artery stenosis TIA Hypertension Hyperlipidemia DM CAD ULISES Low back pain Knee OA PVD We discussed with the patient the benefit of PAP therapy on: Sleep disordered breathing Depression Hypertension DM ULISES ED Educated the patient on sleep hygiene measures. Relaxing rituals to rest easy, understanding foods with positive and negative impact on sleep, creating a peaceful sleep environment, timing of exercise, using herbal sleep aids, and practicing sleep-friendly meditation were covered. To determine how much sleep is needed, the patient will assess where he falls on the spectrum, examine what lifestyle factor such as stress is affecting the quality and quantity of sleep. In general, adults need 7-9 hours of sleep. Educated the patient regarding foods that promote sleep. These include but are not limited to cherries, bananas, toast, oatmeal, and warm milk. Educated the patient regarding foods and drinks to avoid before bedtime. These include but are not limited to aged cheese, chocolate, spicy foods, tomato-based sauces, soy, ginseng tea and processed meat. Advocated influenza vaccination annually and pneumonia vaccination CALVIN. Advocated weight loss through diet and exercise. Patient's ideal body weight according to height and gender is up to 190 lbs. Encouraged patient to adjust caloric intake to maintain/achieve ideal body weight, emphasizing on fruits, vegetables, whole grains, and fat-free or low-fat products. These include lean meats, poultry, fish, beans, eggs, and nuts and foods that are low in saturated fats, trans-fats, cholesterol, salt (sodium), and glycemic index. Stressed the importance of regular exercise up to the patient's capacity limits. In this case, we recommend 20 min daily walking, 2 days a week of resistance training. Patient to monitor BP daily and bring records to PCP for further management. Follow-up: 3 weeks Not available 01/02/2024 11:44:25 01/24/2024 01/24/2024 Assessment: Hypertension Very severe OSAHS, AHI = 68 RLS/PLMD CKD Anemia Iron deficiency Vit E deficiency Plan: The following were reviewed and explained to the patient: [facility] diagnostic sleep study 08/09/22 AHI = 68, supine AHI = 79, PLMI = 99 [facility] titration sleep study 10/08/22 Respironics large Comfort Gel nasal mask @ 9 cmH2O, PLMI = 202 BUN 01/02/24 33 mg% Creatinine 1.82 mg% Hgb 01/02/24 12.7 gm% Hct 01/02/24 37.3% Ferritin 01/02/24 23 ng/mL Alpha tocopherol 01/02/24 6.1 mg/L Gamma tocopherol 01/02/24 1.9 mg/L Patient is already on the following medications that help control his PLMD: ropinirole, clonazepam and gabapentin. Non-pharmacologi c therapy options for periodic limb movement disorder include avoidance of aggravating drugs and substances, mental alerting activities, short daily hemodialysis for patients in renal failure, exercise, leg massage, stretching calf muscles, use of a weighted blanket and applied heat. Patient will cut down on caffeine intake. Vitamin B12, RBC folate, Iron, TIBC, ESR, Magnesium are within normal limits. Patient sees CT radiation oncology nurse Dr. Nan Byers for his CKD. Patient will take Vitamin E 200 IU/day to keep the alpha tocopherol > 9.0 mg/L and to keep the gamma tocopherol > 0.5 mg/L. Patient will take FeSO4 325 mg + Vit C 500 mg daily to keep the ferritin > 75 ng/ml. Check ferritin and Vit E levels one week before return. PAP compliance downloaded and interpreted x 20 minutes. Data reviewed and explained to the patient. Average apnea/hypopnea index (AHI) is 3.5. PAP is set at 10-15 cmH2O. PAP will remain at 10-15 cmH2O. Keep ramp start at 6 cmH2O. Keep ramp duration at 15 minutes. Oxygen supplementation: none Patient is benefiting from PAP therapy. Encouraged patient to maintain PAP use more than 70% of the time. Statement of PAP use and benefits will be sent to the home care store. Educated the patient on problems and solutions associated with positive airway pressure (PAP) use. Difficulty tolerating pressure, mask leaks, intolerance of interface, nasal congestion, claustrophobic response, dry mouth, and unintentional mask removal during sleep were covered. Provided the patient with a list of local home care stores where positive airway pressure (PAP) units, accoutrement, and services are available. Home care store selection is based on patient's insurance carrier. Patient will setup an appointment with CT for supplies and pressure adjustments. A major predictor of success with use of PAP is follow-up with both the respiratory supplier and the treating physician. The download results can show the treating physician information about adherence to treatment, residual AHI while on treatment and presence of large mask leakage. This information is especially helpful if the patient has residual sleepiness despite treatment. General information on sleep disordered breathing, evaluation of sleep disordered breathing, treatment with PAP therapy, and living with PAP therapy were covered. We discussed with the patient the impact of weight on: Sleep disordered breathing Carotid artery stenosis TIA Hypertension Hyperlipidemia DM CAD ULISES Low back pain Knee OA PVD We discussed with the patient the benefit of PAP therapy on: Sleep disordered breathing Depression Hypertension DM ULISES ED Educated the patient on sleep hygiene measures. Relaxing rituals to rest easy, understanding foods with positive and negative impact on sleep, creating a peaceful sleep environment, timing of exercise, using herbal sleep aids, and practicing sleep-friendly meditation were covered. To determine how much sleep is needed, the patient will assess where he falls on the spectrum, examine what lifestyle factor such as stress is affecting the quality and quantity of sleep. In general, adults need 7-9 hours of sleep. Educated the patient regarding foods that promote sleep. These include but are not limited to cherries, bananas, toast, oatmeal, and warm milk. Educated the patient regarding foods and drinks to avoid before bedtime. These include but are not limited to aged cheese, chocolate, spicy foods, tomato-based sauces, soy, ginseng tea and processed meat. Advocated influenza vaccination annually and pneumonia vaccination CALVIN. Advocated weight loss through diet and exercise. Patient's ideal body weight according to height and gender is up to 190 lbs. Encouraged patient to adjust caloric intake to maintain/achieve ideal body weight, emphasizing on fruits, vegetables, whole grains, and fat-free or low-fat products. These include lean meats, poultry, fish, beans, eggs, and nuts and foods that are low in saturated fats, trans-fats, cholesterol, salt (sodium), and glycemic index. Stressed the importance of regular exercise up to the patient's capacity limits. In this case, we recommend 20 min daily walking, 2 days a week of resistance training. Patient to monitor BP daily and bring records to PCP for further management. Follow-up: 3 months, April 2024 Not available 01/24/2024 09:02:15 04/23/2024 04/23/2024 Assessment: Hypertension Very severe OSAHS, AHI = 68 RLS/PLMD CKD Anemia Iron deficiency Vit E deficiency Plan: The following were reviewed and explained to the patient: [facility] diagnostic sleep study 08/09/22 AHI = 68, supine AHI = 79, PLMI = 99 [facility] titration sleep study 10/08/22 Respironics large Comfort Gel nasal mask @ 9 cmH2O, PLMI = 202 BUN 01/02/24 33 mg% Creatinine 1.82 mg% Hgb 01/02/24 12.7 gm% Hct 01/02/24 37.3% Ferritin 01/02/24 23 ng/mL Ferritin 04/23/24 45 ng/mL Alpha tocopherol 01/02/24 6.1 mg/L Alpha tocopherol 04/23/24 11.7 mg/L Gamma tocopherol 01/02/24 1.9 mg/L Gamma tocopherol 04/23/24 0.4 mg/L Patient is already on the following medications that help control his PLMD: ropinirole, clonazepam and gabapentin. Non-pharmacologi c therapy options for periodic limb movement disorder include avoidance of aggravating drugs and substances, mental alerting activities, short daily hemodialysis for patients in renal failure, exercise, leg massage, stretching calf muscles, use of a weighted blanket and applied heat. Patient will cut down on caffeine intake. Vitamin B12, RBC folate, Iron, TIBC, ESR, Magnesium are within normal limits. Patient sees CT radiation oncology nurse Dr. Nan Byers for his CKD. Patient will continue Vitamin E 200 IU/day to keep the alpha tocopherol > 9.0 mg/L and to keep the gamma tocopherol > 0.5 mg/L. Patient will continue FeSO4 325 mg + Vit C 500 mg daily to keep the ferritin > 75 ng/ml. Check ferritin and Vit E levels one week before return. PAP compliance downloaded and interpreted x 20 minutes. Data reviewed and explained to the patient. Average apnea/hypopnea index (AHI) is 5.4. Patient used PAP > 4 hours 99% of the time. PAP is set at 10-15 cmH2O. PAP will be reset at 6-15 cmH2O. Turn ramp off. Oxygen supplementation: none Patient is benefiting from PAP therapy. Encouraged patient to maintain PAP use more than 70% of the time. Statement of PAP use and benefits will be sent to the home care store. Educated the patient on problems and solutions associated with positive airway pressure (PAP) use. Difficulty tolerating pressure, mask leaks, intolerance of interface, nasal congestion, claustrophobic response, dry mouth, and unintentional mask removal during sleep were covered. Provided the patient with a list of local home care stores where positive airway pressure (PAP) units, accoutrement, and services are available. Home care store selection is based on patient's insurance carrier. Patient will setup an appointment with CT for supplies and pressure adjustments. A major predictor of success with use of PAP is follow-up with both the respiratory supplier and the treating physician. The download results can show the treating physician information about adherence to treatment, residual AHI while on treatment and presence of large mask leakage. This information is especially helpful if the patient has residual sleepiness despite treatment. General information on sleep disordered breathing, evaluation of sleep disordered breathing, treatment with PAP therapy, and living with PAP therapy were covered. We discussed with the patient the impact of weight on: Sleep disordered breathing Carotid artery stenosis TIA Hypertension Hyperlipidemia DM CAD ULISES Low back pain Knee OA PVD We discussed with the patient the benefit of PAP therapy on: Sleep disordered breathing Depression Hypertension DM ULISES ED Educated the patient on sleep hygiene measures. Relaxing rituals to rest easy, understanding foods with positive and negative impact on sleep, creating a peaceful sleep environment, timing of exercise, using herbal sleep aids, and practicing sleep-friendly meditation were covered. To determine how much sleep is needed, the patient will assess where he falls on the spectrum, examine what lifestyle factor such as stress is affecting the quality and quantity of sleep. In general, adults need 7-9 hours of sleep. Educated the patient regarding foods that promote sleep. These include but are not limited to cherries, bananas, toast, oatmeal, and warm milk. Educated the patient regarding foods and drinks to avoid before bedtime. These include but are not limited to aged cheese, chocolate, spicy foods, tomato-based sauces, soy, ginseng tea and processed meat. Advocated influenza vaccination annually and pneumonia vaccination CALVIN. Advocated weight loss through diet and exercise. Patient's ideal body weight according to height and gender is up to 190 lbs. Encouraged patient to adjust caloric intake to maintain/achieve ideal body weight, emphasizing on fruits, vegetables, whole grains, and fat-free or low-fat products. These include lean meats, poultry, fish, beans, eggs, and nuts and foods that are low in saturated fats, trans-fats, cholesterol, salt (sodium), and glycemic index. Stressed the importance of regular exercise up to the patient's capacity limits. In this case, we recommend 20 min daily walking, 2 days a week of resistance training. Patient to monitor BP daily and bring records to PCP for further management. Follow-up: 3 months, July 2024 [facility] Not available 05/02/2024 09:50:58 07/23/2024 07/23/2024 Assessment: Hypertension Very severe OSAHS, AHI = 68 RLS/PLMD CKD Anemia Iron deficiency Vit E deficiency Plan: The following were reviewed and explained to the patient: [facility] diagnostic sleep study 08/09/22 AHI = 68, supine AHI = 79, PLMI = 99 [facility] titration sleep study 10/08/22 Respironics large Comfort Gel nasal mask @ 9 cmH2O, PLMI = 202 BUN 01/02/24 33 mg% Creatinine 1.82 mg% Hgb 01/02/24 12.7 gm% Hct 01/02/24 37.3% Ferritin 01/02/24 23 ng/mL Ferritin 04/23/24 45 ng/mL Ferritin 07/20/24 64 ng/mL Alpha tocopherol 01/02/24 6.1 mg/L Alpha tocopherol 04/23/24 11.7 mg/L Alpha tocopherol 07/20/24 10.8 mg/L Gamma tocopherol 01/02/24 1.9 mg/L Gamma tocopherol 04/23/24 0.4 mg/L Gamma tocopherol 07/20/24 0.3 mg/L Patient is already on the following medications that help control his PLMD: ropinirole, clonazepam and gabapentin. Non-pharmacologi c therapy options for periodic limb movement disorder include avoidance of aggravating drugs and substances, mental alerting activities, short daily hemodialysis for patients in renal failure, exercise, leg massage, stretching calf muscles, use of a weighted blanket and applied heat. Patient will cut down on caffeine intake. Vitamin B12, RBC folate, Iron, TIBC, ESR, Magnesium are within normal limits. Patient sees CT radiation oncology nurse Dr. Nan Byers for his CKD. Patient will continue Vitamin E 200 IU/day to keep the alpha tocopherol > 9.0 mg/L and to keep the gamma tocopherol > 0.5 mg/L. Patient will continue FeSO4 325 mg + Vit C 500 mg daily to keep the ferritin > 75 ng/ml. Check ferritin and Vit E levels one week before return. PAP compliance downloaded and interpreted x 20 minutes. Data reviewed and explained to the patient. Average apnea/hypopnea index (AHI) is 10.6. Patient used PAP > 4 hours 97% of the time. PAP is set at 6-15 cmH2O. PAP will be reset at 11-15 cmH2O. Keep ramp start at 6 cmH2O. Keep ramp duration at 15 minutes. Oxygen supplementation: none Patient is benefiting from PAP therapy. Encouraged patient to maintain PAP use more than 70% of the time. Statement of PAP use and benefits will be sent to the home care store. Educated the patient on problems and solutions associated with positive airway pressure (PAP) use. Difficulty tolerating pressure, mask leaks, intolerance of interface, nasal congestion, claustrophobic response, dry mouth, and unintentional mask removal during sleep were covered. Provided the patient with a list of local home care stores where positive airway pressure (PAP) units, accoutrement, and services are available. Home care store selection is based on patient's insurance carrier. Patient will setup an appointment with CT for supplies and pressure adjustments. A major predictor of success with use of PAP is follow-up with both the respiratory supplier and the treating physician. The download results can show the treating physician information about adherence to treatment, residual AHI while on treatment and presence of large mask leakage. This information is especially helpful if the patient has residual sleepiness despite treatment. General information on sleep disordered breathing, evaluation of sleep disordered breathing, treatment with PAP therapy, and living with PAP therapy were covered. We discussed with the patient the impact of weight on: Sleep disordered breathing Carotid artery stenosis TIA Hypertension Hyperlipidemia DM CAD ULISES Low back pain Knee OA PVD We discussed with the patient the benefit of PAP therapy on: Sleep disordered breathing Depression Hypertension DM ULISES ED Educated the patient on sleep hygiene measures. Relaxing rituals to rest easy, understanding foods with positive and negative impact on sleep, creating a peaceful sleep environment, timing of exercise, using herbal sleep aids, and practicing sleep-friendly meditation were covered. To determine how much sleep is needed, the patient will assess where he falls on the spectrum, examine what lifestyle factor such as stress is affecting the quality and quantity of sleep. In general, adults need 7-9 hours of sleep. Educated the patient regarding foods that promote sleep. These include but are not limited to cherries, bananas, toast, oatmeal, and warm milk. Educated the patient regarding foods and drinks to avoid before bedtime. These include but are not limited to aged cheese, chocolate, spicy foods, tomato-based sauces, soy, ginseng tea and processed meat. Advocated influenza vaccination annually and pneumonia vaccination CALVIN. Advocated weight loss through diet and exercise. Patient's ideal body weight according to height and gender is up to 190 lbs. Encouraged patient to adjust caloric intake to maintain/achieve ideal body weight, emphasizing on fruits, vegetables, whole grains, and fat-free or low-fat products. These include lean meats, poultry, fish, beans, eggs, and nuts and foods that are low in saturated fats, trans-fats, cholesterol, salt (sodium), and glycemic index. Stressed the importance of regular exercise up to the patient's capacity limits. In this case, we recommend 20 min daily walking, 2 days a week of resistance training. Patient to monitor BP daily and bring records to PCP for further management. Follow-up: 3 months, October 2024 [facility] Not available 07/26/2024 13:49:19 Plan of Treatment Reminders Order Date Submit Date Provider Last Modified By Organization Details Last Modified Time Details Appointments Follow Up 2024 07:30A Sue Gonzalez MD Not available Not available Not available Lab ferritin, serum or plasma 2024 025 [facility] - Outpatient Lab, [address] [place] [address], [id number], 07/23/2024 08:58:11 vitamin E, serum [address] Outpatient Lab, [address] [place], [address], 07/23/2024 08:58:10 ferritin, serum or plasma 2023 025 [facility] Outpatient Lab, [address] [place], [address], 07/20/2024 18:13:20 vitamin E, serum 2023 025 [facility] Outpatient Lab, [address] [place], [address], 07/26/2024 12:56:19 ferritin, serum or plasma 2023 024 [facility] Outpatient Lab, [address] [place], [address], 04/23/2024 10:57:10 vitamin E, serum 2023 024 [facility] Outpatient Lab, [address] [place], [address], 05/02/2024 08:26:28 iron + TIBC + ferritin, serum 2023 024 [facility] (Lab), [address] [place], [address], 01/02/2024 13:23:03 folate, RBC [address] [place] [address] (Lab), [address] [place], [address], 05/02/2024 14:13:03 vitamin B12, serum [address] [place] [address] (Lab), [address] [place], [address], 05/02/2024 14:13:04 ESR (erythroc yte sedimenta tion rate), blood 2023 024 [place] [address] 2 [facility] (Lab), [address] [place], [address], 05/02/2024 14:13:04 hemoglobi n + hematocri t, blood [address] (Lab), [address] [place], [address], 05/02/2024 14:13:04 bun (blood urea nitrogen) , serum or plasma [address] (Lab), [address] [place], [address], 05/02/2024 14:13:04 creatinin e, serum or plasma [address] (Lab), [address] [place], [address], 05/02/2024 14:13:04 magnesium , serum or plasma [address] (Lab), [address] [place], [address], 05/02/2024 14:13:05 vitamin E, serum 2023 024 [facility] (Lab), [address] [place], [address], 01/06/2024 17:13:11 Referral None recorded. Procedures None recorded. Surgeries None recorded. Imaging None recorded. Medication Orders ferrous sulfate 325 mg (65 mg iron) tablet [facility]24 0[facility] [address] [place] [address], [id number], 07/23/2024 09:03:50 Vitamin C 500 mg tablet 2024 025 [facility] (Pharmacy), [address] [place] [address], [id number], 07/23/2024 08:59:46 vitamin E mixed 200 unit tablet 2024 025 [facility] (Pharmacy), [address] [place] [address], [id number], 07/23/2024 09:08:13 ferrous sulfate 325 mg (65 mg iron) tablet 2023 024 [facility] (Pharmacy), [address] [place] [address], [id number], 04/23/2024 08:59:28 Vitamin C 500 mg tablet 2023 024 [facility] [address] [place] [address], [id number], 04/23/2024 09:03:46 vitamin E mixed 200 unit tablet 2023 024 [facility] (Pharmacy), [address] [place] [address], [id number], 04/23/2024 09:07:48 ferrous sulfate 325 mg (65 mg iron) tablet 2023 024 [facility] [address] [place] [address], [id number], 01/24/2024 09:00:04 Vitamin C 500 mg tablet 2023 024 [facility] [address] [place] [address], [id number], 01/25/2024 15:24:08 vitamin E mixed 200 unit tablet 2023 024 [facility] [address] [place], [address], 01/24/2024 08:56:00 Patient TargetsNo targets recorded. Patient InstructionsNo instructions recorded. Reason for Referral None Reported. Results Created Date Observation Date Name Description Value Unit Range Abnormal Flag Note LastModifiedBy Organization Detail LastModifiedTime Result Notes None recorded. Problems Name Problem SNOMED Code Status Onset Date Resolution Date Notes Provider Name and Address Organization Details Recorded Time Periodic limb movement disorder 916724944 Active 2023 Pedro Luis Gonzalez MD [address], [address], [place], [address], [employer] 4 08:40:47 Obstructive sleep apnea syndrome 52550063 Active 2023 Pedro Luis Gonzalez MD [address], [place], [address], [employer] 4 08:41:45 Vitamin E deficiency 53097381 Active 2023 Pedro Luis Gonzalez MD [address], [place], [address], [employer] 4 08:45:55 Iron deficiency 08542051 Active 2023 Pedro Luis Gonzalez MD [address], [place], [address], [employer] 4 08:46:05 Notes:Medical History: Carot id artery stenosis with TIA Bruxism Obesity with very severe OSAHS, AHI = 68, 08/09/22 , on autoCPAP c[facility]o [facility] Hypertension Hyperlipidemia T2DM with neuropathy CAD ULISES Bilateral renal artery stenosis Stage 2 CKD ED RLS/PLMD Iron deficiency anemia Vit E deficiency Vit D deficiency Low back pain Knee OA PVD Procedure History: Appendectomy 1986 Right hip to ankle haider placement surgeries [id number] 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 Medical Equipment None Reported. Allergies No known drug allergies Medications Name Sig Start Date Stop Date Status Note LastModified by Organization Details LastModified Time celecoxib 200 mg capsule 10/05 completed Not Available Not Available Not Available pramipexole 1 mg tablet TK 2 TS PO QHS 08/10 completed Not Available Not Available Not Available furosemide 40 mg tablet Take 1 tablet every day by oral route. active Not Available Not Available No t Available atorvastati n 40 mg tablet Take 1 tablet every day by oral route. active Not Available Not Available No t Available atorvastati n 80 mg tablet Take 1 tablet every day by oral route. 01/01 completed Not Available Not Available Not Available carvedilol 25 mg tablet Take 1 tablet twice a day by oral route. active Not Available Not Available No t Available ropinirole 1 mg tablet 01/01 completed Not Available Not Available Not Available Vitamin C 500 mg tablet Take 1 tablet every day by oral route. 2024 active Not Available Not Available Not Avai lable metoprolol tartrate 100 mg tablet Take 1 tablet twice a day by oral route. 08/10 completed Not Available Not Available Not Available hydrocodone 5 mg-acetamin ophen 325 mg tablet TAKE 1 TABLET BY MOUTH EVERY 8 HOURS NEEDED FOR PAIN active Not Available Not Available No t Available prednisone 20 mg tablet 08/10 completed Not Available Not Available Not Available clonazepam 0.5 mg tablet TAKE 1 TABLET BY MOUTH NIGHTLY active Not Available Not Available No t Available Ferrex 150 mg iron capsule TK 1 C PO QD WITH VITAMINC 01/01 completed Not Available Not Available Not Available potassium chloride ER 10 mEq tablet,exte nded release 08/10 completed Not Available Not Available Not Available clopidogrel 75 mg tablet Take 1 tablet every day by oral route. active Not Available Not Available No t Available ciprofloxac in 250 mg tablet 10/05 completed Not Available Not Available Not Available ciprofloxac in 500 mg tablet TK 1 T PO Q 12 H 10/05 completed Not Available Not Available Not Available tramadol 50 mg tablet 08/10 completed Not Available Not Available Not Available sildenafil 100 mg tablet Take 1 tablet as needed by oral route. 2016 active Not Available Not Available Not Avai lable amoxicillin 875 mg tablet TAKE 1 TABLET BY MOUTH TWICE DAILY UNTIL ALL TABLETS ARE TAKEN 07/23 completed Not Available Not Available Not Available OneTouch Ultra Test strips 08/10 completed Not Available Not Available Not Available amlodipine 10 mg tablet active Not Available Not Available Not Available hydrocodone 7.5 mg-acetamin ophen 325 mg tablet 08/10 completed Not Available Not Available Not Available ropinirole 2 mg tablet active Not Available Not Available Not Available cephalexin 500 mg capsule 10/05 completed Not Available Not Available Not Available hydralazine 100 mg tablet 1 tablet PO TID 08/10 completed Not Available Not Available Not Available ferrous sulfate 325 mg (65 mg iron) tablet Take 1 tablet every day by oral route. 2024 active Not Available Not Available Not Avai lable metformin 1,000 mg tablet 10/05 completed Not Available Not Available Not Available ropinirole 0.5 mg tablet 08/10 completed Not Available Not Available Not Available gabapentin 300 mg capsule 07/23 completed Not Available Not Available Not Available hydrocodone 5 mg-acetamin ophen 500 mg tablet 08/10 completed Not Available Not Available Not Available hydrochloro thiazide 25 mg tablet 1 po BID 08/10 completed Not Available Not Available Not Available mupirocin 2 % topical ointment 04/23 completed Not Available Not Available Not Available zolpidem 5 mg tablet 08/10 completed Not Available Not Available Not Available furosemide 20 mg tablet 01/01 completed Not Available Not Available Not Available gabapentin 100 mg capsule 01/01 completed Not Available Not Available Not Available polyethylen e glycol 3350 17 gram/dose oral powder active Not Available Not Available Not Available zolpidem 10 mg tablet 08/10 completed Not Available Not Available Not Available Vitamin C 250 mg tablet Take 1 tablet twice a day by oral route. 2023 active Not Available Not Available Not Avai lable cefdinir 300 mg capsule 10/05 completed Not Available Not Available Not Available losartan 100 mg tablet Take 1 tablet every day by oral route. active Not Available Not Available No t Available pramipexole 1.5 mg tablet TK ONE T PO QHS 10/05 completed Not Available Not Available Not Available Adult Low Dose Aspirin 81 mg tablet,aide yed release Take 1 tablet every day by oral route. active Not Available Not Available No t Available cyclobenzap rine 5 mg tablet active Not Available Not Available Not Available Klor-Con M20 mEq tablet,exte nded release 10/05 completed Not Available Not Available Not Available Cialis 20 mg tablet 10/05 completed Not Available Not Available Not Available magnesium 01/23 completed Not Available Not Available Not Available cholecalcif gisell (vitamin D3) 01/23 completed Not Available Not Available Not Available metformin 08/10 completed Not Available Not Available Not Available insulin glargine 01/23 completed Not Available Not Available Not Available Novolog FlexPen U-100 Insulin 01/23 completed Not Available Not Available Not Available OneTouch UltraMini kit 08/10 completed Not Available Not Available Not Available Januvia 100 mg tablet TK 1 T PO QD 10/05 completed Not Available Not Available Not Available Lantus Solostar U-100 Insulin 100 unit/mL (3 mL) subcutaneou s pen active Not Available Not Available Not Available Effer-K 10 mEq effervescen t tablet DIS 4 TS IN FLUID D AND DRINK 08/10 completed Not Available Not Available Not Available Bystolic 20 mg tablet 10/05 completed Not Available Not Available Not Available Xarelto 10 mg tablet TK 1 T PO D 08/10 completed Not Available Not Available Not Available Chantix Starting Month Box 0.5 mg (11)-1 mg (42) tablets in dose pack 10/05 completed Not Available Not Available Not Available vitamin E mixed 200 unit tablet Take 1 tablet every day by oral route. 2024 active Not Available Not Available Not Avai labrobert [employer] Delica Lancets 30 gauge 08/10 completed Not Available Not Available Not Available potassium chloride ER 20 mEq tablet,exte nded release 10/05 completed Not Available Not Available Not Available Ozempic 01/23 completed Not Available Not Available Not Available gabapentin ER 900 mg tablet,exte nded release 24 hr Take 1 tablet every day by oral route. active Not Available Not Available No t Available Vitals Date Recorded Body weight Oxygen saturation Oxygen saturation in Arterial blood by Pulse oximetry Heart rate Body mass index (BMI) Body height Systolic blood pressure Diastolic blood pressure Provider Name and Address Organization Details Last Updated DateTime 4 87765.9 5 g 98 % 98 % 68 /min 30.1 kg/m2 180.34 cm 132 mm[Hg] 70 mm[Hg] Tika Gomes CMA [place] [employer] [facility] [employer] 4 08:47:16 Date Recorded Body temperature Heart rate Respiratory rate Provider Name and Address Organization Details Last Updated DateTime 01/02/2024 97.4 [degF] 68 /min 15 /min Pedro Luis Gonzalez MD [address], [place], [address], [place] [employer] [facility] [employer] 01/02/2024 08:58:26 Date Recorded Body height Body mass index (BMI) Body weight Body temperature Heart rate Oxygen saturation Oxygen saturation in Arterial blood by Pulse oximetry Provider Name and Address Organization Details Last Updated DateTime 4 180.34 cm 29.8 kg/m2 03040.7 7 g 97.7 [degF] 73 /min 97 % 97 % Tika Gomes CMA [place] [employer] [facility] [place] 4 08:34:54 Date Recorded Heart rate Respiratory rate Systolic blood pressure Diastolic blood pressure Provider Name and Address Organization Details Last Updated DateTime 01/24/2024 73 /min 14 /min 142 mm[Hg] 78 mm[Hg] Pedro Luis nix MD [address], [place], [address] [place], [place] [employer] [facility] [place] 01/24/2024 08:37:55 Date Recorded Body height Body temperature Heart rate Oxygen saturation Oxygen saturation in Arterial blood by Pulse oximetry Systolic blood pressure Diastolic blood pressure Provider Name and Address Organization Details Last Updated DateTime 4 180.34 cm 98.1 [degF] 72 /min 97 % 97 % 114 mm[Hg] 62 mm[Hg] Tabitha Robertson MA [facility] [place] 4 08:43:43 Date Recorded Body weight Body mass index (BMI) Heart rate Respiratory rate Provider Name and Address Organization Details Last Updated DateTime 04/23/2024 35812.03 g 28.7 kg/m2 72 /min 15 /min Pedro Luis Gonzalez MD [address], [address], [place], [address] [employer] [facility] [place] 04/23/2024 08:55:51 Date Recorded Body height Body mass index (BMI) Body weight Body temperature Heart rate Oxygen saturation Oxygen saturation in Arterial blood by Pulse oximetry Systolic blood pressure Diastolic blood pressure Provider Name and Address Organization Details Last Updated DateTime 180.34 cm 29 kg/m2 55803.2 1 g 98.3 [degF] 72 /min 98 % 98 % 116 mm[Hg] 70 mm[Hg] Tabitha Robertson MA [place] [employer] [facility] [place] 08:38:02 Date Recorded Heart rate Respiratory rate Provider N ginger and Address Organization Details Last Updated DateTime 07/23/2024 72 /min 15 /min Pedro Luis Gonzalez MD [address], [address], [facility] [employer] 07/23/2024 08:58:58 Social History Question Answer Notes LastModified by Organizat ion Details LastModified Time Tobacco Smoking Status Former Smoker Quit 8 months ago Tika Gomes CMA null, [facility] [employer] 01/02/2024 09:01:34 What Is Your Level Of Alcohol Consumption? Occasional Information not available 04/23/2024 What Is Your Level Of Caffeine Consumption? Occasional Information not available 04/23/2024 In The 14 Days Before Symptom Onset, Have You Had Close Contact With A Laboratory-confir med COVID-19 While That Case Was Ill? No Information not available 04/23/2024 In The 14 Days Before Symptom Onset, Have You Had Close Contact With A Person Who Is Under Investigation For COVID-19 While That Person Was Ill? No Information not available 04/23/2024 What Type Of Diet Are You Following? REGULAR Information not available 04/23/2024 Do You Have An Electrostatic Air Filter? No Information not available 04/23/2024 When Did You Quit Smoking? 1-5yearssinjessica strange Information not available 04/23/2024 Do You Have A Humidifier? No Information not available 04/23/2024 Do You Have Moisture Problems In Your Home? No Information not available 04/23/2024 What Was The Date Of Your Most Recent Tobacco Screening? 07/23/2024 Information not available 07/23/2024 Do You Have Any Pets? Yes Information not available 04/23/2024 Do You Use Your Seat Belt Or Car Seat Routinely? Yes Information not available 04/23/2024 Do You Have Smoke And Carbon Monoxide Detectors In Your Home? Yes Information not available 04/23/2024 Are You Passively Exposed To Smoke? No Information no t available 04/23/2024 How Much Tobacco Do You Smoke? No Information not available 04/23/2024 Do You Use Any Illicit Or Recreational Drugs? No Information not available 04/23/2024 Do You Use Sunscreen Routinely? No Information not available 04/23/2024 Have You Recently Traveled Abroad? No Information not available 04/23/2024 Do You Have Any Dietary Restrictions? No Information not available 04/23/2024 Sex: Unknown Functional Status Question Answer Note LastModified by Organization D etails LastModified Time What is your exercise level? None Information not available 04/23/2024 Mental Status None recorded. Family History Relationship Description Onset Age of this Age Resolved Age Notes LastModified by Organization Details LastModified Time Mother Dementia [email or web address] Not available 01/02/2024 08:56:42 Daughter Restless legs Not available 2023 11:41:20 Paternal Aunt Dementia Not avai lable 01/02/2024 11:42:15 Father Malignant tumor of colon Not available 2023 11:42:48 Brother Hypertensive disorder Not available 2023 11:43:05 Medical History No medical history recorded. Past Encounters Encounter ID Performer Location Encounter Start Date Encounter Closed Date Diagnosis/Indication Diagnosis SNOMED-CT Code Diagnosis ICD10 Code Diagnosis Note [id number] Pedro Luis Gonzalez MD [facility] [address] [address] 01/02/2024 08:23:19 01/03/2024 08:07:34 Periodic limb movement disorder 720283124 G47.61 D50.8 E83.42 Obstructiv e sleep apnea syndrome 48754482 G47.33 [id number] [facility] [place] [address] 01/24/2024 08:20:38 02/01/2024 14:28:05 Obstructive sleep apnea syndrome 26484498 G47.33 Vitamin E deficiency 541 50910 E56.0 Iron deficiency 88207607 E61.1 [id number] Pedro Luis Gonzalez MD [facility] [place] [id number] 04/23/2024 08:16:14 04/23/2024 16:52:42 Obstructive sleep apnea syndrome 07911741 G47.33 Vitamin E deficiency 541 85797 E56.0 Iron deficiency 50738370 E61.1 [id number] Pedro Luis Gonzalez MD [facility] [place] [id number] 07/23/2024 08:17:21 07/27/2024 09:52:18 Obstructive sleep apnea syndrome 60664613 G47.33 Vitamin E deficiency 541 26010 E56.0 Iron deficiency 17488402 E61.1 Health Concerns Section Related Observation LastModified by Organization Detai ls LastModified Time None Recorded Concern Status LastModified by Organization Details LastModified Time None Recorded Advance Directives Directive None Recorded Payers Encounter Date Sequence Insurance Name Policy Number Policy Hale Covered Member ID Hale Member ID Guarantor Name 01/02/2024 [facility] Kashmir Wolfe [id number] Kashmir Wolfe 01/24/2024 [facility] Kashmir Wolfe [id number] Kashmir Wolfe 04/23/2024 [facility] Kashmir Wolfe [id number] Kashmir Wolfe 07/23/2024 [facility] Kashmir Wolfe [id number] Kashmir Wolfe Notes Date Note Type Note Provider Name and Address Organization Details Recorded Time 01/02/2024 text/html Primary care/Ref erring provider: Silverio Cota MD; Ana Laura Combs MD During the [facility] diagnostic sleep study on 08/09/22, sleep onset = 8 minutes, REM onset = none, AHI = 68, supine AHI = 79, PLMI = 99. During the [facility] titration sleep study on 10/08/22, sleep onset = 14 minutes, REM onset = 249 minutes, Respironics large Comfort Gel nasal mask @ 9 cmH2O, PLMI = 202. At home since 2022, the patient uses a Respironics Dream Station 2 Auto A-flex unit with heated humidification. The patient does not need the ramp to start low and go up slowly on the pressure anymore. There is no xerostomia in a.m. There is no hose/mask condensation with water.The patient wears a ResMed medium AirFit F20 full face mask without chin strap. There is no claustrophobia, no nostril/nose bridge irritation, no facial rash, no facial numbness, no nosebleeding. The patient feels more refreshed upon waking and daytime alertness is improved. Energy levels are sustained for the remainder of the day. At home, the patient sleeps from 11 pm to 7 am and wakes up without an alarm. Snoring: heavy, since .Snorting: noChoking: noCoughing: noGasping: noGagging: noSighing: noWitnessed apnea: yesTwitching or jerking of leg(s), arm(s), body, head: yesTeeth grinding: noTeeth clenching: noSleeptalking: noSleepwalking: noSleep crying: noBedwetting: noTongue/lip/gum/cheek biting: noSleeping with open mouth: yesSleep paralysis: noHypnagogic hallucinations: noHypnopompic hallucinations: noVivid dreams: noDifficulty with sleep onset: yesDifficulty with sleep maintenance: yesSleep interruptions: for no known reasonsPatient wakes up with: fatigueDaytime cataplexy: noMorning hypersomnolence: yesAfternoon hypersomnolence: yesCaffeine sources in diet: coffee 1 cup per day, tea 1 cup per week, soda 1/2 can per week, chocolate 1 candy bar per season Associated medical and psychiatric conditions:Congestive heart failure: noCoronary artery disease: yesMyocardial infarction: noHypertension: yesTIA: noBronchial asthma: noChronic obstructive pulmonary disease: noDepression: noBipolar disorder: noAnxiety: noPanic disorder: noPosttraumatic stress disorder: noAttention deficit and hyperactivity disorder: noObsessive Compulsive disorder: noSchizophrenia: noSchizoaffective disorder: noPersonality disorder: noChronic analgesic use: yes hydrocodoneChronic sedative/hypnotic use: no EPWORTH SLEEPINESS SCALE (ESS) CHANCE OF DOZING SCORE0 = would never doze1 = slight chance of dozing2 = moderate chance of dozing3 = high chance of dozing SITUATION AND CHANCE OF DOZINGSitting and reading - 0Watching television - 0Sitting inactive in a public place (e.g. a theater or meeting) - 0As a passenger in a car for an hour without a break - 0Lying down to rest in the afternoon when circumstances permit - 0Sitting and talking to someone - 0Sitting quietly after lunch without alcohol - 0In a car, while stopped for a few minutes in the traffic - 0TOTAL SCORE 0Subjectively, patient has no chance of dozing. Pedro Luis Gonzalez MD [address] [place] [address], [address], [place] [facility] 01/02/2024 11:47:18 01/24/2024 text/html Primary care/Ref erring provider: Silverio Cota MD; Ana Laura Combs MD During the [facility] diagnostic sleep study on 08/09/22, sleep onset = 8 minutes, REM onset = none, AHI = 68, supine AHI = 79, PLMI = 99. During the [facility] titration sleep study on 10/08/22, sleep onset = 14 minutes, REM onset = 249 minutes, Respironics large Comfort Gel nasal mask @ 9 cmH2O, PLMI = 202. At home since 2022, the patient uses a Respironics Dream Station 2 Auto A-flex unit with heated humidification. The patient does not need the ramp to start low and go up slowly on the pressure anymore. There is no xerostomia in a.m. There is no hose/mask condensation with water.The patient wears a ResMed medium AirFit F20 full face mask without chin strap. There is no claustrophobia, no nostril/nose bridge irritation, no facial rash, no facial numbness, no nosebleeding. The patient feels more refreshed upon waking and daytime alertness is improved. Energy levels are sustained for the remainder of the day. At home, the patient sleeps from 11 pm to 7 am and wakes up without an alarm. Snoring: heavy, since .Snorting: noChoking: noCoughing: noGasping: noGagging: noSighing: noWitnessed apnea: yesTwitching or jerking of leg(s), arm(s), body, head: yesTeeth grinding: noTeeth clenching: noSleeptalking: noSleepwalking: noSleep crying: noBedwetting: noTongue/lip/gum/cheek biting: noSleeping with open mouth: yesSleep paralysis: noHypnagogic hallucinations: noHypnopompic hallucinations: noVivid dreams: noDifficulty with sleep onset: yesDifficulty with sleep maintenance: yesSleep interruptions: for no known reasonsPatient wakes up with: fatigueDaytime cataplexy: noMorning hypersomnolence: yesAfternoon hypersomnolence: yesCaffeine sources in diet: coffee 1 cup per day, tea 1 cup per week, soda 1/2 can per week, chocolate 1 candy bar per season Associated medical and psychiatric conditions:Congestive heart failure: noCoronary artery disease: yesMyocardial infarction: noHypertension: yesTIA: noBronchial asthma: noChronic obstructive pulmonary disease: noDepression: noBipolar disorder: noAnxiety: noPanic disorder: noPosttraumatic stress disorder: noAttention deficit and hyperactivity disorder: noObsessive Compulsive disorder: noSchizophrenia: noSchizoaffective disorder: noPersonality disorder: noChronic analgesic use: yes hydrocodoneChronic sedative/hypnotic use: no EPWORTH SLEEPINESS SCALE (ESS) CHANCE OF DOZING SCORE0 = would never doze1 = slight chance of dozing2 = moderate chance of dozing3 = high chance of dozing SITUATION AND CHANCE OF DOZINGSitting and reading - 0Watching television - 0Sitting inactive in a public place (e.g. a theater or meeting) - 0As a passenger in a car for an hour without a break - 0Lying down to rest in the afternoon when circumstances permit - 0Sitting and talking to someone - 0Sitting quietly after lunch without alcohol - 0In a car, while stopped for a few minutes in the traffic - 0TOTAL SCORE 0Subjectively, patient has no chance of dozing. Pedro Luis Gonzalez MD [address] [place] [address], [address], [address], [facility] 01/24/2024 09:02:35 04/23/2024 text/html Primary care/Ref erring provider: Silverio Cota MD; Ana Laura Combs MD During the [facility] diagnostic sleep study on 08/09/22, sleep onset = 8 minutes, REM onset = none, AHI = 68, supine AHI = 79, PLMI = 99. During the [facility] titration sleep study on 10/08/22, sleep onset = 14 minutes, REM onset = 249 minutes, Respironics large Comfort Gel nasal mask @ 9 cmH2O, PLMI = 202. At home since 02/03/24, the patient uses a Respironics Dream Station 2 Auto A-flex unit with heated humidification. The patient does not need the ramp to start low and go up slowly on the pressure anymore. There is no xerostomia in a.m. There is no hose/mask condensation with water.The patient wears a ResMed medium AirFit F20 full face mask without chin strap. There is no claustrophobia, no nostril/nose bridge irritation, no facial rash, no facial numbness, no nosebleeding. The patient feels more refreshed upon waking and daytime alertness is improved. Energy levels are sustained for the remainder of the day. At home, the patient sleeps from 11 pm to 7 am and wakes up without an alarm. Snoring: heavy, since .Snorting: noChoking: noCoughing: noGasping: noGagging: noSighing: noWitnessed apnea: yesTwitching or jerking of leg(s), arm(s), body, head: yesTeeth grinding: noTeeth clenching: noSleeptalking: noSleepwalking: noSleep crying: noBedwetting: noTongue/lip/gum/cheek biting: noSleeping with open mouth: yesSleep paralysis: noHypnagogic hallucinations: noHypnopompic hallucinations: noVivid dreams: noDifficulty with sleep onset: yesDifficulty with sleep maintenance: yesSleep interruptions: for no known reasonsPatient wakes up with: fatigueDaytime cataplexy: noMorning hypersomnolence: yesAfternoon hypersomnolence: yesCaffeine sources in diet: coffee 1 cup per day, tea 1 cup per week, soda 1/2 can per week, chocolate 1 candy bar per season Associated medical and psychiatric conditions:Congestive heart failure: noCoronary artery disease: yesMyocardial infarction: noHypertension: yesTIA: noBronchial asthma: noChronic obstructive pulmonary disease: noDepression: noBipolar disorder: noAnxiety: noPanic disorder: noPosttraumatic stress disorder: noAttention deficit and hyperactivity disorder: noObsessive Compulsive disorder: noSchizophrenia: noSchizoaffective disorder: noPersonality disorder: noChronic analgesic use: yes hydrocodoneChronic sedative/hypnotic use: no EPWORTH SLEEPINESS SCALE (ESS) CHANCE OF DOZING SCORE0 = would never doze1 = slight chance of dozing2 = moderate chance of dozing3 = high chance of dozing SITUATION AND CHANCE OF DOZINGSitting and reading - 0Watching television - 0Sitting inactive in a public place (e.g. a theater or meeting) - 0As a passenger in a car for an hour without a break - 0Lying down to rest in the afternoon when circumstances permit - 0Sitting and talking to someone - 0Sitting quietly after lunch without alcohol - 0In a car, while stopped for a few minutes in the traffic - 0TOTAL SCORE 0Subjectively, patient has no chance of dozing. Pedro Luis Gonzalez MD [address] [place], [place] [address], [facility] [address], [place], [address], [place] - [facility] 05/02/2024 09:52:05 07/23/2024 text/html Primary care/Ref erring provider: Silverio Cota MD; Ana Laura Combs MD CC: I think my CPAP needs to be higher. During the [facility] diagnostic sleep study on 08/09/22, sleep onset = 8 minutes, REM onset = none, AHI = 68, supine AHI = 79, PLMI = 99. During the [facility] titration sleep study on 10/08/22, sleep onset = 14 minutes, REM onset = 249 minutes, Respironics large Comfort Gel nasal mask @ 9 cmH2O, PLMI = 202. At home since 04/23/24, the patient uses a Respironics Dream Station 2 Auto A-flex unit with heated humidification. The patient does not need the ramp to start low and go up slowly on the pressure anymore. There is no xerostomia in a.m. There is no hose/mask condensation with water.The patient wears a ResMed medium AirFit F20 full face mask without chin strap. There is no claustrophobia, no nostril/nose bridge irritation, no facial rash, no facial numbness, no nosebleeding. The patient feels more refreshed upon waking and daytime alertness is improved. Energy levels are sustained for the remainder of the day. At home, the patient sleeps from 11 pm to 7 am and wakes up without an alarm. Snoring: heavy, since .Snorting: noChoking: noCoughing: noGasping: noGagging: noSighing: noWitnessed apnea: yesTwitching or jerking of leg(s), arm(s), body, head: yesTeeth grinding: noTeeth clenching: noSleeptalking: noSleepwalking: noSleep crying: noBedwetting: noTongue/lip/gum/cheek biting: noSleeping with open mouth: yesSleep paralysis: noHypnagogic hallucinations: noHypnopompic hallucinations: noVivid dreams: noDifficulty with sleep onset: yesDifficulty with sleep maintenance: yesSleep interruptions: for no known reasonsPatient wakes up with: fatigueDaytime cataplexy: noMorning hypersomnolence: yesAfternoon hypersomnolence: yesCaffeine sources in diet: coffee 1 cup per day, tea 1 cup per week, soda 1/2 can per week, chocolate 1 candy bar per season Associated medical and psychiatric conditions:Congestive heart failure: noCoronary artery disease: yesMyocardial infarction: noHypertension: yesTIA: noBronchial asthma: noChronic obstructive pulmonary disease: noDepression: noBipolar disorder: noAnxiety: noPanic disorder: noPosttraumatic stress disorder: noAttention deficit and hyperactivity disorder: noObsessive Compulsive disorder: noSchizophrenia: noSchizoaffective disorder: noPersonality disorder: noChronic analgesic use: yes hydrocodoneChronic sedative/hypnotic use: no EPWORTH SLEEPINESS SCALE (ESS) CHANCE OF DOZING SCORE0 = would never doze1 = slight chance of dozing2 = moderate chance of dozing3 = high chance of dozing SITUATION AND CHANCE OF DOZINGSitting and reading - 0Watching television - 0Sitting inactive in a public place (e.g. a theater or meeting) - 0As a passenger in a car for an hour without a break - 0Lying down to rest in the afternoon when circumstances permit - 0Sitting and talking to someone - 0Sitting quietly after lunch without alcohol - 0In a car, while stopped for a few minutes in the traffic - 0TOTAL SCORE 0Subjectively, patient has no chance of dozing. Pedro Luis Gonzalez MD [address] [place] [address], [facility] [address], [place], [address], [facility] 07/26/2024 13:49:35
[2024-08-14 06:41] VITALS: BP 120/69; PULSE 70; RESP 18; TEMP 36.1; O2SAT 97; BMI 28.0
[2024-08-14] MEDS: LACTATED RINGERS 1,000 ML 150 ML IV CONT (06:56)
--- NOTE | 2024-08-14 07:09 | P.PNAN_ITS ---
Anes - Initial Pre Proc Eval Procedure: Operation Date: 08/14/24 07:45 Proposed Procedures p Colonoscopy - Rubin Winston MD Date/Time: 08/14/24 07:09 Surgeon: Rubin Winston MD Pre Op Diagnosis: Personal hx of colon polyps Patient Data Age: 74 Gender: M Height: 1.8 m Weight: 91.2 kg Last Vital Signs Temp 36.1 C L 08/14/24 06:41 Pulse 70 08/14/24 06:41 Resp 18 08/14/24 06:41 BP 120/69 08/14/24 06:41 Pulse Ox 97 08/14/24 06:41 O2 Del Method Room Air 08/14/24 06:41 Allergies Allergy/AdvReac Type Severity Reaction Status Date / Time No Known Allergies Allergy Verified 08/14/24 06:39 Home Medications ?Medication ?Instructions ?Recorded ?Confirmed ?Type furosemide 40 mg tablet (Lasix) 60 mg PO QAM 10/17/19 08/14/24 History gabapentin 300 mg capsule 600 mg PO BID 10/17/19 08/14/24 History aspirin 81 mg tablet,delayed 81 mg PO DAILY 11/15/19 08/14/24 History release losartan 100 mg tablet 100 mg PO DAILY 11/15/19 08/14/24 History rosuvastatin 40 mg tablet 40 mg PO DAILY 11/15/19 08/14/24 History semaglutide 1 mg/dose (2 mg/1.5 1 mg subcut WEEKLY 07/12/20 08/14/24 History mL) subcutaneous pen injector (Ozempic) cholecalciferol (vitamin D3) 25 50 mcg PO DAILY 07/13/20 08/14/24 History mcg (1,000 unit) capsule BD Glucose 4 g PO PRN PRN Hypoglycemia 03/13/21 07/31/24 History carvedilol 25 mg tablet 25 mg PO BID 03/13/21 08/14/24 History insulin glargine 100 unit/mL 10 unit subcut DAILY 03/13/21 08/14/24 History subcutaneous cartridge spironolactone 25 mg tablet 25 mg PO DAILY 03/13/21 07/31/24 History hydralazine 100 mg tablet 25 mg PO TID 02/16/22 08/14/24 History amlodipine 10 mg tablet (Norvasc) 10 mg PO DAILY 07/31/24 08/14/24 History ascorbic acid (vitamin C) 500 mg 500 mg PO DAILY 07/31/24 08/14/24 History capsule atorvastatin 40 mg tablet (Lipitor) 40 mg PO DAILY 07/31/24 08/14/24 History clonazepam 0.5 mg tablet 0.5 mg PO HS 07/31/24 08/14/24 History clopidogrel 75 mg tablet 75 mg PO DAILY 07/31/24 08/14/24 History cyclobenzaprine 5 mg tablet 5 mg PO BID 07/31/24 08/14/24 History ferrous sulfate 325 mg (65 mg 325 mg PO DAILY 07/31/24 08/14/24 History iron) tablet (Feosol) ropinirole 2 mg tablet 2 mg PO HS 07/31/24 08/14/24 History Patient hx anesthesia problems: none Family hx anesthesia problems: none Results Review: All pre-operative results and documents have been reviewed as part of the pre- operative evaluation. [facility] Past Medical History Medical History BMI 32.0-32.9,adult BMI 34.0-34.9,adult History of anesthesia reaction BMI (body mass index) 20.0-29.9 Depression Kidney stones Peripheral artery disease CHF (congestive heart failure) Dementia Adenomatous colon polyp CAD (coronary artery disease) Stent x 5 Carotid stenosis PVD (peripheral vascular disease) YOLIS on CPAP Arthritis of left subtalar joint HLD (hyperlipidemia) HTN (hypertension) Diabetes Surgical History Surgical History History of bilateral cataract extraction History of total right knee replacement Complicated by MRSA infection with subsequent surgical debridements with loss of knee cap History of stent insertion of renal artery History of appendectomy H/O colonoscopy H/O carotid endarterectomy 2007 History of coronary artery stent placement H/O shoulder surgery Left shoulder Family History Family History Father Hypertension Diabetes mellitus Coronary artery disease Cancer Mother Dementia Sibling No problems noted. Social History Social History Social History: The patient's reports that the patient has continued to smoke. The patient himself states that he quit smoking 12 weeks ago but again he is a poor historian. The patient has 2 sons and 1 stepdaughter. Primary care physician: Dr. Marcello Jung Code status: Full code Surrogate decision maker: Smoking packs per day: 1 Smoking cigarettes per day: 20.0 Years smoked: 37 Smoking pack-years: 37.00 Smoking status: Former smoker Tobacco type: cigarettes Second hand tobacco smoke exposure: No Smoking end date: 05/23/15 Additional smoking assessment comments: DOWN TO 5 CIG. 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 Informed Consent: The patient's anesthetic plan and its attendant risks and benefits were discussed with the patient/family/POA. Questions were solicited and answers provided to the satisfaction of the patient/family/POA.
--- NOTE | 2024-08-14 07:42 | P.HP_ITS ---
History of Present Illness History of Present Illness Consent: Risks, benefits, and alternatives have been discussed and questions answered. Patient agrees to proceed with procedure. Chief complaint: Personal hx of colon polyps Narrative: Kashmir Wolfe is a 74 year old male with colon polyp in 2020 Review of Systems Review of Systems: All systems reviewed & are unremarkable except as noted in HPI and below PMFSH Past Medical History Medical History BMI 32.0-32.9,adult BMI 34.0-34.9,adult History of anesthesia reaction BMI (body mass index) 20.0-29.9 Depression Kidney stones Peripheral artery disease CHF (congestive heart failure) Dementia Adenomatous colon polyp CAD (coronary artery disease) Stent x 5 Carotid stenosis PVD (peripheral vascular disease) YOLIS on CPAP Arthritis of left subtalar joint HLD (hyperlipidemia) HTN (hypertension) Diabetes Surgical History Surgical History History of bilateral cataract extraction History of total right knee replacement Complicated by MRSA infection with subsequent surgical debridements with loss of knee cap History of stent insertion of renal artery History of appendectomy H/O colonoscopy H/O carotid endarterectomy 2007 History of coronary artery stent placement H/O shoulder surgery Left shoulder Family History Family History Father Hypertension Diabetes mellitus Coronary artery disease Cancer Mother Dementia Sibling No problems noted. Social History Social History Social History: The patient's reports that the patient has continued to smoke. The patient himself states that he quit smoking 12 weeks ago but again he is a poor historian. The patient has 2 sons and 1 stepdaughter. Primary care physician: Dr. Marcello Jung Code status: Full code Surrogate decision maker: Smoking packs per day: 1 Smoking cigarettes per day: 20.0 Years smoked: 37 Smoking pack-years: 37.00 Smoking status: Former smoker Tobacco type: cigarettes Second hand tobacco smoke exposure: No Smoking end date: 05/23/15 Additional smoking assessment comments: DOWN TO 5 CIG. 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 [employer] Gender identity (if verbalized by the patient): Male Spiritual care concerns: No Meds Home Medications and Allergies Home Medications ?Medication ?Instructions ?Recorded ?Confirmed ?Type furosemide 40 mg tablet (Lasix) 60 mg PO QAM 10/17/19 08/14/24 History gabapentin 300 mg capsule 600 mg PO BID 10/17/19 08/14/24 History aspirin 81 mg tablet,delayed 81 mg PO DAILY 11/15/19 08/14/24 History release losartan 100 mg tablet 100 mg PO DAILY 11/15/19 08/14/24 History rosuvastatin 40 mg tablet 40 mg PO DAILY 11/15/19 08/14/24 History semaglutide 1 mg/dose (2 mg/1.5 1 mg subcut WEEKLY 07/12/20 08/14/24 History mL) subcutaneous pen injector ([employer]) cholecalciferol (vitamin D3) 25 50 mcg PO DAILY 07/13/20 08/14/24 History mcg (1,000 unit) capsule BD Glucose 4 g PO PRN PRN Hypoglycemia 03/13/21 07/31/24 History carvedilol 25 mg tablet 25 mg PO BID 03/13/21 08/14/24 History insulin glargine 100 unit/mL 10 unit subcut DAILY 03/13/21 08/14/24 History subcutaneous cartridge spironolactone 25 mg tablet 25 mg PO DAILY 03/13/21 07/31/24 History hydralazine 100 mg tablet 25 mg PO TID 02/16/22 08/14/24 History amlodipine 10 mg tablet (Norvasc) 10 mg PO DAILY 07/31/24 08/14/24 History ascorbic acid (vitamin C) 500 mg 500 mg PO DAILY 07/31/24 08/14/24 History capsule atorvastatin 40 mg tablet (Lipitor) 40 mg PO DAILY 07/31/24 08/14/24 History clonazepam 0.5 mg tablet 0.5 mg PO HS 07/31/24 08/14/24 History clopidogrel 75 mg tablet 75 mg PO DAILY 07/31/24 08/14/24 History cyclobenzaprine 5 mg tablet 5 mg PO BID 07/31/24 08/14/24 History ferrous sulfate 325 mg (65 mg 325 mg PO DAILY 07/31/24 08/14/24 History iron) tablet (Feosol) ropinirole 2 mg tablet 2 mg PO HS 07/31/24 08/14/24 History Allergies Allergy/AdvReac Type Severity Reaction Status Date / Time No Known Allergies Allergy Verified 08/14/24 06:39 Vital Signs Vital Signs - 24 hr 08/14/24 06:41 Temperature 97 F L Pulse Rate 70 Respiratory Rate 18 Blood Pressure 120/69 Pulse Oximetry 97 Oxygen Delivery Room Air Exam Const: General: comfortable and no acute distress HENMT: Face/Nose/Sinus: Normal nares present Eyes: General: appearance normal, both eyes and all related structures Neck: Neck: no JVD Resp: Auscultation: clear to auscultation bilaterally Cardio: Rate: regular rate Rhythm: regular rhythm GI: Inspection: non-distended GI Palp: Yes Soft to palpation Skin: General skin exam: normal color Neuro: Speech: normal speech Extrem: General: normal to inspection Psych: Mental Status: mental status grossly normal Assessment and Plan Assessment and plan (1) History of colon polyps: Code(s): Z86.010 - Personal history of colon polyps Status: Acute Assessment and Plan: colonoscopy
--- NOTE | 2024-08-14 07:45 | SUR.PREOP ---
Patient glucose per dexcom is 139 at time of pre op check in.
[2024-08-14 08:02] VITALS: BP 135/75; PULSE 67; RESP 16; O2SAT 92
[2024-08-14 08:07] LABS: Glucose Point of Care 137 mg/dl (65-105)
[2024-08-14 08:12] VITALS: BP 115/63; PULSE 65; RESP 15; O2SAT 96
[2024-08-14 08:22] VITALS: BP 128/71; PULSE 67; RESP 17; O2SAT 100
== END 2024-08-14 08:42 | disposition home or self-care (01) ==
PROVIDERS: Referring Provider Internal Medicine Gastroenterology; Visit Provider Internal Medicine Gastroenterology
PROC: 0DJD8ZZ Inspection of Lower Intestinal Tract, Via Natural or Artificial Opening Endoscopic (ICD-10-PCS; CPT 45378; principal; 2024-08-14 07:45)
DX: Z12.11 Encounter for screening for malignant neoplasm of colon (principal); K63.5 Polyp of colon; K57.30 Diverticulosis of large intestine without perforation or abscess without bleeding; E11.9 Type 2 diabetes mellitus without complications; F17.210 Nicotine dependence, cigarettes, uncomplicated
CPT/HCPCS: 45380; 82948; 88305; J2003; J2704; J7120